=== PATIENT | male | born 1975 | race Caucasian/White ===

== ENCOUNTER 2019-08-26 17:02 | Inpatient (IN) | payer OTHER, SELFPAY ==
[2019-08-26 17:03] VITALS: BP 119/73; PULSE 102; RESP 16; TEMP 37.9; BMI 31.1
--- NOTE | 2019-08-26 17:12 | ED.DCSUM_ITS ---
History of Present Illness Chief Complaint: Wound Informant: Patient Onset: Weeks Context: Gradual Onset Timing: Continuous Current Severity: Moderate Maximum Severity: Moderate Narrative: Patient is a 44-year-old male medical history significant for type 2 diabetes who does not take any medication that presents to the emergency department with right great toe infection. The patient states that he noticed a nonhealing wound on his toe about 2 months ago. He states over the past 3 weeks, the toe itself is gotten more painful, red, and swollen. For the past week, he has begun to have chills, fever, and sweats. He denies any cough. He states by the end of the day, his pain is rather significant, but if he elevates the toe, the swelling does reduce. He went to urgent care today and was referred here. Prior similar symptoms: No Recent Illness/Hospitalization: No Past Medical History - Allergies and Home Meds Allergies/Adverse Reactions: Allergies No Known Allergies Allergy (Verified 08/26/19 17:06) Primary Care Physician: Say Prather DO [Primary Care Provider] - Prior records reviewed: Yes Past Medical History: - - Type 2 diabetes Surgical History: noncontributory - Family History Maternal Family History: Reports: No pertinent history Paternal Family History: Reports: No pertinent history Review of Systems General: Reports: Chills, Fever. Denies: Sweats Eyes: Denies: Visual changes - bilaterally, Diplopia ENT: Denies: Rhinorrhea, Sore throat Cardiovascular: Denies: Chest pain, Palpitations Respiratory: Denies: Dyspnea, Cough, Dyspnea on exertion Gastrointestinal: Denies: Abdominal pain, Nausea, Vomiting, Diarrhea, Melena, Hematochezia Genitourinary: Denies: Dysuria, Hematuria, Frequency Musculoskeletal: Denies: Back pain, Extremity Pain Skin: Denies: Rash, Wounds Neurological: Denies: Headache, Weakness, Numbness Physical Exam Vital Signs/Narrative: Vital Signs Temp Pulse Resp BP 08/26/19 17:03 100.3 F H 102 H 16 119/73 Inital Vital Signs reviewed: Yes General: Well nourished, Well developed, No Acute Distress Head: Normocephalic, Atraumatic Eyes: Perrl, EOMI ENT: Moist mucous membranes, No rhinorrhea Neck: Supple, Nontender Cardiovascular: Regular rate, Regular rhythm, No murmurs Respiratory: No distress, CTA bilaterally, Chest nontender Abdomen: Soft, Nontender, Nondistended, Normal bowel sounds Back: Nontender, Normal Inspection Extremities: Tenderness - Patient has a 1.5 cm ulceration on the plantar aspect of the foot. The right first toe is cellulitic with circumferential edema. He has normal pulses., Edema Skin: Normal color, No rash Neurological: Alert, Oriented x3, Cranial nerves II-XII grossly intact, Normal Strength, Normal Sensation Psychological: Normal affect, Normal Mood Diagnostic/Tx/Re-eval Clinical Impression(s) from Imaging Studies Foot X-Ray 08/26/19 17:20 IMPRESSION: Erosions in the distal aspect of the proximal phalanx of the first toe with overlying soft tissue swelling. Associated intra-articular fracture. In the absence of trauma, these findings are suspicious for osteomyelitis with an associated pathologic fracture. Electronically Signed: Maury Mccray, at 17:51 EDT Tel , Service support , Abnormal Lab Results 08/26/19 08/26/19 08/26/19 17:30 17:30 17:30 WBC 5.3 RBC 4.61 Hgb 12.6 L Hct 38.1 L MCV 82.6 MCH 27.3 MCHC 33.1 RDW Std Deviation 37.2 RDW Coeff of Kristal 12.4 Plt Count 245 MPV 9.4 Immature Gran % (Auto) 0.400 Neut % (Auto) 68.7 Lymph % (Auto) 18.4 L [place] % (Auto) 11.2 H Eos % (Auto) 1.1 Baso % (Auto) 0.2 Absolute Neuts (auto) 3.7 Absolute Lymphs (auto) 0.98 Nucleated RBC % 0 ESR 43 H PT 13.3 INR 1.1 APTT 28.1 Sodium 134 L Potassium 4.0 Chloride 100 Carbon Dioxide 27.0 Anion Gap 7 BUN 9 Creatinine 0.82 Estim Creat Clear Calc 138.20 Est GFR (MDRD) Af Amer 130 Est GFR (MDRD) Non-Af 107 BUN/Creatinine Ratio 11.0 Glucose 325 H Lactic Acid Calcium 8.8 Total Bilirubin 0.60 AST 16 ALT 52 Alkaline Phosphatase 67 C-React Prot Ext Range 125.00 H Total Protein 7.4 Albumin 3.2 Globulin 4.2 Albumin/Globulin Ratio 0.8 L 08/26/19 17:30 WBC RBC Hgb Hct MCV MCH MCHC RDW Std Deviation RDW Coeff of Kristal Plt Count MPV Immature Gran % (Auto) Neut % (Auto) Lymph % (Auto) [place] % (Auto) Eos % (Auto) Baso % (Auto) Absolute Neuts (auto) Absolute Lymphs (auto) Nucleated RBC % ESR PT INR APTT Sodium Potassium Chloride Carbon Dioxide Anion Gap BUN Creatinine Estim Creat Clear Calc Est GFR (MDRD) Af Amer Est GFR (MDRD) Non-Af BUN/Creatinine Ratio Glucose Lactic Acid 1.0 Calcium Total Bilirubin AST ALT Alkaline Phosphatase C-React Prot Ext Range Total Protein Albumin Globulin Albumin/Globulin Ratio - Medical Decision Making Patient presents with circumferential toe edema with a nonhealing wound. I was concerned for osteomyelitis. He did have low-grade fever here in triage. Metabolic work-up was pursued along with sepsis work-up. Screening labs are relatively unremarkable except for hyperglycemia. There is a normal anion gap. Lactic acid was negative. X-rays do confirm changes consistent with osteomyelitis of the right first toe. The patient was started on broad-spectrum antibiotics. I did discuss his case with both podiatry and the hospitalist and he will be admitted at this time. Impression 1. Osteomyelitis right first toe ED Disposition - Plan for ED Patient: Referrals: Say Prather DO [Primary Care Provider] -
--- NOTE | 2019-08-26 17:20 | RAD_ITS ---
STUDY: X-RAY - RIGHT FOOT CLINICAL: Male, 44 years old. First toe infection TECHNIQUE: 3 view(s) of the foot. COMPARISON: None. FINDINGS: There are erosions in the proximal phalanx of the left first toe with overlying soft tissue swelling. There is an associated intra-articular fracture. The remainder of the visualized osseous structures are intact. There are no radiodense foreign bodies. RAD/Foot min 3 Views IMPRESSION: Erosions in the distal aspect of the proximal phalanx of the first toe with overlying soft tissue swelling. Associated intra-articular fracture. In the absence of trauma, these findings are suspicious for osteomyelitis with an associated pathologic fracture. Electronically Signed: Maury Mccray, at 17:51 EDT Tel , Service support ,
[2019-08-26] MEDS: Acetaminophen 500 MG Tablet 1000 MG PO (17:37)
[2019-08-26] MEDS: Morphine 4 MG/ML Syringe IV (17:37)
[2019-08-26] MEDS: 0.9% Normal Saline 1,000 ML 1000 ML IV (17:39)
[2019-08-26 17:46] LABS: Absolute Lymphocyte Count 0.98 X10^3/uL (0.83-4.51); Absolute Neutrophil Count 3.7 X10^3/uL (2.0-7.7); Basophil# 0.01 X10^3/uL; Basophil% 0.2 % (0-1); Eosinophil# 0.06 X10^3/uL; Eosinophils% 1.1 % (0-5); Hematocrit 38.1 % (40-54); Hemoglobin 12.6 g/dL (13.0-16.5); Lymphocyte # 0.98 X10^3/ul (4.0); Lymphocyte % 18.4 % (19-41); Mean Corp Hgb Conc 33.1 g/dL (32-36); Mean Corpuscular Hgb 27.3 pg (27.0-32.0); Mean Corpuscular Volume 82.6 fL (80-94); Mean Platelet Vol. 9.4 fl (6.2-12.0); Monocyte% 11.2 % (0-10); NRBC Flagged by Analyzer 0 % (0-5); Neutrophil # 3.67 X10^3/uL (2.7-7.7); Neutrophil % 68.7 % (47-70); Platelet Count 245 K/mm3 (150-450); RBC Distribution Width CV 12.4 % (11.6-14.6); RBC Distribution Width SD 37.2 fl (35.1-43.9); Red Blood Count 4.61 M/mm3 (4.6-6.2); White Blood Count 5.3 K/mm3 (4.4-11.0)
[2019-08-26 17:49] LABS: International Normalized Ratio 1.1; Partial Thromboplast Time 28.1 Seconds (24.1-36.2); Prothrombin Time (Protime)PT. 13.3 SECONDS (11.7-14.9)
--- NOTE | 2019-08-26 17:57 | HP.PCM_ITS ---
History of Present Illness Date of Admission: 08/26/19 Chief Complaint: swollen, painful right big toe The patient is a 44 year old M with past medical history of type 2 diabetes mellitus, noncompliant with his medication. He was admitted through the ED on 08/26/2019 with a complaint of swollen right big toe for about 2 months now. To had gradually gotten swollen was very painful. He had noticed about 2 months ago that he had an ulcer in the base of the right big toe which he thought was due to a bone spur. He did not seek any care for this and ulcer gradually enlarged as well as the 2 enlargement. The lower portion of his left leg also became swollen. Pain became unbearable so he decided to come into the ED today. He denied any fever or chills nausea or vomiting, abdominal pain or diarrhea. Review of stems otherwise negative. He does remember the last time he took his diabetes medications and states he stopped taking it when he lost his insurance at his previous job and just never bothered to go back on it. In the ED, vitals were significant for temperature 100.3, pulse rate of 102 respiratory of 16 blood pressure of 119/73. Chemistry showed sodium of 134 and glucose was 325 with CRP of 125. CBC showed WBC of 5.3 and hemoglobin of 12.6. Platelets were 245. X-ray of the right foot showed erosions in the distal aspect of the proximal phalanx of the first toe with overlying soft tissue swelling and associated intra-articular fracture with findings suspicious for osteomyelitis with associated pathologic fracture. He has been admitted to be managed for right big toe osteomyelitis and poorly controlled diabetes mellitus. [] Past Medical History Allergies No Known Allergies Allergy (Verified 08/26/19 17:06) Home Medications: Ambulatory Orders Medication Instructions Recorded NK 08/26/19 Surgical History: noncontributory Psychiatric History: No pertinent psych hx Lives: Alone Smoking Status: Current every day smoker Tobacco Use: Chew Alcohol: None Drugs: None - *Family History Maternal History Items: No pertinent history Paternal History Items: No pertinent history Review of Systems Constitutional: Denies: Chills, Fever, Malaise, Weight Change HEENT: Denies: Head Aches, Sinus Congestion, Sinus Drainage Cardiovascular: Denies: Chest Pain, Palpitations Respiratory: Denies: Cough, Shortness of Breath, Shortness of breath at rest, Shortness of breath upon exertion, Sputum production Gastrointestinal: Denies: Abdominal Pain, Nausea, Vomiting Genitourinary: Denies: Dysuria Musculoskeletal: Reports: Joint swelling - right big toe swelling. Denies: Joint Pain, Joint Tenderness Skin: Denies: Rash, Wounds Neurological: Denies: Numbness, Tingling, Focal weakness Psychiatric: Denies: Anxiety, Depression, Homicidal Ideations, Suicidal Ideations Hematologic/ Lymphatic: Denies: Easy Bruising, Easy Bleeding VTE Information - Inpt Only VTE Present on Admission: No - Physical Exam Vitals/I&O's: Vital Signs Temp Pulse Resp BP 100.3 F H 102 H 16 119/73 08/26/19 17:03 08/26/19 17:03 08/26/19 17:03 08/26/19 17:03 Weight: 255 lb 8.252 oz Body Mass Index (BMI) 31.1 General: Alert, Oriented x3, Cooperative, No apparent distress HEENT: Atraumatic, PERRLA, EOMI, Normocephalic Oral: Moist Mucosa Neck: Supple, No JVD, Negative Carotid Bruits Lungs: Clear to auscultation, Normal air movement, No rhonchi, No wheeze, No rales Cardiovascular: Regular rate, Regular Rhythm, Normal S1, Normal S2, No murmurs Abdomen: Bowel Sounds Present, Soft, Non Tender, Non-Distended, No Hepato- splenomegaly Extremities: No clubbing, No cyanosis, Capillary Refill Less than 3 Seconds Musculoskeletal: - - right big toe very swollen, with ulceration at base of big toe, with ulcer oozing pus. Lymphatic: No Cervical, Supraclavicular, or Inguinal Adenopathy Neurological: Cranial nerves II-XII grossly intact, Neuro grossly intact, Motor Exam 5/5 strength throughout Psych/Mental Status: Normal Affect, Appropriate, Alert and oriented to time, place, person, mood and affect Laboratory Results 08/26/19 17:30: WBC 5.3, RBC 4.61, Hgb 12.6 L, Hct 38.1 L, MCV 82.6, MCH 27.3, MCHC 33.1, RDW Std Deviation 37.2, RDW Coeff of Kristal 12.4, Plt Count 245, MPV 9.4, Immature Gran % (Auto) 0.400, Neut % (Auto) 68.7, Lymph % (Auto) 18.4 L, [place] % (Auto) 11.2 H, Eos % (Auto) 1.1, Baso % (Auto) 0.2, Absolute Neuts (auto) 3.7, Absolute Lymphs (auto) 0.98, Nucleated RBC % 0, ESR Pending 08/26/19 17:30: PT 13.3, INR 1.1, APTT 28.1 08/26/19 17:30: Sodium Pending, Potassium Pending, Chloride Pending, Carbon Dioxide Pending, Anion Gap Pending, BUN Pending, Creatinine Pending, Est GFR (MDRD) Af Amer Pending, Est GFR (MDRD) Non-Af Pending, BUN/Creatinine Ratio Pending, Glucose Pending, Calcium Pending, Total Bilirubin Pending, AST Pending, ALT Pending, Alkaline Phosphatase Pending, C-React Prot Ext Range Pending, Total Protein Pending, Albumin Pending 08/26/19 17:30: Lactic Acid Pending Diagnostic Data Foot X-Ray 08/26/19 17:20 IMPRESSION: Erosions in the distal aspect of the proximal phalanx of the first toe with overlying soft tissue swelling. Associated intra-articular fracture. In the absence of trauma, these findings are suspicious for osteomyelitis with an associated pathologic fracture. Electronically Signed: Maury Shazia, at 17:51 EDT Tel , Service support , Current Medications Sodium Chloride () 1,000 mls @ 1,000 mls/hr IV .Q1H ONE Stop: 08/26/19 18:09 Last Admin: 08/26/19 17:39 Dose: 1,000 mls/hr Documented by: Assessment/Plan 44 y/o admitted with a complaint of swollen and painful right great toe 1. osteomyelitis and cellulitis of the right great toe * admit to Med surg with telemetry * X-rays of the foot showed erosion in the distal aspect of the proximal phalanx of the first toe with associated overlying soft tissue swelling and as sociated intra-articular fracture with findings suspicious for osteomyelitis with an associated pathologic fracture. * give IV vancomycin and IV zosyn * get blood cultures * consult ID nad podiatry- Dr Yeh already informed by ED * get MRI of the right foot. * 2. Type 2 diabetes mellitus complicated by neuropathy * Patient not compliant with his medication; mal jade the last time he took his diabetes meds, and cortez even know what meds he takes * check A1C * ISS, accuchecks ACHS * start on metformin 100mg bid for now, until A1C is received * DVT prophylaxis; lovenox COde status: full code * Patient counseled extensively about different types of CODE STATUS including full code, DNR CCA and DNR CCA. Patient elects to be full code. * Total zjry-ej-hnea time 16 minutes. Inpatient E&M: 30728 Init Hosp L3 Procedures: 50748 Advncd Care Plan 30 Min
--- NOTE | 2019-08-26 17:57 | NURSING ---
DR JENNIFER VILLAGOMEZ
[2019-08-26 17:58] LABS: Erythrocyte Sedimentation Rate 43 mm/hr (0-15)
[2019-08-26 18:00] LABS: ALB/GLOB Ratio 0.8 RATIO (0.9-2.4); AST(SGOT) 16 U/L (15-37); Alanine Aminotransfer ALT/SGPT 52 U/L (16-61); Albumin, Serum 3.2 g/dL (3.2-5.0); Alkaline Phosphatase 67 U/L (45-117); Anion Gap 7 (5-15); BUN 9 mg/dL (7-18); Calcium,Total 8.8 mg/dL (8.5-10.1); Chloride 100 mmol/L (98-107); Creatinine, Serum 0.82 mg/dL (0.70-1.30); EST Glomerular Filtration Rate 107 mL/min (>60); Est Glom Filt Rate - Afr Amer 130 mL/min (>60); Globulin 4.2 g/dL (2.2-4.2); Glucose 325 mg/dL (74-106); Protein, Total 7.4 g/dL (6.4-8.2); Sodium Level 134 mmol/L (136-145)
--- NOTE | 2019-08-26 18:06 | NURSING ---
MED SURG KORAM OSTEOMYELITIS OF THE RIGHT TOE
[2019-08-26 19:19] VITALS: BMI 31.3
[2019-08-26 19:20] VITALS: BP 152/76; PULSE 71; RESP 16; TEMP 36.9; O2SAT 100
[2019-08-26 19:24] VITALS: BMI 31.3
--- NOTE | 2019-08-26 20:44 | PCM.RX.CS ---
Consult Pharmacy has been consulted to manage selected antiobiotic: Vancomycin Type of Consult: New start Labs: Sodium 134 mmol/L (136-145) L 08/26/19 17:30 Potassium 4.0 mmol/L (3.5-5.1) 08/26/19 17:30 Chloride 100 mmol/L (98-107) 08/26/19 17:30 Carbon Dioxide 27.0 mmol/L (21.0-32.0) 08/26/19 17:30 Anion Gap 7 (5-15) 08/26/19 17:30 BUN 9 mg/dL (7-18) 08/26/19 17:30 Creatinine 0.82 mg/dL (0.70-1.30) 08/26/19 17:30 Est GFR (MDRD) Af Amer 130 mL/min (>60) 08/26/19 17:30 Est GFR (MDRD) Non-Af 107 mL/min (>60) 08/26/19 17:30 BUN/Creatinine Ratio 11.0 RATIO (10-20) 08/26/19 17:30 Glucose 325 mg/dL (74-106) H 08/26/19 17:30 Weight used for dosin kg Estimated Creatinine Clearance: > 100 Goal Trough: 15-20 mcg/mL Pharmacy Plan for Drug Dosing: Vancomycin 1500mg IV q8 with trough prior to 5th dose per policy. Pharmacy Service will continue to monitor and adjust dosing as required. Follow-Up Labs: Trough Vancomycin - 08/27 @ 2309
[2019-08-26 21:34] LABS: M R Staph aureus DNA By PCR Negative (Negative); Probe Check PASS; Staph aureus DNA By PCR POSITIVE (Negative)
--- NOTE | 2019-08-26 21:42 | PCM.CONS.GEN ---
Reason for Consult Date of Consultation: 08/26/19 Reason for Consultation: Right 1st toe infection History of Present Illness: The patient is a 44 year old gentleman with history of uncontrolled diabetes presented to ER today for right 1st toe infection. Patient relates he has been trying to care for wound on right 1st toe himself, relates infection started 1-2 weeks ago, he relates he delayed coming in. Toe is red and very swollen, xrays consistent with osteomyelitis. Patient relates there is some throbbing to the 1st toe. He relates he has history of bone spurs to the toes which were removed about 3 years ago. 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 Patient relates he chews tobacco. Past Medical History Allergies No Known Allergies Allergy (Verified 08/26/19 17:06) Home Medications: Ambulatory Orders Medication Instructions Recorded Loratadine/Pseudo 240/10 1 tab PO DAILY 08/26/19 [Claritin-D 24 Hr] Surgical History: noncontributory Psychiatric History: No pertinent psych hx Lives: Alone Smoking Status: Never smoker Tobacco Use: Chew Alcohol: None Drugs: None - *Family History Maternal History Items: No pertinent history Paternal History Items: No pertinent history Review of Systems Constitutional: Denies: Chills, Fever Gastrointestinal: Denies: Nausea, Vomiting - Physical Exam Vitals/I&O's: Vital Signs Temp Pulse Resp BP Pulse Ox 98.5 F 71 16 152/76 H 100 08/26/19 19:20 08/26/19 19:20 08/26/19 19:20 08/26/19 19:20 08/26/19 19:20 Oxygen Delivery Method Room Air Weight: 116.8 kg Body Mass Index (BMI) 31.3 Intake and Output for Last 24 Hours 08/24/19 08/25/19 08/26/19 23:59 23:59 23:59 Intake Total 1100 / 1100 Balance 1100 / 1100 General: Alert, Oriented x3, Cooperative, No apparent distress Extremities: Capillary Refill Less than 3 Seconds, No Calf Tenderness, Edema - significant edema to the right 1st toe, edema to the right foot/ankle and leg c/w infection, no left foot/ankle or leg edema, Peripheral Pulses Normal, - - Right 1st toe with erythema and significant edema, there is a celso sized ulceration plantar IPJ which probes to bone and joint, there is purulent drainage, there is no streaking, no significant POP or pain on ROM to the foot or ankle. No open lesions to the left foot or ankle. Sensation significantly diminished c/w peripheral neuropathy bilateral foot/ankle. Musculoskeletal: No Tenderness to Palpation of Joints or Extremities Psych/Mental Status: Normal Affect, Alert and oriented to time, place, person, mood and affect Laboratory Results 08/26/19 17:30: WBC 5.3, RBC 4.61, Hgb 12.6 L, Hct 38.1 L, MCV 82.6, MCH 27.3, MCHC 33.1, RDW Std Deviation 37.2, RDW Coeff of Kristal 12.4, Plt Count 245, MPV 9.4, Immature Gran % (Auto) 0.400, Neut % (Auto) 68.7, Lymph % (Auto) 18.4 L, [place] % (Auto) 11.2 H, Eos % (Auto) 1.1, Baso % (Auto) 0.2, Absolute Neuts (auto) 3.7, Absolute Lymphs (auto) 0.98, Nucleated RBC % 0, ESR 43 H 08/26/19 17:30: PT 13.3, INR 1.1, APTT 28.1 08/26/19 17:30: Sodium 134 L, Potassium 4.0, Chloride 100, Carbon Dioxide 27.0, Anion Gap 7, BUN 9, Creatinine 0.82, Estim Creat Clear Calc 138.20, Est GFR (MDRD) Af Amer 130, Est GFR (MDRD) Non-Af 107, BUN/Creatinine Ratio 11.0, Glucose 325 H, Calcium 8.8, Total Bilirubin 0.60, AST 16, ALT 52, Alkaline Phosphatase 67, C-React Prot Ext Range 125.00 H, Total Protein 7.4, Albumin 3.2, Globulin 4.2, Albumin/Globulin Ratio 0.8 L 08/26/19 17:30: Lactic Acid 1.0 08/26/19 19:28: COVID-19 ([facility]) Pending 08/26/19 19:45: S.aureus Protein A PCR POSITIVE H, MRSA (PCR) Negative Current Medications Acetaminophen (Tylenol) 650 mg PO Q6H PRN PRN PRN Reason: Pain Score 1-3 /Temp>100.7 Dextrose (D50w Syringe) 0 gm IV X1 PRN; Protocol PRN Reason: Hypoglycemia Enoxaparin Sodium (Lovenox) 40 mg SC DAILY ASHLEY Glucagon () 1 mg IM .X1 PRN PRN Reason: Hypoglycemia Vancomycin IV Pharmacy to Dose (1 ea/ Sodium Chloride) 500 mls @ 250 mls/hr IV X1 PRN; Protocol PRN Reason: Rx to Dose Piperacillin Sod/Tazobactam (Sod 3.375 gm/ Sodium Chloride) 50 mls @ 12.5 mls/hr IV Q8 ASHLEY Sodium Chloride () 250 mls @ 15 mls/hr IV .[id number] PRN PRN Reason: Saline Flush Sodium Chloride () 250 mls @ 15 mls/hr IV .[id number] PRN PRN Reason: Additional IVPB Infusion Vancomycin HCl 1,500 mg/ (Sodium Chloride) 530 mls @ 250 mls/hr IV Q8H ASHLEY Insulin Human Lispro (Humalog Kwikpen (Bkc)) 0 unit SC ACHS ASHLEY; Protocol Iopamidol (Contrast Allergy Check) 0 ml IV X1 ASHLEY Last Admin: 08/26/19 20:12 Dose: Not Given Documented by: Morphine Sulfate () 2 mg IV Q3H PRN PRN PRN Reason: Pain Score 6-10/10 Nutritional Formula (Lactose Free) (Glucerna Shake) 120 ml PO 4X/DAY [facility] Ondansetron HCl (Zofran) 4 mg IV Q8H PRN PRN PRN Reason: NAUSEA/VOMITING Sodium Chloride () 10 - 40 ml IV UD PRN PRN Reason: SALINE FLUSH Assessment/Plan Right 1st toe osteomyelitis Uncontrolled Diabetes w/ peripheral neuropathy Tobacco Use Reviewed diagnotic data. Reviewed findings with patient. Given the severity of the infection with xray changes we discussed debridement of all nonviable, infected and necrotic soft tissue and bone w/ amputation right 1st toe. Reviewed procedure, rationale of procedure, benefits vs risks, goals, expectations and estimated healing time. Patient agrees with proceeding with procedure. We will add this on for tomorrow. NPO after midnight. Advised patient he will need to be nonweightbearing to the right foot. Patient has been started on IV antibiotic therapy, a culture of the toe ulceration has been obtained. Noninvasive lower extremity arterial studies have been ordered due to diabetes and tobacco use w/ foot ulceration/infection. Reviewed importance of proper blood sugar control, as well as tobacco cessation to help optimize healing. Podiatry will continue to follow, thank you for consult. Procedure Criteria Risk to Patient if Procedure Delayed: Threat of permanent dysfunction of an extremity or organ if delayed
--- NOTE | 2019-08-26 21:54 | ART_ITS ---
Reason For Study: Ulcer Procedure A bilateral lower extremity continuous wave Doppler with analog waveform analysis,segmental pressures,and ankle brachial indexes without exercise. Left Segmental Pressures Left brachial= 125mmHg. Left posterior tibial artery = 178mmHg. Left dorsalis pedis artery = 178mmHg. Left digit = 120 mmHg. The left dorsalis pedis waveforms are triphasic. The left posterior tibial artery waveforms are triphasic. Right Segmental Pressures Right brachial= 134mmHg. Right posterior tibial artery = 186mmHg. Right dorsalis pedis artery = 177mmHg. The right dorsalis pedis waveforms are triphasic. The right posterior tibial artery waveforms are triphasic. Indices The right ankle brachial index by the dorsalis pedis is 1.32. The right ankle brachial index by the posterior tibial artery is 1.39. The left ankle brachial index by the dorsalis pedis is 1.33. The left ankle brachial index by the posterior tibial artery is 1.33. The left digital-brachial index is 0.90. Interpretation Summary Resting ankle-brachial indices appear bilaterally normal. Bilateral posterior tibial and dorsalis pedis Doppler waveforms normal and triphasic Right digital brachial indices not obtained secondary to wound care. Left digital brachial index normal 0.9 Ordering Physician: Lex Yeh Referring Physician: Say Prather Performed By: Ning Mccord RVT
[2019-08-26] MEDS: Insulin Lispro 100 UNIT/ML INSULN.PEN SC (21:58)
[2019-08-26 22:40] LABS: Hemoglobin A1c 11.9 % (3.8-5.6)
[2019-08-26 22:45] LABS: Bedside Glucose 250 mg/dL (70-110)
[2019-08-26] MEDS: Morphine 2 MG/ML Syringe IV (22:48)
[2019-08-26] MEDS: 0.9% Saline Lock 10 ML Syringe IV (22:48)
[2019-08-27] VITALS (13 sets, daily range): BP systolic 105–150; BP diastolic 57–82; PULSE 46–80; RESP 14–18; TEMP 36.2–37.3; O2SAT 96–99; BMI 31.3
--- NOTE | 2019-08-27 04:31 | EKG12_ITS ---
Test Reason : PRE OP Blood Pressure : / mmHG Vent. Rate : 070 BPM Atrial Rate : 070 BPM P-R Int : 158 ms QRS Dur : 096 ms QT Int : 390 ms P-R-T Axes : 054 -08 004 degrees QTc Int : 421 ms Poor data quality, interpretation may be adversely affected Normal sinus rhythm Normal ECG No previous ECGs available Confirmed by GIBSON CASTANON, SCHUYLER ([id number]), sound editor MISAEL MODI ([id number]) on 09/02/2019 11:32:05 AM Referred By: JENNIFER Confirmed By:SCHUYLER ARREAGA MD
[2019-08-27] MEDS: Morphine 2 MG/ML Syringe IV ×2 (05:13→19:26)
[2019-08-27] MEDS: 0.9% Saline Lock 10 ML Syringe IV (05:14)
[2019-08-27 05:40] LABS: Absolute Lymphocyte Count 1.52 X10^3/uL (0.83-4.51); Absolute Neutrophil Count 3.2 X10^3/uL (2.0-7.7); Basophil# 0.02 X10^3/uL; Basophil% 0.4 % (0-1); Eosinophils% 1.9 % (0-5); Hematocrit 35.4 % (40-54); Hemoglobin 11.4 g/dL (13.0-16.5); Lymphocyte # 1.52 X10^3/ul (4.0); Lymphocyte % 28.2 % (19-41); Mean Corp Hgb Conc 32.2 g/dL (32-36); Mean Corpuscular Hgb 26.8 pg (27.0-32.0); Mean Corpuscular Volume 83.1 fL (80-94); Mean Platelet Vol. 9.3 fl (6.2-12.0); Monocyte# 0.53 X10^3/uL; Monocyte% 9.8 % (0-10); NRBC Flagged by Analyzer 0 % (0-5); Neutrophil # 3.21 X10^3/uL (2.7-7.7); Neutrophil % 59.5 % (47-70); Platelet Count 232 K/mm3 (150-450); RBC Distribution Width CV 12.2 % (11.6-14.6); Red Blood Count 4.26 M/mm3 (4.6-6.2); White Blood Count 5.4 K/mm3 (4.4-11.0)
[2019-08-27 05:53] LABS: Anion Gap 6 (5-15); BUN 7 mg/dL (7-18); BUN/Creat Ratio 10.4 RATIO (10-20); Calcium,Total 8.4 mg/dL (8.5-10.1); Chloride 103 mmol/L (98-107); Creatinine, Serum 0.67 mg/dL (0.70-1.30); EST Glomerular Filtration Rate 135 mL/min (>60); Est Glom Filt Rate - Afr Amer 163 mL/min (>60); Estimated Creatinine Clearance 169.14 ml/min; Glucose 232 mg/dL (74-106); Sodium Level 137 mmol/L (136-145)
--- NOTE | 2019-08-27 05:55 | MRI_ITS ---
STUDY: MRI RIGHT MIDFOOT REASON FOR EXAM: Male, 44 years old. Osteomyelitis right great toe with plantar ulcer. TECHNIQUE: Standardized fat and water weighted pulse sequences were obtained in all 3 orthogonal planes. COMPARISON: X-ray dated August 26, 2019. FINDINGS: Acute bone destruction with abnormal T1/T2 signal and contrast enhancement at the first proximal phalanx head and first distal phalanx base. Large volume joint effusion at the first interphalangeal joint with extension to the plantar surface (sagittal image 7 series 8). Joint effusion demonstrates vigorous contrast enhancement. Mild first metatarsophalangeal joint arthrosis. Normal sesamoids. Second digit intact. Third digit intact. Fourth digit intact. Fifth digit intact. Visualized first through fifth metatarsals intact. Minimal joint space narrowing at the second through fifth digits proximal and distal interphalangeal joints. Severe muscle atrophy of the midfoot/forefoot. First through fifth flexor tendons intact with first digit flexor tenosynovitis. First through fifth extensor tendons intact. Normal Lisfranc ligament. MRI/Lower Ext No Joint W/WO Cont IMPRESSION: Acute first proximal and distal phalanx osteomyelitis with abnormal contrast enhancement Large volume first interphalangeal joint effusion with abnormal contrast enhancement (suspected septic arthritis) Diffuse enhancing soft tissue swelling/cellulitis with plantar ulceration First digit flexor tenosynovitis (potentially infectious) Severe muscle atrophy (suspected denervation) Electronically Signed: Theo Gonzalez DO at 9:47 EDT Tel , Service support ,
--- NOTE | 2019-08-27 06:00 | EKG12_ITS ---
Test Reason : PRE OP Blood Pressure : / mmHG Vent. Rate : 066 BPM Atrial Rate : 066 BPM P-R Int : 150 ms QRS Dur : 098 ms QT Int : 390 ms P-R-T Axes : 059 -08 000 degrees QTc Int : 408 ms Normal sinus rhythm Normal ECG When compared with ECG of 27-AUG-2019 04:31, MANUAL COMPARISON REQUIRED, DATA IS UNCONFIRMED Confirmed by GIBSON CASTANON, SCHUYLER ([id number]), video news editor DANG MADRIGAL ([id number]) on 09/02/2019 9:45:42 AM Referred By: JENNIFER Confirmed By:SCHUYLER ARREAGA MD
[2019-08-27] MEDS: Insulin Lispro 100 UNIT/ML INSULN.PEN SC ×4 (06:50→22:28)
[2019-08-27 06:55] LABS: Bedside Glucose 236 mg/dL (70-110)
--- NOTE | 2019-08-27 07:28 | NURSING ---
Call to MRI to let them know patient is scheduled for OR around 1230. Wanting to know if they can get his scan done prior to this. Maribell states she can scan patient around 0800. Made patient aware of same.
--- NOTE | 2019-08-27 08:15 | NURSING ---
Off unit to MRI.
--- NOTE | 2019-08-27 08:22 | PCM.PN.HOSP ---
Reason for Visit: Follow-up on osteomyelitis of the left foot Subjective: Patient was seen and examined. Denied any new complaints. Pain is fairly controlled with morphine. He will be going for surgery on the foot today. Objective: Physical exam: General: Alert, Oriented x3, Cooperative, No apparent distress HEENT: Atraumatic, PERRLA, EOMI, Normocephalic Oral: Moist Mucosa Neck: Supple, No JVD, Negative Carotid Bruits Lungs: Clear to auscultation, Normal air movement, No rhonchi, No wheeze, No rales Cardiovascular: Regular rate, Regular Rhythm, Normal S1, Normal S2, No murmurs Abdomen: Bowel Sounds Present, Soft, Non Tender, Non-Distended, No Hepato-splenomegaly Extremities: No clubbing, No cyanosis, Capillary Refill Less than 3 Seconds Musculoskeletal: - - right big toe very swollen, with ulceration at base of big toe, with ulcer oozing pus. Lymphatic: No Cervical, Supraclavicular, or Inguinal Adenopathy Neurological: Cranial nerves II-XII grossly intact, Neuro grossly intact, Motor Exam 5/5 strength throughout Psych/Mental Status: Normal Affect, Appropriate, Alert and oriented to time, place, person, mood and affect Vitals/I&O's: Vital Signs Temp Pulse Resp BP Pulse Ox 98.5 F 69 18 127/69 H 98 08/27/19 07:45 08/27/19 07:45 08/27/19 07:45 08/27/19 07:45 08/27/19 07:45 Oxygen Delivery Method Room Air Weight: 116.8 kg Body Mass Index (BMI) 31.3 Intake and Output for Last 24 Hours 08/25/19 08/26/19 08/27/19 23:59 23:59 23:59 Intake Total 1630 / 2630 2097.71 / 2097.71 Output Total 1000 / 1000 Balance 1630 / 2630 1097.71 / 1097.71 Laboratory Results 08/26/19 17:30: WBC 5.3, RBC 4.61, Hgb 12.6 L, Hct 38.1 L, MCV 82.6, MCH 27.3, MCHC 33.1, RDW Std Deviation 37.2, RDW Coeff of Kristal 12.4, Plt Count 245, MPV 9.4, Immature Gran % (Auto) 0.400, Neut % (Auto) 68.7, Lymph % (Auto) 18.4 L, Lea % (Auto) 11.2 H, Eos % (Auto) 1.1, Baso % (Auto) 0.2, Absolute Neuts (auto) 3.7, Absolute Lymphs (auto) 0.98, Nucleated RBC % 0, ESR 43 H 08/26/19 17:30: PT 13.3, INR 1.1, APTT 28.1 08/26/19 17:30: Sodium 134 L, Potassium 4.0, Chloride 100, Carbon Dioxide 27.0, Anion Gap 7, BUN 9, Creatinine 0.82, Estim Creat Clear Calc 138.20, Est GFR (MDRD) Af Amer 130, Est GFR (MDRD) Non-Af 107, BUN/Creatinine Ratio 11.0, Glucose 325 H, Calcium 8.8, Total Bilirubin 0.60, AST 16, ALT 52, Alkaline Phosphatase 67, C-React Prot Ext Range 125.00 H, Total Protein 7.4, Albumin 3.2, Globulin 4.2, Albumin/Globulin Ratio 0.8 L 08/26/19 17:30: Lactic Acid 1.0 08/26/19 17:30: Hemoglobin A1c 11.9 H 08/26/19 19:28: COVID-19 ([facility]) Not Detected 08/26/19 19:45: S.aureus Protein A PCR POSITIVE H, MRSA (PCR) Negative 08/26/19 21:58: POC Glucose 250 H 08/27/19 05:20: WBC 5.4, RBC 4.26 L, Hgb 11.4 L, Hct 35.4 L, MCV 83.1, MCH 26.8 L, MCHC 32.2, RDW Std Deviation 37.0, RDW Coeff of Kristal 12.2, Plt Count 232, MPV 9.3, Immature Gran % (Auto) 0.200, Neut % (Auto) 59.5, Lymph % (Auto) 28.2, Lea % (Auto) 9.8, Eos % (Auto) 1.9, Baso % (Auto) 0.4, Absolute Neuts (auto) 3.2, Absolute Lymphs (auto) 1.52, Nucleated RBC % 0 08/27/19 05:20: Sodium 137, Potassium 4.0, Chloride 103, Carbon Dioxide 28.0, Anion Gap 6, BUN 7, Creatinine 0.67 L, Estim Creat Clear Calc 169.14, Est GFR (MDRD) Af Amer 163, Est GFR (MDRD) Non-Af 135, BUN/Creatinine Ratio 10.4, Glucose 232 H, Calcium 8.4 L 08/27/19 06:49: POC Glucose 236 H Current Medications Acetaminophen (Tylenol) 650 mg PO Q6H PRN PRN PRN Reason: Pain Score 1-3 /Temp>100.7 Dextrose (D50w Syringe) 0 gm IV X1 PRN; Protocol PRN Reason: Hypoglycemia Enoxaparin Sodium (Lovenox) 40 mg SC DAILY [facility] Glucagon () 1 mg IM .X1 PRN PRN Reason: Hypoglycemia Vancomycin IV Pharmacy to Dose (1 ea/ Sodium Chloride) 500 mls @ 250 mls/hr IV X1 PRN; Protocol PRN Reason: Rx to Dose Piperacillin Sod/Tazobactam (Sod 3.375 gm/ Sodium Chloride) 50 mls @ 12.5 mls/hr IV Q8 [facility] Last Infusion: 08/27/19 08:12 Dose: 0 mls/hr Documented by: Sodium Chloride () 250 mls @ 15 mls/hr IV .[id number] PRN PRN Reason: Saline Flush Sodium Chloride () 250 mls @ 15 mls/hr IV .[id number] PRN PRN Reason: Additional IVPB Infusion Vancomycin HCl 1,500 mg/ (Sodium Chloride) 530 mls @ 250 mls/hr IV Q8H [facility] Last Infusion: 08/27/19 06:58 Dose: Infused Documented by: Insulin Human Lispro (Humalog Kwikpen (Bkc)) 0 unit SC ACHS [facility]; Protocol Last Admin: 08/27/19 06:50 Dose: 4 units Documented by: Iopamidol (Contrast Allergy Check) 0 ml IV X1 [facility] Last Admin: 08/26/19 20:12 Dose: Not Given Documented by: Morphine Sulfate () 2 mg IV Q3H PRN PRN PRN Reason: Pain Score 6-10 Last Admin: 08/27/19 05:13 Dose: 2 mg Documented by: Nutritional Formula (Lactose Free) (Glucerna Shake) 120 ml PO 4X/DAY [facility] Last Admin: 08/26/19 22:05 Dose: Not Given Documented by: Ondansetron HCl (Zofran) 4 mg IV Q8H PRN PRN PRN Reason: NAUSEA/VOMITING Sodium Chloride () 10 - 40 ml IV UD PRN PRN Reason: SALINE FLUSH Last Admin: 08/27/19 05:14 Dose: 10 ml Documented by: STROKE Vital Signs/Narrative: Vital Signs Temp Pulse Resp BP Pulse Ox 08/27/19 07:45 98.5 F 69 18 127/69 H 98 08/27/19 05:19 98.8 F 79 16 128/76 H 98 Medical Necessity - Tobacco Use Smoking Status: Never smoker Tobacco Use: Chew Assessment/Plan 1. Osteomyelitis/cellulitis of the right great toe, I of the foot confirms acute first proximal and distal phalanx osteomyelitis with soft tissue cellulitis with plantar ulceration Podiatry consulted, Going for surgery today Continue on IV vancomycin and Zosyn 2. Type II DM, uncontrolled, complicated with neuropathy, HgbA1c is 11.9 Started on Lantus 10 units daily, continue metformin and insulin sliding scale 3. DVT prophylaxis with Lovenox subcu Inpatient E&M: 14738 Subs Hosp L2
[2019-08-27 11:06] LABS: Bedside Glucose 192 mg/dL (70-110)
--- NOTE | 2019-08-27 11:15 | NURSING ---
1200 vanc sent down to AC on chart with patient.
--- NOTE | 2019-08-27 11:17 | NURSING ---
Off unit to OR at this time.
[2019-08-27] MEDS: Lactated Ringers 1,000 ML 100 ML IV ×2 (12:09→22:36)
--- NOTE | 2019-08-27 12:19 | CASEMGMT ---
RN CM NOTE: To room to complete RN CM initial assessment. Pt is at surgery. Unable to complete at this time. CM to attempt at a later time. Odalys BSN RN CM
--- NOTE | 2019-08-27 12:30 | AMP_PTH ---
PATIENT: LISBET GREENBERG LOC: [facility]3 U#:[id number] AGE/SX: 44/M ROOM: [facility]318 RE08/26/[address]: Dr. Naldo Soto MD : 1975 BED: 1 DIS: 09/02/2019 SPEC #: [id number] RECD: 08/27/19 13:44 STATUS: SAGE REQ #: [id number] LIUDMILA: 08/27/19 12:[address]: Lex Yeh DEPT: SURGICAL PATHOLOGY RECD BY: Rajesh Jay ENTERED: 08/28/19 08:17 SP TYPE: Amputation OTHR DR: MD Dr. Eryn Gonzalez MD Dr. Robert Leininger, MD Dr. Robert Lindsay, DO Tissues: A - Toe, NOS B - Bone of foot, NOS Procedures: Decalcification bone/plaque Surgery Specimen Level IV Comments: @ Ordering doctor for DEC edited from to @ by DAVID at 08/28/19817 @ Ordering doctor for SUIII edited from to @ by DAVID at 08/28/19817 @ Ordering doctor for SUIV edited from to @ by DAVID at 08/28/19 08 @ Submitting doctor edited from to @ by DAVID at 08/28/19817 HEADER OPERATION: Amputation toe, first PRE-OP DIAGNOSIS: Osteomyelitis and cellulitis of right great toe TISSUE SUBMITTED: A - Right first toe amputated, B - Clearance fragment first toe right MICROSCOPIC DIAGNOSIS A. Right first toe, amputation: Skin and soft tissue with ulceration and associated acute and chronic inflammation and granulation. Bone with acute osteomyelitis. B. Clearance fragment bone, first toe, biopsy: Chronic change. Focal acute osteomyelitis. AM:weston 09/03/19 COMMENT Case has been reviewed in consultation with Dr. Sow who concurs with the above diagnosis. IDC:MATEUS MICROSCOPIC DESCRIPTION Slides are reviewed. GROSS DESCRIPTION A - Received in fixative is one container labeled with the patient's name and designated right first toe amputated. The specimen consists of a portion of toe measuring 6 x 4.5 x 4 cm. A focal area of ulceration is noted close to the resection margin measuring 1.5 cm in greatest dimension. Also present in the container are detached pieces of skin with underlying tissue measuring in aggregate 6 x 7 x 2 cm. Also present in the container is a detached piece of bone measuring 2 x 2 x 1.5 cm. Plant Cytologist sections are submitted in four cassettes as follows: 1 & 2 - area of ulceration, 3 - bone from toe, 4??detached portion of toe. Cassettes 3 & 4 are submitted after decalcification. B - Received in fixative is one container labeled with the patient's name and designated clearance fragment first toe right. The specimen consists of a fragment of bone measuring 0.8 x 0.2 x 0.1 cm. The entire specimen is submitted in one cassette after decalcification. / MATEUS:weston 08/28/19 TC:5 CPT: 53125 x2, 11475
[2019-08-27] MEDS: Bupivacaine Mpf 0.5% 30 ML VIAL (12:43)
--- NOTE | 2019-08-27 13:35 | PCM.OPRPT ---
Report of Operation Date of Procedure: 08/27/19 Pre-Operative Diagnosis: Ulcer down to necrotic bone w/ osteomyelitis right 1st toe Post-Operative Diagnosis: Same Surgery/Procedure Performed:: Debridement of all nonviable, infected and necrotic soft tissue and bone w/ 1st toe amputation, right foot doll wigs hackler: None Type of Anesthesia:: Local MAC Specimen's removed: Right: 1. Debrided tissue from right 1st toe sent to pathology. 2. Bone culture from 1st toe sent to microbiology. 3. Clearance fragment from 1st toe proximal phalanx base sent to pathology and microbiology. Description of Procedure: Indications: The patient is a 44 year old gentleman who has ulceration to the plantar right 1st toe at level of the interphalangeal joint (IPJ) which probes to necrotic bone, there is osteomyelitis to the right 1st toe on xray and MRI. There is severe edema to the 1st toe with erythema and purulent drainage. Patient relates he has has a wound for quite some time, but turned infected about 1.5-2 weeks ago - he relates he was trying to care for it himself but has been worsening. Patient can to ER for further evaluation, he was admitted and started on IV antibiotics. Due to the severity of the infection he elected to proceed with surgical debridement/amputation of the toe.This was discussed in great detail. This was discussed with him in detail, reviewed the possible benefits vs risks. He were advised the risks include, but are not limited to pain, further infections, need for further surgery, nonhealing, delay healing, scarring, poor cosmetic result, numbness, weakness, loss of function, complex regional pain syndrome, blood clots, loss of limb, loss of life. Patient expressed understanding and agreement, and able to repeat back, all questions were answered. The consent form was reviewed and it was freely signed. No guaranties were given nor implied. Operative Procedure: The patient was brought into the operating room, and was place on the operating room table in the supine position. He was carefully secured to the operating room table with a safely belt around his waist. A time out was performed, the patient was properly identified and the surgical plan was confirmed. Patient was already on antibiotics. A well padded pneumatic tourniquet was placed around the right ankle. The patient received MAC anesthesia per the anesthesia team, and a total of 10mL of 0.5% Marcaine plain was given as a right foot 1stray block after the skin was cleansed with 70% isopropyl alcohol. The right foot was scrubbed, prepped and draped in the usual aseptic fashion. The right foot was exsanguinated via elevation for 3 minutes, and the right ankle pneumatic tourniquet was inflated to 250mmHg. There was noted to be a deep ulceration to the plantar 1st toe down to bone as noted above. The ulceration measured 1.3cm x 1.4cm and 1cm in depth down to necrotic bone. Using a 15 scalpel blade the ulceration was debrided in excisional fashion removing all nonviable, necrotic soft tissue and bone from the site, this involved removing the toe distal to the base of the proximal phalanx. The bone of the head of the proximal phalanx and base of the distal phalanx were noted to be nonviable, soft, yellow, fragmented, garcia and necrotic all consistent with osteomyelitis. The base of the proximal phalanx was viable appearing as it was hard, white and did not appear to be infected. A clearance fragment/bone culture was obtained from the base of the proximal phalanx and was sent to microbiology and pathology for further evaluation. The debrided distal toe was sent to pathology for further evaluation as well, along with a culture of the necrotic bone from head of the proximal phalanx being sent to microbiology for further evaluation. The site was flushed out with copious amounts of normal saline solution. All remaining tissues appeared to be healthy and viable, free of any infection. The site was again flushed out with copious amounts of normal saline solution. A flap was created with the remaining viable skin using a 15 blade, the skin edges were brought together and were reapproximated using 3-0 Prolene, leaving open medially to allow for drainage. The site was packed with 1/4in Iodoform gauze packing. The pneumatic tourniquet was deflated (total tourniquet time was 44 minutes), and there was immediate return of good vascular flow to the left foot, with normal temperature gradient and CFT < 2 seconds to the amputation site and to all remaining toes. A dressing was applied which consisted of betadine soaked adaptic, 4x4 gauze, kerlix and bee dressing. Patient tolerated the above procedure well with no complications. He was transported from the operating room to the recovery room in good condition. Post operative orders placed. Post operating instructions were reviewed with patient. Keep foot elevated, keep dressing left foot clean, dry and intact, and no weightbearing right foot. Patient will be followed as an inpatient. Post operative right foot xrays obtained in the recovery room which confirmed partial 1st toe removal, no evidence of complication or acute findings otherwise. Grafts/Implants Used: None - Complications None
--- NOTE | 2019-08-27 13:37 | RAD_ITS ---
STUDY: X-RAY - RIGHT FOOT CLINICAL: Male, 44 years old. Postoperative TECHNIQUE: 3 view(s) of the foot. COMPARISON: 08/26/2019 FINDINGS: The patient is status post amputation of the right first toe at the level of the proximal phalanx. There is no acute fracture or dislocation. There are no definite radiographic findings of osteomyelitis in the visualized osseous structures. There are no radiodense foreign bodies. RAD/Foot min 3 Views IMPRESSION: Status post amputation of the right first toe at the level of the proximal phalanx. No fracture or dislocation. Electronically Signed: Maury Mccray, at 15:13 EDT Tel , Service support ,
--- NOTE | 2019-08-27 13:46 | NURSING ---
1400 Zosyn dose sent to PACU.
--- NOTE | 2019-08-27 15:13 | NURSING ---
Gave patient's , Francesca, an update after he returned from surgery.
[2019-08-27 15:25] LABS: Bedside Glucose 165 mg/dL (70-110)
--- NOTE | 2019-08-27 15:55 | CASEMGMT ---
RN CM BARREL BRIDGE ASSEMBLER CM to room to meet with patient for initial transition planning/care coordination assessment. RN AINSLEY introduced self and role at [facility]. Pt voices understanding and consents to assessment at this time. Pt resting in bed in no distress at this time. Pt is A/O at this time and answers all questions appropriately. Care providers, pharmacy, and demographics verified/updated at this time. PCP: Dr Prather Specialists: none Preferred Pharmacy: [facility] Insurance: MMO Prescription Benefit: Yes Living Will/HPOA: Pt does not currently have LW/HCPOA and declines info at this time. Pt made aware that he can contact [facility] as an out-pt and make appt in the future if he decides he would like to do so. Given services mgr rac card LNDONTAE: , Francesca Living Arrangements: Lives with his in one-story home. 3 steps to enter w/rails. Independent. Transportation: Pt states drives self and states no transportation concerns at this time. also drives DME: Glucometer--states he has not used it in about 3 years and does not even know if it is working properly. Does not have a cane or walker. HHC/SNF: No history of either. Pt provided with information on [facility] and given Rac card w/contact information. Pt wishes to return home and states has no concerns with going home at time of discharge. CM to follow for discharge planning/needs. Pt voices no further concerns/needs at this time. Advised pt to ask for CM if any further questions/concerns/needs arise. Voices understanding. PLAN: Home. Follow for wound care, possible need of IV atb's. May need new script for Glucometer and supplies. PT/OT evals pending. Follow for any DME needs. Odalys CHANGN CHRISTOPHER CM
[2019-08-27] MEDS: Juven (unflavored) Packet 1 PACKET PO (17:52)
[2019-08-27 18:01] LABS: Bedside Glucose 242 mg/dL (70-110)
[2019-08-27 22:55] LABS: Bedside Glucose 252 mg/dL (70-110)
--- NOTE | 2019-08-28 03:24 | NURSING ---
spoke to lab they are aware pt has a vanc trough @ [id number]
[2019-08-28] MEDS: Acetaminophen 325 MG Tablet 650 MG PO (03:52)
[2019-08-28 03:55] VITALS: BP 138/70; PULSE 63; RESP 16; TEMP 36.8; O2SAT 100
[2019-08-28 04:02] LABS: Vancomycin, Trough Level 19.6 ug/mL (5.0-15.0)
--- NOTE | 2019-08-28 04:08 | PCM.RX.CS ---
Consult Pharmacy has been consulted to manage selected antiobiotic: Vancomycin Type of Consult: Follow-up Suspected Infection: Osteomyelitis Prior Doses of Antibiotics Received/Current Regimen: Medications Vancomycin HCl 1,500 mg/ (Sodium Chloride) 530 mls @ 250 mls/hr IV Q8H [facility] Last Admin: 08/28/19 03:49 Dose: 250 mls/hr Labs: Sodium 137 mmol/L (136-145) 08/27/19 05:20 Potassium 4.0 mmol/L (3.5-5.1) 08/27/19 05:20 Chloride 103 mmol/L (98-107) 08/27/19 05:20 Carbon Dioxide 28.0 mmol/L (21.0-32.0) 08/27/19 05:20 Anion Gap 6 (5-15) 08/27/19 05:20 BUN 7 mg/dL (7-18) 08/27/19 05:20 Creatinine 0.67 mg/dL (0.70-1.30) L 08/27/19 05:20 Est GFR (MDRD) Af Amer 163 mL/min (>60) 08/27/19 05:20 Est GFR (MDRD) Non-Af 135 mL/min (>60) 08/27/19 05:20 BUN/Creatinine Ratio 10.4 RATIO (10-20) 08/27/19 05:20 Glucose 232 mg/dL (74-106) H 08/27/19 05:20 Vancomycin Trough 19.6 ug/mL (5.0-15.0) H 08/28/19 03:40 Weight used for dosin kg Estimated Creatinine Clearance: >100 Goal Trough: 15-20 mcg/mL Pharmacy Plan for Drug Dosing: Trough level of 19.6 was within the target range of 15-20. Will continue same dosing and re-draw trough in 4 days. Pharmacy Service will continue to monitor and adjust dosing as required. Follow-Up Labs: Trough Vancomycin Labs to be done on [date and time ordered]: 09/01/19 @8023
[2019-08-28] MEDS: Insulin Lispro 100 UNIT/ML INSULN.PEN SC ×4 (06:26→22:05)
[2019-08-28 06:40] LABS: Bedside Glucose 240 mg/dL (70-110)
[2019-08-28 07:35] VITALS: BP 137/78; PULSE 53; RESP 14; TEMP 36.7; O2SAT 99
[2019-08-28] MEDS: Juven (unflavored) Packet 1 PACKET PO ×2 (07:49→17:13)
--- NOTE | 2019-08-28 08:24 | PCM.PROGNOTE ---
Subjective: Patient was seen this morning for follow up on debridement/amputation right 1st toe. He relates he is doing well, no complaints, no f/c/n/v. He is resting comfortably in bed. - Physical Exam Vitals/I&O's: Vital Signs Temp Pulse Resp BP Pulse Ox 98.1 F 53 L 14 137/78 H 99 08/28/19 07:35 08/28/19 07:35 08/28/19 07:35 08/28/19 07:35 08/28/19 07:35 Oxygen Delivery Method Room Air Weight: 116.8 kg Body Mass Index (BMI) 31.3 Intake and Output for Last 24 Hours 08/26/19 08/27/19 08/28/19 23:59 23:59 23:59 Intake Total 1630 / 2630 5971.66 / 5971.66 2207.00 / 2207.00 Output Total 3000 / 3000 1500 / 1500 Balance 1630 / 2630 2971.66 / 2971.66 707.00 / 707.00 General: Alert, Oriented x3, Cooperative, No apparent distress Extremities: No cyanosis, Capillary Refill Less than 3 Seconds, No Calf Tenderness, Peripheral Pulses Normal, - - s/p resectio nof 1st toe to base of the proximal phalanx, tissues viable, no necrosis, no purulence, no visible abscess, minimal to no residual cellulitis - less edema noted, no maloder, no crepitus, no fluctuance. Laboratory Results 08/27/19 10:59: POC Glucose 192 H 08/27/19 15:17: POC Glucose 165 H 08/27/19 17:50: POC Glucose 242 H 08/27/19 22:24: POC Glucose 252 H 08/28/19 03:40: Vancomycin Trough 19.6 H 08/28/19 06:25: POC Glucose 240 H Current Medications Acetaminophen (Tylenol) 650 mg PO Q6H PRN PRN PRN Reason: Pain Score 1-3 /Temp>100.7 Last Admin: 08/28/19 03:52 Dose: 650 mg Documented by: Dextrose (D50w Syringe) 0 gm IV X1 PRN; Protocol PRN Reason: Hypoglycemia Enoxaparin Sodium (Lovenox) 40 mg SC DAILY [facility] Last Admin: 08/27/19 09:54 Dose: Not Given Documented by: Glucagon () 1 mg IM .X1 PRN PRN Reason: Hypoglycemia Vancomycin IV Pharmacy to Dose (1 ea/ Sodium Chloride) 500 mls @ 250 mls/hr IV X1 PRN; Protocol PRN Reason: Rx to Dose Piperacillin Sod/Tazobactam (Sod 3.375 gm/ Sodium Chloride) 50 mls @ 12.5 mls/hr IV Q8 [facility] Last Admin: 08/28/19 06:24 Dose: 12.5 mls/hr Documented by: Sodium Chloride () 250 mls @ 15 mls/hr IV .[id number] PRN PRN Reason: Saline Flush Last Infusion: 08/28/19 06:24 Dose: 0 mls/hr Documented by: Sodium Chloride () 250 mls @ 15 mls/hr IV .[id number] PRN PRN Reason: Additional IVPB Infusion Vancomycin HCl 1,500 mg/ (Sodium Chloride) 530 mls @ 250 mls/hr IV Q8H [facility] Last Infusion: 08/28/19 05:57 Dose: Infused Documented by: Lactated Ringer's () 1,000 mls @ 100 mls/hr IV .Q10H [facility] Last Infusion: 08/27/19 22:36 Dose: 0 mls/hr Documented by: Insulin Glargine (Lantus (Bkc)) 10 units SC DAILY [facility] Last Admin: 08/27/19 09:54 Dose: Not Given Documented by: Insulin Human Lispro (Humalog Kwikpen (Bkc)) 0 unit SC ACHS [facility]; Protocol Last Admin: 08/28/19 06:26 Dose: 4 units Documented by: Morphine Sulfate () 2 mg IV Q3H PRN PRN PRN Reason: Pain Score 6-12/26 Last Admin: 08/27/19 19:26 Dose: 2 mg Documented by: Ondansetron HCl (Zofran) 4 mg IV Q8H PRN PRN PRN Reason: NAUSEA/VOMITING Sodium Chloride () 10 - 40 ml IV UD PRN PRN Reason: SALINE FLUSH Last Admin: 08/27/19 05:14 Dose: 10 ml Documented by: Medical Necessity - Tobacco Use Smoking Status: Never smoker Tobacco Use: Chew Assessment/Plan Right 1st toe osteomyelitis s/p debridement/amputation on 08/27/2019 Uncontrolled Diabetes w/ peripheral neuropathy Tobacco Use Reviewed diagnostic data. Reviewed findings with patient. Dressing changed - packing to site w/ overlying gauze, kerlix and bee. Follow cultures - patient on IV antibiotics/Dr. Brown on board. Advised patient he will need to be nonweightbearing to the right foot. Keep foot elevated. Reviewed noninvasive lower extremity arterial studies which show good arterial flow to foot. Reviewed importance of proper blood sugar control, as well as tobacco cessation to help optimize healing. Podiatry will continue to follow.
[2019-08-28 08:28] LABS: Absolute Neutrophil Count 4.2 X10^3/uL (2.0-7.7); Basophil# 0.03 X10^3/uL; Basophil% 0.5 % (0-1); Eosinophil# 0.06 X10^3/uL; Hematocrit 36.3 % (40-54); Hemoglobin 11.5 g/dL (13.0-16.5); Lymphocyte % 17.9 % (19-41); Mean Corp Hgb Conc 31.7 g/dL (32-36); Mean Corpuscular Hgb 26.6 pg (27.0-32.0); Mean Platelet Vol. 9.2 fl (6.2-12.0); Monocyte# 0.75 X10^3/uL; Monocyte% 12.2 % (0-10); NRBC Flagged by Analyzer 0 % (0-5); Neutrophil # 4.16 X10^3/uL (2.7-7.7); Neutrophil % 67.9 % (47-70); Platelet Count 232 K/mm3 (150-450); RBC Distribution Width CV 12.3 % (11.6-14.6); RBC Distribution Width SD 37.3 fl (35.1-43.9); Red Blood Count 4.32 M/mm3 (4.6-6.2); White Blood Count 6.1 K/mm3 (4.4-11.0)
--- NOTE | 2019-08-28 08:46 | NURSING ---
wound photo: right foot
[2019-08-28 09:21] LABS: ALB/GLOB Ratio 0.7 RATIO (0.9-2.4); AST(SGOT) 32 U/L (15-37); Alanine Aminotransfer ALT/SGPT 52 U/L (16-61); Albumin, Serum 2.5 g/dL (3.2-5.0); Alkaline Phosphatase 73 U/L (45-117); Anion Gap 6 (5-15); BUN 21 mg/dL (7-18); BUN/Creat Ratio 11.2 RATIO (10-20); Calcium,Total 8.9 mg/dL (8.5-10.1); Chloride 108 mmol/L (98-107); Creatinine, Serum 1.87 mg/dL (0.70-1.30); EST Glomerular Filtration Rate 41 mL/min (>60); Est Glom Filt Rate - Afr Amer 50 mL/min (>60); Globulin 3.8 g/dL (2.2-4.2); Glucose 229 mg/dL (74-106); Potassium 4.1 mmol/L (3.5-5.1); Protein, Total 6.3 g/dL (6.4-8.2); Sodium Level 141 mmol/L (136-145)
[2019-08-28] MEDS: Enoxaparin 40 MG/0.4 ML Syringe SC (09:44)
--- NOTE | 2019-08-28 09:46 | PN_ITS ---
Patient Problems: Active and Suspected Problems Osteomyelitis (Acute) Reason for Visit: Follow-up on osteomyelitis of the left foot Subjective: He was seen and examined. Denied any new complaints. No acute events overnight. Objective: Physical exam: General: Alert, Oriented x3, Cooperative, No apparent distress HEENT: Atraumatic, PERRLA, EOMI, Normocephalic Oral: Moist Mucosa Neck: Supple, No JVD, Negative Carotid Bruits Lungs: Clear to auscultation, Normal air movement, No rhonchi, No wheeze, No rales Cardiovascular: Regular rate, Regular Rhythm, Normal S1, Normal S2, No murmurs Abdomen: Bowel Sounds Present, Soft, Non Tender, Non-Distended, No Hepato- splenomegaly Extremities: No clubbing, No cyanosis, Capillary Refill Less than 3 Seconds Musculoskeletal: - - right big toe very swollen, with ulceration at base of big toe, with ulcer oozing pus. Lymphatic: No Cervical, Supraclavicular, or Inguinal Adenopathy Neurological: Cranial nerves II-XII grossly intact, Neuro grossly intact, Motor Exam 5/5 strength throughout Psych/Mental Status: Normal Affect, Appropriate, Alert and oriented to time, place, person, mood and affect Vitals/I&O's: Vital Signs Temp Pulse Resp BP Pulse Ox 98.1 F 53 L 14 137/78 H 99 08/28/19 07:35 08/28/19 07:35 08/28/19 07:35 08/28/19 07:35 08/28/19 07:35 Oxygen Delivery Method Room Air Weight: 116.8 kg Body Mass Index (BMI) 31.3 Intake and Output for Last 24 Hours 08/26/19 08/27/19 08/28/19 23:59 23:59 23:59 Intake Total 1630 / 2630 5971.66 / 5971.66 2207.00 / 2207.00 Output Total 3000 / 3000 1500 / 1500 Balance 1630 / 2630 2971.66 / 2971.66 707.00 / 707.00 Laboratory Results 08/27/19 10:59: POC Glucose 192 H 08/27/19 15:17: POC Glucose 165 H 08/27/19 17:50: POC Glucose 242 H 08/27/19 22:24: POC Glucose 252 H 08/28/19 03:40: Vancomycin Trough 19.6 H 08/28/19 06:25: POC Glucose 240 H 08/28/19 08:15: WBC 6.1, RBC 4.32 L, Hgb 11.5 L, Hct 36.3 L, MCV 84.0, MCH 26.6 L, MCHC 31.7 L, RDW Std Deviation 37.3, RDW Coeff of Kristal 12.3, Plt Count 232, MPV 9.2, Immature Gran % (Auto) 0.500, Neut % (Auto) 67.9, Lymph % (Auto) 17.9 L , [place] % (Auto) 12.2 H, Eos % (Auto) 1.0, Baso % (Auto) 0.5, Absolute Neuts (auto) 4.2, Absolute Lymphs (auto) 1.10, Nucleated RBC % 0 08/28/19 08:15: Sodium 141, Potassium 4.1, Chloride 108 H, Carbon Dioxide 27.0, Anion Gap 6, BUN 21 H, Creatinine 1.87 H, Estim Creat Clear Calc 60.60, Est GFR (MDRD) Af Amer 50 L, Est GFR (MDRD) Non-Af 41 L, BUN/Creatinine Ratio 11.2, Glucose 229 H, Calcium 8.9, Total Bilirubin 0.60, AST 32, ALT 52, Alkaline Phosphatase 73, Total Protein 6.3 L, Albumin 2.5 L, Globulin 3.8, Albumin/Globulin Ratio 0.7 L Current Medications Acetaminophen (Tylenol) 650 mg PO Q6H PRN PRN PRN Reason: Pain Score 1-3 /Temp>100.7 Last Admin: 08/28/19 03:52 Dose: 650 mg Documented by: Dextrose (D50w Syringe) 0 gm IV X1 PRN; Protocol PRN Reason: Hypoglycemia Enoxaparin Sodium (Lovenox) 40 mg SC DAILY [facility] Last Admin: 08/27/19 09:54 Dose: Not Given Documented by: Glucagon () 1 mg IM .X1 PRN PRN Reason: Hypoglycemia Vancomycin IV Pharmacy to Dose (1 ea/ Sodium Chloride) 500 mls @ 250 mls/hr IV X1 PRN; Protocol PRN Reason: Rx to Dose Piperacillin Sod/Tazobactam (Sod 3.375 gm/ Sodium Chloride) 50 mls @ 12.5 mls/hr IV Q8 [facility] Last Admin: 08/28/19 06:24 Dose: 12.5 mls/hr Documented by: Sodium Chloride () 250 mls @ 15 mls/hr IV .[id number] PRN PRN Reason: Saline Flush Last Infusion: 08/28/19 06:24 Dose: 0 mls/hr Documented by: Sodium Chloride () 250 mls @ 15 mls/hr IV .[id number] PRN PRN Reason: Additional IVPB Infusion Vancomycin HCl 1,500 mg/ (Sodium Chloride) 530 mls @ 250 mls/hr IV Q8H [facility] Last Infusion: 08/28/19 05:57 Dose: Infused Documented by: Lactated Ringer's () 1,000 mls @ 100 mls/hr IV .Q10H [facility] Last Infusion: 08/27/19 22:36 Dose: 0 mls/hr Documented by: Insulin Glargine (Lantus (Bkc)) 10 units SC DAILY [facility] Last Admin: 08/27/19 09:54 Dose: Not Given Documented by: Insulin Human Lispro (Humalog Kwikpen (Bkc)) 0 unit SC ACHS [facility]; Protocol Last Admin: 08/28/19 06:26 Dose: 4 units Documented by: Morphine Sulfate () 2 mg IV Q3H PRN PRN PRN Reason: Pain Score 6-10/10 Last Admin: 08/27/19 19:26 Dose: 2 mg Documented by: Ondansetron HCl (Zofran) 4 mg IV Q8H PRN PRN PRN Reason: NAUSEA/VOMITING Sodium Chloride () 10 - 40 ml IV UD PRN PRN Reason: SALINE FLUSH Last Admin: 08/27/19 05:14 Dose: 10 ml Documented by: STROKE Vital Signs/Narrative: Vital Signs Temp Pulse Resp BP Pulse Ox 08/28/19 07:35 98.1 F 53 L 14 137/78 H 99 Medical Necessity - Tobacco Use Smoking Status: Never smoker Tobacco Use: Chew Assessment/Plan All Active Problems Osteomyelitis (Acute) 1. POD #1, s/p debridement of all nonviable, infected and necrotic soft tissue and bone w/ 1st toe amputation, right foot for osteomyelitis/cellulitis of the right great toe. MRI of the foot confirms acute first proximal and distal phalanx osteomyelitis with soft tissue cellulitis with plantar ulceration Podiatry consulted, pain is controlled. Continue on IV vancomycin and Zosyn. Pharmacy managing vancomycin troughs - Random Vanco trough is 26.4; vancomycin held. 2. NUHA, pre-renal, Cr increased to 1.87 Will continue on IVF, repeat blood work in am Type II DM, uncontrolled, complicated with neuropathy, HgbA1c is 11.9 On Lantus 10 units daily, will continue on Lantus 14 units daily Continue metformin and insulin sliding scale 3. DVT prophylaxis with Lovenox subcu Inpatient E&M: 15831 Subs Hosp L2
[2019-08-28 09:50] LABS: Bedside Glucose 282 mg/dL (70-110)
--- NOTE | 2019-08-28 10:22 | CON.PCM_ITS ---
Problem List (1) Osteomyelitis Status: Acute Reason for Consult: osteo Consulted by: Dr. Tapia History of Present Illness: The patient is a 44 year old M with DM neuropathy, presented with 2 months of R 1st toe wound. Started as a blister, no h/o trauma. Progressive swelling and clear/pink drainage. No abx as outpt, did not see doctor, over past few days had increased throbbing pain, chills, not feeling well. Came to ED, admitted on v anc/zosyn, MRI done, seen by podiatry, taken to OR 08/26 for R 1st toe amputation. Feeling better. Full ROS Performed and neg except as noted above. - Medical History Surgical History: reviewed Allergies/Adverse Reactions: Allergies No Known Allergies Allergy (Verified 08/26/19 17:06) Home Medications: Ambulatory Orders Medication Instructions Recorded Loratadine/Pseudo 240/10 1 tab PO DAILY 08/26/19 [Claritin-D 24 Hr] - Social History Tobacco Use: non-smoker Vital Signs Temp Pulse Resp BP Pulse Ox 98.1 F 53 L 14 137/78 H 99 08/28/19 07:35 08/28/19 07:35 08/28/19 07:35 08/28/19 07:35 08/28/19 07:35 Oxygen Delivery Method Room Air Weight: 116.8 kg Body Mass Index (BMI) 31.3 Microbiology Past 72 Hours 08/27/19 Unknown Wound Culture - Preliminary Other - Other No growth-Final to follow 08/27/19 Unknown Wound Culture - Preliminary Other - Other Alpha hemolytic organism Gram positive organism Laboratory Tests Past 24 Hrs 08/28/19 08/28/19 08/28/19 03:40 08:15 08:15 WBC 6.1 RBC 4.32 L Hgb 11.5 L Hct 36.3 L MCV 84.0 MCH 26.6 L MCHC 31.7 L RDW Std Deviation 37.3 RDW Coeff of Kristal 12.3 Plt Count 232 MPV 9.2 Immature Gran % (Auto) 0.500 Neut % (Auto) 67.9 Lymph % (Auto) 17.9 L [place] % (Auto) 12.2 H Eos % (Auto) 1.0 Baso % (Auto) 0.5 Absolute Neuts (auto) 4.2 Absolute Lymphs (auto) 1.10 Nucleated RBC % 0 Sodium 141 Potassium 4.1 Chloride 108 H Carbon Dioxide 27.0 Anion Gap 6 BUN 21 H Creatinine 1.87 H Estim Creat Clear Calc 60.60 Est GFR (MDRD) Af Amer 50 L Est GFR (MDRD) Non-Af 41 L BUN/Creatinine Ratio 11.2 Glucose 229 H Calcium 8.9 Total Bilirubin 0.60 AST 32 ALT 52 Alkaline Phosphatase 73 Total Protein 6.3 L Albumin 2.5 L Globulin 3.8 Albumin/Globulin Ratio 0.7 L Vancomycin Trough 19.6 H - Other Studies Radiology: [] reviewed Other Studies: [] Route of nutrition/ use of supplements: [] Nutritional Intake: [] IV Site: [] Ling Catheter: [] - Physical Exam General: Alert, Oriented x3, Cooperative, No apparent distress HEENT: Atraumatic, PERRLA, EOMI Neck: Supple, No Nodes Lungs: Clear to auscultation, Normal air movement Cardiovascular: Regular rate, Regular Rhythm, No murmurs Abdomen: Soft, Non Tender, Non-Distended Extremities: Edema Skin: Ulcer/ Wound - reviewed photo IV Site: Peripheral, without redness Musculoskeletal: No Tenderness to Palpation of Joints or Extremities Neurological: Cranial nerves II-XII grossly intact - Assessment/Plan Antibiotics: [] Assessment/Plan: [] R 1st toe osteo with uncontrolled DM and neuropathy - A1C 12. Surg cx pending, showing GPC. Now s/p I&D and 1st toe amputation by Dr. Yeh 08/27/19. On vanc/zosyn. Some NUHA today. Making urine. Will follow, thank you.
[2019-08-28 11:51] LABS: Bedside Glucose 254 mg/dL (70-110)
[2019-08-28 12:12] LABS: Vancomycin, Random Level 26.4 ug/mL (0.0-15.0)
[2019-08-28 14:15] VITALS: BP 148/78; PULSE 63; RESP 18; TEMP 36.8; O2SAT 99
--- NOTE | 2019-08-28 14:29 | PCM.RX.CS ---
Consult Pharmacy has been consulted to manage selected antiobiotic: Vancomycin Type of Consult: Follow-up Suspected Infection: Osteomyelitis Labs: Sodium 141 mmol/L (136-145) 08/28/19 08:15 Potassium 4.1 mmol/L (3.5-5.1) 08/28/19 08:15 Chloride 108 mmol/L (98-107) H 08/28/19 08:15 Carbon Dioxide 27.0 mmol/L (21.0-32.0) 08/28/19 08:15 Anion Gap 6 (5-15) 08/28/19 08:15 BUN 21 mg/dL (7-18) H 08/28/19 08:15 Creatinine 1.87 mg/dL (0.70-1.30) H 08/28/19 08:15 Est GFR (MDRD) Af Amer 50 mL/min (>60) L 08/28/19 08:15 Est GFR (MDRD) Non-Af 41 mL/min (>60) L 08/28/19 08:15 BUN/Creatinine Ratio 11.2 RATIO (-20) 08/28/19 08:15 Glucose 229 mg/dL (74-106) H 08/28/19 08:15 Vancomycin Trough 19.6 ug/mL (5.0-15.0) H 08/28/19 03:40 Random Vancomycin 26.4 ug/mL (0.0-15.0) H 08/28/19 11:25 Microbiology: Microbiology 08/27/19 Unknown Other - Other Gram Stain - Final 08/27/19 Unknown Other - Other Wound Culture - Preliminary No growth-Final to follow 08/27/19 Unknown Other - Other Gram Stain - Final 08/27/19 Unknown Other - Other Wound Culture - Preliminary Alpha hemolytic organism Gram positive organism Goal Trough: 15-20 mcg/mL Pharmacy Plan for Drug Dosing: VANCOMYCIN LEVEL RECEIVED Current Vancomycin Dose: 1500mg q8h (currently held due to mingo) Number of Doses Received: 4 (last dose was 08/27 at 0349) Vancomycin Level: 26.4 Hours Since Last Dose: 7.5 Renal Function: 1.87 Renal Function Trend: pt in mingo (srcr jump of 1.2 in 24 hours) Lab/Micro: Vancomycin Plan/Comments: recommend holding doses until random level falls below 20, and/or srcr decreases Pending Level: 08/28 @ 1200 Pharmacy Service will continue to monitor and adjust dosing as required. Follow-Up Labs: Trough Vancomycin - 08/28 @ 1199 (random level)
[2019-08-28 17:21] LABS: Bedside Glucose 205 mg/dL (70-110)
[2019-08-28 19:45] VITALS: BP 158/81; PULSE 63; RESP 16; TEMP 36.8; O2SAT 100
[2019-08-28 22:15] LABS: Bedside Glucose 232 mg/dL (70-110)
[2019-08-29 02:22] VITALS: BP 158/64; PULSE 60; RESP 16; TEMP 36.9; O2SAT 99
[2019-08-29] MEDS: Lactated Ringers 1,000 ML 100 ML IV (05:09)
[2019-08-29 06:14] LABS: Absolute Lymphocyte Count 1.27 X10^3/uL (0.83-4.51); Absolute Neutrophil Count 5.3 X10^3/uL (2.0-7.7); Basophil# 0.04 X10^3/uL; Basophil% 0.5 % (0-1); Eosinophil# 0.09 X10^3/uL; Eosinophils% 1.2 % (0-5); Hemoglobin 11.9 g/dL (13.0-16.5); Lymphocyte # 1.27 X10^3/ul (4.0); Lymphocyte % 17.1 % (19-41); Mean Corp Hgb Conc 31.3 g/dL (32-36); Mean Corpuscular Hgb 26.7 pg (27.0-32.0); Mean Corpuscular Volume 85.2 fL (80-94); Mean Platelet Vol. 9.4 fl (6.2-12.0); Monocyte% 9.4 % (0-10); NRBC Flagged by Analyzer 0 % (0-5); Neutrophil # 5.28 X10^3/uL (2.7-7.7); Neutrophil % 71.1 % (47-70); Platelet Count 280 K/mm3 (150-450); RBC Distribution Width CV 12.1 % (11.6-14.6); RBC Distribution Width SD 36.8 fl (35.1-43.9); Red Blood Count 4.46 M/mm3 (4.6-6.2); White Blood Count 7.4 K/mm3 (4.4-11.0)
[2019-08-29 06:51] LABS: ALB/GLOB Ratio 0.6 RATIO (0.9-2.4); AST(SGOT) 21 U/L (15-37); Alanine Aminotransfer ALT/SGPT 48 U/L (16-61); Albumin, Serum 2.4 g/dL (3.2-5.0); Alkaline Phosphatase 71 U/L (45-117); Anion Gap 8 (5-15); BUN 25 mg/dL (7-18); BUN/Creat Ratio 11.5 RATIO (10-20); Calcium,Total 9.4 mg/dL (8.5-10.1); Chloride 107 mmol/L (98-107); Creatinine, Serum 2.18 mg/dL (0.70-1.30); EST Glomerular Filtration Rate 35 mL/min (>60); Est Glom Filt Rate - Afr Amer 42 mL/min (>60); Estimated Creatinine Clearance 51.98 ml/min; Globulin 3.8 g/dL (2.2-4.2); Glucose 215 mg/dL (74-106); Potassium 4.1 mmol/L (3.5-5.1); Protein, Total 6.2 g/dL (6.4-8.2); Sodium Level 139 mmol/L (136-145)
[2019-08-29] MEDS: Insulin Lispro 100 UNIT/ML INSULN.PEN SC ×4 (06:57→22:27)
[2019-08-29 07:01] LABS: Bedside Glucose 196 mg/dL (70-110)
[2019-08-29 07:34] VITALS: BP 139/69; PULSE 53; RESP 16; TEMP 36.7; O2SAT 99
[2019-08-29] MEDS: Juven (unflavored) Packet 1 PACKET PO ×2 (07:38→16:59)
--- NOTE | 2019-08-29 09:51 | PN.ID_ITS ---
Patient Problems: Active and Suspected Problems Osteomyelitis (Acute) Subjective: Feeling ok, no fever, making urine, no n/v/d. - Physical Exam Vitals/I&O's: Vital Signs Temp Pulse Resp BP Pulse Ox 98.1 F 53 L 16 139/69 H 99 08/29/19 07:34 08/29/19 07:34 08/29/19 07:34 08/29/19 07:34 08/29/19 07:34 Oxygen Delivery Method Room Air Weight: 116.8 kg Body Mass Index (BMI) 31.3 Intake and Output for Last 24 Hours 08/27/19 08/28/19 08/29/19 23:59 23:59 23:59 Intake Total 5971.66 / 5971.66 4969.17 / 4969.17 2379.75 / 2379.75 Output Total 3000 / 3000 4350 / 4350 2400 / 2400 Balance 2971.66 / 2971.66 619.17 / 619.17 -20.25 / -20.25 General: Alert, Cooperative, No apparent distress Lungs: Clear to auscultation, Normal air movement Cardiovascular: Regular rate, Regular Rhythm Abdomen: Soft, Non Tender, Non-Distended Skin: Ulcer/ Wound - reviewed photo Microbiology Past 72 Hours 08/27/19 Unknown Other - Other Gram Stain - Final 08/27/19 Unknown Other - Other Wound Culture - Preliminary No growth-Final to follow 08/27/19 Unknown Other - Other Gram Stain - Final 08/27/19 Unknown Other - Other Wound Culture - Preliminary Alpha hemolytic organism Gram positive organism 08/26/19 17:45 Blood Culture (Wb) - Right Hand Blood Culture - Preliminary No growth in 48 hours. 08/26/19 17:30 Blood Culture (Wb) - Anticubital Left Blood Culture - Preliminary No growth in 48 hours. Laboratory Results 08/28/19 09:44: POC Glucose 282 H 08/28/19 11:25: Random Vancomycin 26.4 H 08/28/19 11:31: POC Glucose 254 H 08/28/19 17:12: POC Glucose 205 H 08/28/19 22:05: POC Glucose 232 H 08/29/19 06:01: WBC 7.4, RBC 4.46 L, Hgb 11.9 L, Hct 38.0 L, MCV 85.2, MCH 26.7 L, MCHC 31.3 L, RDW Std Deviation 36.8, RDW Coeff of Kristal 12.1, Plt Count 280, MPV 9.4, Immature Gran % (Auto) 0.700, Neut % (Auto) 71.1 H, Lymph % (Auto) 17.1 L, [place] % (Auto) 9.4, Eos % (Auto) 1.2, Baso % (Auto) 0.5, Absolute Neuts (auto) 5.3, Absolute Lymphs (auto) 1.27, Nucleated RBC % 0 08/29/19 06:01: Sodium 139, Potassium 4.1, Chloride 107, Carbon Dioxide 24.0, Anion Gap 8, BUN 25 H, Creatinine 2.18 H, Estim Creat Clear Calc 51.98, Est GFR (MDRD) Af Amer 42 L, Est GFR (MDRD) Non-Af 35 L, BUN/Creatinine Ratio 11.5, Glucose 215 H, Calcium 9.4, Total Bilirubin 0.70, AST 21, ALT 48, Alkaline Phosphatase 71, Total Protein 6.2 L, Albumin 2.4 L, Globulin 3.8, Albumin/Glob ulin Ratio 0.6 L 08/29/19 06:56: POC Glucose 196 H Current Medications Acetaminophen (Tylenol) 650 mg PO Q6H PRN PRN PRN Reason: Pain Score 1-3 /Temp>100.7 Last Admin: 08/28/19 03:52 Dose: 650 mg Documented by: Dextrose (D50w Syringe) 0 gm IV X1 PRN; Protocol PRN Reason: Hypoglycemia Enoxaparin Sodium (Lovenox) 40 mg SC DAILY [facility] Last Admin: 08/28/19 09:44 Dose: 40 mg Documented by: Glucagon () 1 mg IM .X1 PRN PRN Reason: Hypoglycemia Piperacillin Sod/Tazobactam (Sod 3.375 gm/ Sodium Chloride) 50 mls @ 12.5 mls/hr IV Q8 [facility] Last Admin: 08/29/19 05:08 Dose: 12.5 mls/hr Documented by: Sodium Chloride () 250 mls @ 15 mls/hr IV .[id number] PRN PRN Reason: Saline Flush Last Infusion: 08/29/19 05:19 Dose: 0 mls/hr Documented by: Sodium Chloride () 250 mls @ 15 mls/hr IV .[id number] PRN PRN Reason: Additional IVPB Infusion Lactated Ringer's () 1,000 mls @ 100 mls/hr IV .Q10H [facility] Last Infusion: 08/29/19 05:10 Dose: 0 mls/hr Documented by: Insulin Glargine (Lantus (Bkc)) 14 units SC DAILY [facility] Insulin Human Lispro (Humalog Kwikpen (Bk)) 0 unit SC ACHS [facility]; Protocol Last Admin: 08/29/19 06:57 Dose: 2 units Documented by: Morphine Sulfate () 2 mg IV Q3H PRN PRN PRN Reason: Pain Score -12/26 Last Admin: 08/27/19 19:26 Dose: 2 mg Documented by: Ondansetron HCl (Zofran) 4 mg IV Q8H PRN PRN PRN Reason: NAUSEA/VOMITING Sodium Chloride () 10 - 40 ml IV UD PRN PRN Reason: SALINE FLUSH Last Admin: 08/27/19 05:14 Dose: 10 ml Documented by: Medical Necessity - Tobacco Use Smoking Status: Never smoker Tobacco Use: Chew Route of nutrition/ use of supplements: [] Nutritional Intake: [] IV Site: [] Ling Catheter: [] - Assessment/Plan Antibiotics: [] Assessment/Plan: [] R 1st toe osteo with uncontrolled DM and neuropathy - A1C 12. Surg cx with GPC and alpha hemolytic organism. Now s/p I&D and 1st toe amputation by Dr. Yeh 08/27/19. On vanc/zosyn. Increased NUHA today. Making urine. Will stop vanc. Will follow, d/w Dr. Tapia
[2019-08-29] MEDS: Enoxaparin 40 MG/0.4 ML Syringe SC (10:17)
[2019-08-29] MEDS: 0.9% Normal Saline 1,000 ML 100 ML IV ×2 (10:31→20:03)
--- NOTE | 2019-08-29 11:30 | CASEMGMT ---
RN CM NOTE: Per Dr Tapia, anticipate pt may be able to discharge home as early as Sunday on PO Atb's. RN CM to room to discuss discharge planning. Pt denies needs for HHC. He states his will able to do his daily dressing changes and he does not have any questions/concerns about them. Discussed DME needs with pt. He states he would like to get a shower chair and he thinks his mom may have one, but he is not sure. Pt made aware shower chairs are not covered under insurance and this could be found at a DME company or drug store. Pt also made aware, [employer] stores will often have these. Pt stated he does not think he will need a WW at this time, as he is planning on borrowing a knee walker from his neighbor. RN AINSLEY inquired if the walker would be the correct size/height for him. He states he is not positive but thinks it is adjustable. Offered to provide script for WW for pt to have in the event the knee walker does not work well for him and pt states would like to have that as a back-up. Pt provided with list of local DME companies/contact information. Pt voices appreciation. Pt states he is interested in getting another glucometer, as the one he currently has is 3 yrs old and he does not know if it works properly and he does not think he has the supplies he needs for it. Scripts for Dressing supplies, WW, and glucometer/supplies have all been signed by Dr Tapia and are on pt's chart to be given to him @ discharge. Pt made aware these would be provided for him @ d/c and voices appreciation. Pt denies having any other concerns/discharge needs at this time. Odalys CHANGN RN CM
[2019-08-29 11:45] LABS: Bedside Glucose 297 mg/dL (70-110)
[2019-08-29 12:40] LABS: Vancomycin, Random Level 13.2 ug/mL (0.0-15.0)
[2019-08-29 13:35] VITALS: BP 144/72; PULSE 58; RESP 18; TEMP 36.6; O2SAT 97
--- NOTE | 2019-08-29 13:42 | PN_ITS ---
Patient Problems: Active and Suspected Problems Osteomyelitis (Acute) Subjective: Patient was seen today for follow up on 1st toe debridement/amputation. Patient resting comfortably in bed, no complaints. No complaints of fever, chills, nausea or vomiting. Noted increased NUHA today. - Physical Exam Vitals/I&O's: Vital Signs Temp Pulse Resp BP Pulse Ox 98.1 F 53 L 16 139/69 H 99 08/29/19 07:34 08/29/19 07:34 08/29/19 07:34 08/29/19 07:34 08/29/19 07:34 Oxygen Delivery Method Room Air Weight: 116.8 kg Body Mass Index (BMI) 31.3 Intake and Output for Last 24 Hours 08/27/19 08/28/19 08/29/19 23:59 23:59 23:59 Intake Total 5971.66 / 5971.66 4969.17 / 4969.17 5429.75 / 5429.75 Output Total 3000 / 3000 4350 / 4350 2800 / 2800 Balance 2971.66 / 2971.66 619.17 / 619.17 2629.75 / 2629.75 General: Alert, Oriented x3, Cooperative, No apparent distress Extremities: Capillary Refill Less than 3 Seconds, - - s/p resection of 1st toe to base of the proximal phalanx, tissues viable, no necrosis, no purulence, no visible abscess - less edema noted, no maloder, no crepitus, no fluctuance. Psych/Mental Status: Normal Affect, Appropriate, Alert and oriented to time, place, person, mood and affect Microbiology Past 72 Hours 08/27/19 Unknown Other - Other Gram Stain - Final 08/27/19 Unknown Other - Other Wound Culture - Preliminary No growth-Final to follow 08/27/19 Unknown Other - Other Anaerobic Culture - Preliminary Checking for anaerobes, further studies to follow. 08/27/19 Unknown Other - Other Gram Stain - Final 08/27/19 Unknown Other - Other Wound Culture - Preliminary Alpha Hemolytic Streptococcus Staphylococcus species 08/27/19 Unknown Other - Other Anaerobic Culture - Preliminary Checking for anaerobes, further studies to follow. 08/26/19 17:45 Blood Culture (Wb) - Right Hand Blood Culture - Preliminary No growth in 48 hours. 08/26/19 17:30 Blood Culture (Wb) - Anticubital Left Blood Culture - Preliminary No growth in 48 hours. Laboratory Results 08/28/19 17:12: POC Glucose 205 H 08/28/19 22:05: POC Glucose 232 H 08/29/19 06:01: WBC 7.4, RBC 4.46 L, Hgb 11.9 L, Hct 38.0 L, MCV 85.2, MCH 26.7 L, MCHC 31.3 L, RDW Std Deviation 36.8, RDW Coeff of Kristal 12.1, Plt Count 280, MPV 9.4, Immature Gran % (Auto) 0.700, Neut % (Auto) 71.1 H, Lymph % (Auto) 17.1 L, [place] % (Auto) 9.4, Eos % (Auto) 1.2, Baso % (Auto) 0.5, Absolute Neuts (auto) 5.3, Absolute Lymphs (auto) 1.27, Nucleated RBC % 0 08/29/19 06:01: Sodium 139, Potassium 4.1, Chloride 107, Carbon Dioxide 24.0, Anion Gap 8, BUN 25 H, Creatinine 2.18 H, Estim Creat Clear Calc 51.98, Est GFR (MDRD) Af Amer 42 L, Est GFR (MDRD) Non-Af 35 L, BUN/Creatinine Ratio 11.5, Glucose 215 H, Calcium 9.4, Total Bilirubin 0.70, AST 21, ALT 48, Alkaline Phosphatase 71, Total Protein 6.2 L, Albumin 2.4 L, Globulin 3.8, Albumin/Globulin Ratio 0.6 L 08/29/19 06:56: POC Glucose 196 H 08/29/19 11:38: POC Glucose 297 H 08/29/19 12:00: Random Vancomycin 13.2 Current Medications Acetaminophen (Tylenol) 650 mg PO Q6H PRN PRN PRN Reason: Pain Score 1-3 /Temp>100.7 Last Admin: 08/28/19 03:52 Dose: 650 mg Documented by: Dextrose (D50w Syringe) 0 gm IV X1 PRN; Protocol PRN Reason: Hypoglycemia Enoxaparin Sodium (Lovenox) 40 mg SC DAILY [facility] Last Admin: 08/29/19 10:17 Dose: 40 mg Documented by: Glucagon () 1 mg IM .X1 PRN PRN Reason: Hypoglycemia Piperacillin Sod/Tazobactam (Sod 3.375 gm/ Sodium Chloride) 50 mls @ 12.5 mls/hr IV Q8 [facility] Last Infusion: 08/29/19 09:20 Dose: Infused Documented by: Sodium Chloride () 250 mls @ 15 mls/hr IV .[id number] PRN PRN Reason: Saline Flush Last Infusion: 08/29/19 05:19 Dose: 0 mls/hr Documented by: Sodium Chloride () 250 mls @ 15 mls/hr IV .[id number] PRN PRN Reason: Additional IVPB Infusion Sodium Chloride () 1,000 mls @ 100 mls/hr IV .Q10H [facility] Last Admin: 08/29/19 10:31 Dose: 100 mls/hr Documented by: Insulin Glargine (Lantus ([facility])) 14 units SC DAILY [facility] Last Admin: 08/29/19 10:18 Dose: 14 units Documented by: Insulin Human Lispro (Humalog Kwikpen ([facility])) 0 unit SC ACHS [facility]; Protocol Last Admin: 08/29/19 11:39 Dose: 6 units Documented by: Lactobacillus Acidophilus (Acidophilus) 2 tablet PO 4X/DAY [facility] Morphine Sulfate () 2 mg IV Q3H PRN PRN PRN Reason: Pain Score 6-10/10 Last Admin: 08/27/19 19:26 Dose: 2 mg Documented by: Ondansetron HCl (Zofran) 4 mg IV Q8H PRN PRN PRN Reason: NAUSEA/VOMITING Sodium Chloride () 10 - 40 ml IV UD PRN PRN Reason: SALINE FLUSH Last Admin: 08/27/19 05:14 Dose: 10 ml Documented by: Medical Necessity - Tobacco Use Smoking Status: Never smoker Tobacco Use: Chew Assessment/Plan All Active Problems Osteomyelitis (Acute) Right 1st toe osteomyelitis s/p debridement/amputation on 08/27/2019 Uncontrolled Diabetes w/ peripheral neuropathy Tobacco Use Reviewed diagnostic data. Reviewed findings with patient. Debridement/amputation site doing well. Dressing has been changed - packing to site w/ overlying gauze, kerlix and bee. Continue to follow cultures - patient on IV antibiotics per Dr. Brown. Nonweightbearing to the right foot. Keep foot elevated. Reviewed noninvasive lower extremity arterial studies which show good arterial flow to foot. Reviewed importance of proper blood sugar control, as well as tobacco cessation to help optimize healing. Podiatry will continue to follow.
--- NOTE | 2019-08-29 14:58 | PN_ITS ---
Patient Problems: Active and Suspected Problems Osteomyelitis (Acute) Reason for Visit: Follow-up on osteomyelitis of the left foot Subjective: Patient seen and examined. He feels well. Denies chest pain, dizziness, palpitations. Objective: Physical exam: General: Alert, Oriented x3, Cooperative, No apparent distress HEENT: Atraumatic, PERRLA, EOMI, Normocephalic Oral: Moist Mucosa Neck: Supple, No JVD, Negative Carotid Bruits Lungs: Clear to auscultation, Normal air movement, No rhonchi, No wheeze, No rales Cardiovascular: Regular rate, Regular Rhythm, Normal S1, Normal S2, No murmurs Abdomen: Bowel Sounds Present, Soft, Non Tender, Non-Distended, No Hepato- splenomegaly Extremities: No clubbing, No cyanosis, Capillary Refill Less than 3 Seconds Musculoskeletal: - - right big toe very swollen, with ulceration at base of big toe, with ulcer oozing pus. Lymphatic: No Cervical, Supraclavicular, or Inguinal Adenopathy Neurological: Cranial nerves II-XII grossly intact, Neuro grossly intact, Motor Exam 5/5 strength throughout Psych/Mental Status: Normal Affect, Appropriate, Alert and oriented to time, place, person, mood and affect Vitals/I&O's: Vital Signs Temp Pulse Resp BP Pulse Ox 97.9 F 58 L 18 144/72 H 97 08/29/19 13:35 08/29/19 13:35 08/29/19 13:35 08/29/19 13:35 08/29/19 13:35 Oxygen Delivery Method Room Air Weight: 116.8 kg Body Mass Index (BMI) 31.3 Intake and Output for Last 24 Hours 08/27/19 08/28/19 08/29/19 23:59 23:59 23:59 Intake Total 5971.66 / 5971.66 4969.17 / 4969.17 5429.75 / 5429.75 Output Total 3000 / 3000 4350 / 4350 2800 / 2800 Balance 2971.66 / 2971.66 619.17 / 619.17 2629.75 / 2629.75 Microbiology Past 72 Hours 08/27/19 Unknown Other - Other Gram Stain - Final 08/27/19 Unknown Other - Other Wound Culture - Preliminary No growth-Final to follow 08/27/19 Unknown Other - Other Anaerobic Culture - Preliminary Checking for anaerobes, further studies to follow. 08/27/19 Unknown Other - Other Gram Stain - Final 08/27/19 Unknown Other - Other Wound Culture - Preliminary Alpha Hemolytic Streptococcus Staphylococcus species 08/27/19 Unknown Other - Other Anaerobic Culture - Preliminary Checking for anaerobes, further studies to follow. 08/26/19 17:45 Blood Culture (Wb) - Right Hand Blood Culture - Preliminary No growth in 48 hours. 08/26/19 17:30 Blood Culture (Wb) - Anticubital Left Blood Culture - Preliminary No growth in 48 hours. Laboratory Results 08/28/19 17:12: POC Glucose 205 H 08/28/19 22:05: POC Glucose 232 H 08/29/19 06:01: WBC 7.4, RBC 4.46 L, Hgb 11.9 L, Hct 38.0 L, MCV 85.2, MCH 26.7 L, MCHC 31.3 L, RDW Std Deviation 36.8, RDW Coeff of Kristal 12.1, Plt Count 280, MPV 9.4, Immature Gran % (Auto) 0.700, Neut % (Auto) 71.1 H, Lymph % (Auto) 17.1 L, [place] % (Auto) 9.4, Eos % (Auto) 1.2, Baso % (Auto) 0.5, Absolute Neuts (auto) 5.3, Absolute Lymphs (auto) 1.27, Nucleated RBC % 0 08/29/19 06:01: Sodium 139, Potassium 4.1, Chloride 107, Carbon Dioxide 24.0, Anion Gap 8, BUN 25 H, Creatinine 2.18 H, Estim Creat Clear Calc 51.98, Est GFR (MDRD) Af Amer 42 L, Est GFR (MDRD) Non-Af 35 L, BUN/Creatinine Ratio 11.5, Glucose 215 H, Calcium 9.4, Total Bilirubin 0.70, AST 21, ALT 48, Alkaline Phosphatase 71, Total Protein 6.2 L, Albumin 2.4 L, Globulin 3.8, Albumin/Globulin Ratio 0.6 L 08/29/19 06:56: POC Glucose 196 H 08/29/19 11:38: POC Glucose 297 H 08/29/19 12:00: Random Vancomycin 13.2 Current Medications Acetaminophen (Tylenol) 650 mg PO Q6H PRN PRN PRN Reason: Pain Score 1-3 /Temp>100.7 Last Admin: 08/28/19 03:52 Dose: 650 mg Documented by: Dextrose (D50w Syringe) 0 gm IV X1 PRN; Protocol PRN Reason: Hypoglycemia Enoxaparin Sodium (Lovenox) 40 mg SC DAILY [facility] Last Admin: 08/29/19 10:17 Dose: 40 mg Documented by: Glucagon () 1 mg IM .X1 PRN PRN Reason: Hypoglycemia Piperacillin Sod/Tazobactam (Sod 3.375 gm/ Sodium Chloride) 50 mls @ 12.5 mls/hr IV Q8 [facility] Last Admin: 08/29/19 14:36 Dose: 12.5 mls/hr Documented by: Sodium Chloride () 250 mls @ 15 mls/hr IV .[id number] PRN PRN Reason: Saline Flush Last Infusion: 08/29/19 05:19 Dose: 0 mls/hr Documented by: Sodium Chloride () 250 mls @ 15 mls/hr IV .[id number] PRN PRN Reason: Additional IVPB Infusion Sodium Chloride () 1,000 mls @ 100 mls/hr IV .Q10H [facility] Last Admin: 08/29/19 10:31 Dose: 100 mls/hr Documented by: Insulin Glargine (Lantus (Bk)) 14 units SC DAILY [facility] Last Admin: 08/29/19 10:18 Dose: 14 units Documented by: Insulin Human Lispro (Humalog Kwikpen (Bk)) 0 unit SC ACHS [facility]; Protocol Last Admin: 08/29/19 11:39 Dose: 6 units Documented by: Lactobacillus Acidophilus (Acidophilus) 2 tablet PO 4X/DAY [facility] Last Admin: 08/29/19 14:35 Dose: 2 tablet Documented by: Morphine Sulfate () 2 mg IV Q3H PRN PRN PRN Reason: Pain Score 6-10/10 Last Admin: 08/27/19 19:26 Dose: 2 mg Documented by: Ondansetron HCl (Zofran) 4 mg IV Q8H PRN PRN PRN Reason: NAUSEA/VOMITING Sodium Chloride () 10 - 40 ml IV UD PRN PRN Reason: SALINE FLUSH Last Admin: 08/27/19 05:14 Dose: 10 ml Documented by: STROKE Vital Signs/Narrative: Vital Signs Temp Pulse Resp BP Pulse Ox 08/29/19 13:35 97.9 F 58 L 18 144/72 H 97 Medical Necessity - Tobacco Use Smoking Status: Never smoker Tobacco Use: Chew Assessment/Plan All Active Problems Osteomyelitis (Acute) 1. 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 MRI of the foot confirms acute first proximal and distal phalanx osteomyelitis with soft tissue cellulitis with plantar ulceration Podiatry consulted, pain is controlled. Continue on IV Zosyn. Off vancomycin 2. NUHA, pre-renal, Cr increased to 2.18 Urine output is good. Will continue on IVF, repeat blood work in am Type II DM, uncontrolled, complicated with neuropathy, HgbA1c is 11.9 On Lantus 14 units daily, will increase to 16 units daily Metformin on hold, continue on insulin sliding scale 3. DVT prophylaxis with Lovenox subcu Inpatient E&M: 23517 Subs Hosp L2
[2019-08-29 22:33] VITALS: BP 155/67; PULSE 60; RESP 18; TEMP 36.8; O2SAT 100
[2019-08-29 22:46] LABS: Bedside Glucose 251 mg/dL (70-110)
[2019-08-30 02:57] VITALS: BP 152/73; PULSE 59; RESP 17; TEMP 37; O2SAT 98
[2019-08-30] MEDS: 0.9% Normal Saline 1,000 ML 100 ML IV ×2 (06:05→15:21)
[2019-08-30] MEDS: Insulin Lispro 100 UNIT/ML INSULN.PEN SC ×4 (06:57→21:28)
[2019-08-30 07:11] LABS: Bedside Glucose 184 mg/dL (70-110)
[2019-08-30] MEDS: Juven (unflavored) Packet 1 PACKET PO ×2 (07:45→17:01)
[2019-08-30 07:51] LABS: Bedside Glucose 259 mg/dL (70-110)
[2019-08-30 08:52] LABS: Absolute Lymphocyte Count 1.18 X10^3/uL (0.83-4.51); Absolute Neutrophil Count 4.4 X10^3/uL (2.0-7.7); Basophil# 0.03 X10^3/uL; Basophil% 0.5 % (0-1); Eosinophil# 0.08 X10^3/uL; Eosinophils% 1.3 % (0-5); Hematocrit 35.6 % (40-54); Hemoglobin 11.3 g/dL (13.0-16.5); Lymphocyte # 1.18 X10^3/ul (4.0); Lymphocyte % 18.9 % (19-41); Mean Corp Hgb Conc 31.7 g/dL (32-36); Mean Corpuscular Hgb 26.7 pg (27.0-32.0); Mean Corpuscular Volume 84.2 fL (80-94); Mean Platelet Vol. 9.4 fl (6.2-12.0); Monocyte# 0.48 X10^3/uL; Monocyte% 7.7 % (0-10); NRBC Flagged by Analyzer 0 % (0-5); Neutrophil # 4.43 X10^3/uL (2.7-7.7); Neutrophil % 71.1 % (47-70); Platelet Count 298 K/mm3 (150-450); RBC Distribution Width CV 12.2 % (11.6-14.6); RBC Distribution Width SD 36.8 fl (35.1-43.9); Red Blood Count 4.23 M/mm3 (4.6-6.2); White Blood Count 6.2 K/mm3 (4.4-11.0)
[2019-08-30 09:00] VITALS: BP 135/72; PULSE 61; RESP 16; TEMP 37.1; O2SAT 99
[2019-08-30 09:08] LABS: ALB/GLOB Ratio 0.6 RATIO (0.9-2.4); AST(SGOT) 22 U/L (15-37); Alanine Aminotransfer ALT/SGPT 54 U/L (16-61); Albumin, Serum 2.5 g/dL (3.2-5.0); Alkaline Phosphatase 71 U/L (45-117); Anion Gap 6 (5-15); BUN 26 mg/dL (7-18); BUN/Creat Ratio 12.8 RATIO (10-20); Calcium,Total 9.6 mg/dL (8.5-10.1); Chloride 107 mmol/L (98-107); Creatinine, Serum 2.03 mg/dL (0.70-1.30); EST Glomerular Filtration Rate 38 mL/min (>60); Est Glom Filt Rate - Afr Amer 46 mL/min (>60); Estimated Creatinine Clearance 55.82 ml/min; Globulin 3.9 g/dL (2.2-4.2); Glucose 195 mg/dL (74-106); Potassium 4.4 mmol/L (3.5-5.1); Protein, Total 6.4 g/dL (6.4-8.2); Sodium Level 139 mmol/L (136-145)
[2019-08-30] MEDS: Enoxaparin 40 MG/0.4 ML Syringe SC (09:19)
--- NOTE | 2019-08-30 10:24 | PN_ITS ---
Patient Problems: Active and Suspected Problems Osteomyelitis (Acute) Subjective: Patient was seen today for follow up on right foot, he has no pain, he relates he is doing well, no f/c/n/v, no complaints. Creatinine improved today. - Physical Exam Vitals/I&O's: Vital Signs Temp Pulse Resp BP Pulse Ox 98.8 F 61 16 135/72 H 99 08/30/19 09:00 08/30/19 09:00 08/30/19 09:00 08/30/19 09:00 08/30/19 09:00 Oxygen Delivery Method Room Air Weight: 116.8 kg Body Mass Index (BMI) 31.3 Intake and Output for Last 24 Hours 08/28/19 08/29/19 08/30/19 23:59 23:59 23:59 Intake Total 4969.17 / 4969.17 8433.08 / 8433.08 2239.75 / 2239.75 Output Total 4350 / 4350 3800 / 3800 2400 / 2400 Balance 619.17 / 619.17 4633.08 / 4633.08 -160.25 / -160.25 Extremities: Capillary Refill Less than 3 Seconds, No Calf Tenderness, - - s/p resection of 1st toe to base of the proximal phalanx, tissues viable, no necrosis, no purulence, no visible abscess - minimal residual edema noted, no maloder, no crepitus, no fluctuance, no cellulitis, no pain - healing well. Musculoskeletal: No Tenderness to Palpation of Joints or Extremities Psych/Mental Status: Normal Affect, Appropriate, Alert and oriented to time, place, person, mood and affect Microbiology Past 72 Hours 08/27/19 Unknown Other - Other Gram Stain - Final 08/27/19 Unknown Other - Other Wound Culture - Final Strep anginosus Staphylococcus haemolyticus 08/27/19 Unknown Other - Other Anaerobic Culture - Preliminary Checking for anaerobes, further studies to follow. 08/27/19 Unknown Other - Other Gram Stain - Final 08/27/19 Unknown Other - Other Wound Culture - Preliminary No growth-Final to follow 08/27/19 Unknown Other - Other Anaerobic Culture - Preliminary Checking for anaerobes, further studies to follow. 08/26/19 17:45 Blood Culture (Wb) - Right Hand Blood Culture - Preliminary No growth in 48 hours. 08/26/19 17:30 Blood Culture (Wb) - Anticubital Left Blood Culture - Preliminary No growth in 48 hours. Laboratory Results 08/29/19 11:38: POC Glucose 297 H 08/29/19 12:00: Random Vancomycin 13.2 08/29/19 16:56: POC Glucose 259 H 08/29/19 22:22: POC Glucose 251 H 08/30/19 06:54: POC Glucose 184 H 08/30/19 07:35: WBC 6.2, RBC 4.23 L, Hgb 11.3 L, Hct 35.6 L, MCV 84.2, MCH 26.7 L, MCHC 31.7 L, RDW Std Deviation 36.8, RDW Coeff of Kristal 12.2, Plt Count 298, MPV 9.4, Immature Gran % (Auto) 0.500, Neut % (Auto) 71.1 H, Lymph % (Auto) 18.9 L, [place] % (Auto) 7.7, Eos % (Auto) 1.3, Baso % (Auto) 0.5, Absolute Neuts (auto) 4.4, Absolute Lymphs (auto) 1.18, Nucleated RBC % 0 08/30/19 07:35: Sodium 139, Potassium 4.4, Chloride 107, Carbon Dioxide 26.0, Anion Gap 6, BUN 26 H, Creatinine 2.03 H, Estim Creat Clear Calc 55.82, Est GFR (MDRD) Af Amer 46 L, Est GFR (MDRD) Non-Af 38 L, BUN/Creatinine Ratio 12.8, Glucose 195 H, Calcium 9.6, Total Bilirubin 0.60, AST 22, ALT 54, Alkaline Phosphatase 71, Total Protein 6.4, Albumin 2.5 L, Globulin 3.9, Albumin/Globulin Ratio 0.6 L Current Medications Acetaminophen (Tylenol) 650 mg PO Q6H PRN PRN PRN Reason: Pain Score 1-3 /Temp>100.7 Last Admin: 08/28/19 03:52 Dose: 650 mg Documented by: Dextrose (D50w Syringe) 0 gm IV X1 PRN; Protocol PRN Reason: Hypoglycemia Enoxaparin Sodium (Lovenox) 40 mg SC DAILY [facility] Last Admin: 08/30/19 09:19 Dose: 40 mg Documented by: Glucagon () 1 mg IM .X1 PRN PRN Reason: Hypoglycemia Piperacillin Sod/Tazobactam (Sod 3.375 gm/ Sodium Chloride) 50 mls @ 12.5 mls/hr IV Q8 [facility] Last Admin: 08/30/19 06:49 Dose: 12.5 mls/hr Documented by: Sodium Chloride () 250 mls @ 15 mls/hr IV .[id number] PRN PRN Reason: Saline Flush Last Infusion: 08/30/19 03:18 Dose: 0 mls/hr Documented by: Sodium Chloride () 250 mls @ 15 mls/hr IV .[id number] PRN PRN Reason: Additional IVPB Infusion Sodium Chloride () 1,000 mls @ 100 mls/hr IV .Q10H [facility] Last Admin: 08/30/19 06:05 Dose: 100 mls/hr Documented by: Insulin Glargine (Lantus ([facility])) 16 units SC DAILY [facility] Last Admin: 08/30/19 09:18 Dose: 16 u Documented by: Insulin Human Lispro (Humalog Kwikpen ([facility])) 0 unit SC ACHS [facility]; Protocol Last Admin: 08/30/19 06:57 Dose: 2 units Documented by: Lactobacillus Acidophilus (Acidophilus) 2 tablet PO 4X/DAY [facility] Last Admin: 08/30/19 09:20 Dose: 2 tablet Documented by: Morphine Sulfate () 2 mg IV Q3H PRN PRN PRN Reason: Pain Score 6-1010 Last Admin: 08/27/19 19:26 Dose: 2 mg Documented by: Ondansetron HCl (Zofran) 4 mg IV Q8H PRN PRN PRN Reason: NAUSEA/VOMITING Sodium Chloride () 10 - 40 ml IV UD PRN PRN Reason: SALINE FLUSH Last Admin: 08/27/19 05:14 Dose: 10 ml Documented by: Medical Necessity - Tobacco Use Smoking Status: Never smoker Tobacco Use: Chew Assessment/Plan All Active Problems Osteomyelitis (Acute) Right 1st toe osteomyelitis s/p debridement/amputation on 08/27/2019 Uncontrolled Diabetes w/ peripheral neuropathy Tobacco Use Reviewed diagnostic data. Reviewed findings with patient. Debridement/amputation site doing well. Dressing has been changed - painted site w/ betaind soln, applied gauze, kerlix and bee. Reviewed cultures - bone with staph haemolyticus and strep anginosus - patient on IV sukhisykena, Dr. Brown on board, clearance fragment with no growth to date. Nonweightbearing to the right foot. Keep foot elevated. Reviewed noninvasive lower extremity arterial studies which show good arterial flow to foot. Reviewed importance of proper blood sugar control, as well as tobacco cessation to help optimize healing. Podiatry will continue to follow.
--- NOTE | 2019-08-30 11:20 | PN_ITS ---
Patient Problems: Active and Suspected Problems Osteomyelitis (Acute) Reason for Visit: Follow-up on osteomyelitis of the left foot Subjective: Patient seen and examined. He feels well. Denies chest pain, dizziness, palpitations. Objective: Physical exam: General: Alert, Oriented x3, Cooperative, No apparent distress HEENT: Atraumatic, PERRLA, EOMI, Normocephalic Oral: Moist Mucosa Neck: Supple, No JVD, Negative Carotid Bruits Lungs: Clear to auscultation, Normal air movement, No rhonchi, No wheeze, No rales Cardiovascular: Regular rate, Regular Rhythm, Normal S1, Normal S2, No murmurs Abdomen: Bowel Sounds Present, Soft, Non Tender, Non-Distended, No Hepato- splenomegaly Extremities: No clubbing, No cyanosis, Capillary Refill Less than 3 Seconds Musculoskeletal: - - right big toe very swollen, with ulceration at base of big toe, with ulcer oozing pus. Lymphatic: No Cervical, Supraclavicular, or Inguinal Adenopathy Neurological: Cranial nerves II-XII grossly intact, Neuro grossly intact, Motor Exam 5/5 strength throughout Psych/Mental Status: Normal Affect, Appropriate, Alert and oriented to time, place, person, mood and affect Vitals/I&O's: Vital Signs Temp Pulse Resp BP Pulse Ox 98.8 F 61 16 135/72 H 99 08/30/19 09:00 08/30/19 09:00 08/30/19 09:00 08/30/19 09:00 08/30/19 09:00 Oxygen Delivery Method Room Air Weight: 116.8 kg Body Mass Index (BMI) 31.3 Intake and Output for Last 24 Hours 08/28/19 08/29/19 08/30/19 23:59 23:59 23:59 Intake Total 4969.17 / 4969.17 8433.08 / 8433.08 2769.75 / 2769.75 Output Total 4350 / 4350 3800 / 3800 2900 / 2900 Balance 619.17 / 619.17 4633.08 / 4633.08 -130.25 / -130.25 Microbiology Past 72 Hours 08/27/19 Unknown Other - Other Gram Stain - Final 08/27/19 Unknown Other - Other Wound Culture - Final Strep anginosus Staphylococcus haemolyticus 08/27/19 Unknown Other - Other Anaerobic Culture - Preliminary Checking for anaerobes, further studies to follow. 08/27/19 Unknown Other - Other Gram Stain - Final 08/27/19 Unknown Other - Other Wound Culture - Preliminary No growth-Final to follow 08/27/19 Unknown Other - Other Anaerobic Culture - Preliminary Checking for anaerobes, further studies to follow. 08/26/19 17:45 Blood Culture (Wb) - Right Hand Blood Culture - Preliminary No growth in 48 hours. 08/26/19 17:30 Blood Culture (Wb) - Anticubital Left Blood Culture - Preliminary No growth in 48 hours. Laboratory Results 08/29/19 11:38: POC Glucose 297 H 08/29/19 12:00: Random Vancomycin 13.2 08/29/19 16:56: POC Glucose 259 H 08/29/19 22:22: POC Glucose 251 H 08/30/19 06:54: POC Glucose 184 H 08/30/19 07:35: WBC 6.2, RBC 4.23 L, Hgb 11.3 L, Hct 35.6 L, MCV 84.2, MCH 26.7 L, MCHC 31.7 L, RDW Std Deviation 36.8, RDW Coeff of Kristal 12.2, Plt Count 298, MPV 9.4, Immature Gran % (Auto) 0.500, Neut % (Auto) 71.1 H, Lymph % (Auto) 18.9 L, Eddy % (Auto) 7.7, Eos % (Auto) 1.3, Baso % (Auto) 0.5, Absolute Neuts (auto) 4.4, Absolute Lymphs (auto) 1.18, Nucleated RBC % 0 08/30/19 07:35: Sodium 139, Potassium 4.4, Chloride 107, Carbon Dioxide 26.0, Anion Gap 6, BUN 26 H, Creatinine 2.03 H, Estim Creat Clear Calc 55.82, Est GFR (MDRD) Af Amer 46 L, Est GFR (MDRD) Non-Af 38 L, BUN/Creatinine Ratio 12.8, Glucose 195 H, Calcium 9.6, Total Bilirubin 0.60, AST 22, ALT 54, Alkaline Phosphatase 71, Total Protein 6.4, Albumin 2.5 L, Globulin 3.9, Albumin/Globulin Ratio 0.6 L Current Medications Acetaminophen (Tylenol) 650 mg PO Q6H PRN PRN PRN Reason: Pain Score 1-3 /Temp>100.7 Last Admin: 08/28/19 03:52 Dose: 650 mg Documented by: Dextrose (D50w Syringe) 0 gm IV X1 PRN; Protocol PRN Reason: Hypoglycemia Enoxaparin Sodium (Lovenox) 40 mg SC DAILY [facility] Last Admin: 08/30/19 09:19 Dose: 40 mg Documented by: Glucagon () 1 mg IM .X1 PRN PRN Reason: Hypoglycemia Piperacillin Sod/Tazobactam (Sod 3.375 gm/ Sodium Chloride) 50 mls @ 12.5 mls/hr IV Q8 ASHLEY Last Infusion: 08/30/19 10:50 Dose: Infused Documented by: Sodium Chloride () 250 mls @ 15 mls/hr IV .[id number] PRN PRN Reason: Saline Flush Last Infusion: 08/30/19 03:18 Dose: 0 mls/hr Documented by: Sodium Chloride () 250 mls @ 15 mls/hr IV .[id number] PRN PRN Reason: Additional IVPB Infusion Sodium Chloride () 1,000 mls @ 100 mls/hr IV .Q10H [facility] Last Admin: 08/30/19 06:05 Dose: 100 mls/hr Documented by: Insulin Glargine (Lantus ([facility])) 16 units SC DAILY [facility] Last Admin: 08/30/19 09:18 Dose: 16 u Documented by: Insulin Human Lispro (Humalog Kwikpen ([facility])) 0 unit SC ACHS [facility]; Protocol Last Admin: 08/30/19 06:57 Dose: 2 units Documented by: Lactobacillus Acidophilus (Acidophilus) 2 tablet PO 4X/DAY [facility] Last Admin: 08/30/19 09:20 Dose: 2 tablet Documented by: Morphine Sulfate () 2 mg IV Q3H PRN PRN PRN Reason: Pain Score 6-10/10 Last Admin: 08/27/19 19:26 Dose: 2 mg Documented by: Ondansetron HCl (Zofran) 4 mg IV Q8H PRN PRN PRN Reason: NAUSEA/VOMITING Sodium Chloride () 10 - 40 ml IV UD PRN PRN Reason: SALINE FLUSH Last Admin: 08/27/19 05:14 Dose: 10 ml Documented by: STROKE Vital Signs/Narrative: Vital Signs Temp Pulse Resp BP Pulse Ox 08/30/19 09:00 98.8 F 61 16 135/72 H 99 Medical Necessity - Tobacco Use Smoking Status: Never smoker Tobacco Use: Chew Assessment/Plan All Active Problems Osteomyelitis (Acute) 1. 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 MRI of the foot confirms acute first proximal and distal phalanx osteomyelitis with soft tissue cellulitis with plantar ulceration Podiatry consulted, pain is controlled. Blood cultures are negative. Intraoperative cultures are still pending. Continue on IV Zosyn. Off vancomycin 2. NUHA, pre-renal, Cr mildly improved to 2.03 Urine output is good. Will continue on IVF, repeat blood work in am Type II DM, uncontrolled, complicated with neuropathy, HgbA1c is 11.9 On Lantus 16 units daily Metformin on hold, continue on insulin sliding scale 3. DVT prophylaxis with Lovenox subcu Inpatient E&M: 14820 Subs Hosp L2
[2019-08-30 12:21] LABS: Bedside Glucose 282 mg/dL (70-110)
[2019-08-30 15:13] VITALS: BP 161/72; PULSE 54; RESP 18; TEMP 36.8; O2SAT 100
[2019-08-30 17:05] LABS: Bedside Glucose 240 mg/dL (70-110)
[2019-08-30 19:42] VITALS: BP 161/72; PULSE 53; RESP 16; TEMP 36.9; O2SAT 97
[2019-08-30 21:36] LABS: Bedside Glucose 281 mg/dL (70-110)
[2019-08-31] MEDS: 0.9% Normal Saline 1,000 ML 100 ML IV ×3 (01:29→21:31)
[2019-08-31 02:10] VITALS: BP 150/65; PULSE 48; RESP 16; TEMP 36.6; O2SAT 98
[2019-08-31 06:05] LABS: Absolute Lymphocyte Count 1.39 X10^3/uL (0.83-4.51); Absolute Neutrophil Count 4.2 X10^3/uL (2.0-7.7); Basophil# 0.03 X10^3/uL; Basophil% 0.5 % (0-1); Eosinophil# 0.12 X10^3/uL; Eosinophils% 1.9 % (0-5); Hematocrit 37.3 % (40-54); Hemoglobin 11.6 g/dL (13.0-16.5); Lymphocyte # 1.39 X10^3/ul (4.0); Lymphocyte % 22.1 % (19-41); Mean Corp Hgb Conc 31.1 g/dL (32-36); Mean Corpuscular Hgb 26.5 pg (27.0-32.0); Mean Corpuscular Volume 85.4 fL (80-94); Mean Platelet Vol. 9.2 fl (6.2-12.0); Monocyte# 0.52 X10^3/uL; Monocyte% 8.3 % (0-10); NRBC Flagged by Analyzer 0 % (0-5); Neutrophil # 4.19 X10^3/uL (2.7-7.7); Neutrophil % 66.4 % (47-70); Platelet Count 305 K/mm3 (150-450); RBC Distribution Width CV 12.2 % (11.6-14.6); RBC Distribution Width SD 37.8 fl (35.1-43.9); Red Blood Count 4.37 M/mm3 (4.6-6.2); White Blood Count 6.3 K/mm3 (4.4-11.0)
[2019-08-31] MEDS: Insulin Lispro 100 UNIT/ML INSULN.PEN SC ×4 (06:20→21:28)
[2019-08-31 06:33] LABS: ALB/GLOB Ratio 0.6 RATIO (0.9-2.4); AST(SGOT) 39 U/L (15-37); Alanine Aminotransfer ALT/SGPT 87 U/L (16-61); Albumin, Serum 2.4 g/dL (3.2-5.0); Alkaline Phosphatase 78 U/L (45-117); Anion Gap 7 (5-15); BUN 31 mg/dL (7-18); BUN/Creat Ratio 14.4 RATIO (10-20); Calcium,Total 9.9 mg/dL (8.5-10.1); Chloride 106 mmol/L (98-107); Creatinine, Serum 2.16 mg/dL (0.70-1.30); EST Glomerular Filtration Rate 35 mL/min (>60); Est Glom Filt Rate - Afr Amer 42 mL/min (>60); Estimated Creatinine Clearance 52.46 ml/min; Globulin 3.8 g/dL (2.2-4.2); Glucose 207 mg/dL (74-106); Potassium 4.6 mmol/L (3.5-5.1); Protein, Total 6.2 g/dL (6.4-8.2); Sodium Level 139 mmol/L (136-145)
[2019-08-31 06:41] LABS: Bedside Glucose 193 mg/dL (70-110)
[2019-08-31] MEDS: Juven (unflavored) Packet 1 PACKET PO ×2 (08:37→17:08)
--- NOTE | 2019-08-31 09:25 | PN_ITS ---
Patient Problems: Active and Suspected Problems Osteomyelitis (Acute) Subjective: Patient was seen this morning for follow up on right foot. He has no complaints. Creatinine increased today, nephrology consulted. No complaints of f/c/v/n. - Physical Exam Vitals/I&O's: Vital Signs Temp Pulse Resp BP Pulse Ox 97.8 F 48 L 16 150/65 H 98 08/31/19 02:10 08/31/19 02:10 08/31/19 02:10 08/31/19 02:10 08/31/19 02:10 Oxygen Delivery Method Room Air Weight: 116.8 kg Body Mass Index (BMI) 31.3 Intake and Output for Last 24 Hours 08/29/19 08/30/19 08/31/19 23:59 23:59 23:59 Intake Total 8433.08 / 8433.08 4286.42 / 4286.42 1050 / 1050 Output Total 3800 / 3800 4050 / 4050 2625 / 2625 Balance 4633.08 / 4633.08 236.42 / 236.42 -1575 / -1575 General: Alert, Oriented x3, Cooperative, No apparent distress Extremities: Capillary Refill Less than 3 Seconds, No Calf Tenderness, Peripheral Pulses Normal, - - s/p resection of 1st toe to base of the proximal phalanx, tissues viable, no necrosis, no purulence, no visible abscess - minimal residual edema noted, no maloder, no crepitus, no fluctuance, no cellulitis, no pain - healing well. Musculoskeletal: No Tenderness to Palpation of Joints or Extremities Psych/Mental Status: Normal Affect, Appropriate, Alert and oriented to time, place, person, mood and affect Microbiology Past 72 Hours 08/27/19 Unknown Other - Other Gram Stain - Final 08/27/19 Unknown Other - Other Wound Culture - Final No growth aerobically. 08/27/19 Unknown Other - Other Anaerobic Culture - Preliminary Checking for anaerobes, further studies to follow. 08/27/19 Unknown Other - Other Gram Stain - Final 08/27/19 Unknown Other - Other Wound Culture - Final Strep anginosus Staphylococcus haemolyticus 08/27/19 Unknown Other - Other Anaerobic Culture - Preliminary Checking for anaerobes, further studies to follow. 08/26/19 17:45 Blood Culture (Wb) - Right Hand Blood Culture - Preliminary No growth in 48 hours. 08/26/19 17:30 Blood Culture (Wb) - Anticubital Left Blood Culture - Preliminary No growth in 48 hours. Laboratory Results 08/30/19 12:09: POC Glucose 282 H 08/30/19 16:59: POC Glucose 240 H 08/30/19 21:26: POC Glucose 281 H 08/31/19 05:50: WBC 6.3, RBC 4.37 L, Hgb 11.6 L, Hct 37.3 L, MCV 85.4, MCH 26.5 L, MCHC 31.1 L, RDW Std Deviation 37.8, RDW Coeff of Kristal 12.2, Plt Count 305, MPV 9.2, Immature Gran % (Auto) 0.800, Neut % (Auto) 66.4, Lymph % (Auto) 22.1, [place] % (Auto) 8.3, Eos % (Auto) 1.9, Baso % (Auto) 0.5, Absolute Neuts (auto) 4.2, Absolute Lymphs (auto) 1.39, Nucleated RBC % 0 08/31/19 05:50: Sodium 139, Potassium 4.6, Chloride 106, Carbon Dioxide 26.0, Anion Gap 7, BUN 31 H, Creatinine 2.16 H, Estim Creat Clear Calc 52.46, Est GFR (MDRD) Af Amer 42 L, Est GFR (MDRD) Non-Af 35 L, BUN/Creatinine Ratio 14.4, Glucose 207 H, Calcium 9.9, Total Bilirubin 0.60, AST 39 H, ALT 87 H, Alkaline Phosphatase 78, Total Protein 6.2 L, Albumin 2.4 L, Globulin 3.8, Albumin/Globulin Ratio 0.6 L 08/31/19 06:18: POC Glucose 193 H Current Medications Acetaminophen (Tylenol) 650 mg PO Q6H PRN PRN PRN Reason: Pain Score 1-3 /Temp>100.7 Last Admin: 08/28/19 03:52 Dose: 650 mg Documented by: Dextrose (D50w Syringe) 0 gm IV X1 PRN; Protocol PRN Reason: Hypoglycemia Enoxaparin Sodium (Lovenox) 40 mg SC DAILY [facility] Last Admin: 08/30/19 09:19 Dose: 40 mg Documented by: Glucagon () 1 mg IM .X1 PRN PRN Reason: Hypoglycemia Piperacillin Sod/Tazobactam (Sod 3.375 gm/ Sodium Chloride) 50 mls @ 12.5 mls/hr IV Q8 [facility] Last Admin: 08/31/19 06:15 Dose: 12.5 mls/hr Documented by: Sodium Chloride () 250 mls @ 15 mls/hr IV .[id number] PRN PRN Reason: Saline Flush Last Infusion: 08/30/19 03:18 Dose: 0 mls/hr Documented by: Sodium Chloride () 250 mls @ 15 mls/hr IV .[id number] PRN PRN Reason: Additional IVPB Infusion Sodium Chloride () 1,000 mls @ 100 mls/hr IV .Q10H [facility] Last Admin: 08/31/19 01:29 Dose: 100 mls/hr Documented by: Insulin Glargine (Lantus ([facility])) 20 units SC DAILY [facility] Insulin Human Lispro (Humalog Kwikpen ([facility])) 0 unit SC ACHS COUNTS INCLUDE 234 BEDS AT THE [facility]; Protocol Last Admin: 08/31/19 06:20 Dose: 2 units Documented by: Lactobacillus Acidophilus (Acidophilus) 2 tablet PO 4X/DAY COUNTS INCLUDE 234 BEDS AT [facility] Last Admin: 08/30/19 21:21 Dose: 2 tablet Documented by: Morphine Sulfate () 2 mg IV Q3H PRN PRN PRN Reason: Pain Score 6-10 Last Admin: 08/27/19 19:26 Dose: 2 mg Documented by: Ondansetron HCl (Zofran) 4 mg IV Q8H PRN PRN PRN Reason: NAUSEA/VOMITING Sodium Chloride () 10 - 40 ml IV UD PRN PRN Reason: SALINE FLUSH Last Admin: 08/27/19 05:14 Dose: 10 ml Documented by: Medical Necessity - Tobacco Use Smoking Status: Never smoker Tobacco Use: Chew Assessment/Plan All Active Problems Osteomyelitis (Acute) Right 1st toe osteomyelitis s/p debridement/amputation on 08/27/2019 Uncontrolled Diabetes w/ peripheral neuropathy Tobacco Use Reviewed diagnostic data. Reviewed findings with patient. Debridement/amputation site continues do do well and healing. Dressing has been changed - painted site w/ betaind soln, applied gauze, kerlix and bee. Reviewed cultures - bone with staph haemolyticus and strep anginosus - patient on IV zosyn, Dr. Brown on board, clearance fragment with no growth to date. Nonweightbearing to the right foot. Keep foot elevated. Reviewed noninvasive lower extremity arterial studies which show good arterial flow to foot. Reviewed importance of proper blood sugar control, as well as tobacco cessation to help optimize healing. Podiatry will continue to follow.
[2019-08-31 10:29] VITALS: BP 154/80; PULSE 51; RESP 18; TEMP 36.7; O2SAT 100
[2019-08-31] MEDS: Enoxaparin 40 MG/0.4 ML Syringe SC (10:31)
--- NOTE | 2019-08-31 10:55 | PCM.PN.HOSP ---
Patient Problems: Active and Suspected Problems Osteomyelitis (Acute) Reason for Visit: Follow-up on osteomyelitis of the left foot Subjective: Patient was seen and examined. He feels well. No complains. No acute events. Objective: Physical exam: General: Alert, Oriented x3, Cooperative, No apparent distress HEENT: Atraumatic, PERRLA, EOMI, Normocephalic Oral: Moist Mucosa Neck: Supple, No JVD, Negative Carotid Bruits Lungs: Clear to auscultation, Normal air movement, No rhonchi, No wheeze, No rales Cardiovascular: Regular rate, Regular Rhythm, Normal S1, Normal S2, No murmurs Abdomen: Bowel Sounds Present, Soft, Non Tender, Non-Distended, No Hepato-splenomegaly Extremities: No clubbing, No cyanosis, Capillary Refill Less than 3 Seconds Musculoskeletal: - - right big toe very swollen, with ulceration at base of big toe, with ulcer oozing pus. Lymphatic: No Cervical, Supraclavicular, or Inguinal Adenopathy Neurological: Cranial nerves II-XII grossly intact, Neuro grossly intact, Motor Exam 5/5 strength throughout Psych/Mental Status: Normal Affect, Appropriate, Alert and oriented to time, place, person, mood and affect Vitals/I&O's: Vital Signs Temp Pulse Resp BP Pulse Ox 98.0 F 51 L 18 154/80 H 100 08/31/19 10:29 08/31/19 10:29 08/31/19 10:29 08/31/19 10:29 08/31/19 10:29 Oxygen Delivery Method Room Air Weight: 116.8 kg Body Mass Index (BMI) 31.3 Intake and Output for Last 24 Hours 08/29/19 08/30/19 08/31/19 23:59 23:59 23:59 Intake Total 8433.08 / 8433.08 4286.42 / 4286.42 1100 / 1100 Output Total 3800 / 3800 4050 / 4050 2625 / 2625 Balance 4633.08 / 4633.08 236.42 / 236.42 -1525 / -1525 Microbiology Past 72 Hours 08/27/19 Unknown Other - Other Gram Stain - Final 08/27/19 Unknown Other - Other Wound Culture - Final No growth aerobically. 08/27/19 Unknown Other - Other Anaerobic Culture - Preliminary Checking for anaerobes, further studies to follow. 08/27/19 Unknown Other - Other Gram Stain - Final 08/27/19 Unknown Other - Other Wound Culture - Final Strep anginosus Staphylococcus haemolyticus 08/27/19 Unknown Other - Other Anaerobic Culture - Preliminary Checking for anaerobes, further studies to follow. 08/26/19 17:45 Blood Culture (Wb) - Right Hand Blood Culture - Preliminary No growth in 48 hours. 08/26/19 17:30 Blood Culture (Wb) - Anticubital Left Blood Culture - Preliminary No growth in 48 hours. Laboratory Results 08/30/19 12:09: POC Glucose 282 H 08/30/19 16:59: POC Glucose 240 H 08/30/19 21:26: POC Glucose 281 H 08/31/19 05:50: WBC 6.3, RBC 4.37 L, Hgb 11.6 L, Hct 37.3 L, MCV 85.4, MCH 26.5 L, MCHC 31.1 L, RDW Std Deviation 37.8, RDW Coeff of Kristal 12.2, Plt Count 305, MPV 9.2, Immature Gran % (Auto) 0.800, Neut % (Auto) 66.4, Lymph % (Auto) 22.1, [place] % (Auto) 8.3, Eos % (Auto) 1.9, Baso % (Auto) 0.5, Absolute Neuts (auto) 4.2, Absolute Lymphs (auto) 1.39, Nucleated RBC % 0 08/31/19 05:50: Sodium 139, Potassium 4.6, Chloride 106, Carbon Dioxide 26.0, Anion Gap 7, BUN 31 H, Creatinine 2.16 H, Estim Creat Clear Calc 52.46, Est GFR (MDRD) Af Amer 42 L, Est GFR (MDRD) Non-Af 35 L, BUN/Creatinine Ratio 14.4, Glucose 207 H, Calcium 9.9, Total Bilirubin 0.60, AST 39 H, ALT 87 H, Alkaline Phosphatase 78, Total Protein 6.2 L, Albumin 2.4 L, Globulin 3.8, Albumin/Globulin Ratio 0.6 L 08/31/19 06:18: POC Glucose 193 H Current Medications Acetaminophen (Tylenol) 650 mg PO Q6H PRN PRN PRN Reason: Pain Score 1-3 /Temp>100.7 Last Admin: 08/28/19 03:52 Dose: 650 mg Documented by: Dextrose (D50w Syringe) 0 gm IV X1 PRN; Protocol PRN Reason: Hypoglycemia Enoxaparin Sodium (Lovenox) 40 mg SC DAILY [facility] Last Admin: 08/31/19 10:31 Dose: 40 mg Documented by: Glucagon () 1 mg IM .X1 PRN PRN Reason: Hypoglycemia Piperacillin Sod/Tazobactam (Sod 3.375 gm/ Sodium Chloride) 50 mls @ 12.5 mls/hr IV Q8 [facility] Last Infusion: 08/31/19 10:15 Dose: Infused Documented by: Sodium Chloride () 250 mls @ 15 mls/hr IV .[id number] PRN PRN Reason: Saline Flush Last Infusion: 08/30/19 03:18 Dose: 0 mls/hr Documented by: Sodium Chloride () 250 mls @ 15 mls/hr IV .[id number] PRN PRN Reason: Additional IVPB Infusion Sodium Chloride () 1,000 mls @ 100 mls/hr IV .Q10H [facility] Last Admin: 08/31/19 01:29 Dose: 100 mls/hr Documented by: Insulin Glargine (Lantus (Bkc)) 20 units SC DAILY [facility] Last Admin: 08/31/19 10:32 Dose: 20 units Documented by: Insulin Human Lispro (Humalog Kwikpen (Bkc)) 0 unit SC ACHS [facility]; Protocol Last Admin: 08/31/19 06:20 Dose: 2 units Documented by: Lactobacillus Acidophilus (Acidophilus) 2 tablet PO 4X/DAY [facility] Last Admin: 08/31/19 10:31 Dose: 2 tablet Documented by: Morphine Sulfate () 2 mg IV Q3H PRN PRN PRN Reason: Pain Score 6-10/10 Last Admin: 08/27/19 19:26 Dose: 2 mg Documented by: Ondansetron HCl (Zofran) 4 mg IV Q8H PRN PRN PRN Reason: NAUSEA/VOMITING Sodium Chloride () 10 - 40 ml IV UD PRN PRN Reason: SALINE FLUSH Last Admin: 08/27/19 05:14 Dose: 10 ml Documented by: STROKE Vital Signs/Narrative: Vital Signs Temp Pulse Resp BP Pulse Ox 08/31/19 10:29 98.0 F 51 L 18 154/80 H 100 Medical Necessity - Tobacco Use Smoking Status: Never smoker Tobacco Use: Chew Assessment/Plan All Active Problems Osteomyelitis (Acute) 1. 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 MRI of the foot confirms acute first proximal and distal phalanx osteomyelitis with soft tissue cellulitis with plantar ulceration Podiatry consulted, pain is controlled. Blood cultures are negative. Intraoperative cultures are still pending. Continue on IV Zosyn. Off vancomycin 2. NUHA, pre-renal, Cr is 2.16. Creatinine on admission is 0.67. Urine output is good. Will continue on IVF, repeat blood work in am Nephrology consulted, will get UA, get urine sodium, creatinine 3. Type II DM, uncontrolled, complicated with neuropathy, HgbA1c is 11.9 Blood sugar remains uncontrolled, on Lantus 16 units daily Will increase Lantus 20 units daily Metformin on hold, continue on insulin sliding scale 4. DVT prophylaxis with Lovenox subcu Inpatient E&M: 45817 Subs Hosp L2
[2019-08-31 11:40] LABS: Bedside Glucose 300 mg/dL (70-110)
[2019-08-31 12:45] LABS: Bacteria 0 SEEN /hpf (None Seen); Mucous, Urine 0 SEEN /hpf (<or=2+); Red Blood Cells-Urine 0 SEEN /hpf (0-5); Squamous Epithelial Cells - UA 0 SEEN /hpf (0-5); White Blood Cells 0 SEEN /hpf (0-5)
[2019-08-31 12:47] LABS: Color, Urine Straw (Yellow); Glucose, Dipstick 1000 mg/dl (Normal); Ketone-Dipstick Negative (Negative); Leukocyte Esterase-Dipstick Negative /ul (Negative); Nitrite-Dipstick Negative (Negative); Occult Blood-Urine Negative /ul (Negative); Protein-Dipstick Negative (Negative); Specific Gravity, Urine 1.005 (1.002-1.030); Urine Bilirubin Dipstick Negative (Negative); Urine Clarity Clear (Clear); Urine Urobilinogen Normal (Normal); Urine pH 6.5 (5.0 - 8.0)
[2019-08-31 12:51] LABS: Urine Sodium 70 mmol/L (Not Establ.)
[2019-08-31 14:43] VITALS: BP 158/74; PULSE 50; RESP 18; TEMP 36.6; O2SAT 99
[2019-08-31] MEDS: Acetaminophen 325 MG Tablet 650 MG PO (14:50)
--- NOTE | 2019-08-31 15:14 | CON.PCM_ITS ---
Consultation - Renal 08/31/19 PCP/ Referring MD: Requesting physician: [] Primary care physician: Dr. Say Prather DO Reason for Consultation:: nuha - History of Present Illness History of Present Illness: The patient is a 44 year old M past medical history of type 2 diabetes mellitus admitted with a chief complaint of right big toe swelling for about 2 months and pain which started with a ulcer in the base of the right big toe. He also had pain in the left lower extremity. The patient was found to have osteomyelitis and underwent surgery on August 26. Prior to surgery his creatinine has normal range 0.6 and after surgery was 1.87 and then in the low 2 range which prompted renal consult. His trough vancomycin level is in target range he had a slightly high random vancomycin level. The patient denies chest pain shortness of breath dysuria hematuria nausea vomiting. He states he had some loose stools in the last 3 days which gradually improved. He denies abdominal pain. He has no other complaints. - Allergies Allergies: Allergies No Known Allergies Allergy (Verified 08/26/19 17:06) - Current Medications Current Medications: Current Medications Acetaminophen (Tylenol) 650 mg PO Q6H PRN PRN PRN Reason: Pain Score 1-3 /Temp>100.7 Last Admin: 08/31/19 14:50 Dose: 650 mg Documented by: Dextrose (D50w Syringe) 0 gm IV X1 PRN; Protocol PRN Reason: Hypoglycemia Enoxaparin Sodium (Lovenox) 40 mg SC DAILY [facility] Last Admin: 08/31/19 10:31 Dose: 40 mg Documented by: Glucagon () 1 mg IM .X1 PRN PRN Reason: Hypoglycemia Piperacillin Sod/Tazobactam (Sod 3.375 gm/ Sodium Chloride) 50 mls @ 12.5 mls/hr IV Q8 [facility] Last Admin: 08/31/19 14:48 Dose: 12.5 mls/hr Documented by: Sodium Chloride () 250 mls @ 15 mls/hr IV .[id number] PRN PRN Reason: Saline Flush Last Infusion: 08/30/19 03:18 Dose: 0 mls/hr Documented by: Sodium Chloride () 250 mls @ 15 mls/hr IV .[id number] PRN PRN Reason: Additional IVPB Infusion Sodium Chloride () 1,000 mls @ 100 mls/hr IV .Q10H [facility] Last Admin: 08/31/19 11:38 Dose: 100 mls/hr Documented by: Insulin Glargine (Lantus (Bkc)) 20 units SC DAILY [facility] Last Admin: 08/31/19 10:32 Dose: 20 units Documented by: Insulin Human Lispro (Humalog Kwikpen (Bkc)) 0 unit SC ACHS [facility]; Protocol Last Admin: 08/31/19 11:39 Dose: 6 units Documented by: Lactobacillus Acidophilus (Acidophilus) 2 tablet PO 4X/DAY [facility] Last Admin: 08/31/19 14:48 Dose: 2 tablet Documented by: Morphine Sulfate () 2 mg IV Q3H PRN PRN PRN Reason: Pain Score 6-10/10 Last Admin: 08/27/19 19:26 Dose: 2 mg Documented by: Ondansetron HCl (Zofran) 4 mg IV Q8H PRN PRN PRN Reason: NAUSEA/VOMITING Sodium Chloride () 10 - 40 ml IV UD PRN PRN Reason: SALINE FLUSH Last Admin: 08/27/19 05:14 Dose: 10 ml Documented by: - Past Surgical History Surgical History: noncontributory - Social History Smoking Status: Never smoker Alcohol: None Drugs: None - Family History Maternal History Items: No pertinent history Paternal History Items: No pertinent history Patient Problems: Active and Suspected Problems Osteomyelitis (Acute) - Physical Exam Vitals/I&O's: Vital Signs Temp Pulse Resp BP Pulse Ox 97.9 F 50 L 18 158/74 H 99 08/31/19 14:43 08/31/19 14:43 08/31/19 14:43 08/31/19 14:43 08/31/19 14:43 Oxygen Delivery Method Room Air Weight: 116.8 kg Body Mass Index (BMI) 31.3 Intake and Output for Last 24 Hours 08/29/19 08/30/19 08/31/19 23:59 23:59 23:59 Intake Total 8433.08 / 8433.08 4286.42 / 4286.42 2850 / 2850 Output Total 3800 / 3800 4050 / 4050 3125 / 3125 Balance 4633.08 / 4633.08 236.42 / 236.42 -275 / -275 General: Alert, Oriented x3, Cooperative HEENT: Atraumatic, EOMI, Normocephalic Neck: Supple Lungs: Clear to auscultation, Normal air movement, Rales Cardiovascular: Regular rate, Regular Rhythm, Normal S1, Normal S2 Abdomen: Bowel Sounds Present, Soft, Non Tender, Non-Distended Extremities: No edema - Bandage right foot no discharge Microbiology Past 72 Hours 08/27/19 Unknown Other - Other Gram Stain - Final 08/27/19 Unknown Other - Other Wound Culture - Final No growth aerobically. 08/27/19 Unknown Other - Other Anaerobic Culture - Preliminary Checking for anaerobes, further studies to follow. 08/27/19 Unknown Other - Other Gram Stain - Final 08/27/19 Unknown Other - Other Wound Culture - Final Strep anginosus Staphylococcus haemolyticus 08/27/19 Unknown Other - Other Anaerobic Culture - Preliminary Checking for anaerobes, further studies to follow. 08/26/19 17:45 Blood Culture (Wb) - Right Hand Blood Culture - Preliminary No growth in 48 hours. 08/26/19 17:30 Blood Culture (Wb) - Anticubital Left Blood Culture - Preliminary No growth in 48 hours. Laboratory Results 08/30/19 16:59: POC Glucose 240 H 08/30/19 21:26: POC Glucose 281 H 08/31/19 05:50: WBC 6.3, RBC 4.37 L, Hgb 11.6 L, Hct 37.3 L, MCV 85.4, MCH 26.5 L, MCHC 31.1 L, RDW Std Deviation 37.8, RDW Coeff of Kristal 12.2, Plt Count 305, MPV 9.2, Immature Gran % (Auto) 0.800, Neut % (Auto) 66.4, Lymph % (Auto) 22.1, [place] % (Auto) 8.3, Eos % (Auto) 1.9, Baso % (Auto) 0.5, Absolute Neuts (auto) 4.2, Absolute Lymphs (auto) 1.39, Nucleated RBC % 0 08/31/19 05:50: Sodium 139, Potassium 4.6, Chloride 106, Carbon Dioxide 26.0, Anion Gap 7, BUN 31 H, Creatinine 2.16 H, Estim Creat Clear Calc 52.46, Est GFR (MDRD) Af Amer 42 L, Est GFR (MDRD) Non-Af 35 L, BUN/Creatinine Ratio 14.4, Glucose 207 H, Calcium 9.9, Total Bilirubin 0.60, AST 39 H, ALT 87 H, Alkaline Phosphatase 78, Total Protein 6.2 L, Albumin 2.4 L, Globulin 3.8, Albumin/Globulin Ratio 0.6 L 08/31/19 06:18: POC Glucose 193 H 08/31/19 11:36: POC Glucose 300 H 08/31/19 12:30: Urine Creatinine 23.70 08/31/19 12:30: Urine Color Straw, Urine Clarity Clear, Urine pH 6.5, Ur Specific [place] 1.005, Urine Protein Negative, Urine Glucose (UA) 1000 H, Urine Ketones Negative, Urine Occult Blood Negative, Urine Nitrite Negative, Urine Bilirubin Negative, Urine Urobilinogen Normal, Ur Leukocyte Esterase Negative, Urine RBC 0 SEEN, Urine WBC 0 SEEN, Ur Squamous Epith Cells 0 SEEN, Urine Bacteria 0 SEEN, Urine Mucus 0 SEEN 08/31/19 12:30: Ur Random Sodium 70 Current Medications Acetaminophen (Tylenol) 650 mg PO Q6H PRN PRN PRN Reason: Pain Score 1-3 /Temp>100.7 Last Admin: 08/31/19 14:50 Dose: 650 mg Documented by: Dextrose (D50w Syringe) 0 gm IV X1 PRN; Protocol PRN Reason: Hypoglycemia Enoxaparin Sodium (Lovenox) 40 mg SC DAILY [facility] Last Admin: 08/31/19 10:31 Dose: 40 mg Documented by: Glucagon () 1 mg IM .X1 PRN PRN Reason: Hypoglycemia Piperacillin Sod/Tazobactam (Sod 3.375 gm/ Sodium Chloride) 50 mls @ 12.5 mls/hr IV Q8 [facility] Last Admin: 08/31/19 14:48 Dose: 12.5 mls/hr Documented by: Sodium Chloride () 250 mls @ 15 mls/hr IV .[id number] PRN PRN Reason: Saline Flush Last Infusion: 08/30/19 03:18 Dose: 0 mls/hr Documented by: Sodium Chloride () 250 mls @ 15 mls/hr IV .[id number] PRN PRN Reason: Additional IVPB Infusion Sodium Chloride () 1,000 mls @ 100 mls/hr IV .Q10H [facility] Last Admin: 06/14/20 11:38 Dose: 100 mls/hr Documented by: Insulin Glargine (Lantus (Bk)) 20 units SC DAILY [facility] Last Admin: 08/31/19 10:32 Dose: 20 units Documented by: Insulin Human Lispro (Humalog Kwikpen (Bk)) 0 unit SC ACHS [facility]; Protocol Last Admin: 08/31/19 11:39 Dose: 6 units Documented by: Lactobacillus Acidophilus (Acidophilus) 2 tablet PO 4X/DAY [facility] Last Admin: 08/31/19 14:48 Dose: 2 tablet Documented by: Morphine Sulfate () 2 mg IV Q3H PRN PRN PRN Reason: Pain Score 6-12/26 Last Admin: 08/27/19 19:26 Dose: 2 mg Documented by: Ondansetron HCl (Zofran) 4 mg IV Q8H PRN PRN PRN Reason: NAUSEA/VOMITING Sodium Chloride () 10 - 40 ml IV UD PRN PRN Reason: SALINE FLUSH Last Admin: 08/27/19 05:14 Dose: 10 ml Documented by: Assessment/Plan All Active Problems Osteomyelitis (Acute) NUHA likely postop vs vanco nephrotoxicity Proteinuria 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 The patient is still on Zosyn. NS vanco was stopped check 24 hour collection for protein spep upep spot up/cr avoid nephrotoxins Above assessment and plan was discussed at length with the patient who voiced understanding and agrees to proceed with the plan as outlined above. He was given the opportunity to ask questions and stated that those were answered to his satisfaction. Thank you very much for allowing me to participate in the care of this patient. Please do not hesitate to call if you have any questions or concerns.
--- NOTE | 2019-08-31 15:26 | US_ITS ---
STUDY: RENAL ULTRASOUND - COMPLETE REASON FOR EXAM: Male, 44 years old. NUHA TYPE 2 DIABETES TECHNIQUE: Ultrasound evaluation of the kidneys was performed with real-time and static de la rosa-scale imaging. COMPARISON: None. FINDINGS: RIGHT KIDNEY: Normal location of the right kidney, which is normal in size. The right kidney measures 14.1 cm x 6.5 cm x 6.7 cm. There is a normal cortex of the right kidney. The renal cortex measures 2.1 cm. There is a 3.4 cm x 3.0 cm x 2.6 cm renal cyst. There are no right renal calculi. There is no right hydronephrosis. DISTAL RIGHT URETER: There is non-visualization of the distal right ureter. There is no demonstrated right ureterovesical junction calculus. There is a visualized right ureteral jet. LEFT KIDNEY: Normal location of the left kidney, which is normal in size. The left kidney measures 14.1 cm x 6.9 cm x 6.8 cm. There is a normal cortex of the left kidney. The renal cortex measures 2.4 cm. There is no left renal mass or cyst. There are no left renal calculi. There is no left hydronephrosis. DISTAL LEFT URETER: There is non-visualization of the distal left ureter. There is no demonstrated left ureterovesical junction calculus. There is a visualized left ureteral jet. BLADDER: The distended urinary bladder has a volume of 280 ml. There is a normal wall thickness of the distended urinary bladder. There is no demonstrated mass within the urinary bladder. There are no demonstrated bladder calculi. US/Kidney and Bladder IMPRESSION: 3.4 cm x 3 cm x 2.6 cm right renal cyst. Electronically Signed: Bharat Bruno, at 10:39 EDT , Service support ,
[2019-08-31 16:42] LABS: Protein, Urine (Random) < 6.0 mg/dL (<11.9)
[2019-08-31 16:45] LABS: Bedside Glucose 212 mg/dL (70-110)
[2019-08-31 19:47] VITALS: BP 160/70; PULSE 46; RESP 16; TEMP 36.8; O2SAT 100
[2019-08-31 21:36] LABS: Bedside Glucose 234 mg/dL (70-110)
[2019-09-01 02:55] VITALS: BP 157/66; PULSE 46; RESP 18; TEMP 36.7; O2SAT 99
[2019-09-01 06:14] LABS: Basophil# 0.04 X10^3/uL; Basophil% 0.7 % (0-1); Eosinophil# 0.13 X10^3/uL; Eosinophils% 2.2 % (0-5); Hemoglobin 11.5 g/dL (13.0-16.5); Lymphocyte % 20.4 % (19-41); Mean Corp Hgb Conc 31.9 g/dL (32-36); Mean Corpuscular Hgb 26.8 pg (27.0-32.0); Mean Corpuscular Volume 83.9 fL (80-94); Mean Platelet Vol. 9.2 fl (6.2-12.0); Monocyte# 0.48 X10^3/uL; Monocyte% 8.1 % (0-10); NRBC Flagged by Analyzer 0 % (0-5); Neutrophil % 67.9 % (47-70); Platelet Count 306 K/mm3 (150-450); RBC Distribution Width CV 12.1 % (11.6-14.6); RBC Distribution Width SD 36.9 fl (35.1-43.9); Red Blood Count 4.29 M/mm3 (4.6-6.2); White Blood Count 5.9 K/mm3 (4.4-11.0)
[2019-09-01] MEDS: 0.9% Normal Saline 1,000 ML 100 ML IV ×2 (06:27→17:35)
[2019-09-01] MEDS: Insulin Lispro 100 UNIT/ML INSULN.PEN SC ×4 (06:31→20:40)
[2019-09-01 06:35] LABS: ALB/GLOB Ratio 0.6 RATIO (0.9-2.4); AST(SGOT) 35 U/L (15-37); Alanine Aminotransfer ALT/SGPT 89 U/L (16-61); Albumin, Serum 2.4 g/dL (3.2-5.0); Alkaline Phosphatase 69 U/L (45-117); Anion Gap 5 (5-15); BUN 33 mg/dL (7-18); BUN/Creat Ratio 16.1 RATIO (10-20); Calcium,Total 9.5 mg/dL (8.5-10.1); Chloride 109 mmol/L (98-107); Creatinine, Serum 2.05 mg/dL (0.70-1.30); EST Glomerular Filtration Rate 37 mL/min (>60); Est Glom Filt Rate - Afr Amer 45 mL/min (>60); Estimated Creatinine Clearance 55.28 ml/min; Globulin 3.7 g/dL (2.2-4.2); Glucose 174 mg/dL (74-106); Potassium 4.3 mmol/L (3.5-5.1); Protein, Total 6.1 g/dL (6.4-8.2); Sodium Level 140 mmol/L (136-145)
[2019-09-01 06:41] LABS: Bedside Glucose 164 mg/dL (70-110)
--- NOTE | 2019-09-01 07:34 | PCM.PN.HOSP ---
Patient Problems: Active and Suspected Problems Osteomyelitis (Acute) Subjective: Patient is a 44-year-old gentleman with history of diabetes mellitus type 2 uncontrolled who presented with infected and necrotic big toe involving the right foot for which patient underwent debridement Objective: GENERAL: cooperative HEENT: Atraumatic; EYES; Anicteric, Normal Conjunctiva NECK; supple, normal thyroid, RESPIRATORY: Diminished to auscultation CARDIOVASCULAR: Regular S1 S2, GI: soft, normoactive bowel sounds, : No Renal angle tenderness; EXTREMITIES: Right foot in surgical dressing MUSCULOSKELETAL: no muscle waisting NEURO: Awake; no lateralizing signs. SKIN: No Rash PSYCH; Flat affect Vitals/I&O's: Vital Signs Temp Pulse Resp BP Pulse Ox 98.1 F 46 L 18 157/66 H 99 09/01/19 02:55 09/01/19 02:55 09/01/19 02:55 09/01/19 02:55 09/01/19 02:55 Oxygen Delivery Method Room Air Weight: 116.8 kg Body Mass Index (BMI) 31.3 Intake and Output for Last 24 Hours 08/30/19 08/31/19 09/01/19 23:59 23:59 23:59 Intake Total 4286.42 / 4286.42 5188.33 / 5188.33 943.33 / 943.33 Output Total 4050 / 4050 4850 / 7450 4100 / 4100 Balance 236.42 / 236.42 338.33 / -2261.67 -3156.67 / -3156.67 Microbiology Past 72 Hours 08/27/19 Unknown Other - Other Gram Stain - Final 08/27/19 Unknown Other - Other Wound Culture - Final No growth aerobically. 08/27/19 Unknown Other - Other Anaerobic Culture - Preliminary Checking for anaerobes, further studies to follow. 08/27/19 Unknown Other - Other Gram Stain - Final 08/27/19 Unknown Other - Other Wound Culture - Final Strep anginosus Staphylococcus haemolyticus 08/27/19 Unknown Other - Other Anaerobic Culture - Preliminary Checking for anaerobes, further studies to follow. 08/26/19 17:45 Blood Culture (Wb) - Right Hand Blood Culture - Preliminary No growth in 48 hours. 08/26/19 17:30 Blood Culture (Wb) - Anticubital Left Blood Culture - Preliminary No growth in 48 hours. Laboratory Results 08/31/19 11:36: POC Glucose 300 H 08/31/19 12:30: Urine Creatinine 23.70 08/31/19 12:30: Urine Color Straw, Urine Clarity Clear, Urine pH 6.5, Ur Specific [place] 1.005, Urine Protein Negative, Urine Glucose (UA) 1000 H, Urine Ketones Negative, Urine Occult Blood Negative, Urine Nitrite Negative, Urine Bilirubin Negative, Urine Urobilinogen Normal, Ur Leukocyte Esterase Negative, Urine RBC 0 SEEN, Urine WBC 0 SEEN, Ur Squamous Epith Cells 0 SEEN, Urine Bacteria 0 SEEN, Urine Mucus 0 SEEN 08/31/19 12:30: Ur Random Sodium 70 08/31/19 16:02: Urine Creatinine 28.00 08/31/19 16:24: Total Protein (PEP) Pending, Albumin (PEP) Pending, Globulin (PEP) Pending, Albumin/Globulin (PEP) Pending, Cfgmm-0-Qzjcepgpl Pending, Ievjv-3-Sgyqcinal Pending, Beta Globulins Pending, Gamma Globulins Pending, M-Carl Pending 08/31/19 16:24: U Random Total Protein < 6.0 08/31/19 16:29: POC Glucose 212 H 08/31/19 21:27: POC Glucose 234 H 09/01/19 05:55: WBC 5.9, RBC 4.29 L, Hgb 11.5 L, Hct 36.0 L, MCV 83.9, MCH 26.8 L, MCHC 31.9 L, RDW Std Deviation 36.9, RDW Coeff of Kristal 12.1, Plt Count 306, MPV 9.2, Immature Gran % (Auto) 0.700, Neut % (Auto) 67.9, Lymph % (Auto) 20.4, [place] % (Auto) 8.1, Eos % (Auto) 2.2, Baso % (Auto) 0.7, Absolute Neuts (auto) 4.0, Absolute Lymphs (auto) 1.20, Nucleated RBC % 0 09/01/19 05:55: Sodium 140, Potassium 4.3, Chloride 109 H, Carbon Dioxide 26.0, Anion Gap 5, BUN 33 H, Creatinine 2.05 H, Estim Creat Clear Calc 55.28, Est GFR (MDRD) Af Amer 45 L, Est GFR (MDRD) Non-Af 37 L, BUN/Creatinine Ratio 16.1, Glucose 174 H, Calcium 9.5, Total Bilirubin 0.60, AST 35, ALT 89 H, Alkaline Phosphatase 69, Total Protein 6.1 L, Albumin 2.4 L, Globulin 3.7, Albumin/Globulin Ratio 0.6 L 09/01/19 06:30: POC Glucose 164 H Current Medications Acetaminophen (Tylenol) 650 mg PO Q6H PRN PRN PRN Reason: Pain Score 1-3 /Temp>100.7 Last Admin: 08/31/19 14:50 Dose: 650 mg Documented by: Dextrose (D50w Syringe) 0 gm IV X1 PRN; Protocol PRN Reason: Hypoglycemia Enoxaparin Sodium (Lovenox) 40 mg SC DAILY [facility] Last Admin: 08/31/19 10:31 Dose: 40 mg Documented by: Glucagon () 1 mg IM .X1 PRN PRN Reason: Hypoglycemia Piperacillin Sod/Tazobactam (Sod 3.375 gm/ Sodium Chloride) 50 mls @ 12.5 mls/hr IV Q8 [facility] Last Admin: 09/01/19 06:27 Dose: 12.5 mls/hr Documented by: Sodium Chloride () 250 mls @ 15 mls/hr IV .[id number] PRN PRN Reason: Saline Flush Last Infusion: 08/30/19 03:18 Dose: 0 mls/hr Documented by: Sodium Chloride () 250 mls @ 15 mls/hr IV .[id number] PRN PRN Reason: Additional IVPB Infusion Sodium Chloride () 1,000 mls @ 100 mls/hr IV .Q10H [facility] Last Admin: 09/01/19 06:27 Dose: 100 mls/hr Documented by: Insulin Glargine (Lantus (Bk)) 20 units SC DAILY [facility] Last Admin: 08/31/19 10:32 Dose: 20 units Documented by: Insulin Human Lispro (Humalog Kwikpen (Bk)) 0 unit SC ACHS [facility]; Protocol Last Admin: 09/01/19 06:31 Dose: 2 units Documented by: Lactobacillus Acidophilus (Acidophilus) 2 tablet PO 4X/DAY [facility] Last Admin: 08/31/19 21:24 Dose: 2 tablet Documented by: Morphine Sulfate () 2 mg IV Q3H PRN PRN PRN Reason: Pain Score 6-10/10 Last Admin: 08/27/19 19:26 Dose: 2 mg Documented by: Ondansetron HCl (Zofran) 4 mg IV Q8H PRN PRN PRN Reason: NAUSEA/VOMITING Sodium Chloride () 10 - 40 ml IV UD PRN PRN Reason: SALINE FLUSH Last Admin: 08/27/19 05:14 Dose: 10 ml Documented by: Medical Necessity - Tobacco Use Smoking Status: Never smoker Tobacco Use: Chew Assessment/Plan All Active Problems Osteomyelitis (Acute) Patient is a 44-year-old gentleman with history of diabetes mellitus type 2 uncontrolled who presented with infected and necrotic big toe involving the right foot for which patient underwent debridement 1. Diabetic foot wound infection (gangrene and osteomyelitis) ?Patient presented with infected necrotic right big toe. MRI demonstrated acute first proximal and distal phalanx osteomyelitis with soft tissue cellulitis with plantar ulceration patient underwent amputation on 08/27/2019. Cultures positive for alphahemolytic strep and staph aureus. Subsequent antibiotic management deferred to infectious disease 2. Acute kidney injury -Suspected to be secondary to ATN as well as possible meds. Patient currently undergoing evaluation by nephrology. Not much improvement in kidney function since admission. 3. Diabetes mellitus type II -Uncontrolled with complications including peripheral neuropathy; patient's oral hypoglycemics held. Placed on long acting insulin, Accu-Cheks a.c. and at bedtime and covered with sliding scale insulin 4. Peripheral neuropathy Secondary to diabetic neuropathy 5. DVT prophylaxis - On enoxaparin Inpatient E&M: 35685 [facility] Hosp L2
[2019-09-01] MEDS: Juven (unflavored) Packet 1 PACKET PO ×2 (09:08→17:32)
[2019-09-01] MEDS: Enoxaparin 40 MG/0.4 ML Syringe SC (09:09)
[2019-09-01 09:15] VITALS: BP 154/65; PULSE 61; RESP 18; TEMP 36.4; O2SAT 96
[2019-09-01] MEDS: 0.9% Saline Lock 10 ML Syringe IV (11:35)
[2019-09-01 11:36] VITALS: PULSE 60
--- NOTE | 2019-09-01 11:55 | NURSING ---
wound photo: right foot
[2019-09-01 12:11] LABS: Bedside Glucose 284 mg/dL (70-110)
--- NOTE | 2019-09-01 13:16 | PN.RENAL_ITS ---
Patient Problems: Active and Suspected Problems Osteomyelitis (Acute) Subjective: NO CP/SOB NO C/O - Physical Exam Vitals/I&O's: Vital Signs Temp Pulse Resp BP Pulse Ox 97.5 F L 60 18 154/65 H 96 09/01/19 09:15 09/01/19 11:36 09/01/19 09:15 09/01/19 09:15 09/01/19 09:15 Oxygen Delivery Method Room Air Weight: 116.8 kg Body Mass Index (BMI) 31.3 Intake and Output for Last 24 Hours 08/30/19 08/31/19 09/01/19 23:59 23:59 23:59 Intake Total 4286.42 / 4286.42 5188.33 / 5188.33 993.33 / 993.33 Output Total 4050 / 4050 4850 / 7450 4100 / 4100 Balance 236.42 / 236.42 338.33 / -2261.67 -3106.67 / -3106.67 General: Alert, Cooperative HEENT: Atraumatic, Normocephalic Oral: Moist Mucosa Neck: Supple, Trachea Midline Lungs: Clear to auscultation, Normal air movement, No rhonchi Cardiovascular: Regular rate, Regular Rhythm, Normal S1, Normal S2 Abdomen: Bowel Sounds Present, Soft, Non Tender Extremities: No edema Microbiology Past 72 Hours 08/27/19 Unknown Other - Other Gram Stain - Final 08/27/19 Unknown Other - Other Wound Culture - Final No growth aerobically. 08/27/19 Unknown Other - Other Anaerobic Culture - Final No anaerobic bacteria isolated. 08/27/19 Unknown Other - Other Gram Stain - Final 08/27/19 Unknown Other - Other Wound Culture - Final Strep anginosus Staphylococcus haemolyticus 08/27/19 Unknown Other - Other Anaerobic Culture - Final No anaerobic bacteria isolated. 08/26/19 17:45 Blood Culture (Wb) - Right Hand Blood Culture - Final No growth in 5 days. 08/26/19 17:30 Blood Culture (Wb) - Anticubital Left Blood Culture - Final No growth in 5 days. Laboratory Results 08/31/19 16:02: Urine Creatinine 28.00 08/31/19 16:24: Total Protein (PEP) Pending, Albumin (PEP) Pending, Globulin (PEP) Pending, Albumin/Globulin (PEP) Pending, Ydfcr-4-Wplftpxld Pending, Snxnb-4-Lrnbjtpet Pending, Beta Globulins Pending, Gamma Globulins Pending, M- Carl Pending 08/31/19 16:24: U Random Total Protein < 6.0 08/31/19 16:29: POC Glucose 212 H 08/31/19 21:27: POC Glucose 234 H 09/01/19 05:55: WBC 5.9, RBC 4.29 L, Hgb 11.5 L, Hct 36.0 L, MCV 83.9, MCH 26.8 L, MCHC 31.9 L, RDW Std Deviation 36.9, RDW Coeff of Kristal 12.1, Plt Count 306, MPV 9.2, Immature Gran % (Auto) 0.700, Neut % (Auto) 67.9, Lymph % (Auto) 20.4, [place] % (Auto) 8.1, Eos % (Auto) 2.2, Baso % (Auto) 0.7, Absolute Neuts (auto) 4.0, Absolute Lymphs (auto) 1.20, Nucleated RBC % 0 09/01/19 05:55: Sodium 140, Potassium 4.3, Chloride 109 H, Carbon Dioxide 26.0, Anion Gap 5, BUN 33 H, Creatinine 2.05 H, Estim Creat Clear Calc 55.28, Est GFR (MDRD) Af Amer 45 L, Est GFR (MDRD) Non-Af 37 L, BUN/Creatinine Ratio 16.1, Glucose 174 H, Calcium 9.5, Total Bilirubin 0.60, AST 35, ALT 89 H, Alkaline Phosphatase 69, Total Protein 6.1 L, Albumin 2.4 L, Globulin 3.7, Albumin/Globulin Ratio 0.6 L 09/01/19 06:30: POC Glucose 164 H 09/01/19 11:31: POC Glucose 284 H Current Medications Acetaminophen (Tylenol) 650 mg PO Q6H PRN PRN PRN Reason: Pain Score 1-3 /Temp>100.7 Last Admin: 08/31/19 14:50 Dose: 650 mg Documented by: Dextrose (D50w Syringe) 0 gm IV X1 PRN; Protocol PRN Reason: Hypoglycemia Enoxaparin Sodium (Lovenox) 30 mg SC DAILY@0600 [facility] Glucagon () 1 mg IM .X1 PRN PRN Reason: Hypoglycemia Sodium Chloride () 250 mls @ 15 mls/hr IV .[id number] PRN PRN Reason: Saline Flush Last Infusion: 08/30/19 03:18 Dose: 0 mls/hr Documented by: Sodium Chloride () 250 mls @ 15 mls/hr IV .[id number] PRN PRN Reason: Additional IVPB Infusion Sodium Chloride () 1,000 mls @ 100 mls/hr IV .Q10H [facility] Last Admin: 09/01/19 06:27 Dose: 100 mls/hr Documented by: Ceftriaxone Sodium 2 gm/ (Sodium Chloride) 50 mls @ 100 mls/hr IV Q24 [facility] Insulin Glargine (Lantus (Bkc)) 20 units SC DAILY [facility] Last Admin: 09/01/19 09:11 Dose: 20 units Documented by: Insulin Human Lispro (Humalog Kwikpen (Bk)) 0 unit SC ACHS [facility]; Protocol Last Admin: 09/01/19 11:32 Dose: 6 units Documented by: Lactobacillus Acidophilus (Acidophilus) 2 tablet PO 4X/DAY [facility] Last Admin: 09/01/19 09:09 Dose: 2 tablet Documented by: Morphine Sulfate () 2 mg IV Q3H PRN PRN PRN Reason: Pain Score 6-10/10 Last Admin: 08/27/19 19:26 Dose: 2 mg Documented by: Ondansetron HCl (Zofran) 4 mg IV Q8H PRN PRN PRN Reason: NAUSEA/VOMITING Sodium Chloride () 10 - 40 ml IV UD PRN PRN Reason: SALINE FLUSH Last Admin: 09/01/19 11:35 Dose: 20 ml Documented by: Medical Necessity - Tobacco Use Smoking Status: Never smoker Tobacco Use: Chew Assessment/Plan All Active Problems Osteomyelitis (Acute) NUHA likely postop vs vanco nephrotoxicity Proteinuria likely DKD Renal cyst monitor periodically Right 1st toe osteomyelitis s/p debridement/amputation on 08/27/2019 DM Scr 2.0 42 ml PVR protein undetectable on spot UA except proteinuria bland NOT suggestive of acute interstitial nephritis. continue NS vanco was stopped f/u 24 hour collection for protein spep upep spot up/cr avoid nephrotoxins
--- NOTE | 2019-09-01 13:20 | PN.ID_ITS ---
Patient Problems: Active and Suspected Problems Osteomyelitis (Acute) Subjective: Feeling better, no fever, no n/v. - Physical Exam Vitals/I&O's: Vital Signs Temp Pulse Resp BP Pulse Ox 97.5 F L 60 18 154/65 H 96 09/01/19 09:15 09/01/19 11:36 09/01/19 09:15 09/01/19 09:15 09/01/19 09:15 Oxygen Delivery Method Room Air Weight: 116.8 kg Body Mass Index (BMI) 31.3 Intake and Output for Last 24 Hours 08/30/19 08/31/19 09/01/19 23:59 23:59 23:59 Intake Total 4286.42 / 4286.42 5188.33 / 5188.33 993.33 / 993.33 Output Total 4050 / 4050 4850 / 7450 4100 / 4100 Balance 236.42 / 236.42 338.33 / -2261.67 -3106.67 / -3106.67 General: Alert, Cooperative, No apparent distress Lungs: Clear to auscultation, Normal air movement Cardiovascular: Regular rate, Regular Rhythm Abdomen: Soft, Non Tender, Non-Distended Skin: No rashes Microbiology Past 72 Hours 08/27/19 Unknown Other - Other Gram Stain - Final 08/27/19 Unknown Other - Other Wound Culture - Final No growth aerobically. 08/27/19 Unknown Other - Other Anaerobic Culture - Final No anaerobic bacteria isolated. 08/27/19 Unknown Other - Other Gram Stain - Final 08/27/19 Unknown Other - Other Wound Culture - Final Strep anginosus Staphylococcus haemolyticus 08/27/19 Unknown Other - Other Anaerobic Culture - Final No anaerobic bacteria isolated. 08/26/19 17:45 Blood Culture (Wb) - Right Hand Blood Culture - Final No growth in 5 days. 08/26/19 17:30 Blood Culture (Wb) - Anticubital Left Blood Culture - Final No growth in 5 days. Laboratory Results 08/31/19 16:02: Urine Creatinine 28.00 08/31/19 16:24: Total Protein (PEP) Pending, Albumin (PEP) Pending, Globulin (PEP) Pending, Albumin/Globulin (PEP) Pending, Mdeyf-2-Viifxacqf Pending, Xifug-4-Gorcjrjut Pending, Beta Globulins Pending, Gamma Globulins Pending, M- Carl Pending 08/31/19 16:24: U Random Total Protein < 6.0 08/31/19 16:29: POC Glucose 212 H 08/31/19 21:27: POC Glucose 234 H 09/01/19 05:55: WBC 5.9, RBC 4.29 L, Hgb 11.5 L, Hct 36.0 L, MCV 83.9, MCH 26.8 L, MCHC 31.9 L, RDW Std Deviation 36.9, RDW Coeff of Kristal 12.1, Plt Count 306, MPV 9.2, Immature Gran % (Auto) 0.700, Neut % (Auto) 67.9, Lymph % (Auto) 20.4, [place] % (Auto) 8.1, Eos % (Auto) 2.2, Baso % (Auto) 0.7, Absolute Neuts (auto) 4.0, Absolute Lymphs (auto) 1.20, Nucleated RBC % 0 09/01/19 05:55: Sodium 140, Potassium 4.3, Chloride 109 H, Carbon Dioxide 26.0, Anion Gap 5, BUN 33 H, Creatinine 2.05 H, Estim Creat Clear Calc 55.28, Est GFR (MDRD) Af Amer 45 L, Est GFR (MDRD) Non-Af 37 L, BUN/Creatinine Ratio 16.1, Glucose 174 H, Calcium 9.5, Total Bilirubin 0.60, AST 35, ALT 89 H, Alkaline Phosphatase 69, Total Protein 6.1 L, Albumin 2.4 L, Globulin 3.7, Albumin/Globulin Ratio 0.6 L 09/01/19 06:30: POC Glucose 164 H 09/01/19 11:31: POC Glucose 284 H Current Medications Acetaminophen (Tylenol) 650 mg PO Q6H PRN PRN PRN Reason: Pain Score 1-3 /Temp>100.7 Last Admin: 08/31/19 14:50 Dose: 650 mg Documented by: Dextrose (D50w Syringe) 0 gm IV X1 PRN; Protocol PRN Reason: Hypoglycemia Enoxaparin Sodium (Lovenox) 30 mg SC DAILY@0600 [facility] Glucagon () 1 mg IM .X1 PRN PRN Reason: Hypoglycemia Sodium Chloride () 250 mls @ 15 mls/hr IV .[id number] PRN PRN Reason: Saline Flush Last Infusion: 08/30/19 03:18 Dose: 0 mls/hr Documented by: Sodium Chloride () 250 mls @ 15 mls/hr IV .[id number] PRN PRN Reason: Additional IVPB Infusion Sodium Chloride () 1,000 mls @ 100 mls/hr IV .Q10H [facility] Last Admin: 09/01/19 06:27 Dose: 100 mls/hr Documented by: Ceftriaxone Sodium 2 gm/ (Sodium Chloride) 50 mls @ 100 mls/hr IV Q24 [facility] Insulin Glargine (Lantus (Bkc)) 20 units SC DAILY [facility] Last Admin: 09/01/19 09:11 Dose: 20 units Documented by: Insulin Human Lispro (Humalog Kwikpen ([facility])) 0 unit SC ACHS [facility]; Protocol Last Admin: 09/01/19 11:32 Dose: 6 units Documented by: Lactobacillus Acidophilus (Acidophilus) 2 tablet PO 4X/DAY [facility] Last Admin: 09/01/19 09:09 Dose: 2 tablet Documented by: Morphine Sulfate () 2 mg IV Q3H PRN PRN PRN Reason: Pain Score 6-10/10 Last Admin: 08/27/19 19:26 Dose: 2 mg Documented by: Ondansetron HCl (Zofran) 4 mg IV Q8H PRN PRN PRN Reason: NAUSEA/VOMITING Sodium Chloride () 10 - 40 ml IV UD PRN PRN Reason: SALINE FLUSH Last Admin: 09/01/19 11:35 Dose: 20 ml Documented by: Medical Necessity - Tobacco Use Smoking Status: Never smoker Tobacco Use: Chew Route of nutrition/ use of supplements: [] Nutritional Intake: [] IV Site: [] Ling Catheter: [] - Assessment/Plan Antibiotics: [] Assessment/Plan: [] R 1st toe osteo with uncontrolled DM and neuropathy - A1C 12. Surg cx with MS- CONS and alpha hemolytic organism. PCR showed mssa. Now s/p I&D and 1st toe amputation by Dr. Yeh 08/27/19. On zosyn. Stable GFR today. Making urine. Change zosyn to ceftriaxone. Clearance cx neg so far. Plan for discharge will be po abx with duricef 500mg bid for one more week. Will follow, d/w high risk case manager
[2019-09-01 13:32] VITALS: BP 148/73; PULSE 53; RESP 16; TEMP 36.5; O2SAT 100
--- NOTE | 2019-09-01 13:56 | PCM.PROGNOTE ---
Patient Problems: Active and Suspected Problems Osteomyelitis (Acute) Subjective: Patient was seen this afternoon for follow up on right foot s/p debridement/amputation 1st toe. Creatinine still up. Otherwise foot is doing well, no complaints, no f/c/n/v. - Physical Exam Vitals/I&O's: Vital Signs Temp Pulse Resp BP Pulse Ox 97.7 F L 53 L 16 148/73 H 100 09/01/19 13:32 09/01/19 13:32 09/01/19 13:32 09/01/19 13:32 09/01/19 13:32 Oxygen Delivery Method Room Air Weight: 116.8 kg Body Mass Index (BMI) 31.3 Intake and Output for Last 24 Hours 08/30/19 08/31/19 09/01/19 23:59 23:59 23:59 Intake Total 4286.42 / 4286.42 5188.33 / 5188.33 993.33 / 993.33 Output Total 4050 / 4050 4850 / 7450 4100 / 4100 Balance 236.42 / 236.42 338.33 / -2261.67 -3106.67 / -3106.67 General: Alert, Oriented x3, Cooperative, No apparent distress Extremities: - - s/p resection of 1st toe to base of the proximal phalanx, tissues viable, no necrosis, no purulence, no visible abscess, no cellulitis, no pain - healing well. Microbiology Past 72 Hours 08/27/19 Unknown Other - Other Gram Stain - Final 08/27/19 Unknown Other - Other Wound Culture - Final No growth aerobically. 08/27/19 Unknown Other - Other Anaerobic Culture - Final No anaerobic bacteria isolated. 08/27/19 Unknown Other - Other Gram Stain - Final 08/27/19 Unknown Other - Other Wound Culture - Final Strep anginosus Staphylococcus haemolyticus 08/27/19 Unknown Other - Other Anaerobic Culture - Final No anaerobic bacteria isolated. 08/26/19 17:45 Blood Culture (Wb) - Right Hand Blood Culture - Final No growth in 5 days. 08/26/19 17:30 Blood Culture (Wb) - Anticubital Left Blood Culture - Final No growth in 5 days. Laboratory Results 08/31/19 16:02: Urine Creatinine 28.00 08/31/19 16:24: Total Protein (PEP) Pending, Albumin (PEP) Pending, Globulin (PEP) Pending, Albumin/Globulin (PEP) Pending, Ppctb-8-Ujjhtiugb Pending, Hkltb-1-Bnwgnllmu Pending, Beta Globulins Pending, Gamma Globulins Pending, M-Carl Pending 08/31/19 16:24: U Random Total Protein < 6.0 08/31/19 16:29: POC Glucose 212 H 08/31/19 21:27: POC Glucose 234 H 09/01/19 05:55: WBC 5.9, RBC 4.29 L, Hgb 11.5 L, Hct 36.0 L, MCV 83.9, MCH 26.8 L, MCHC 31.9 L, RDW Std Deviation 36.9, RDW Coeff of Kristal 12.1, Plt Count 306, MPV 9.2, Immature Gran % (Auto) 0.700, Neut % (Auto) 67.9, Lymph % (Auto) 20.4, [place] % (Auto) 8.1, Eos % (Auto) 2.2, Baso % (Auto) 0.7, Absolute Neuts (auto) 4.0, Absolute Lymphs (auto) 1.20, Nucleated RBC % 0 09/01/19 05:55: Sodium 140, Potassium 4.3, Chloride 109 H, Carbon Dioxide 26.0, Anion Gap 5, BUN 33 H, Creatinine 2.05 H, Estim Creat Clear Calc 55.28, Est GFR (MDRD) Af Amer 45 L, Est GFR (MDRD) Non-Af 37 L, BUN/Creatinine Ratio 16.1, Glucose 174 H, Calcium 9.5, Total Bilirubin 0.60, AST 35, ALT 89 H, Alkaline Phosphatase 69, Total Protein 6.1 L, Albumin 2.4 L, Globulin 3.7, Albumin/Globulin Ratio 0.6 L 09/01/19 06:30: POC Glucose 164 H 09/01/19 11:31: POC Glucose 284 H Current Medications Acetaminophen (Tylenol) 650 mg PO Q6H PRN PRN PRN Reason: Pain Score 1-3 /Temp>100.7 Last Admin: 08/31/19 14:50 Dose: 650 mg Documented by: Dextrose (D50w Syringe) 0 gm IV X1 PRN; Protocol PRN Reason: Hypoglycemia Enoxaparin Sodium (Lovenox) 30 mg SC DAILY@0600 [facility] Glucagon () 1 mg IM .X1 PRN PRN Reason: Hypoglycemia Sodium Chloride () 250 mls @ 15 mls/hr IV .[id number] PRN PRN Reason: Saline Flush Last Infusion: 08/30/19 03:18 Dose: 0 mls/hr Documented by: Sodium Chloride () 250 mls @ 15 mls/hr IV .[id number] PRN PRN Reason: Additional IVPB Infusion Sodium Chloride () 1,000 mls @ 100 mls/hr IV .Q10H [facility] Last Admin: 09/01/19 06:27 Dose: 100 mls/hr Documented by: Ceftriaxone Sodium 2 gm/ (Sodium Chloride) 50 mls @ 100 mls/hr IV Q24 [facility] Last Admin: 09/01/19 13:28 Dose: 100 mls/hr Documented by: Insulin Glargine (Lantus (Bkc)) 20 units SC DAILY [facility] Last Admin: 09/01/19 09:11 Dose: 20 units Documented by: Insulin Human Lispro (Humalog Kwikpen (Bk)) 0 unit SC ACHS [facility]; Protocol Last Admin: 09/01/19 11:32 Dose: 6 units Documented by: Lactobacillus Acidophilus (Acidophilus) 2 tablet PO 4X/DAY [facility] Last Admin: 09/01/19 13:27 Dose: 2 tablet Documented by: Morphine Sulfate () 2 mg IV Q3H PRN PRN PRN Reason: Pain Score 6-10/10 Last Admin: 08/27/19 19:26 Dose: 2 mg Documented by: Ondansetron HCl (Zofran) 4 mg IV Q8H PRN PRN PRN Reason: NAUSEA/VOMITING Sodium Chloride () 10 - 40 ml IV UD PRN PRN Reason: SALINE FLUSH Last Admin: 09/01/19 11:35 Dose: 20 ml Documented by: Medical Necessity - Tobacco Use Smoking Status: Never smoker Tobacco Use: Chew Assessment/Plan All Active Problems Osteomyelitis (Acute) Right 1st toe osteomyelitis s/p debridement/amputation on 08/27/2019 Uncontrolled Diabetes w/ peripheral neuropathy Tobacco Use Reviewed diagnostic data. Reviewed findings with patient. Debridement/amputation site continues do do well and healing. Continue w/ dressing changes Betadine soln, gauze, kerlix and bee. Reviewed cultures - bone with staph haemolyticus and strep anginosus - patient on IV zosyn, Dr. Brown on board, clearance fragment with no growth to date. Nonweightbearing to the right foot. Keep foot elevated. Reviewed noninvasive lower extremity arterial studies which show good arterial flow to foot. Reviewed importance of proper blood sugar control, as well as tobacco cessation to help optimize healing. Podiatry will continue to follow.
[2019-09-01] MEDS: Acetaminophen 325 MG Tablet 650 MG PO (16:02)
[2019-09-01 16:16] LABS: Bedside Glucose 189 mg/dL (70-110)
[2019-09-01 20:28] VITALS: BP 163/67; PULSE 54; RESP 16; TEMP 36.6; O2SAT 98
[2019-09-01 20:51] LABS: Bedside Glucose 270 mg/dL (70-110)
[2019-09-01 21:02] LABS: 24HR. UA Prot. Total Volume 7925 mL
[2019-09-01 21:03] LABS: Urine Protein (24 Hour) < 6.0 mg/dL (<11.9)
[2019-09-02] MEDS: 0.9% Normal Saline 1,000 ML 100 ML IV (02:23)
[2019-09-02] MEDS: Acetaminophen 325 MG Tablet 650 MG PO (02:23)
[2019-09-02 02:29] VITALS: BP 152/66; PULSE 55; RESP 16; TEMP 36.7; O2SAT 96
[2019-09-02 05:51] LABS: Hematocrit 35.6 % (40-54); Hemoglobin 11.4 g/dL (13.0-16.5); Mean Corpuscular Hgb 27.1 pg (27.0-32.0); Mean Corpuscular Volume 84.8 fL (80-94); Mean Platelet Vol. 9.2 fl (6.2-12.0); Platelet Count 293 K/mm3 (150-450); RBC Distribution Width CV 12.2 % (11.6-14.6); RBC Distribution Width SD 36.9 fl (35.1-43.9); White Blood Count 6.4 K/mm3 (4.4-11.0)
[2019-09-02 06:12] LABS: Anion Gap 5 (5-15); BUN 31 mg/dL (7-18); BUN/Creat Ratio 16.6 RATIO (10-20); Calcium,Total 9.2 mg/dL (8.5-10.1); Chloride 108 mmol/L (98-107); Creatinine, Serum 1.87 mg/dL (0.70-1.30); EST Glomerular Filtration Rate 41 mL/min (>60); Est Glom Filt Rate - Afr Amer 50 mL/min (>60); Glucose 149 mg/dL (74-106); Magnesium 1.9 mg/dL (1.6-2.6); Sodium Level 140 mmol/L (136-145)
--- NOTE | 2019-09-02 06:33 | PCM.PROGNOTE ---
Patient Problems: Active and Suspected Problems Osteomyelitis (Acute) Subjective: This 44-year-old male was seen bedside status post right hallux amputation. He denies fever, chill, nausea, vomiting. He denies foot pain. He is eager to return home. - Physical Exam Vitals/I&O's: Vital Signs Temp Pulse Resp BP Pulse Ox 98.1 F 55 L 16 152/66 H 96 09/02/19 02:29 09/02/19 02:29 09/02/19 02:29 09/02/19 02:29 09/02/19 02:29 Oxygen Delivery Method Room Air Weight: 116.8 kg Body Mass Index (BMI) 31.3 Intake and Output for Last 24 Hours 08/31/19 09/01/19 09/02/19 23:59 23:59 23:59 Intake Total 5188.33 / 5188.33 2043.33 / 2643.33 1480 / 1480 Output Total 4850 / 7450 4100 / 5300 1200 / 1200 Balance 338.33 / -2261.67 -2056.67 / -2656.67 280 / 280 General: Alert, Oriented x3, Cooperative HEENT: Atraumatic Extremities: No cyanosis, Capillary Refill Less than 3 Seconds - brisk to amputation stump site right foot, No Calf Tenderness - negative shine and kaba signs, Diminished Peripheral Pulses, Edema - mild Skin: Incision - Well aligned and coapted with sutures intact. No gapping, necrosis, infection. No erythema, streaking, purulence, bogginess or fluctuance or odor Musculoskeletal: No Tenderness to Palpation of Joints or Extremities, - - Hallux amputation. Dorsal contracture lesser adjacent toes Neurological: - - Lack of normal epicritic sensation Psych/Mental Status: Normal Affect, Appropriate Microbiology Past 72 Hours 08/27/19 Unknown Other - Other Gram Stain - Final 08/27/19 Unknown Other - Other Wound Culture - Final No growth aerobically. 08/27/19 Unknown Other - Other Anaerobic Culture - Final No anaerobic bacteria isolated. 08/27/19 Unknown Other - Other Gram Stain - Final 08/27/19 Unknown Other - Other Wound Culture - Final Strep anginosus Staphylococcus haemolyticus 08/27/19 Unknown Other - Other Anaerobic Culture - Final No anaerobic bacteria isolated. 08/26/19 17:45 Blood Culture (Wb) - Right Hand Blood Culture - Final No growth in 5 days. 08/26/19 17:30 Blood Culture (Wb) - Anticubital Left Blood Culture - Final No growth in 5 days. Laboratory Results 09/01/19 05:55: Sodium 140, Potassium 4.3, Chloride 109 H, Carbon Dioxide 26.0, Anion Gap 5, BUN 33 H, Creatinine 2.05 H, Estim Creat Clear Calc 55.28, Est GFR (MDRD) Af Amer 45 L, Est GFR (MDRD) Non-Af 37 L, BUN/Creatinine Ratio 16.1, Glucose 174 H, Calcium 9.5, Total Bilirubin 0.60, AST 35, ALT 89 H, Alkaline Phosphatase 69, Total Protein 6.1 L, Albumin 2.4 L, Globulin 3.7, Albumin/Globulin Ratio 0.6 L 09/01/19 06:30: POC Glucose 164 H 09/01/19 11:31: POC Glucose 284 H 09/01/19 16:01: POC Glucose 189 H 09/01/19 17:30: Ur Total Protein 24 Hr Pending, Urine Total Protein Pending, Urine Albumin Pending, U Pjsor-6-Cufaopep Pending, U Ipwbg-5-Ahpmlirw Pending, U Beta Globulin Pending, U Gamma Globulin Pending 09/01/19 17:30: Ur Total Protein 24 Hr Pending, Urine Total Protein Pending, Urine Albumin Pending, U Lvcvb-0-Zngflbyn Pending, U Ihrdc-9-Mfysdpks Pending, U Beta Globulin Pending, U Gamma Globulin Pending 09/01/19 17:30: Ur Collection Duration 24.0, Urine Total Volume 7925.00, Urine Creatinine 21.70, Ur Creatinine 24 Hour 1719.72 H 09/01/19 17:30: Urine Collection Time 24.0, Timed Urine Volume 7925, Ur Total Protein 24 Hr TNP, Urine Total Protein < 6.0 09/01/19 20:39: POC Glucose 270 H 09/02/19 05:30: WBC 6.4, RBC 4.20 L, Hgb 11.4 L, Hct 35.6 L, MCV 84.8, MCH 27.1, MCHC 32.0, RDW Std Deviation 36.9, RDW Coeff of Kristal 12.2, Plt Count 293, MPV 9.2 09/02/19 05:30: Sodium 140, Potassium 4.0, Chloride 108 H, Carbon Dioxide 27.0, Anion Gap 5, BUN 31 H, Creatinine 1.87 H, Estim Creat Clear Calc 60.60, Est GFR (MDRD) Af Amer 50 L, Est GFR (MDRD) Non-Af 41 L, BUN/Creatinine Ratio 16.6, Glucose 149 H, Calcium 9.2, Magnesium 1.9 Current Medications Acetaminophen (Tylenol) 650 mg PO Q6H PRN PRN PRN Reason: Pain Score 1-3 /Temp>100.7 Last Admin: 09/02/19 02:23 Dose: 650 mg Documented by: Dextrose (D50w Syringe) 0 gm IV X1 PRN; Protocol PRN Reason: Hypoglycemia Enoxaparin Sodium (Lovenox) 30 mg SC DAILY@0600 [facility] Glucagon () 1 mg IM .X1 PRN PRN Reason: Hypoglycemia Sodium Chloride () 250 mls @ 15 mls/hr IV .[id number] PRN PRN Reason: Saline Flush Last Infusion: 08/30/19 03:18 Dose: 0 mls/hr Documented by: Sodium Chloride () 250 mls @ 15 mls/hr IV .[id number] PRN PRN Reason: Additional IVPB Infusion Sodium Chloride () 1,000 mls @ 100 mls/hr IV .Q10H [facility] Last Admin: 09/02/19 02:23 Dose: 100 mls/hr Documented by: Ceftriaxone Sodium 2 gm/ (Sodium Chloride) 50 mls @ 100 mls/hr IV Q24 [facility] Last Infusion: 09/01/19 14:00 Dose: Infused Documented by: Insulin Glargine (Lantus (Bk)) 20 units SC DAILY [facility] Last Admin: 09/01/19 09:11 Dose: 20 units Documented by: Insulin Human Lispro (Humalog Kwikpen (Bk)) 0 unit SC ACHS [facility]; Protocol Last Admin: 09/01/19 20:40 Dose: 6 units Documented by: Lactobacillus Acidophilus (Acidophilus) 2 tablet PO 4X/DAY [facility] Last Admin: 09/01/19 20:41 Dose: 2 tablet Documented by: Morphine Sulfate () 2 mg IV Q3H PRN PRN PRN Reason: Pain Score 6-10/10 Last Admin: 08/27/19 19:26 Dose: 2 mg Documented by: Ondansetron HCl (Zofran) 4 mg IV Q8H PRN PRN PRN Reason: NAUSEA/VOMITING Sodium Chloride () 10 - 40 ml IV UD PRN PRN Reason: SALINE FLUSH Last Admin: 09/01/19 11:35 Dose: 20 ml Documented by: Medical Necessity - Tobacco Use Smoking Status: Never smoker Tobacco Use: Chew Assessment/Plan All Active Problems Osteomyelitis (Acute) Right 1st toe osteomyelitis s/p debridement/amputation on 08/27/2019 Uncontrolled Diabetes w/ peripheral neuropathy Tobacco Use Reviewed diagnostic data. He is afebrile. He does not have leukocytosis. His kidney function also appears to be trending in an improved fashion. He was advised to continue w/ dressing changes Betadine soln, gauze, kerlix and bee. This was reapplied this morning. Reviewed cultures - bone with staph haemolyticus and strep anginosus. The clearance fragment microbiology specimen has not demonstrated any bacterial growth. He is currently on IV antibiotics under the management of infectious disease and will be transferred to oral antibiotics at discharge. Nonweightbearing to the right foot. Keep foot elevated. Okay to heel touch for transfers. To wear protective surgical shoe. Reviewed noninvasive lower extremity arterial studies which show good arterial flow to foot. Reviewed importance of proper blood sugar control, as well as tobacco cessation to help optimize healing. It is okay to discharge from a podiatry standpoint. To follow-up with Dr. Yeh in 3-5 days. Hospitalist management is noted and appreciated. I answered all the patient's questions. Teresa Bloom DPM, [facility] [phone]
[2019-09-02] MEDS: Enoxaparin 30 MG/0.3 ML Syringe SC (06:36)
[2019-09-02 06:46] LABS: Bedside Glucose 138 mg/dL (70-110)
--- NOTE | 2019-09-02 07:16 | NURSING ---
Dr Bloom had been in to see patient this am. dressing was changed by Dr Bloom this am so will leave the dressing in place. Possible discharge home later today.
[2019-09-02 08:30] VITALS: BP 150/61; PULSE 51; RESP 16; TEMP 36.8; O2SAT 98
--- NOTE | 2019-09-02 08:55 | DCINST_ITS ---
- Discharge Diagnoses Current Active Problems: Current Active and Chronic Problems Osteomyelitis (Acute) You will use the following diet at home:: Calorie/Carbohydrate Controlled (specify 1200, 1400, etc) - 1800 Discharge Activity: Return to Normal Activity Allergies/Adverse Reactions: Allergies No Known Allergies Allergy (Verified 08/26/19 17:06) Medications to take at Discharge Loratadine/Pseudo 240/10 [Claritin-D 24 Hr] 1 tab PO DAILY 08/26/19 Cefadroxil [Duricef] 500 mg PO BID #14 cap 09/02/19 Insulin Glargine [Lantus SoloStar Pen] 20 units SUBCUT DAILY #10 pen 09/02/19 The following prescriptions were given: Cefadroxil [Duricef] 500 mg PO BID #14 cap Transmission Status: Pending to [facility]/pharmacy #[id number] Insulin Glargine [Lantus SoloStar Pen] 20 units SUBCUT DAILY #10 pen Transmission Status: Pending to [facility]/pharmacy #[id number] Primary Care Physician: Say Prather DO [Primary Care Provider] - Please follow up with your Primary Care Physician in: in 5-7 days Test Results: Test results from this visit will be discussed in further detail at your follow- up appointment, if applicable. Please Follow Up With: Sonido Cochran MD When: in 1-2 weeks Please Follow Up With: Lex Yeh DPM When: as scheduled Proposed Discharge Date: 09/02/19
--- NOTE | 2019-09-02 08:57 | PCM.DC.SUM ---
Discharge Date and Diagnosis - Problem List Patient Problems: Active and Suspected Problems Osteomyelitis (Acute) Date of Admission: 08/26/19 Date of Discharge: 09/02/19 - Primary Discharge Diagnosis Acute Problems: Active Problems Osteomyelitis (Acute) Hospital Course and Treatment Imaging Results: Clinical Impression(s) from Imaging Studies Foot X-Ray 08/26/19 17:20 IMPRESSION: Erosions in the distal aspect of the proximal phalanx of the first toe with overlying soft tissue swelling. Associated intra-articular fracture. In the absence of trauma, these findings are suspicious for osteomyelitis with an associated pathologic fracture. Electronically Signed: Maury Mccray, at 17:51 EDT Tel , Service support , Lower Extremity MRI 08/27/19 05:55 IMPRESSION: Acute first proximal and distal phalanx osteomyelitis with abnormal contrast enhancement Large volume first interphalangeal joint effusion with abnormal contrast enhancement (suspected septic arthritis) Diffuse enhancing soft tissue swelling/cellulitis with plantar ulceration First digit flexor tenosynovitis (potentially infectious) Severe muscle atrophy (suspected denervation) Electronically Signed: Theo Gonzalez DO at 9:47 EDT Tel , Service support , Foot X-Ray 08/27/19 13:37 IMPRESSION: Status post amputation of the right first toe at the level of the proximal phalanx. No fracture or dislocation. Electronically Signed: Maury Mccray, at 15:13 EDT Tel , Service support , Renal Ultrasound 08/31/19 15:26 IMPRESSION: 3.4 cm x 3 cm x 2.6 cm right renal cyst. Electronically Signed: Bharat Bruno, at 10:39 EDT , Service support , Microbiology 08/27/19 Unknown Other - Other Gram Stain - Final 08/27/19 Unknown Other - Other Wound Culture - Final No growth aerobically. 08/27/19 Unknown Other - Other Anaerobic Culture - Final No anaerobic bacteria isolated. 08/27/19 Unknown Other - Other Gram Stain - Final 08/27/19 Unknown Other - Other Wound Culture - Final Strep anginosus Staphylococcus haemolyticus 08/27/19 Unknown Other - Other Anaerobic Culture - Final No anaerobic bacteria isolated. 08/26/19 17:45 Blood Culture (Wb) - Right Hand Blood Culture - Final No growth in 5 days. 08/26/19 17:30 Blood Culture (Wb) - Anticubital Left Blood Culture - Final No growth in 5 days. Consultations 08/28/19 08:22 Consult: Onc/Wound/trials manager Routine Comment: Summary of Care Provided: Patient is a 44-year-old gentleman with history of diabetes mellitus type 2 uncontrolled who presented with infected and necrotic big toe involving the right foot for which patient underwent debridement 1. Diabetic foot wound infection (gangrene and osteomyelitis) ?Patient presented with infected necrotic right big toe. MRI demonstrated acute first proximal and distal phalanx osteomyelitis with soft tissue cellulitis with plantar ulceration patient underwent amputation on 08/27/2019. Cultures positive for alphahemolytic strep and staph aureus. Subsequent antibiotic management deferred to infectious disease -Patient antibiotics was changed to Duricef discharged home on 500 mg p.o. twice daily for 1 week per recommendations from ID 2. Acute kidney injury -Suspected to be secondary to ATN as well as possible meds. Patient currently undergoing evaluation by nephrology. Not much improvement in kidney function since admission. -Kidney function was improving at the time of discharge patient to follow-up with nephrology as outpatient 3. Diabetes mellitus type II -Uncontrolled with complications including peripheral neuropathy; patient's oral hypoglycemics held. Placed on long acting insulin, Accu-Cheks a.c. and at bedtime and covered with sliding scale insulin -Patient written for Lantus on discharge 4. Peripheral neuropathy Secondary to diabetic neuropathy 5. DVT prophylaxis - On enoxaparin Patient Problems: Active and Suspected Problems Osteomyelitis (Acute) Objective: GENERAL: cooperative HEENT: Atraumatic; EYES; Anicteric, Normal Conjunctiva NECK; supple, normal thyroid, RESPIRATORY: Diminished to auscultation CARDIOVASCULAR: Regular S1 S2, GI: soft, normoactive bowel sounds, : No Renal angle tenderness; EXTREMITIES: Right foot in surgical dressing MUSCULOSKELETAL: no muscle waisting NEURO: Awake; no lateralizing signs. SKIN: No Rash PSYCH; Flat affect - Physical Exam Vitals/I&O's: Vital Signs Temp Pulse Resp BP Pulse Ox 98.1 F 55 L 16 152/66 H 96 09/02/19 02:29 09/02/19 02:29 09/02/19 02:29 09/02/19 02:29 09/02/19 02:29 Oxygen Delivery Method Room Air Weight: 116.8 kg Body Mass Index (BMI) 31.3 Intake and Output for Last 24 Hours 08/31/19 09/01/19 09/02/19 23:59 23:59 23:59 Intake Total 5188.33 / 5188.33 2043.33 / 2643.33 2130 / 2130 Output Total 4850 / 7450 4100 / 5300 2300 / 2300 Balance 338.33 / -2261.67 -2056.67 / -2656.67 -170 / -170 Microbiology Past 72 Hours 08/27/19 Unknown Other - Other Gram Stain - Final 08/27/19 Unknown Other - Other Wound Culture - Final No growth aerobically. 08/27/19 Unknown Other - Other Anaerobic Culture - Final No anaerobic bacteria isolated. 08/27/19 Unknown Other - Other Gram Stain - Final 08/27/19 Unknown Other - Other Wound Culture - Final Strep anginosus Staphylococcus haemolyticus 08/27/19 Unknown Other - Other Anaerobic Culture - Final No anaerobic bacteria isolated. 08/26/19 17:45 Blood Culture (Wb) - Right Hand Blood Culture - Final No growth in 5 days. 08/26/19 17:30 Blood Culture (Wb) - Anticubital Left Blood Culture - Final No growth in 5 days. Laboratory Results 09/01/19 11:31: POC Glucose 284 H 09/01/19 16:01: POC Glucose 189 H 09/01/19 17:30: Ur Total Protein 24 Hr Pending, Urine Total Protein Pending, Urine Albumin Pending, U Lttru-3-Lpqovzgh Pending, U Impmx-4-Kxtqeqfm Pending, U Beta Globulin Pending, U Gamma Globulin Pending 09/01/19 17:30: Ur Total Protein 24 Hr Pending, Urine Total Protein Pending, Urine Albumin Pending, U Qnsbn-0-Jckxgtqk Pending, U Hjzks-6-Lshtmtsx Pending, U Beta Globulin Pending, U Gamma Globulin Pending 09/01/19 17:30: Ur Collection Duration 24.0, Urine Total Volume 7925.00, Urine Creatinine 21.70, Ur Creatinine 24 Hour 1719.72 H 09/01/19 17:30: Urine Collection Time 24.0, Timed Urine Volume 7925, Ur Total Protein 24 Hr TNP, Urine Total Protein < 6.0 09/01/19 20:39: POC Glucose 270 H 09/02/19 05:30: WBC 6.4, RBC 4.20 L, Hgb 11.4 L, Hct 35.6 L, MCV 84.8, MCH 27.1, MCHC 32.0, RDW Std Deviation 36.9, RDW Coeff of Kristal 12.2, Plt Count 293, MPV 9.2 09/02/19 05:30: Sodium 140, Potassium 4.0, Chloride 108 H, Carbon Dioxide 27.0, Anion Gap 5, BUN 31 H, Creatinine 1.87 H, Estim Creat Clear Calc 60.60, Est GFR (MDRD) Af Amer 50 L, Est GFR (MDRD) Non-Af 41 L, BUN/Creatinine Ratio 16.6, Glucose 149 H, Calcium 9.2, Magnesium 1.9 09/02/19 06:33: POC Glucose 138 H Current Medications Acetaminophen (Tylenol) 650 mg PO Q6H PRN PRN PRN Reason: Pain Score 1-3 /Temp>100.7 Last Admin: 09/02/19 02:23 Dose: 650 mg Documented by: Dextrose (D50w Syringe) 0 gm IV X1 PRN; Protocol PRN Reason: Hypoglycemia Enoxaparin Sodium (Lovenox) 30 mg SC DAILY@0600 ASHLEY Last Admin: 09/02/19 06:36 Dose: 30 mg Documented by: Glucagon () 1 mg IM .X1 PRN PRN Reason: Hypoglycemia Sodium Chloride () 250 mls @ 15 mls/hr IV .[id number] PRN PRN Reason: Saline Flush Last Infusion: 08/30/19 03:18 Dose: 0 mls/hr Documented by: Sodium Chloride () 250 mls @ 15 mls/hr IV .[id number] PRN PRN Reason: Additional IVPB Infusion Sodium Chloride () 1,000 mls @ 100 mls/hr IV .Q10H ASHLEY Last Admin: 09/02/19 02:23 Dose: 100 mls/hr Documented by: Ceftriaxone Sodium 2 gm/ (Sodium Chloride) 50 mls @ 100 mls/hr IV Q24 [facility] Last Infusion: 09/01/19 14:00 Dose: Infused Documented by: Insulin Glargine (Lantus (Bkc)) 20 units SC DAILY ASHLEY Last Admin: 09/01/19 09:11 Dose: 20 units Documented by: Insulin Human Lispro (Humalog Kwikpen (Bkc)) 0 unit SC ACHS ASHLEY; Protocol Last Admin: 09/02/19 06:37 Dose: Not Given Documented by: Lactobacillus Acidophilus (Acidophilus) 2 tablet PO 4X/DAY [facility] Last Admin: 09/01/19 20:41 Dose: 2 tablet Documented by: Morphine Sulfate () 2 mg IV Q3H PRN PRN PRN Reason: Pain Score 6-10/10 Last Admin: 08/27/19 19:26 Dose: 2 mg Documented by: Ondansetron HCl (Zofran) 4 mg IV Q8H PRN PRN PRN Reason: NAUSEA/VOMITING Sodium Chloride () 10 - 40 ml IV UD PRN PRN Reason: SALINE FLUSH Last Admin: 09/01/19 11:35 Dose: 20 ml Documented by: Discharge Diet: 1800 Calorie Control Diet Discharge Activity: Return to Normal Activity Home Medications: Medications to take at Discharge Loratadine/Pseudo 240/10 [Claritin-D 24 Hr] 1 tab PO DAILY 08/26/19 Cefadroxil [Duricef] 500 mg PO BID #14 cap 09/02/19 Insulin Glargine [Lantus SoloStar Pen] 20 units SUBCUT DAILY #10 pen 09/02/19 Following Prescrptions Were Given to Patient: Cefadroxil [Duricef] 500 mg PO BID #14 cap Transmission Status: [facility]ending to [id number] Insulin Glargine [Lantus SoloStar Pen] 20 units SUBCUT DAILY #10 pen Transmission Status: Pending to [id number] Primary Care Physician: Say Prather DO [Primary Care Provider] - Please follow up with your Primary Care Physician in: in 5-7 days Please Follow Up With: Sonido Cochran MD When: in 1-2 weeks Please Follow Up With: Lex Yeh DPM When: as scheduled Disposition: Home Minutes spent on discharge:: 36 Patient Condition:: Stable Medical Necessity - Tobacco Use Smoking Status: Never smoker Tobacco Use: Chew Meaningful Use Info Meaningful Use Diagnoses (Choose all that apply): None applicable Inpatient E&M: 64194 Disch Hosp
--- NOTE | 2019-09-02 09:59 | PCM.PN.ID ---
Patient Problems: Active and Suspected Problems Osteomyelitis (Acute) Subjective: Feeling well, d/c home today, no fever, no n/v/d. - Physical Exam Vitals/I&O's: Vital Signs Temp Pulse Resp BP Pulse Ox 98.1 F 55 L 16 152/66 H 96 09/02/19 02:29 09/02/19 02:29 09/02/19 02:29 09/02/19 02:29 09/02/19 02:29 Oxygen Delivery Method Room Air Weight: 116.8 kg Body Mass Index (BMI) 31.3 Intake and Output for Last 24 Hours 08/31/19 09/01/19 09/02/19 23:59 23:59 23:59 Intake Total 5188.33 / 5188.33 2043.33 / 2643.33 2130 / 2130 Output Total 4850 / 7450 4100 / 5300 2300 / 2300 Balance 338.33 / -2261.67 -2056.67 / -2656.67 -170 / -170 General: Alert, Cooperative, No apparent distress Lungs: Clear to auscultation, Normal air movement Cardiovascular: Regular rate, Regular Rhythm Abdomen: Soft, Non Tender, Non-Distended Skin: Ulcer/ Wound Microbiology Past 72 Hours 08/27/19 Unknown Other - Other Gram Stain - Final 08/27/19 Unknown Other - Other Wound Culture - Final No growth aerobically. 08/27/19 Unknown Other - Other Anaerobic Culture - Final No anaerobic bacteria isolated. 08/27/19 Unknown Other - Other Gram Stain - Final 08/27/19 Unknown Other - Other Wound Culture - Final Strep anginosus Staphylococcus haemolyticus 08/27/19 Unknown Other - Other Anaerobic Culture - Final No anaerobic bacteria isolated. 08/26/19 17:45 Blood Culture (Wb) - Right Hand Blood Culture - Final No growth in 5 days. 08/26/19 17:30 Blood Culture (Wb) - Anticubital Left Blood Culture - Final No growth in 5 days. Laboratory Results 09/01/19 11:31: POC Glucose 284 H 09/01/19 16:01: POC Glucose 189 H 09/01/19 17:30: Ur Total Protein 24 Hr Pending, Urine Total Protein Pending, Urine Albumin Pending, U Dkxli-2-Uimdkfix Pending, U Ocvws-7-Fzburnsr Pending, U Beta Globulin Pending, U Gamma Globulin Pending 09/01/19 17:30: Ur Total Protein 24 Hr Pending, Urine Total Protein Pending, Urine Albumin Pending, U Kweia-7-Kihgplrh Pending, U Jpcyf-3-Solfebcz Pending, U Beta Globulin Pending, U Gamma Globulin Pending 09/01/19 17:30: Ur Collection Duration 24.0, Urine Total Volume 7925.00, Urine Creatinine 21.70, Ur Creatinine 24 Hour 1719.72 H 09/01/19 17:30: Urine Collection Time 24.0, Timed Urine Volume 7925, Ur Total Protein 24 Hr TNP, Urine Total Protein < 6.0 09/01/19 20:39: POC Glucose 270 H 09/02/19 05:30: WBC 6.4, RBC 4.20 L, Hgb 11.4 L, Hct 35.6 L, MCV 84.8, MCH 27.1, MCHC 32.0, RDW Std Deviation 36.9, RDW Coeff of Kristal 12.2, Plt Count 293, MPV 9.2 09/02/19 05:30: Sodium 140, Potassium 4.0, Chloride 108 H, Carbon Dioxide 27.0, Anion Gap 5, BUN 31 H, Creatinine 1.87 H, Estim Creat Clear Calc 60.60, Est GFR (MDRD) Af Amer 50 L, Est GFR (MDRD) Non-Af 41 L, BUN/Creatinine Ratio 16.6, Glucose 149 H, Calcium 9.2, Magnesium 1.9 09/02/19 06:33: POC Glucose 138 H Current Medications Acetaminophen (Tylenol) 650 mg PO Q6H PRN PRN PRN Reason: Pain Score 1-3 /Temp>100.7 Last Admin: 09/02/19 02:23 Dose: 650 mg Documented by: Dextrose (D50w Syringe) 0 gm IV X1 PRN; Protocol PRN Reason: Hypoglycemia Enoxaparin Sodium (Lovenox) 30 mg SC DAILY@0600 ASHLEY Last Admin: 09/02/19 06:36 Dose: 30 mg Documented by: Glucagon () 1 mg IM .X1 PRN PRN Reason: Hypoglycemia Sodium Chloride () 250 mls @ 15 mls/hr IV .[id number] PRN PRN Reason: Saline Flush Last Infusion: 08/30/19 03:18 Dose: 0 mls/hr Documented by: Sodium Chloride () 250 mls @ 15 mls/hr IV .[id number] PRN PRN Reason: Additional IVPB Infusion Sodium Chloride () 1,000 mls @ 100 mls/hr IV .Q10H [facility] Last Admin: 09/02/19 02:23 Dose: 100 mls/hr Documented by: Ceftriaxone Sodium 2 gm/ (Sodium Chloride) 50 mls @ 100 mls/hr IV Q24 [facility] Last Infusion: 09/01/19 14:00 Dose: Infused Documented by: Insulin Glargine (Lantus ([facility])) 20 units SC DAILY [facility] Last Admin: 09/01/19 09:11 Dose: 20 units Documented by: Insulin Human Lispro (Humalog Kwikpen ([facility])) 0 unit SC ACHS [facility]; Protocol Last Admin: 09/02/19 06:37 Dose: Not Given Documented by: Lactobacillus Acidophilus (Acidophilus) 2 tablet PO 4X/DAY [facility] Last Admin: 09/01/19 20:41 Dose: 2 tablet Documented by: Morphine Sulfate () 2 mg IV Q3H PRN PRN PRN Reason: Pain Score 6-10/10 Last Admin: 08/27/19 19:26 Dose: 2 mg Documented by: Ondansetron HCl (Zofran) 4 mg IV Q8H PRN PRN PRN Reason: NAUSEA/VOMITING Sodium Chloride () 10 - 40 ml IV UD PRN PRN Reason: SALINE FLUSH Last Admin: 09/01/19 11:35 Dose: 20 ml Documented by: Medical Necessity - Tobacco Use Smoking Status: Never smoker Tobacco Use: Chew Route of nutrition/ use of supplements: [] Nutritional Intake: [] IV Site: [] Ling Catheter: [] - Assessment/Plan Antibiotics: [] Assessment/Plan: [] R 1st toe osteo with uncontrolled DM and neuropathy - A1C 12. Surg cx with MS-CONS and alpha hemolytic organism. PCR showed mssa. Now s/p I&D and 1st toe amputation by Dr. Yeh 08/27/19. Cr improving slowly. On ceftriaxone. Clearance cx neg so far. Plan for discharge will be po abx with duricef 500mg bid for one more week. Will follow as needed
--- NOTE | 2019-09-02 10:00 | DCINST_ITS ---
Discharge Diet: 1800 Calorie Control Diet Discharge Activity: Return to Normal Activity Weight Bearing Status: No weight bearing - wear surgical shoe. ok to heel touch for transfers only Keep extremity elevated above heart level: Right Leg Call your doctor if your incision/area has: Continuous Slow Oozing, Sudden Increased Bleeding, Increased Pain/ Swelling, Increased Redness, Foul Smelling Discharge, Swelling at the incision site Call your doctor if you observe: Fever of 101 or Higher, Calf discomfort, Uncontrolled pain Cleanse incision/area with: Keep Dressing Clean & Dry Allergies/Adverse Reactions: Allergies No Known Allergies Allergy (Verified 08/26/19 17:06) Medications to take at Discharge Loratadine/Pseudo 240/10 [Claritin-D 24 Hr] 1 tab PO DAILY 08/26/19 Cefadroxil [Duricef] 500 mg PO BID #14 cap 09/02/19 Insulin Glargine [Lantus SoloStar Pen] 20 units SUBCUT DAILY #10 pen 09/02/19 The following prescriptions were given: Cefadroxil [Duricef] 500 mg PO BID #14 cap Transmission Status: [id number] Insulin Glargine [Lantus SoloStar Pen] 20 units SUBCUT DAILY #10 pen Transmission Status: Re[facility] by [id number] Primary Care Physician: Say Prather DO [Primary Care Provider] - Please follow up with your Primary Care Physician in: in 5-7 days Test Results: Test results from this visit will be discussed in further detail at your follow- up appointment, if applicable. Please Follow Up With: Sonido Cochran MD When: in 3-5 days Please Follow Up With: Lex Yeh DPM When: [facility] to schedule at [phone] Proposed Discharge Date: 09/02/19
[2019-09-02] MEDS: Juven (unflavored) Packet 1 PACKET PO (10:11)
[2019-09-02] MEDS: 0.9% Saline Lock 10 ML Syringe IV (10:12)
[2019-09-02] MEDS: Insulin Lispro 100 UNIT/ML INSULN.PEN SC (10:22)
[2019-09-02 10:26] LABS: Bedside Glucose 295 mg/dL (70-110)
--- NOTE | 2019-09-02 12:19 | NURSING ---
Family member Madonna Lomeli called in and notified this RN that patient was d/c'ed today with prescription for Lantus. States that his insurance can only be covered at [facility] and that his insurance is not covering lantus. Madonna states that it will cover Levemir but that order needs to be changed for pharmacy to fill. This RN notified Dr. Soto and was given order to change Lantus to Levemir with same instructions that were previously given. This RN then called pharmacist at [facility] and notified her of situation and of new order to change Lantus to Levemir and to keep same instructions as per previous order. Understanding verbalized and notified that same would be completed. This RN then called Madonna back and notified her that prescription was changed at this time and should be available later today. Denies further questions.
[2019-09-02 20:07] LABS: PROEL- A/G Ratio 0.9 (0.7-1.7); PROEL- Albumin 2.6 g/dL (2.9-4.4); PROEL- Alpha-1 Globulin 0.2 g/dL (0.0-0.4); PROEL- Alpha-2 Globulin 1.1 g/dL (0.4-1.0); PROEL- Beta Globulin 0.8 g/dL (0.7-1.3); PROEL- Gamma Globulin 0.8 g/dL (0.4-1.8); PROEL- Globulin, Total 2.9 g/dL (2.2-3.9); PROEL- TOTAL PROTEIN 5.5 g/dL (6.0-8.5)
[2019-09-04 12:07] LABS: Protein, 24Ur < 317 mg/24 hr (30-150)
[2019-09-05 13:31] LABS: Total Protein, Ur < 4.0 mg/dL (Not Estab.)
== END 2019-09-02 11:04 | disposition home or self-care (01) | DRG 503 ==
LOC: ED 17:23 → MS3 18:19
PROVIDERS: Anesthesiology; Internal Medicine; Podiatrist; Admitting Provider Student in an Organized Health Care Education/Training Program; Emergency Provider Emergency Medicine; PCP Preventive Medicine Occupational Medicine; Visit Provider Internal Medicine
PROC: 0Y6P0Z1 Detachment at Right 1st Toe, High, Open Approach (ICD-10-PCS; principal; 2019-08-27 12:15)
DX: M86.171 Other acute osteomyelitis, right ankle and foot (principal); N17.0 Acute kidney failure with tubular necrosis; M87.9 Osteonecrosis, unspecified; E11.52 Type 2 diabetes mellitus with diabetic peripheral angiopathy with gangrene; B95.4 Other streptococcus as the cause of diseases classified elsewhere; L03.031 Cellulitis of right toe; Z91.14 Patient's other noncompliance with medication regimen; E11.65 Type 2 diabetes mellitus with hyperglycemia; Z66 Do not resuscitate; N28.1 Cyst of kidney, acquired; E11.42 Type 2 diabetes mellitus with diabetic polyneuropathy; E11.621 Type 2 diabetes mellitus with foot ulcer; L97.509 Non-pressure chronic ulcer of other part of unspecified foot with unspecified severity; E11.69 Type 2 diabetes mellitus with other specified complication; Z79.4 Long term (current) use of insulin; F17.220 Nicotine dependence, chewing tobacco, uncomplicated
CPT/HCPCS: 36415; 73630; 73720; 76770; 80048; 80053; 80202; 81001; 82570; 82962; 83036; 83605; 83735; 84156; 84165; 84166; 84300; 85025; 85027; 85610; 85652; 85730; 86140; 86335; 87015; 87040; 87070; 87075; 87077; 87102; 87116; 87176; 87186; 87205; 87206; 87635; 87640; 88304; 88305; 88311; 93005; 93923; 97110; 97116; 97162; 97166; 97802; 99283; A9575; G2023; J7030; J7040; J7050; J7120; A4216; J0696; J2405; U0003

== ENCOUNTER → 2019-09-08 10:49 | Outpatient (CLI) | payer OTHER, SELFPAY ==
[2019-08-27 10:29] VITALS: BMI 31.3
[2019-09-08 13:53] LABS: Anion Gap 8 (5-15); BUN 34 mg/dL (7-18); BUN/Creat Ratio 20.1 RATIO (10-20); Calcium,Total 9.3 mg/dL (8.5-10.1); Chloride 107 mmol/L (98-107); Creatinine, Serum 1.69 mg/dL (0.70-1.30); EST Glomerular Filtration Rate 47 mL/min (>60); Est Glom Filt Rate - Afr Amer 56 mL/min (>60); Glucose 272 mg/dL (74-106); Potassium 3.9 mmol/L (3.5-5.1); Sodium Level 139 mmol/L (136-145)
== END ==
PROVIDERS: PCP Preventive Medicine Occupational Medicine; Referring Provider Internal Medicine; Visit Provider Internal Medicine
DX: N17.9 Acute kidney failure, unspecified (principal)
CPT/HCPCS: 36415; 80048

== ENCOUNTER → 2019-09-23 10:02 | Outpatient (CLI) | payer OTHER, SELFPAY ==
[2019-08-27 10:29] VITALS: BMI 31.3
[2019-09-23 10:49] LABS: Absolute Lymphocyte Count 1.54 X10^3/uL (0.83-4.51); Absolute Neutrophil Count 4.1 X10^3/uL (2.0-7.7); Basophil# 0.03 X10^3/uL; Basophil% 0.5 % (0-1); Eosinophil# 0.15 X10^3/uL; Eosinophils% 2.4 % (0-5); Hematocrit 39.6 % (40-54); Hemoglobin 12.7 g/dL (13.0-16.5); Lymphocyte # 1.54 X10^3/ul (4.0); Lymphocyte % 24.3 % (19-41); Mean Corp Hgb Conc 32.1 g/dL (32-36); Mean Corpuscular Hgb 26.6 pg (27.0-32.0); Mean Corpuscular Volume 82.8 fL (80-94); Mean Platelet Vol. 10.1 fl (6.2-12.0); Monocyte# 0.53 X10^3/uL; Monocyte% 8.4 % (0-10); NRBC Flagged by Analyzer 0 % (0-5); Neutrophil # 4.06 X10^3/uL (2.7-7.7); Neutrophil % 64.1 % (47-70); Platelet Count 220 K/mm3 (150-450); RBC Distribution Width CV 12.9 % (11.6-14.6); RBC Distribution Width SD 38.5 fl (35.1-43.9); Red Blood Count 4.78 M/mm3 (4.6-6.2); White Blood Count 6.3 K/mm3 (4.4-11.0)
[2019-09-23 11:17] LABS: ALB/GLOB Ratio 0.9 RATIO (0.9-2.4); AST(SGOT) 13 U/L (15-37); Alanine Aminotransfer ALT/SGPT 38 U/L (16-61); Albumin, Serum 3.4 g/dL (3.2-5.0); Alkaline Phosphatase 45 U/L (45-117); Anion Gap 6 (5-15); BUN 27 mg/dL (7-18); BUN/Creat Ratio 19.1 RATIO (10-20); Calcium,Total 9.2 mg/dL (8.5-10.1); Chloride 107 mmol/L (98-107); Creatinine, Serum 1.41 mg/dL (0.70-1.30); EST Glomerular Filtration Rate 57 mL/min (>60); Est Glom Filt Rate - Afr Amer 69 mL/min (>60); Globulin 3.7 g/dL (2.2-4.2); Glucose 282 mg/dL (74-106); Potassium 4.3 mmol/L (3.5-5.1); Protein, Total 7.1 g/dL (6.4-8.2); Sodium Level 137 mmol/L (136-145)
== END ==
PROVIDERS: PCP Preventive Medicine Occupational Medicine; Referring Provider Podiatrist; Visit Provider Podiatrist
DX: M86.8X7 Other osteomyelitis, ankle and foot (principal)
CPT/HCPCS: 36415; 80053; 85025

== ENCOUNTER → 2019-10-21 12:39 | Outpatient (CLI) | payer OTHER, SELFPAY ==
[2019-08-27 10:29] VITALS: BMI 31.3
[2019-10-21 13:22] LABS: Color, Urine Straw (Yellow); Glucose, Dipstick 250 mg/dl (Normal); Ketone-Dipstick Negative (Negative); Leukocyte Esterase-Dipstick Negative /ul (Negative); Nitrite-Dipstick Negative (Negative); Occult Blood-Urine Negative /ul (Negative); Protein-Dipstick 15 mg/dl (Negative); Urine Bilirubin Dipstick Negative (Negative); Urine Clarity Clear (Clear); Urine Urobilinogen Normal (Normal)
[2019-10-21 13:34] LABS: Protein, Urine (Random) 25.5 mg/dL (<11.9); Protein:Creat Ratio 139 mg/g CRE (0-200)
[2019-10-21 14:03] LABS: Anion Gap 5 (5-15); BUN 20 mg/dL (7-18); BUN/Creat Ratio 17.9 RATIO (10-20); Calcium,Total 8.7 mg/dL (8.5-10.1); Chloride 105 mmol/L (98-107); Creatinine, Serum 1.12 mg/dL (0.70-1.30); EST Glomerular Filtration Rate 75 mL/min (>60); Est Glom Filt Rate - Afr Amer 91 mL/min (>60); Glucose 279 mg/dL (74-106); PTHIN 25.5 pg/mL (18.4-80.1); Phosphorus 2.9 mg/dL (2.5-4.9); Potassium 4.3 mmol/L (3.5-5.1); Sodium Level 136 mmol/L (136-145)
[2019-10-21 14:08] LABS: Vitamin D,25 Hydroxy 50.5 ng/mL
== END ==
PROVIDERS: PCP Preventive Medicine Occupational Medicine; Referring Provider Internal Medicine; Visit Provider Internal Medicine
DX: N17.9 Acute kidney failure, unspecified (principal)
CPT/HCPCS: 36415; 80048; 81002; 82306; 82570; 83970; 84100; 84156

== ENCOUNTER 2020-06-24 17:05 | Inpatient (IN) | payer OTHER, SELFPAY ==
[2019-08-27 10:29] VITALS: BMI 31.3
[2020-06-24 15:52] VITALS: BMI 38.9
[2020-06-24 16:15] VITALS: BP 131/65; PULSE 71; RESP 16; TEMP 36.7; O2SAT 100
--- NOTE | 2020-06-24 17:07 | MRI_ITS ---
STUDY: MRI RIGHT FOREFOOT WITHOUT CONTRAST REASON FOR EXAM: Wound of the second toe for approximately one week, evaluate for osteomyelitis. TECHNIQUE: Standardized fat and water weighted pulse sequences were obtained in all 3 orthogonal planes. COMPARISON: Radiographs 06/24/2020 and MRI report 08/27/2019. FINDINGS: Normal metatarsophalangeal joint of the hallux. There is slight bone edema in the fibular sesamoid (inversion recovery sagittal series 7 image 10). Normal tibial sesamoid. There is amputation of the great toe at the level of the proximal phalanx with mild bone edema at the amputation (inversion recovery sagittal series 7 images 5-8). There is tendinosis with thickening of the flexor hallucis longus tendon (inversion recovery sagittal series 7 images 9, 10). Normal second through fifth metatarsophalangeal (MTP) joints. Normal interphalangeal joints of the second through fifth toes. There is bone edema of the head and diaphysis of the second metatarsal and base of the second proximal phalanx (inversion recovery sagittal series 7 images 14-16) with mild decreased T1 bone marrow signal in the second metatarsal head (T1 sagittal image 15). There is also mild bone edema in the distal aspect of the second proximal phalanx and base of the second middle phalanx (inversion recovery sagittal series 7 images 17, 18). Normal proximal, middle and distal phalanges of the third through fifth toes. There is very mild intermetatarsal bursitis of the first, second and third web spaces (T2 series 4 images 16, 17). Normal flexor and extensor tendons of the second through fifth toes. There is fat replacement of the intrinsic muscles of the forefoot suggestive of peripheral neuropathy. There is edema in the subcutis adipose space without focal fluid collection to indicate soft tissue abscess. MRI/Lower Ext/No Jt/w/o IMPRESSION: Bone edema in the second metatarsal with decreased T1 bone marrow signal in the second metatarsal head suggestive of osteomyelitis. Mild bone edema of the proximal and middle phalanges of the second digit, either reactive bone edema or early osteomyelitis. Amputation of the proximal phalanx of the first digit with mild bone edema at amputation site. Slight bone edema of the fibular sesamoid. Tendinosis of the flexor hallucis longus tendon. Fat replacement in the intrinsic muscles of the forefoot suggestive of peripheral neuropathy. Electronically Signed: Philip Ramirez MD at 7:18 EDT Tel , Service support ,
--- NOTE | 2020-06-24 17:45 | PN_ITS ---
Subjective: Patient seen and examined. Reports he was referred by podiatry for admission to obtain MRI for suspected right second toe osteomyelitis. Patient denies fever, chills. He reports his last hemoglobin A1c by his primary care provider was around 8%. States his glucose at home has been fairly controlled. Denies other symptoms or complaints. - Physical Exam Vitals/I&O's: Vital Signs Temp Pulse Resp BP Pulse Ox 98.0 F 71 16 131/65 H 100 06/24/20 16:15 06/24/20 16:15 06/24/20 16:15 06/24/20 16:15 06/24/20 16:15 Oxygen Delivery Method Room Air Weight: 319 lb 7.197 oz Body Mass Index (BMI) 38.9 General: Alert, Oriented x3, Cooperative HEENT: Atraumatic, PERRLA, EOMI, Normocephalic Neck: Supple, No JVD, Negative Carotid Bruits Lungs: Clear to auscultation, Normal air movement Cardiovascular: Regular rate, No murmurs Abdomen: Bowel Sounds Present, Soft, Non Tender, Non-Distended, Obese Extremities: No clubbing, No cyanosis, No edema, Capillary Refill Less than 3 Seconds Skin: No rashes, No breakdown, - - Right foot dressing intact Musculoskeletal: No Tenderness to Palpation of Joints or Extremities Neurological: Cranial nerves II-XII grossly intact, Neuro grossly intact Psych/Mental Status: Normal Affect, Appropriate Current Medications Acetaminophen (Acetaminophen 325 Mg Tablet) 650 mg PO Q6H PRN PRN PRN Reason: Pain Score 1-3 /Temp>100.7 Al Hydroxide/Mg Hydroxide (Mag Hydrox/Al Hydrox/Simeth 30 Ml Udc) 30 ml PO Q6H PRN PRN PRN Reason: Gastric Burning Albuterol Sulfate (Albuterol 2.5 Mg/3 Ml Vial.Neb.) 2.5 mg INHALATION Q2H PRN PRN PRN Reason: Dyspnea, wheezing Atorvastatin Calcium (Atorvastatin Calcium 10 Mg Tablet) 10 mg PO QHS ASHLEY Bisacodyl (Bisacodyl 5 Mg Tablet) 10 mg PO DAILY PRN PRN PRN Reason: Constipation Dextrose (Dextrose 50%-Water 25 Gm/50 Ml Disp.Syrin) 0 gm IV X1 PRN; Protocol PRN Reason: Hypoglycemia Docusate Sodium (Docusate Sodium 100 Mg Capsule) 200 mg PO BID PRN PRN PRN Reason: Constipation Glucagon (Glucagon 1 Mg/Ml Syringe) 1 mg IM .X1 PRN PRN Reason: Hypoglycemia Hydralazine HCl (Hydralazine 20 Mg/Ml Vial) 10 mg IV Q4H PRN PRN PRN Reason: SBP > 160 Piperacillin Sod/Tazobactam (Sod 3.375 gm/ Sodium Chloride) 50 mls @ 12.5 mls/hr IV Q8 ASHLEY Sodium Chloride () 1,000 mls @ 100 mls/hr IV .Q10H ASHLEY Piperacillin Sod/Tazobactam (Sod 3.375 gm/ Sodium Chloride) 50 mls @ 100 mls/hr IV X1 ONE Stop: 06/24/20 18:29 Insulin Glargine (Insulin Glargine 100 Units/Ml Pen) 50 units SC DAILY ASHLEY Insulin Human Lispro (Insulin Lispro 100 Unit/Ml Insuln.Pen) 0 unit SC ACHS ASHLEY; Protocol Losartan Potassium (Losartan Potassium 50 Mg Tablet) 50 mg PO DAILY A[facility] Morphine Sulfate (Morphine 2 Mg/Ml Syringe) 2 - 4 mg IV Q3H PRN PRN PRN Reason: Pain Score 6-10 Morphine Sulfate (Morphine 4 Mg/Ml Syringe) 2 - 4 mg IV Q3H PRN PRN PRN Reason: Pain Score 6-10 Oxycodone HCl (Oxycodone 5 Mg Tablet) 5 mg PO Q4H PRN PRN PRN Reason: Pain Score 4-5 Polyethylene Glycol (Polyethylene Glycol 3350 17 Gm Packet) 17 gm PO DAILY ASHLEY Prochlorperazine Edisylate (Prochlorperazine 10 Mg/2 Ml Vial) 10 mg IV Q6H PRN PRN PRN Reason: Nausea/Vomiting Sodium Chloride (0.9% Saline Lock 10 Ml Syringe) 10 - 40 ml IV UD PRN PRN Reason: SALINE FLUSH Medical Necessity - Tobacco Use Smoking Status: Former smoker Tobacco Use: Chew Assessment/Plan All Active Problems Osteomyelitis (Acute) 1. Right second toe diabetic ulceration with suspected osteomyelitis-podiatry primary. IV Zosyn. Wound cultures pending. MRI ordered for further evaluation . Of note, patient has a history of acute kidney injury which was suspected secondary to vanc nephrotoxicity. 2. Type 2 diabetes mellitus-repeat hemoglobin A1c pending. Accu-Cheks with sliding scale insulin. Continue home Levemir. 3. Hypertension-on losartan, stable. 4. Hyperlipidemia-continue statin. DVT prophylaxis- SCDs This patient was seen by KAVIN Reaves under the supervision of Dr. Shoemaker.
--- NOTE | 2020-06-24 18:15 | VDLE_ITS ---
Reason For Study: Swelling RIGHT LEFT GSV is normal. GSV is normal. CFV is compressible, spontaneous, phasic, CFV is compressible, spontaneous, phasic, competent and demonstrates normal competent, and demonstrates normal augmentation. augmentation. FV is compressible, spontaneous, phasic, FV is compressible, spontaneous, phasic, competent and demonstrates normal competent and demonstrates normal augmentation. augmentation. POP V is compressible, spontaneous, phasic, POP V is compressible, spontaneous, phasic, competent and demonstrates normal competent and demonstrates normal augmentation. augmentation. T/P Trunk is compressible. T/P Trunk is compressible. PTV is compressible. PTV is compressible. RT PerV is compressible. LT PerV is compressible. Procedure This is a venous duplex using B-mode, color flow and spectral Doppler. Exam performed portable in patient room. A preliminary report was called and/or faxed to [facility]. VL/Venous Duplex US - Abimael Extrem Interpretation Summary Deep veins of the lower extremities are bilaterally patent and compressible seg mentally. There is no evidence of deep vein thrombosis on either side. Valvular competence appears in tact within the proximal deep venous systems bilaterally. The great saphenous veins appear bila terally patent and compressible segmentally. Ordering Physician: Lex Yeh Referring Physician: Say Prather Performed By: Ning Mccord RVT
--- NOTE | 2020-06-24 18:15 | PCM.HP.STD ---
History of Present Illness Date of Admission: 06/24/20 Chief Complaint: Right 2nd toe infection The patient is a 45 year old gentleman with hx of diabetes and other medical problems presented to our podiatry office for right 2nd toe ulceration with swelling and redness. He relates swelling started end of May but no ulcers. He has been working on feet, and noticed a wound on the top of his right 2nd toe, it is now red, he relates to some slight drainage. He has hx of right 1st toe amputation due to osteomyelitis last summer. He was admitted for further workup and management. He is afebrile, labs and further workup is pending. Past Medical History Allergies No Known Allergies Allergy (Verified 08/26/19 17:06) Home Medications: Ambulatory Orders Medication Instructions Recorded Atorvastatin Calcium [Lipitor] 10 mg PO DAILY 06/24/20 Insulin Detemir [Levemir Flextouch] 50 unit SQ DAILY 06/24/20 Losartan Potassium [Cozaar] 50 mg PO DAILY 06/24/20 Pioglitazone [Actos] 30 mg PO DAILY 06/24/20 Surgical History: noncontributory Psychiatric History: No pertinent psych hx Smoking Status: Former smoker Tobacco Use: Chew - *Family History Maternal History Items: No pertinent history Paternal History Items: No pertinent history Review of Systems Constitutional: Denies: Chills, Fever Gastrointestinal: Denies: Nausea, Vomiting Skin: Reports: Wounds VTE Information - Inpt Only VTE Present on Admission: No VTE Mechan Device Prophylaxis: SCD's - Physical Exam Vitals/I&O's: Vital Signs Temp Pulse Resp BP Pulse Ox 98.0 F 71 16 131/65 H 100 06/24/20 16:15 06/24/20 16:15 06/24/20 16:15 06/24/20 16:15 06/24/20 16:15 Oxygen Delivery Method Room Air Weight: 144.9 kg Body Mass Index (BMI) 38.9 General: Alert, Oriented x3, Cooperative, No apparent distress Extremities: Capillary Refill Less than 3 Seconds, No Calf Tenderness, Peripheral Pulses Normal, - - Right 2nd toe with dorsal PIPJ ulceration, base dry but down to subcutaneous tissue layer, 2nd toe is very swollen with significant cellulitis, no drainage noted at this time. The right foot and ankle with edema going to leg. No other open lesions noted bilateral foot or ankle. Skin: - - No visible abscess, no crepitus, no fluctuance, no maloder to the foot or ankle bilateral. Musculoskeletal: - - s/p right 1st toe amp well healed. No POP or pain on rOM to the foot or ankle bilateral. Contacture of lesser toes bilateral. Neurological: - - Decreased sensation to the foot and ankle bilateral c/w peripheral neuropathy. Psych/Mental Status: Normal Affect, Appropriate, Alert and oriented to time, place, person, mood and affect Current Medications Acetaminophen (Acetaminophen 325 Mg Tablet) 650 mg PO Q6H PRN PRN PRN Reason: Pain Score 1-3 /Temp>100.7 Al Hydroxide/Mg Hydroxide (Mag Hydrox/Al Hydrox/Simeth 30 Ml Udc) 30 ml PO Q6H PRN PRN PRN Reason: Gastric Burning Albuterol Sulfate (Albuterol 2.5 Mg/3 Ml Vial.Neb.) 2.5 mg INHALATION Q2H PRN PRN PRN Reason: Dyspnea, wheezing Atorvastatin Calcium (Atorvastatin Calcium 10 Mg Tablet) 10 mg PO QHS ASHLEY Bisacodyl (Bisacodyl 5 Mg Tablet) 10 mg PO DAILY PRN PRN PRN Reason: Constipation Dextrose (Dextrose 50%-Water 25 Gm/50 Ml Disp.Syrin) 0 gm IV X1 PRN; Protocol PRN Reason: Hypoglycemia Docusate Sodium (Docusate Sodium 100 Mg Capsule) 200 mg PO BID PRN PRN PRN Reason: Constipation Glucagon (Glucagon 1 Mg/Ml Syringe) 1 mg IM .X1 PRN PRN Reason: Hypoglycemia Hydralazine HCl (Hydralazine 20 Mg/Ml Vial) 10 mg IV Q4H PRN PRN PRN Reason: SBP > 160 Piperacillin Sod/Tazobactam (Sod 3.375 gm/ Sodium Chloride) 50 mls @ 12.5 mls/hr IV Q8 ASHLEY Sodium Chloride () 1,000 mls @ 100 mls/hr IV .Q10H ASHLEY Piperacillin Sod/Tazobactam (Sod 3.375 gm/ Sodium Chloride) 50 mls @ 100 mls/hr IV X1 ONE Stop: 06/24/20 18:29 Last Admin: 06/24/20 18:06 Dose: 100 mls/hr Documented by: Insulin Glargine (Insulin Glargine 100 Units/Ml Pen) 50 units SC DAILY ASHLEY Insulin Human Lispro (Insulin Lispro 100 Unit/Ml Insuln.Pen) 0 unit SC ACHS ASHLEY; Protocol Losartan Potassium (Losartan Potassium 50 Mg Tablet) 50 mg PO DAILY ASHLEY Morphine Sulfate (Morphine 2 Mg/Ml Syringe) 2 - 4 mg IV Q3H PRN PRN PRN Reason: Pain Score 6-10 Morphine Sulfate (Morphine 4 Mg/Ml Syringe) 2 - 4 mg IV Q3H PRN PRN PRN Reason: Pain Score 6-10 Oxycodone HCl (Oxycodone 5 Mg Tablet) 5 mg PO Q4H PRN PRN PRN Reason: Pain Score 4-5 Polyethylene Glycol (Polyethylene Glycol 3350 17 Gm Packet) 17 gm PO DAILY ASHLEY Prochlorperazine Edisylate (Prochlorperazine 10 Mg/2 Ml Vial) 10 mg IV Q6H PRN PRN PRN Reason: Nausea/Vomiting Sodium Chloride (0.9% Saline Lock 10 Ml Syringe) 10 - 40 ml IV UD PRN PRN Reason: SALINE FLUSH Assessment/Plan All Active Problems Osteomyelitis (Acute) Right 2nd toe ulceration down to subcutaneous tissue w/ cellulitis and concern for osteomyelitis Diabetes with peripheral neuropathy Hx of osteomyelitis right 1st toe s/p amputation August 2019 Patient was admitted due to signs/symptoms of infection to the right 2nd toe with significant cellulitis present, there is high concern for osteomyelitis. Labs have been ordered and pending. A culture has been obtained from the ulceration right 2nd toe and sent to microbiology for further evaluation. MRSA PCR DNA was ordered on the wound culture as well. Patient has been started on IV Zosyn, he had NUHA last summer from possible vancomycin. We will plan to consult Infectious Disease as well. Further imaging has been ordered on the right foot - right foot xrays as well as MRI for further evaluation. Possible surgical intervention on toe tomorrow. The wound has been dressed with betadine soln and gauze dressing. Keep clean, dry and intact. Edema most likely due to the infection, but venous Doppler ordered for further evaluation to r/o DVT. Hospitalist service has been consulted, discussed with Dr. Shoemaker today. DVT Prophylaxis: SCDs
[2020-06-24] MEDS: Insulin Lispro 100 UNIT/ML INSULN.PEN SC ×2 (18:18→21:29)
[2020-06-24 18:21] LABS: Bedside Glucose 265 mg/dL (70-110)
[2020-06-24 18:33] LABS: Absolute Lymphocyte Count 1.65 X10^3/uL (0.83-4.51); Absolute Neutrophil Count 4.4 X10^3/uL (2.0-7.7); Basophil# 0.03 X10^3/uL; Basophil% 0.4 % (0-1); Eosinophils% 1.5 % (0-5); Hematocrit 37.4 % (40-54); Hemoglobin 12.5 g/dL (13.0-16.5); Lymphocyte # 1.65 X10^3/ul (4.0); Lymphocyte % 24.5 % (19-41); Mean Corp Hgb Conc 33.4 g/dL (32-36); Mean Corpuscular Hgb 28.3 pg (27.0-32.0); Mean Corpuscular Volume 84.8 fL (80-94); Mean Platelet Vol. 10.5 fl (6.2-12.0); Monocyte# 0.56 X10^3/uL; Monocyte% 8.3 % (0-10); NRBC Flagged by Analyzer 0 % (0-5); Neutrophil # 4.37 X10^3/uL (2.7-7.7); Platelet Count 229 K/mm3 (150-450); RBC Distribution Width CV 12.6 % (11.6-14.6); RBC Distribution Width SD 38.5 fl (35.1-43.9); Red Blood Count 4.41 M/mm3 (4.6-6.2); White Blood Count 6.7 K/mm3 (4.4-11.0)
[2020-06-24 18:38] LABS: Erythrocyte Sedimentation Rate 13 mm/hr (0-20)
[2020-06-24 18:41] LABS: AST(SGOT) 18 U/L (15-37); Alanine Aminotransfer ALT/SGPT 52 U/L (16-61); Albumin, Serum 3.3 g/dL (3.2-5.0); Alkaline Phosphatase 46 U/L (45-117); Anion Gap 5 (5-15); BUN 19 mg/dL (7-18); BUN/Creat Ratio 16.2 RATIO (10-20); Calcium,Total 8.9 mg/dL (8.5-10.1); Chloride 103 mmol/L (98-107); Creatinine, Serum 1.17 mg/dL (0.70-1.30); EST Glomerular Filtration Rate 71 mL/min (>60); Est Glom Filt Rate - Afr Amer 86 mL/min (>60); Estimated Creatinine Clearance 95.83 ml/min; Globulin 3.4 g/dL (2.2-4.2); Glucose 299 mg/dL (74-106); Magnesium 1.8 mg/dL (1.6-2.6); Protein, Total 6.7 g/dL (6.4-8.2); Sodium Level 135 mmol/L (136-145)
--- NOTE | 2020-06-24 18:45 | RAD_ITS ---
STUDY: X-RAY - RIGHT FOOT CLINICAL: Male, 45 years old. infection 2nd toe TECHNIQUE: 3 view(s) of the foot. COMPARISON: Prior right radiograph of 08/27/2019 FINDINGS: Normal talus, calcaneus, and tarsal bones. Minimal plantar spur. Normal visualized subtalar, talonavicular, calcaneocuboid, tarsal and tarsometatarsal articulations. Normal metatarsi. Normal metatarsophalangeal joint of the great toe. Normal tibial and fibular sesamoid bones. Amputation of the distal phalanx and all but the base of the proximal phalanx. Healed osteotomy. Normal second through fifth metatarsophalangeal joints. Normal interphalangeal joints and phalanges of the lesser toes. Soft tissue swelling of the second toe without foreign body or emphysematous changes. RAD/Foot min 3 Views IMPRESSION: Soft tissue swelling of the second toe without foreign body or emphysematous changes. No underlying acute bone or joint findings. Status post amputation of the great toe except the base of the proximal phalanx with a healed osteotomy. Minimal plantar spur of the calcaneus. Electronically Signed: Ingris Peter MD at 23:53 EDT , Service support ,
[2020-06-24 18:56] LABS: Hemoglobin A1c 8.7 % (3.8-5.6)
[2020-06-24 21:07] VITALS: BP 136/84; PULSE 61; RESP 18; TEMP 36.7; O2SAT 100
[2020-06-24 22:15] LABS: Bedside Glucose 233 mg/dL (70-110)
[2020-06-25] VITALS (12 sets, daily range): BP systolic 115–132; BP diastolic 71–88; PULSE 53–86; RESP 16–18; TEMP 35.8–36.7; O2SAT 96–100; BMI 38.9
--- NOTE | 2020-06-25 | BON_PTH ---
PATIENT: LISBET GREENBERG LOC: MS3 U#:[id number] AGE/SX: 45/M ROOM: NC319 RE06/24/[address]: Dr. Cristy Barbosa MD : 1975 BED: 1 DIS: 06/28/2020 SPEC #: [id number] RECD: 06/28/20 07:51 STATUS: SAGE REMaryam #: [id number] LIUDMILA: 06/25/20 00:[address]: Lex Yeh DEPT: SURGICAL PATHOLOGY RECD BY: Lul Stevens ENTERED: 06/28/20 07:51 SP TYPE: Bone OTHR DR: MD Dr. Say Whitaker MD Dr. Robert Lindsay, DO Tissues: A - Bone of foot, NOS B - Bone of foot, NOS C - Bone of foot, NOS Procedures: Decalcification bone/plaque Surgery Specimen Level III HEADER OPERATION: Second toe debridement of ulcer including bone PRE-OP DIAGNOSIS: Osteomyelitis of right toes TISSUE SUBMITTED: A - Bone of second metatarsal, B - Second toe, C - Clearance fragment of second toe MICROSCOPIC DIAGNOSIS A. Bone second metatarsal: A piece of bone with reactive changes, negative for acute osteomyelitis. B. Second toe bone: Pieces of bone with reactive changes, negative for acute osteomyelitis. C. Clearance fragment of second toe bone: Pieces of bone with reactive changes, negative for acute osteomyelitis. MATEUS:weston 06/30/2020 MICROSCOPIC DESCRIPTION Slides are reviewed. GROSS DESCRIPTION A - Received in fixative is one container labeled with the patient's name and designated bone of second metatarsal. The specimen consists of a piece of bone measuring 0.2 x 0.2 x 0.1 cm. The entire specimen is submitted in one cassette after decalcification. B - Received in fixative is one container labeled with the patient's name and designated second toe. The specimen consists of two pieces of bone measuring in aggregate 1 x 1.2 x 0.3 cm. The entire specimen is submitted in one cassette after decalcification. C - Received in fixative is one container labeled with the patient's name and designated clearance fragment of second toe. The specimen consists of two pieces of bone measuring in aggregate 0.8 x 0.3 x 0.1 cm. The entire specimen is submitted in one cassette after decalcification. / MATEUS:weston 06/28/20 TC:5 [facility]: [id number] x3, [id number] x3
[2020-06-25] MEDS: 0.9% Normal Saline 1,000 ML 100 ML IV ×3 (00:02→17:38)
--- NOTE | 2020-06-25 06:00 | EKG12_ITS ---
Test Reason : AM EKG Blood Pressure : / mmHG Vent. Rate : 065 BPM Atrial Rate : 065 BPM P-R Int : 164 ms QRS Dur : 096 ms QT Int : 428 ms P-R-T Axes : 057 -13 033 degrees QTc Int : 445 ms Normal sinus rhythm Normal ECG Confirmed by KEV CASTANON, CHRISTINE ([id number]), assistant film editor DANG MADRIGAL ([id number]) on 07/01/2020 11:29:57 AM Referred By: Lex Yeh Confirmed By:CHRISTINE ANGULO MD
--- NOTE | 2020-06-25 06:00 | PCM.PROGNOTE ---
Subjective: 45-year-old diabetic male was seen bedside this morning for right second toe ulcer with exposed bone and cellulitis. The onset was 1 week ago after he had increased swelling and he was very active at work. He relates his redness is significantly improved since he has been on antibiotics in the hospital. He denies pain because he has neuropathy. He denies fever, chill, nausea, vomiting. - Physical Exam Vitals/I&O's: Vital Signs Temp Pulse Resp BP Pulse Ox 97.9 F 59 L 18 130/78 H 100 06/25/20 03:15 06/25/20 03:15 06/25/20 03:15 06/25/20 03:15 06/25/20 03:15 Oxygen Delivery Method Room Air Weight: 144.9 kg Body Mass Index (BMI) 38.9 Intake and Output for Last 24 Hours 06/23/20 06/24/20 06/25/20 23:59 23:59 23:59 Intake Total 50 / 650 650 / 650 Balance 50 / 650 650 / 650 General: Alert, Oriented x3, Cooperative HEENT: Atraumatic Extremities: No cyanosis, Capillary Refill Less than 3 Seconds, No Calf Tenderness, Peripheral Pulses Normal - Palpable DP pulse Skin: Ulcer/ Wound - Approximately 5 x 5 x 1 mm skin discontinuity to the dorsal right second toe with exposed proximal phalanx head with garcia discoloration and dryness. Erythema has reduced intensity and location compared to yesterday at time of admission. No purulence odor or additional streaking or maceration, - - His foot skin is atrophic Musculoskeletal: Muscle Wasting, - - Dorsal contraction of the lesser toes including the second toe in a semirigid manner. Prior hallux amputation of right foot is noted. Compartments remain soft to palpate. No pain with ulcer manipulation. Neurological: - - Lack of normal epicritic sensation light touch is consistent with neuropathic status. Psych/Mental Status: Normal Affect, Appropriate Laboratory Results 06/24/20 16:37: WBC 6.7, RBC 4.41 L, Hgb 12.5 L, Hct 37.4 L, MCV 84.8, MCH 28.3, MCHC 33.4, RDW Std Deviation 38.5, RDW Coeff of Kristal 12.6, Plt Count 229, MPV 10.5, Immature Gran % (Auto) 0.300, Neut % (Auto) 65.0, Lymph % (Auto) 24.5, [place] % (Auto) 8.3, Eos % (Auto) 1.5, Baso % (Auto) 0.4, Absolute Neuts (auto) 4.4, Absolute Lymphs (auto) 1.65, Nucleated RBC % 0, ESR 13 06/24/20 16:37: Sodium 135 L, Potassium 4.0, Chloride 103, Carbon Dioxide 27.0, Anion Gap 5, BUN 19 H, Creatinine 1.17, Estim Creat Clear Calc 95.83, Est GFR (MDRD) Af Amer 86, Est GFR (MDRD) Non-Af 71, BUN/Creatinine Ratio 16.2, Glucose 299 H, Calcium 8.9, Magnesium 1.8, Total Bilirubin 0.30, AST 18, ALT 52, Alkaline Phosphatase 46, C-React Prot Ext Range 14.60 H, Total Protein 6.7, Albumin 3.3, Globulin 3.4, Albumin/Globulin Ratio 1.0 06/24/20 16:37: Hemoglobin A1c 8.7 H 06/24/20 18:14: POC Glucose 265 H 06/24/20 21:28: POC Glucose 233 H Current Medications Acetaminophen (Acetaminophen 325 Mg Tablet) 650 mg PO Q6H PRN PRN PRN Reason: Pain Score 1-3 /Temp>100.7 Al Hydroxide/Mg Hydroxide (Mag Hydrox/Al Hydrox/Simeth 30 Ml Udc) 30 ml PO Q6H PRN PRN PRN Reason: Gastric Burning Albuterol Sulfate (Albuterol 2.5 Mg/3 Ml Vial.Neb.) 2.5 mg INHALATION Q2H PRN PRN PRN Reason: Dyspnea, wheezing Atorvastatin Calcium (Atorvastatin Calcium 10 Mg Tablet) 10 mg PO QHS ASHLEY Last Admin: 06/24/20 21:30 Dose: Not Given Documented by: Bisacodyl (Bisacodyl 5 Mg Tablet) 10 mg PO DAILY PRN PRN PRN Reason: Constipation Dextrose (Dextrose 50%-Water 25 Gm/50 Ml Disp.Syrin) 0 gm IV X1 PRN; Protocol PRN Reason: Hypoglycemia Docusate Sodium (Docusate Sodium 100 Mg Capsule) 200 mg PO BID PRN PRN PRN Reason: Constipation Glucagon (Glucagon 1 Mg/Ml Syringe) 1 mg IM .X1 PRN PRN Reason: Hypoglycemia Hydralazine HCl (Hydralazine 20 Mg/Ml Vial) 10 mg IV Q4H PRN PRN PRN Reason: SBP > 160 Piperacillin Sod/Tazobactam (Sod 3.375 gm/ Sodium Chloride) 50 mls @ 12.5 mls/hr IV Q8 [facility] Last Infusion: 06/25/20 01:30 Dose: Infused Documented by: Sodium Chloride () 1,000 mls @ 100 mls/hr IV .Q10H [facility] Last Admin: 06/25/20 00:02 Dose: 100 mls/hr Documented by: Insulin Glargine (Insulin Glargine 100 Units/Ml Pen) 50 units SC DAILY [facility] Insulin Human Lispro (Insulin Lispro 100 Unit/Ml Insuln.Pen) 0 unit SC ACHS [facility]; Protocol Last Admin: 06/24/20 21:29 Dose: 3 u Documented by: Losartan Potassium (Losartan Potassium 50 Mg Tablet) 50 mg PO DAILY [facility] Morphine Sulfate (Morphine 2 Mg/Ml Syringe) 2 - 4 mg IV Q3H PRN PRN PRN Reason: Pain Score 6-10 Morphine Sulfate (Morphine 4 Mg/Ml Syringe) 2 - 4 mg IV Q3H PRN PRN PRN Reason: Pain Score 6-10 Oxycodone HCl (Oxycodone 5 Mg Tablet) 5 mg PO Q4H PRN PRN PRN Reason: Pain Score 4-5 Polyethylene Glycol (Polyethylene Glycol 3350 17 Gm Packet) 17 gm PO DAILY [facility] Prochlorperazine Edisylate (Prochlorperazine 10 Mg/2 Ml Vial) 10 mg IV Q6H PRN PRN PRN Reason: Nausea/Vomiting Sodium Chloride (0.9% Saline Lock 10 Ml Syringe) 10 - 40 ml IV UD PRN PRN Reason: SALINE FLUSH Medical Necessity - Tobacco Use Smoking Status: Former smoker Tobacco Use: Chew Assessment/Plan All Active Problems Osteomyelitis (Acute) Right 2nd toe ulceration with exposed proximal phalanx head bone w/ cellulitis and concern for osteomyelitis Diabetes with peripheral neuropathy Hx of osteomyelitis right 1st toe s/p amputation August 2019 I reviewed this patient's case including his diagnostic data. He is afebrile and his vital signs remained stable. He does not demonstrate leukocytosis. ESR is 13. X-rays from [facility] did not demonstrate soft tissue emphysema, fracture, dislocation, or foreign body. MRI of the right foot was obtained demonstrating increased intensity on STIR images at the proximal phalanx head and partially to the middle phalanx base. There is questionable intensity changes on the T2 images and the final MRI report is pending. Regardless, there is exposed bone and it is drying discolored and there is concern for osteomyelitis and also for timely wound healing due to his toe deformity. We discussed treatment options including antibiotics and localized wound care versus antibiotics and arthroplasty resection of the exposed bone. This is more definitive and curative which will address infection and the deformity. He elects to proceed with surgical intervention at this time. The preoperative indications, planned procedure, possible benefits, risk, complications, and anticipated healing time and management were discussed in detail with the patient this morning with nursing staff bedside. He understands elects proceed at this time. He understands risk and complications include but not limited to following: Pain, swelling, scarring, blood clot, allergic reaction, need for revisional surgery, transfer lesions including new ulcers, continued infection, continued delayed or nonhealing, loss of limb, function, life, chronic pain. No guarantees were made. The surgical plan includes ulcer debridement including excision of bone and arthroplasty of the right second proximal interphalangeal joint without hardware placement. Surgical consents will need to be signed. The surgical limb was signed. I answered all of his questions. He is n.p.o. at this time and surgery will likely be late this morning or early this afternoon pending operating room availability. The anticipated anesthesia is for MAC and local. I answered all his questions. A culture has been obtained from the ulceration right 2nd toe and sent to microbiology for further evaluation. MRSA PCR DNA was ordered on the wound culture as well. Additional intraoperative cultures and pathology specimens will be sent. Patient has been started on IV Zosyn, he had NUHA last summer from possible vancomycin. ID consult will be considered. His dressing was reapplied. He advised keep clean and dry. To offload with surgical shoe heel weight-bear. Edema most likely due to the infection, but venous Doppler ordered for further evaluation to r/o DVT. Hospitalist service has been consulted and is appreciated for medical management and DVT prophylaxis. This case was briefly reviewed with Evelina España, nurse practitioner including the plan for surgery today. DVT Prophylaxis: SCDs until after surgery Please not hesitate to call if you have any questions. Teresa Fascione, DPM, FACFAS [facility] [phone]
[2020-06-25 06:16] LABS: Bedside Glucose 157 mg/dL (70-110)
[2020-06-25 06:46] LABS: Absolute Lymphocyte Count 1.94 X10^3/uL (0.83-4.51); Absolute Neutrophil Count 3.8 X10^3/uL (2.0-7.7); Basophil# 0.05 X10^3/uL; Basophil% 0.8 % (0-1); Eosinophil# 0.09 X10^3/uL; Eosinophils% 1.4 % (0-5); Hematocrit 40.4 % (40-54); Hemoglobin 13.1 g/dL (13.0-16.5); Lymphocyte # 1.94 X10^3/ul (4.0); Lymphocyte % 30.9 % (19-41); Mean Corp Hgb Conc 32.4 g/dL (32-36); Mean Corpuscular Hgb 27.8 pg (27.0-32.0); Mean Corpuscular Volume 85.8 fL (80-94); Monocyte# 0.41 X10^3/uL; Monocyte% 6.5 % (0-10); NRBC Flagged by Analyzer 0 % (0-5); Neutrophil # 3.76 X10^3/uL (2.7-7.7); Neutrophil % 60.1 % (47-70); Platelet Count 246 K/mm3 (150-450); RBC Distribution Width CV 12.6 % (11.6-14.6); RBC Distribution Width SD 39.3 fl (35.1-43.9); Red Blood Count 4.71 M/mm3 (4.6-6.2); White Blood Count 6.3 K/mm3 (4.4-11.0)
[2020-06-25 07:19] LABS: ALB/GLOB Ratio 0.9 RATIO (0.9-2.4); AST(SGOT) 17 U/L (15-37); Alanine Aminotransfer ALT/SGPT 51 U/L (16-61); Albumin, Serum 3.3 g/dL (3.2-5.0); Alkaline Phosphatase 43 U/L (45-117); Anion Gap 4 (5-15); BUN 19 mg/dL (7-18); BUN/Creat Ratio 19.1 RATIO (10-20); Calcium,Total 8.7 mg/dL (8.5-10.1); Chloride 106 mmol/L (98-107); EST Glomerular Filtration Rate 85 mL/min (>60); Est Glom Filt Rate - Afr Amer 103 mL/min (>60); Estimated Creatinine Clearance 112.12 ml/min; Globulin 3.5 g/dL (2.2-4.2); Glucose 159 mg/dL (74-106); Potassium 4.2 mmol/L (3.5-5.1); Protein, Total 6.8 g/dL (6.4-8.2); Sodium Level 136 mmol/L (136-145)
--- NOTE | 2020-06-25 07:30 | NURSING ---
wound photo: right 2nd toe
[2020-06-25 08:39] LABS: Hemoglobin A1c 8.8 % (3.8-5.6)
--- NOTE | 2020-06-25 09:08 | NURSING ---
Covid test sent down to lab.
[2020-06-25 09:21] LABS: Bedside Glucose 185 mg/dL (70-110)
--- NOTE | 2020-06-25 11:20 | CASEMGMT ---
CHRISTOPHER SCHMITZ Face to Face with patient for initial transition planning/care coordination assessment. RN CM introduced self and role at [facility]. Patient lying in bed, alert and oriented. Patient willing to participate in assessment and is able to answer all questions appropriately. Care providers, pharmacy, and demographics verified. Patient wishes to discharge home, denies need for home health at this time, will monitor need for HHC pending wound care and ATB needs. Patient states he has no further needs or concerns at this time. CM to follow for discharge planning needs that may arise. PCP: Yamilka Specialists: Ruba pct Preferred [facility]acy: [facility] Insurance: MMO Prescription Benefit: yes Living Will/HPOA: none LNOK: Living Arrangements: Patient lives with in a single story home with 3 steps and railing to enter the home. Transportation: self/ DME/HHC: Patient denies DME or previous HHC. Discussed possible need for walker, HHC for possible wound care or IV ATBs. Will monitor for HHC pending course of treatment Disposition Plan: Patient to discharge home with family support and follow-up plans in place. Monitor for HHC needs. Ning OLSEN, RN, CM
[2020-06-25 12:41] LABS: Bedside Glucose 135 mg/dL (70-110)
--- NOTE | 2020-06-25 13:31 | CON.PCM_ITS ---
Reason for Consult: Right second toe osteomyelitis diabetic Consulted by: Dr. Mooney History of Present Illness: The patient is a 45 year old M [] 45-year-old gentleman with a longstanding history of diabetes mellitus complicated by peripheral neuropathy who presents with right second toe ulcer th at is developed over the past 1 to 2 weeks after localized trauma with his shoes. Patient does have a history of osteomyelitis of right great toe that required surgical resection in August 2019. He denies any fevers or chills denies any constitutional symptoms. Imaging studies were done of the right foot including plain film of the right foot as well as an MRI of the right foot. MRI of the right foot shows abnormalities in the right second toe suspicious for osteomyelitis. Patient is currently on Zosyn. Patient works full-time and mainly on his feet. - Medical History Allergies/Adverse Reactions: Allergies No Known Allergies Allergy (Verified 08/26/19 17:06) Home Medications: Ambulatory Orders Medication Instructions Recorded Atorvastatin Calcium [Lipitor] 10 mg PO DAILY 06/24/20 Insulin Detemir [Levemir Flextouch] 50 unit SQ DAILY 06/24/20 Losartan Potassium [Cozaar] 50 mg PO DAILY 06/24/20 Pioglitazone [Actos] 30 mg PO DAILY 06/24/20 Vital Signs Temp Pulse Resp BP Pulse Ox 98.1 F 86 18 125/76 H 96 06/25/20 12:24 06/25/20 12:24 06/25/20 12:24 06/25/20 12:24 06/25/20 12:24 Oxygen Delivery Method Room Air Weight: 144.9 kg Body Mass Index (BMI) 38.9 Microbiology Past 72 Hours 06/25/20 09:00 SARS-CoV-2 Antigen (Rapid) - Final Mucosa - Nose Laboratory Tests Past 24 Hrs 06/24/20 06/24/20 06/24/20 16:37 16:37 16:37 WBC 6.7 RBC 4.41 L Hgb 12.5 L Hct 37.4 L MCV 84.8 MCH 28.3 MCHC 33.4 RDW Std Deviation 38.5 RDW Coeff of Kristal 12.6 Plt Count 229 MPV 10.5 Immature Gran % (Auto) 0.300 Neut % (Auto) 65.0 Lymph % (Auto) 24.5 [place] % (Auto) 8.3 Eos % (Auto) 1.5 Baso % (Auto) 0.4 Absolute Neuts (auto) 4.4 Absolute Lymphs (auto) 1.65 Nucleated RBC % 0 ESR 13 Sodium 135 L Potassium 4.0 Chloride 103 Carbon Dioxide 27.0 Anion Gap 5 BUN 19 H Creatinine 1.17 Estim Creat Clear Calc 95.83 Est GFR (MDRD) Af Amer 86 Est GFR (MDRD) Non-Af 71 BUN/Creatinine Ratio 16.2 Glucose 299 H Hemoglobin A1c 8.7 H Calcium 8.9 Magnesium 1.8 Total Bilirubin 0.30 AST 18 ALT 52 Alkaline Phosphatase 46 C-React Prot Ext Range 14.60 H Total Protein 6.7 Albumin 3.3 Globulin 3.4 Albumin/Globulin Ratio 1.0 06/25/20 06/25/20 06/25/20 06:12 06:12 06:12 WBC 6.3 RBC 4.71 Hgb 13.1 Hct 40.4 MCV 85.8 MCH 27.8 MCHC 32.4 RDW Std Deviation 39.3 RDW Coeff of Kristal 12.6 Plt Count 246 MPV 10.0 Immature Gran % (Auto) 0.300 Neut % (Auto) 60.1 Lymph % (Auto) 30.9 [place] % (Auto) 6.5 Eos % (Auto) 1.4 Baso % (Auto) 0.8 Absolute Neuts (auto) 3.8 Absolute Lymphs (auto) 1.94 Nucleated RBC % 0 ESR Sodium 136 Potassium 4.2 Chloride 106 Carbon Dioxide 26.0 Anion Gap 4 L BUN 19 H Creatinine 1.00 Estim Creat Clear Calc 112.12 Est GFR (MDRD) Af Amer 103 Est GFR (MDRD) Non-Af 85 BUN/Creatinine Ratio 19.1 Glucose 159 H Hemoglobin A1c 8.8 H Calcium 8.7 Magnesium Total Bilirubin 0.60 AST 17 ALT 51 Alkaline Phosphatase 43 L C-React Prot Ext Range Total Protein 6.8 Albumin 3.3 Globulin 3.5 Albumin/Globulin Ratio 0.9 - Other Studies Radiology: [] Other Studies: [] Route of nutrition/ use of supplements: [] Nutritional Intake: [] IV Site: [] Ling Catheter: [] Alert and oriented does not appear toxic lungs are clear heart exam S1-S2 abdomen soft nontender. Right second toe with ulcer - Assessment/Plan Antibiotics: [] Assessment/Plan: [] Diabetic pedal osteomyelitis of the right second toe plan for IV antibiotics in the form Unasyn 3 g IV every 6 hours. Wound culture done yesterday on the right second toe growing Staph aureus with sensitivities pending. Plan for surgery later this afternoon by podiatry.
--- NOTE | 2020-06-25 14:24 | PN_ITS ---
<Evelina España COUNTRY SALES MANAGER - Last Filed: 06/25/20 14:29> Subjective: Patient seen and examined. Plan for OR this afternoon for right second toe debridement of ulcer including bone and arthroplasty of the proximal interphalangeal joint. Blood glucose well controlled currently. Patient denies symptoms or complaints. - Physical Exam Vitals/I&O's: Vital Signs Temp Pulse Resp BP Pulse Ox 98.1 F 86 18 125/76 H 96 06/25/20 12:24 06/25/20 12:24 06/25/20 12:24 06/25/20 12:24 06/25/20 12:24 Oxygen Delivery Method Room Air Weight: 319 lb 7.197 oz Body Mass Index (BMI) 38.9 Intake and Output for Last 24 Hours 06/23/20 06/24/20 06/25/20 23:59 23:59 23:59 Intake Total 50 / 650 1700 / 1700 Balance 50 / 650 1700 / 1700 General: Alert, Oriented x3, Cooperative HEENT: Atraumatic, PERRLA, EOMI, Normocephalic Neck: Supple, No JVD, Negative Carotid Bruits Lungs: Clear to auscultation, Normal air movement Cardiovascular: Regular rate, No murmurs Abdomen: Bowel Sounds Present, Soft, Non Tender Extremities: No clubbing, No cyanosis, No edema, Capillary Refill Less than 3 Seconds Skin: No rashes, No breakdown, - - Right second toe ulceration with surrounding redness, dressing intact Musculoskeletal: No Tenderness to Palpation of Joints or Extremities Neurological: Cranial nerves II-XII grossly intact, Neuro grossly intact Psych/Mental Status: Normal Affect, Appropriate Microbiology Past 72 Hours 06/25/20 09:00 Mucosa - Nose SARS-CoV-2 Antigen (Rapid) - Final Laboratory Results 06/24/20 16:37: WBC 6.7, RBC 4.41 L, Hgb 12.5 L, Hct 37.4 L, MCV 84.8, MCH 28.3, MCHC 33.4, RDW Std Deviation 38.5, RDW Coeff of Kristal 12.6, Plt Count 229, MPV 10.5, Immature Gran % (Auto) 0.300, Neut % (Auto) 65.0, Lymph % (Auto) 24.5, [place] % (Auto) 8.3, Eos % (Auto) 1.5, Baso % (Auto) 0.4, Absolute Neuts (auto) 4.4, Absolute Lymphs (auto) 1.65, Nucleated RBC % 0, ESR 13 06/24/20 16:37: Sodium 135 L, Potassium 4.0, Chloride 103, Carbon Dioxide 27.0, Anion Gap 5, BUN 19 H, Creatinine 1.17, Estim Creat Clear Calc 95.83, Est GFR (MDRD) Af Amer 86, Est GFR (MDRD) Non-Af 71, BUN/Creatinine Ratio 16.2, Glucose 299 H, Calcium 8.9, Magnesium 1.8, Total Bilirubin 0.30, AST 18, ALT 52, Alkaline Phosphatase 46, C-React Prot Ext Range 14.60 H, Total Protein 6.7, Albumin 3.3, Globulin 3.4, Albumin/Globulin Ratio 1.0 06/24/20 16:37: Hemoglobin A1c 8.7 H 06/24/20 18:14: POC Glucose 265 H 06/24/20 21:28: POC Glucose 233 H 06/25/20 06:07: POC Glucose 157 H 06/25/20 06:12: WBC 6.3, RBC 4.71, Hgb 13.1, Hct 40.4, MCV 85.8, MCH 27.8, MCHC 32.4, RDW Std Deviation 39.3, RDW Coeff of Kristal 12.6, Plt Count 246, MPV 10.0, Immature Gran % (Auto) 0.300, Neut % (Auto) 60.1, Lymph % (Auto) 30.9, [place] % (Auto) 6.5, Eos % (Auto) 1.4, Baso % (Auto) 0.8, Absolute Neuts (auto) 3.8, Absolute Lymphs (auto) 1.94, Nucleated RBC % 0 06/25/20 06:12: Sodium 136, Potassium 4.2, Chloride 106, Carbon Dioxide 26.0, Anion Gap 4 L, BUN 19 H, Creatinine 1.00, Estim Creat Clear Calc 112.12, Est GFR (MDRD) Af Amer 103, Est GFR (MDRD) Non-Af 85, BUN/Creatinine Ratio 19.1, Glucose 159 H, Calcium 8.7, Total Bilirubin 0.60, AST 17, ALT 51, Alkaline Phosphatase 43 L, Total Protein 6.8, Albumin 3.3, Globulin 3.5, Albumin/Globulin Ratio 0.9 06/25/20 06:12: Hemoglobin A1c 8.8 H 06/25/20 09:02: POC Glucose 185 H 06/25/20 12:23: POC Glucose 135 H Current Medications Acetaminophen (Acetaminophen 325 Mg Tablet) 650 mg PO Q6H PRN PRN PRN Reason: Pain Score 1-3 /Temp>100.7 Al Hydroxide/Mg Hydroxide (Mag Hydrox/Al Hydrox/Simeth 30 Ml Udc) 30 ml PO Q6H PRN PRN PRN Reason: Gastric Burning Albuterol Sulfate (Albuterol 2.5 Mg/3 Ml Vial.Neb.) 2.5 mg INHALATION Q2H PRN PRN PRN Reason: Dyspnea, wheezing Atorvastatin Calcium (Atorvastatin Calcium 10 Mg Tablet) 10 mg PO QHS [facility] Last Admin: 06/24/20 21:30 Dose: Not Given Documented by: Bisacodyl (Bisacodyl 5 Mg Tablet) 10 mg PO DAILY PRN PRN PRN Reason: Constipation Dextrose (Dextrose 50%-Water 25 Gm/50 Ml Disp.Syrin) 0 gm IV X1 PRN; Protocol PRN Reason: Hypoglycemia Docusate Sodium (Docusate Sodium 100 Mg Capsule) 200 mg PO BID PRN PRN PRN Reason: Constipation Glucagon (Glucagon 1 Mg/Ml Syringe) 1 mg IM .X1 PRN PRN Reason: Hypoglycemia Hydralazine HCl (Hydralazine 20 Mg/Ml Vial) 10 mg IV Q4H PRN PRN PRN Reason: SBP > 160 Sodium Chloride () 1,000 mls @ 100 mls/hr IV .Q10H [facility] Last Admin: 06/25/20 10:46 Dose: 100 mls/hr Documented by: Ampicillin Sodium/Sulbactam (Sodium 3 gm/ Sodium Chloride) 112 mls @ 150 mls/hr IV Q6 [facility] Insulin Glargine (Insulin Glargine 100 Units/Ml Pen) 50 units SC DAILY [facility] Last Admin: 06/25/20 09:04 Dose: 50 units Documented by: Insulin Human Lispro (Insulin Lispro 100 Unit/Ml Insuln.Pen) 0 unit SC ACHS [facility]; Protocol Last Admin: 06/25/20 12:31 Dose: Not Given Documented by: Losartan Potassium (Losartan Potassium 50 Mg Tablet) 50 mg PO DAILY [facility] Morphine Sulfate (Morphine 2 Mg/Ml Syringe) 2 - 4 mg IV Q3H PRN PRN PRN Reason: Pain Score 6-10 Morphine Sulfate (Morphine 4 Mg/Ml Syringe) 2 - 4 mg IV Q3H PRN PRN PRN Reason: Pain Score 6-10 Oxycodone HCl (Oxycodone 5 Mg Tablet) 5 mg PO Q4H PRN PRN PRN Reason: Pain Score 4-5 Polyethylene Glycol (Polyethylene Glycol 3350 17 Gm Packet) 17 gm PO DAILY [facility] Last Admin: 06/25/20 08:58 Dose: Not Given Documented by: Prochlorperazine Edisylate (Prochlorperazine 10 Mg/2 Ml Vial) 10 mg IV Q6H PRN PRN PRN Reason: Nausea/Vomiting Sodium Chloride (0.9% Saline Lock 10 Ml Syringe) 10 - 40 ml IV UD PRN PRN Reason: SALINE FLUSH Medical Necessity - Tobacco Use Smoking Status: Former smoker Tobacco Use: Chew Assessment/Plan All Active Problems Osteomyelitis (Acute) 1. Right second toe diabetic ulceration with osteomyelitis-podiatry primary. IV Unasyn. Wound cultures pending. MRI shows second metatarsal osteomyelitis. Of note, patient has a history of acute kidney injury which was suspected secondary to vanc nephrotoxicity. ID consulted. Plan for OR this afternoon for right second toe debridement of ulcer including bone and arthroplasty of the proximal interphalangeal joint with Dr. Bloom 2. Type 2 diabetes mellitus-repeat hemoglobin A1c 8.8%. Accu-Cheks with sliding scale insulin. Continue home Levemir. 3. Hypertension-on losartan, stable. 4. Hyperlipidemia-continue statin. DVT prophylaxis- SCDs This patient was seen by KAVIN Reaves under the supervision of Dr. Gresham. <Jaron Gresham - Last Filed: 06/25/20 15:53> Objective: Seen and examined Patient has a right second toe ulcer on the plantar side with hammertoe. No systemic symptoms of nausea vomiting, fever or shivering. Physical exam General: Alert, Oriented x3, Cooperative HEENT: Atraumatic, PERRLA, EOMI, Normocephalic Oral: No Gingival or Mucosal Lesions/ Ulcerations Neck: Supple, No JVD, Negative Carotid Bruits Lungs: Air entry equal in bilateral lung bases. No crepitation/rhonchi Cardiovascular: Regular rate, Regular Rhythm, Normal S1, Normal S2, No murmurs Abdomen: Bowel Sounds Present, Soft, Non Tender, Non-Distended : No renal angle tenderness. No suprapubic tenderness. Extremities: No edema, Capillary Refill Less than 3 Seconds Skin: Ulcer on the right second toe, flexion contracture at proximal IP joint. Dressing is dry. Musculoskeletal: No Tenderness to Palpation of Joints or Extremities Neurological: Cranial nerves II-XII grossly intact, Deep Tendon Reflexes 2+/4 and Symmetrical, Neuro grossly intact Psych/Mental Status: Normal Affect, Appropriate. - Physical Exam Vitals/I&O's: Vital Signs Temp Pulse Resp BP Pulse Ox 98.1 F 86 18 125/76 H 96 06/25/20 12:24 06/25/20 12:24 06/25/20 12:24 06/25/20 12:24 06/25/20 12:24 Oxygen Delivery Method Room Air Weight: 319 lb 7.197 oz Body Mass Index (BMI) 38.9 Intake and Output for Last 24 Hours 06/23/20 06/24/20 06/25/20 23:59 23:59 23:59 Intake Total 50 / 650 2081.67 / 2081.67 Balance 50 / 650 2081.67 / 2081.67 Microbiology Past 72 Hours 06/25/20 09:00 Mucosa - Nose SARS-CoV-2 Antigen (Rapid) - Final Laboratory Results 06/24/20 16:37: WBC 6.7, RBC 4.41 L, Hgb 12.5 L, Hct 37.4 L, MCV 84.8, MCH 28.3, MCHC 33.4, RDW Std Deviation 38.5, RDW Coeff of Kristal 12.6, Plt Count 229, MPV 10.5, Immature Gran % (Auto) 0.300, Neut % (Auto) 65.0, Lymph % (Auto) 24.5, [place] % (Auto) 8.3, Eos % (Auto) 1.5, Baso % (Auto) 0.4, Absolute Neuts (auto) 4.4, Absolute Lymphs (auto) 1.65, Nucleated RBC % 0, ESR 13 06/24/20 16:37: Sodium 135 L, Potassium 4.0, Chloride 103, Carbon Dioxide 27.0, Anion Gap 5, BUN 19 H, Creatinine 1.17, Estim Creat Clear Calc 95.83, Est GFR (MDRD) Af Amer 86, Est GFR (MDRD) Non-Af 71, BUN/Creatinine Ratio 16.2, Glucose 299 H, Calcium 8.9, Magnesium 1.8, Total Bilirubin 0.30, AST 18, ALT 52, Alkaline Phosphatase 46, C-React Prot Ext Range 14.60 H, Total Protein 6.7, Albumin 3.3, Globulin 3.4, Albumin/Globulin Ratio 1.0 06/24/20 16:37: Hemoglobin A1c 8.7 H 06/24/20 18:14: POC Glucose 265 H 06/24/20 21:28: POC Glucose 233 H 06/25/20 06:07: POC Glucose 157 H 06/25/20 06:12: WBC 6.3, RBC 4.71, Hgb 13.1, Hct 40.4, MCV 85.8, MCH 27.8, MCHC 32.4, RDW Std Deviation 39.3, RDW Coeff of Kristal 12.6, Plt Count 246, MPV 10.0, Immature Gran % (Auto) 0.300, Neut % (Auto) 60.1, Lymph % (Auto) 30.9, [place] % (Auto) 6.5, Eos % (Auto) 1.4, Baso % (Auto) 0.8, Absolute Neuts (auto) 3.8, Absolute Lymphs (auto) 1.94, Nucleated RBC % 0 06/25/20 06:12: Sodium 136, Potassium 4.2, Chloride 106, Carbon Dioxide 26.0, Anion Gap 4 L, BUN 19 H, Creatinine 1.00, Estim Creat Clear Calc 112.12, Est GFR (MDRD) Af Amer 103, Est GFR (MDRD) Non-Af 85, BUN/Creatinine Ratio 19.1, Glucose 159 H, Calcium 8.7, Total Bilirubin 0.60, AST 17, ALT 51, Alkaline Phosphatase 43 L, Total Protein 6.8, Albumin 3.3, Globulin 3.5, Albumin/Globulin Ratio 0.9 06/25/20 06:12: Hemoglobin A1c 8.8 H 06/25/20 09:02: POC Glucose 185 H 06/25/20 12:23: POC Glucose 135 H 06/25/20 15:35: POC Glucose 100 Current Medications Acetaminophen (Acetaminophen 325 Mg Tablet) 650 mg PO Q6H PRN PRN PRN Reason: Pain Score 1-3 /Temp>100.7 Al Hydroxide/Mg Hydroxide (Mag Hydrox/Al Hydrox/Simeth 30 Ml Udc) 30 ml PO Q6H PRN PRN PRN Reason: Gastric Burning Albuterol Sulfate (Albuterol 2.5 Mg/3 Ml Vial.Neb.) 2.5 mg INHALATION Q2H PRN PRN PRN Reason: Dyspnea, wheezing Atorvastatin Calcium (Atorvastatin Calcium 10 Mg Tablet) 10 mg PO QHS [facility] Last Admin: 06/24/20 21:30 Dose: Not Given Documented by: Bisacodyl (Bisacodyl 5 Mg Tablet) 10 mg PO DAILY PRN PRN PRN Reason: Constipation Dextrose (Dextrose 50%-Water 25 Gm/50 Ml Disp.Syrin) 0 gm IV X1 PRN; Protocol PRN Reason: Hypoglycemia Docusate Sodium (Docusate Sodium 100 Mg Capsule) 200 mg PO BID PRN PRN PRN Reason: Constipation Glucagon (Glucagon 1 Mg/Ml Syringe) 1 mg IM .X1 PRN PRN Reason: Hypoglycemia Hydralazine HCl (Hydralazine 20 Mg/Ml Vial) 10 mg IV Q4H PRN PRN PRN Reason: SBP > 160 Sodium Chloride () 1,000 mls @ 100 mls/hr IV .Q10H [facility] Last Infusion: 06/25/20 14:35 Dose: 0 mls/hr Documented by: Ampicillin Sodium/Sulbactam (Sodium 3 gm/ Sodium Chloride) 112 mls @ 150 mls/hr IV Q6 [facility] Last Admin: 06/25/20 14:33 Dose: 150 mls/hr Documented by: Insulin Glargine (Insulin Glargine 100 Units/Ml Pen) 50 units SC DAILY [facility] Last Admin: 06/25/20 09:04 Dose: 50 units Documented by: Insulin Human Lispro (Insulin Lispro 100 Unit/Ml Insuln.Pen) 0 unit SC ACHS [facility]; Protocol Last Admin: 06/25/20 12:31 Dose: Not Given Documented by: Losartan Potassium (Losartan Potassium 50 Mg Tablet) 50 mg PO DAILY [facility] Morphine Sulfate (Morphine 2 Mg/Ml Syringe) 2 - 4 mg IV Q3H PRN PRN PRN Reason: Pain Score 6-10 Morphine Sulfate (Morphine 4 Mg/Ml Syringe) 2 - 4 mg IV Q3H PRN PRN PRN Reason: Pain Score 6-10 Nutritional Formula (Lactose Free) (Glucerna Shake 120 Ml Liquid) 120 ml PO 4X/DAY [facility] Oxycodone HCl (Oxycodone 5 Mg Tablet) 5 mg PO Q4H PRN PRN PRN Reason: Pain Score 4-5 Polyethylene Glycol (Polyethylene Glycol 3350 17 Gm Packet) 17 gm PO DAILY [facility] Last Admin: 06/25/20 08:58 Dose: Not Given Documented by: Prochlorperazine Edisylate (Prochlorperazine 10 Mg/2 Ml Vial) 10 mg IV Q6H PRN PRN PRN Reason: Nausea/Vomiting Sodium Chloride (0.9% Saline Lock 10 Ml Syringe) 10 - 40 ml IV UD PRN PRN Reason: SALINE FLUSH Assessment/Plan This patient was seen in conjunction with COUNTRY SALES MANAGEREvelina. I have independently interviewed and examined the patient and reviewed pertinent history, examination findings, laboratory and plan of management. I have reviewed the note and agree with the documented findings with the few additional points. In brief, patient is admitted for right second toe diabetic ulcer with osteomyelitis. Patient had x-ray and then MRI. MRI shows second metatarsal head osteomyelitis mild bone edema of proximal middle phalanges of second digit. On IV Unasyn. Patient seen by ID. Plan for right second toe ulcer debridement including bone and arthroplasty of right second PIP joint. Diabetes mellitus type 2: A1c 8.7. Glucose high, average 250 suggestive of uncontrolled diabetes. Insulin dose adjusted. I have discussed my assessment with COUNTRY SALES MANAGEREvelina and orders have been reviewed. Microbiology Past 72 Hours 06/25/20 09:00 Mucosa - Nose SARS-CoV-2 Antigen (Rapid) - Final 06/24/20 16:37: Hemoglobin A1c 8.7 H 06/24/20 18:14: POC Glucose 265 H 06/24/20 21:28: POC Glucose 233 H 06/25/20 06:07: POC Glucose 157 H 06/25/20 06:12: WBC 6.3, RBC 4.71, Hgb 13.1, Hct 40.4, MCV 85.8, MCH 27.8, MCHC 32.4, RDW Std Deviation 39.3, RDW Coeff of Kristal 12.6, Plt Count 246, MPV 10.0, Immature Gran % (Auto) 0.300, Neut % (Auto) 60.1, Lymph % (Auto) 30.9, [place] % (Auto) 6.5, Eos % (Auto) 1.4, Baso % (Auto) 0.8, Absolute Neuts (auto) 3.8, Absolute Lymphs (auto) 1.94, Nucleated RBC % 0 06/25/20 06:12: Sodium 136, Potassium 4.2, Chloride 106, Carbon Dioxide 26.0, Anion Gap 4 L, BUN 19 H, Creatinine 1.00, Estim Creat Clear Calc 112.12, Est GFR (MDRD) Af Amer 103, Est GFR (MDRD) Non-Af 85, BUN/Creatinine Ratio 19.1, Glucose 159 H, Calcium 8.7, Total Bilirubin 0.60, AST 17, ALT 51, Alkaline Phosphatase 43 L, Total Protein 6.8, Albumin 3.3, Globulin 3.5, Albumin/Globulin Ratio 0.9 06/25/20 06:12: Hemoglobin A1c 8.8 H 06/25/20 09:02: POC Glucose 185 H 06/25/20 12:23: POC Glucose 135 H 06/25/20 15:35: POC Glucose 100 Clinical Impression(s) from Imaging Studies Lower Extremity MRI 06/24/20 17:07 IMPRESSION: Bone edema in the second metatarsal with decreased T1 bone marrow signal in the second metatarsal head suggestive of osteomyelitis. Mild bone edema of the proximal and middle phalanges of the second digit, either reactive bone edema or early osteomyelitis. Amputation of the proximal phalanx of the first digit with mild bone edema at amputation site. Slight bone edema of the fibular sesamoid. Tendinosis of the flexor hallucis longus tendon. Fat replacement in the intrinsic muscles of the forefoot suggestive of peripheral neuropathy. Foot X-Ray 06/24/20 18:45 IMPRESSION: Soft tissue swelling of the second toe without foreign body or emphysematous changes. No underlying acute bone or joint findings. Status post amputation of the great toe except the base of the proximal phalanx with a healed osteotomy. Minimal plantar spur of the calcaneus. Electronically Signed: Ingris Peter MD at 23:53 EDT , Service support , Inpatient E&M: [id number] Subs Hosp L2
--- NOTE | 2020-06-25 15:25 | NURSING ---
Down to surgery at this time via bed.
[2020-06-25 15:41] LABS: Bedside Glucose 100 mg/dL (70-110)
--- NOTE | 2020-06-25 16:05 | RAD_ITS ---
STUDY: Fluoroscopic guidance for operative procedure of arthroplasty and bone biopsy. CLINICAL: Male, 45 years old. INTRAOP TECHNIQUE: Fluoroscopic guidance was provided for operative procedure of bone biopsy of the right second metatarsal and arthroplasty of the right second toe with ulcer debridement. The radiologist was not present in the room. 5. Images were obtained during the exam. The reported fluoroscopy time is 0 minutes and 12 seconds. COMPARISON: None. FINDINGS: Images reveal status post partial amputation of the first toe from the level of the proximal phalanx. Remainder of the visualized phalanges maintain normal alignment. Findings suggestive of osteotomy at the level of the proximal interphalangeal joint of the second toe. RAD/Foot min 3 Views IMPRESSION: Fluoroscopic guidance provided for operative procedure as described above. For details please see operative report. Electronically Signed: Nyasia Velazco MD at 23:17 EDT , Service support ,
[2020-06-25] MEDS: Lidocaine 1% (30 ml sdv) 30 ML Vial (16:25)
[2020-06-25] MEDS: Bupivacaine Mpf 0.5% 30 ML VIAL (16:25)
--- NOTE | 2020-06-25 17:13 | PCM.OPRPT ---
Problem List (1) Hammer toe of right foot Status: Chronic (2) Ulcer of right foot with necrosis of bone Status: Acute (3) Osteomyelitis Status: Suspected Report of Operation Date of Procedure: 06/25/20 Pre-Operative Diagnosis: ulcer right second toe with exposed bone. osteomyelitis suspected second right metatarsal. hammer toe right second toe Post-Operative Diagnosis: ulcer right second toe with exposed bone. osteomyelitis suspected second right metatarsal. hammer toe right second toe Surgery/Procedure Performed:: bone biopsy right second metatarsal. arthroplasty right second toe with ulcer debridement including bone Description of Surgical Findings:: Hemostasis: Well-padded pneumatic right ankle tourniquet, 250 mmHg, 22 minutes Materials: 3-0 Vicryl and 4-0 nylon Specimen sent Complications: None The patient tolerated the procedure and anesthesia well. The patient was transported to the PACU with vital signs stable and vascular status intact to the surgical limb. To ice and elevate for pain and inflammation management. Postoperative x-rays were reviewed prior to leaving the operating room. Postoperative orders were entered electronically. drainage design coordinator: yes - surgeon: Teresa Bloom DPM. Supervisor Burling And Joining: Karolina Type of Anesthesia:: Local - Preoperative one-to-one mixture of 1% lidocaine plain and 0.5% Marcaine plain administered in typical right second ray block fashion, 10 cc, MAC Specimen's removed: 1. Bone biopsy second metatarsal sent to microbiology for aerobic, anaerobic, acid-fast, fungal. 2. Bone biopsy second metatarsal sent to pathology. 3. Second toe bone sent to microbiology for aerobic, anaerobic, acid-fast, fungal. 4. Second toe bone sent to pathology. 5. Clearance fragment of second toe sent to microbiology for aerobic, anaerobic, acid-fast, fungal. 6. Clearance fragment of second toe sent to pathology Estimated Blood Loss (mL): <50 mL Description of Procedure: Indications: 45-year-old male with diabetic neuropathy who presented with an ulcer with cellulitis of the right toe extending onto the forefoot. The onset was about one week ago following an additional week of edema. He denies pain however is neuropathic. He did not have signs of systemic illness. He does have a prior history of a hallux amputation. He has palpable pulses and hair to the leg and foot. His erythema is very intense at the time of admission and has decreased while on IV Zosyn which was changed to Unasyn today. So far the culture is demonstrating staph growth and he was seen by infectious disease. He did not have leukocytosis at the time of admission. He does have exposed bone and has ulcer on his second toe. Preoperative radiographs did not demonstrate any osseous destruction, soft tissue emphysema or foreign body. He does have a prior hallux amputation and dorsal contracture of the second toe with the apex of the deformity at the proximal interphalangeal joint. MRI demonstrated increased bone marrow edema in the second metatarsal head and diaphysis and also to the proximal phalangeal joint with corresponding evidence of increased intensity on T2 with corresponding decrease intensity on T1 which is also concerning for osteomyelitis. Preoperative H&P were reviewed including his diagnostic data. There are no gross abnormalities noted with labs or preoperative EKG. Preoperative indications, planned procedure, benefits, risk, anticipated healing time and management were reviewed. The patient understands and elects proceed with surgery at this time. No guarantees were made. The patient understands risk and complications include but are not limited to following: pain, swelling, scarring, need for further surgery, tendon contracture, transfer lesion, hardware failure, arthritis, need for further surgery, delayed or nonhealing, infection, blood clot, allergic reaction, loss of limb, function, or life. The informed surgical limb and consent were signed. I answered all the patient's questions. The patient also understands there is an inherent risk with being in the hospital and undergoing a procedure during the time of COVID-19 pandemic. The patient understands precautions are being taken to prevent transmission. This patient understands the benefits and risks of having a procedure at this time versus waiting in which the benefits are reasonable at this time. Procedure in detail: The patient was transported to the operating room via cart and placed on the operating room table in the supine position. Final verification patient, surgery, limb designation was performed via the timeout procedure. He is already receiving IV antibiotics on the medical surgical floor. MAC anesthesia was initiated by the anesthesia team. I administered the local anesthetic. The right lower extremity was prepped and draped in the usual aseptic manner. Attention was first directed to the dorsal forefoot in which 1/2 cm linear incision was made through the skin. Blunt dissection was performed down to the second metatarsal surgical neck in which a Jamshidi needle was next entered into the second metatarsal to obtain a bone biopsy. Care was taken to identify, protect, and retract all neurovascular structures at this point and throughout the remainder of surgery. This was was confirmed with intraoperative fluoroscopy and was successfully obtained. This was sent to both microbiology and pathology. The bone was firm. Next, the Esmarch bandage was used to exsanguinate the limb and the tourniquet was inflated at this time. Attention was next directed to the ulcer to the dorsal second toe which measures 5 x 5 x 1 mm with fibrous base and positive probe to bone. This was excised with a 15 blade in a semielliptical manner and the tendon and collateral ligaments were reflected off of the proximal phalanx head and also the middle phalanx base to obtain good exposure. The adjacent tendon was fibrous and devitalized. The underlying bone was not discolored in appearance however this is the point of the deformity pressure forming apex contributing to the hammer digit syndrome. Sagittal saw was next used to resect the head of the proximal phalanx and also part at the base of the middle phalanx. This was sent to both microbiology and pathology. Next, copious saline irrigation was performed and clean gloves, instruments, and adjacent drapes were applied. Next a clean rongeur was used to obtain clearance pieces from both the proximal phalanx and also the middle phalanx to also sent to microbiology and pathology. Saline irrigation was performed again. The capsule of the proximal interphalangeal joint was reapproximated with minimal 3-0 Vicryl use. The tourniquet was deflated at this time and brisk capillary refill time was noted to all digits of the right foot and no pulsatile bleeding was noted. Pressure was applied to maintain hemostasis. After minimal layer deep closure was performed, the skin was reapproximated utilizing 4-0 nylon with simple and horizontal mattress techniques. It was noted that there was no purulence, necrosis, odor or osseous destruction visualized during the surgical procedure. The sutures were left with additional spacing between to allow continued drainage if needed. Intraoperative fluoroscopy was also used to confirm adequate resection was performed at this joint level. Internal fixation was not placed due to concern of infection and current infection work-up. A postoperative dressing consisting of Betadine soaked Adaptic, gauze, Kerlix, and an Gordon wrap was applied. After procedure: The patient tolerated the procedure and anesthesia well. The patient was transported to the PACU with vital signs stable and vascular status intact to the surgical limb. To ice and elevate for pain and inflammation management. Postoperative x-rays were reviewed prior to leaving the operating room as noted. To maintain a heel weightbearing status in the surgical shoe to the right lower extremity. To use assistive device if needed. Postoperative pain medications will be ordered if needed. His specimen results are pending. Infectious disease on consultation and appreciated. Medical hospitalist service is also on consultation for medical management and postoperative DVT prophylaxis which is also appreciated. Postoperative orders were entered electronically. I will continue to monitor him while in house for resolution of infection and continued stability prior to discharge home. Teresa Bloom DPM, [facility] Grafts/Implants Used: none - Complications none - Admit VTE Documentation VTE Present on Admission: No VTE Mechan Device Prophylaxis: SCD's VTE Pharm Prophylaxis ordered?: Yes
[2020-06-25] MEDS: Losartan Potassium 50 MG Tablet PO (18:31)
[2020-06-25 18:35] LABS: Bedside Glucose 95 mg/dL (70-110)
[2020-06-25] MEDS: Insulin Lispro 100 UNIT/ML INSULN.PEN SC (22:01)
[2020-06-25] MEDS: Glucerna Shake 120 ML LIQUID PO (22:01)
[2020-06-25] MEDS: Atorvastatin Calcium 10 MG Tablet PO (22:01)
[2020-06-25 22:05] LABS: Bedside Glucose 259 mg/dL (70-110)
[2020-06-26 03:27] VITALS: BP 129/60; PULSE 63; RESP 16; TEMP 36.8; O2SAT 99
[2020-06-26] MEDS: 0.9% Normal Saline 1,000 ML 100 ML IV ×2 (04:49→14:58)
[2020-06-26 06:21] LABS: Bedside Glucose 136 mg/dL (70-110)
[2020-06-26 07:12] LABS: Hematocrit 41.4 % (40-54); Hemoglobin 13.1 g/dL (13.0-16.5); Mean Corp Hgb Conc 31.6 g/dL (32-36); Mean Corpuscular Hgb 27.5 pg (27.0-32.0); Mean Corpuscular Volume 86.8 fL (80-94); Mean Platelet Vol. 9.7 fl (6.2-12.0); Platelet Count 226 K/mm3 (150-450); RBC Distribution Width CV 12.6 % (11.6-14.6); RBC Distribution Width SD 40.1 fl (35.1-43.9); Red Blood Count 4.77 M/mm3 (4.6-6.2)
[2020-06-26 07:30] LABS: Anion Gap 4 (5-15); BUN 13 mg/dL (7-18); BUN/Creat Ratio 15.5 RATIO (10-20); Calcium,Total 8.6 mg/dL (8.5-10.1); Chloride 107 mmol/L (98-107); Creatinine, Serum 0.84 mg/dL (0.70-1.30); EST Glomerular Filtration Rate 104 mL/min (>60); Est Glom Filt Rate - Afr Amer 126 mL/min (>60); Estimated Creatinine Clearance 133.47 ml/min; Glucose 140 mg/dL (74-106); Potassium 4.2 mmol/L (3.5-5.1); Sodium Level 139 mmol/L (136-145)
[2020-06-26 07:45] VITALS: O2SAT 94
[2020-06-26 08:46] VITALS: BP 125/80; PULSE 64; RESP 20; TEMP 36.3; O2SAT 98
[2020-06-26] MEDS: Glucerna Shake 120 ML LIQUID PO ×4 (08:54→21:45)
[2020-06-26] MEDS: Losartan Potassium 50 MG Tablet PO (08:54)
--- NOTE | 2020-06-26 10:30 | PCM.PROGNOTE ---
Patient Problems: Active and Suspected Problems Ulcer of right foot with necrosis of bone (Acute) Osteomyelitis (Suspected) Subjective: This 45-year-old male was seen bedside postoperative day #1 right foot second toe arthroplasty and additional second metatarsal bone biopsy. He denies pain, fever, swelling, chills, nausea, vomiting, chest pain, shortness of breath or calf pain. He reports he is about to go for a walk in the [place]. - Physical Exam Vitals/I&O's: Vital Signs Temp Pulse Resp BP Pulse Ox 97.4 F L 64 20 H 125/80 H 98 06/26/20 08:46 06/26/20 08:46 06/26/20 08:46 06/26/20 08:46 06/26/20 08:46 Oxygen Delivery Method Room Air Weight: 144.9 kg Body Mass Index (BMI) 38.9 Intake and Output for Last 24 Hours 06/24/20 06/25/20 06/26/20 23:59 23:59 23:59 Intake Total 50 / 650 3847.33 / 3847.33 1272.33 / 1272.33 Output Total 700 / 700 1600 / 1600 Balance 50 / 650 3147.33 / 3147.33 -327.67 / -327.67 General: Alert, Oriented x3, Cooperative HEENT: Atraumatic Extremities: No cyanosis, Capillary Refill Less than 3 Seconds, No Calf Tenderness, Diminished Peripheral Pulses, Edema - Localized to second toe and reduced to foot Skin: Ulcer/ Wound, Incision - Well aligned and coapted with dorsal second toe retention sutures. Decreased erythema but still present to the toe only and no longer to the foot. No necrosis or gapping or purulence Musculoskeletal: Muscle Wasting, - - Hallux amputation. Rectus second toe position right foot status post arthroplasty Neurological: - - Lack of epicritic sensation to light touch is consistent with neuropathic status Psych/Mental Status: Normal Affect, Appropriate Microbiology Past 72 Hours 06/25/20 16:42 Bone - 2nd Metatarsal Bone Gram Stain - Final 06/25/20 16:54 Bone - 2nd Toe Gram Stain - Final 06/25/20 16:56 Bone - 2nd Toe Gram Stain - Final 06/25/20 09:00 Mucosa - Nose SARS-CoV-2 Antigen (Rapid) - Final Laboratory Results 06/25/20 12:23: POC Glucose 135 H 06/25/20 15:35: POC Glucose 100 06/25/20 18:29: POC Glucose 95 06/25/20 21:56: POC Glucose 259 H 06/26/20 06:14: POC Glucose 136 H 06/26/20 06:57: WBC 7.0, RBC 4.77, Hgb 13.1, Hct 41.4, MCV 86.8, MCH 27.5, MCHC 31.6 L, RDW Std Deviation 40.1, RDW Coeff of Kristal 12.6, Plt Count 226, MPV 9.7 06/26/20 06:57: Sodium 139, Potassium 4.2, Chloride 107, Carbon Dioxide 28.0, Anion Gap 4 L, BUN 13, Creatinine 0.84, Estim Creat Clear Calc 133.47, Est GFR (MDRD) Af Amer 126, Est GFR (MDRD) Non-Af 104, BUN/Creatinine Ratio 15.5, Glucose 140 H, Calcium 8.6 Current Medications Acetaminophen (Acetaminophen 325 Mg Tablet) 650 mg PO Q6H PRN PRN PRN Reason: Pain Score 1-3 /Temp>100.7 Al Hydroxide/Mg Hydroxide (Mag Hydrox/Al Hydrox/Simeth 30 Ml Udc) 30 ml PO Q6H PRN PRN PRN Reason: Gastric Burning Albuterol Sulfate (Albuterol 2.5 Mg/3 Ml Vial.Neb.) 2.5 mg INHALATION Q2H PRN PRN PRN Reason: Dyspnea, wheezing Atorvastatin Calcium (Atorvastatin Calcium 10 Mg Tablet) 10 mg PO QHS [facility] Last Admin: 06/25/20 22:01 Dose: 10 mg Documented by: Bisacodyl (Bisacodyl 5 Mg Tablet) 10 mg PO DAILY PRN PRN PRN Reason: Constipation Dextrose (Dextrose 50%-Water 25 Gm/50 Ml Disp.Syrin) 0 gm IV X1 PRN; Protocol PRN Reason: Hypoglycemia Docusate Sodium (Docusate Sodium 100 Mg Capsule) 200 mg PO BID PRN PRN PRN Reason: Constipation Glucagon (Glucagon 1 Mg/Ml Syringe) 1 mg IM .X1 PRN PRN Reason: Hypoglycemia Hydralazine HCl (Hydralazine 20 Mg/Ml Vial) 10 mg IV Q4H PRN PRN PRN Reason: SBP > 160 Sodium Chloride () 1,000 mls @ 100 mls/hr IV .Q10H [facility] Last Infusion: 06/26/20 05:34 Dose: 100 mls/hr Documented by: Ampicillin Sodium/Sulbactam (Sodium 3 gm/ Sodium Chloride) 112 mls @ 150 mls/hr IV Q6 [facility] Last Infusion: 06/26/20 05:34 Dose: Infused Documented by: Insulin Glargine (Insulin Glargine 100 Units/Ml Pen) 50 units SC DAILY [facility] Last Admin: 06/26/20 08:55 Dose: 50 units Documented by: Insulin Human Lispro (Insulin Lispro 100 Unit/Ml Insuln.Pen) 0 unit SC ACHS [facility]; Protocol Last Admin: 06/26/20 06:16 Dose: Not Given Documented by: Losartan Potassium (Losartan Potassium 50 Mg Tablet) 50 mg PO DAILY [facility] Last Admin: 06/26/20 08:54 Dose: 50 mg Documented by: Morphine Sulfate (Morphine 2 Mg/Ml Syringe) 2 - 4 mg IV Q3H PRN PRN PRN Reason: Pain Score 6-10 Morphine Sulfate (Morphine 4 Mg/Ml Syringe) 2 - 4 mg IV Q3H PRN PRN PRN Reason: Pain Score 6-10 Nutritional Formula (Nutritional Supplement (John) Packet) 1 packet PO BIDCM [facility] Nutritional Formula (Lactose Free) (Glucerna Shake 120 Ml Liquid) 120 ml PO 4X/DAY [facility] Last Admin: 06/26/20 08:54 Dose: 120 ml Documented by: Oxycodone HCl (Oxycodone 5 Mg Tablet) 5 mg PO Q4H PRN PRN PRN Reason: Pain Score 4-5 Polyethylene Glycol (Polyethylene Glycol 3350 17 Gm Packet) 17 gm PO DAILY [facility] Last Admin: 06/26/20 08:55 Dose: Not Given Documented by: Prochlorperazine Edisylate (Prochlorperazine 10 Mg/2 Ml Vial) 10 mg IV Q6H PRN PRN PRN Reason: Nausea/Vomiting Sodium Chloride (0.9% Saline Lock 10 Ml Syringe) 10 - 40 ml IV UD PRN PRN Reason: SALINE FLUSH Medical Necessity - Tobacco Use Smoking Status: Former smoker Tobacco Use: Chew Assessment/Plan All Active Problems Osteomyelitis (Acute) Ulcer of right foot with necrosis of bone (Acute) Postoperative day #1 arthroplasty of right second toe and additional bone biopsy of second metatarsal secondary to osteomyelitis suspected, hammertoe, ulcer with cellulitis of toe Diabetes with peripheral neuropathy Hx of osteomyelitis right 1st toe s/p amputation August 2019 I reviewed this patient's case including his diagnostic data. He is afebrile and his vital signs remained stable. He does not demonstrate leukocytosis. Postoperative x-rays demonstrate excision of middle phalanx base and proximal phalanx head of the right second toe with adequate resection. Rectus second toe position improved and there are no acute injuries or retained foreign bodies. Intraoperative cultures of both the toe location including clearance fragments and also from a Jamshidi needle derived bone biopsy of the second metatarsal were sent to both microbiology and pathology. These results are pending. Preoperative wound cultures demonstrate MSSA. He is on IV Unasyn under the management of infectious disease which is greatly appreciated. His dressing was reapplied today with Betadine gauze Leo and Gordon wrap. To offload with surgical shoe heel weight-bear for limited activities and transfers. I do not recommend walking the halls at this time. To elevate to reduce edema and allow tissue recovery. Prior venous Doppler was obtained to rule out DVT which was negative. Hospitalist service has been consulted and is appreciated for medical management and DVT prophylaxis. DVT Prophylaxis: SCDs and pharmacological post operative Please not hesitate to call if you have any questions. Case reviewed with nurse practitioner, Evelina España. Teresa Bloom DPM, [facility] [phone]
--- NOTE | 2020-06-26 10:35 | PCM.PROGNOTE ---
<TacoEvelina CORN SHELLER OPERATOR - Last Filed: 06/26/20 10:39> Patient Problems: Active and Suspected Problems Ulcer of right foot with necrosis of bone (Acute) Osteomyelitis (Suspected) Subjective: Patient seen and examined. Denies significant pain. Denies fever, chills. Right foot dressing intact. - Physical Exam Vitals/I&O's: Vital Signs Temp Pulse Resp BP Pulse Ox 97.4 F L 64 20 H 125/80 H 98 06/26/20 08:46 06/26/20 08:46 06/26/20 08:46 06/26/20 08:46 06/26/20 08:46 Oxygen Delivery Method Room Air Weight: 319 lb 7.197 oz Body Mass Index (BMI) 38.9 Intake and Output for Last 24 Hours 06/24/20 06/25/20 06/26/20 23:59 23:59 23:59 Intake Total 50 / 650 3847.33 / 3847.33 1272.33 / 1272.33 Output Total 700 / 700 1600 / 1600 Balance 50 / 650 3147.33 / 3147.33 -327.67 / -327.67 General: Alert, Oriented x3, Cooperative HEENT: Atraumatic, PERRLA, EOMI, Normocephalic Neck: Supple, No JVD, Negative Carotid Bruits Lungs: Clear to auscultation, Normal air movement Cardiovascular: Regular rate, No murmurs Abdomen: Bowel Sounds Present, Soft, Non Tender, Non-Distended Extremities: No clubbing, No cyanosis, No edema, Capillary Refill Less than 3 Seconds Skin: No rashes, No breakdown, - - Right foot dressing intact. Musculoskeletal: No Tenderness to Palpation of Joints or Extremities Neurological: Cranial nerves II-XII grossly intact, Neuro grossly intact Psych/Mental Status: Normal Affect, Appropriate Microbiology Past 72 Hours 06/25/20 16:42 Bone - 2nd Metatarsal Bone Gram Stain - Final 06/25/20 16:54 Bone - 2nd Toe Gram Stain - Final 06/25/20 16:56 Bone - 2nd Toe Gram Stain - Final 06/25/20 09:00 Mucosa - Nose SARS-CoV-2 Antigen (Rapid) - Final Laboratory Results 06/25/20 12:23: POC Glucose 135 H 06/25/20 15:35: POC Glucose 100 06/25/20 18:29: POC Glucose 95 06/25/20 21:56: POC Glucose 259 H 06/26/20 06:14: POC Glucose 136 H 06/26/20 06:57: WBC 7.0, RBC 4.77, Hgb 13.1, Hct 41.4, MCV 86.8, MCH 27.5, MCHC 31.6 L, RDW Std Deviation 40.1, RDW Coeff of Kristal 12.6, Plt Count 226, MPV 9.7 06/26/20 06:57: Sodium 139, Potassium 4.2, Chloride 107, Carbon Dioxide 28.0, Anion Gap 4 L, BUN 13, Creatinine 0.84, Estim Creat Clear Calc 133.47, Est GFR (MDRD) Af Amer 126, Est GFR (MDRD) Non-Af 104, BUN/Creatinine Ratio 15.5, Glucose 140 H, Calcium 8.6 Current Medications Acetaminophen (Acetaminophen 325 Mg Tablet) 650 mg PO Q6H PRN PRN PRN Reason: Pain Score 1-3 /Temp>100.7 Al Hydroxide/Mg Hydroxide (Mag Hydrox/Al Hydrox/Simeth 30 Ml Udc) 30 ml PO Q6H PRN PRN PRN Reason: Gastric Burning Albuterol Sulfate (Albuterol 2.5 Mg/3 Ml Vial.Neb.) 2.5 mg INHALATION Q2H PRN PRN PRN Reason: Dyspnea, wheezing Atorvastatin Calcium (Atorvastatin Calcium 10 Mg Tablet) 10 mg PO QHS [facility] Last Admin: 06/25/20 22:01 Dose: 10 mg Documented by: Bisacodyl (Bisacodyl 5 Mg Tablet) 10 mg PO DAILY PRN PRN PRN Reason: Constipation Dextrose (Dextrose 50%-Water 25 Gm/50 Ml Disp.Syrin) 0 gm IV X1 PRN; Protocol PRN Reason: Hypoglycemia Docusate Sodium (Docusate Sodium 100 Mg Capsule) 200 mg PO BID PRN PRN PRN Reason: Constipation Glucagon (Glucagon 1 Mg/Ml Syringe) 1 mg IM .X1 PRN PRN Reason: Hypoglycemia Hydralazine HCl (Hydralazine 20 Mg/Ml Vial) 10 mg IV Q4H PRN PRN PRN Reason: SBP > 160 Sodium Chloride () 1,000 mls @ 100 mls/hr IV .Q10H [facility] Last Infusion: 06/26/20 05:34 Dose: 100 mls/hr Documented by: Ampicillin Sodium/Sulbactam (Sodium 3 gm/ Sodium Chloride) 112 mls @ 150 mls/hr IV Q6 [facility] Last Infusion: 06/26/20 05:34 Dose: Infused Documented by: Insulin Glargine (Insulin Glargine 100 Units/Ml Pen) 50 units SC DAILY [facility] Last Admin: 06/26/20 08:55 Dose: 50 units Documented by: Insulin Human Lispro (Insulin Lispro 100 Unit/Ml Insuln.Pen) 0 unit SC ACHS [facility]; Protocol Last Admin: 06/26/20 06:16 Dose: Not Given Documented by: Losartan Potassium (Losartan Potassium 50 Mg Tablet) 50 mg PO DAILY [facility] Last Admin: 06/26/20 08:54 Dose: 50 mg Documented by: Morphine Sulfate (Morphine 2 Mg/Ml Syringe) 2 - 4 mg IV Q3H PRN PRN PRN Reason: Pain Score 6-10 Morphine Sulfate (Morphine 4 Mg/Ml Syringe) 2 - 4 mg IV Q3H PRN PRN PRN Reason: Pain Score 6-10 Nutritional Formula (Nutritional Supplement (John) Packet) 1 packet PO BIDCM [facility] Nutritional Formula (Lactose Free) (Glucerna Shake 120 Ml Liquid) 120 ml PO 4X/DAY [facility] Last Admin: 06/26/20 08:54 Dose: 120 ml Documented by: Oxycodone HCl (Oxycodone 5 Mg Tablet) 5 mg PO Q4H PRN PRN PRN Reason: Pain Score 4-5 Polyethylene Glycol (Polyethylene Glycol 3350 17 Gm Packet) 17 gm PO DAILY [facility] Last Admin: 06/26/20 08:55 Dose: Not Given Documented by: Prochlorperazine Edisylate (Prochlorperazine 10 Mg/2 Ml Vial) 10 mg IV Q6H PRN PRN PRN Reason: Nausea/Vomiting Sodium Chloride (0.9% Saline Lock 10 Ml Syringe) 10 - 40 ml IV UD PRN PRN Reason: SALINE FLUSH Medical Necessity - Tobacco Use Smoking Status: Former smoker Tobacco Use: Chew Assessment/Plan All Active Problems Osteomyelitis (Acute) Ulcer of right foot with necrosis of bone (Acute) 1. Right second toe diabetic ulceration with osteomyelitis-podiatry primary. IV Unasyn. Wound cultures and bone biopsy pending. MRI shows second metatarsal osteomyelitis. Of note, patient has a history of acute kidney injury which was suspected secondary to vanc nephrotoxicity. ID consulted. Patient underwent right second metatarsal bone biopsy with arthroplasty right second toe with ulcer debridement including bone by Dr. Bloom 06/25/20. Management per podiatry. 2. Type 2 diabetes mellitus-repeat hemoglobin A1c 8.8%. Accu-Cheks with sliding scale insulin. Continue home Levemir. 3. Hypertension-on losartan, stable. 4. Hyperlipidemia-continue statin. DVT prophylaxis- SCDs This patient was seen by KAVIN Reaves under the supervision of Dr. Gresham. <Jaron Gresham - Last Filed: 06/26/20 15:52> Objective: Patient heart rate and blood pressure in normal range. General: Alert, Oriented x3, Cooperative HEENT: Atraumatic, PERRLA, EOMI, Normocephalic Oral: No Gingival or Mucosal Lesions/ Ulcerations Neck: Supple, No JVD, Negative Carotid Bruits Lungs: Air entry diminished in bilateral lung bases. No crepitation/rhonchi Cardiovascular: Regular rate, Regular Rhythm, Normal S1, Normal S2, No murmurs Abdomen: Bowel Sounds Present, Soft, Non Tender, Non-Distended : No renal angle tenderness. No suprapubic tenderness. Extremities: No edema, Capillary Refill Less than 3 Seconds Skin: Small ulcer at the right second digit. Second PIP joint hammertoe Musculoskeletal: No Tenderness to Palpation of Joints or Extremities Neurological: Cranial nerves II-XII grossly intact, Deep Tendon Reflexes 2+/4 and Symmetrical, Neuro grossly intact Psych/Mental Status: Normal Affect, Appropriate. - Physical Exam Vitals/I&O's: Vital Signs Temp Pulse Resp BP Pulse Ox 98.2 F 63 18 124/79 H 100 06/26/20 15:04 06/26/20 15:04 06/26/20 15:04 06/26/20 15:04 06/26/20 15:04 Oxygen Delivery Method Room Air Weight: 319 lb 7.197 oz Body Mass Index (BMI) 38.9 Intake and Output for Last 24 Hours 06/24/20 06/25/20 06/26/20 23:59 23:59 23:59 Intake Total 50 / 650 3847.33 / 3847.33 2239.33 / 2239.33 Output Total 700 / 700 1600 / 1600 Balance 50 / 650 3147.33 / 3147.33 639.33 / 639.33 Skin: - Microbiology Past 72 Hours 06/25/20 16:56 Bone - 2nd Toe Gram Stain - Final 06/25/20 16:56 Bone - 2nd Toe Wound Culture - Preliminary No growth-Final to follow 06/25/20 16:54 Bone - 2nd Toe Gram Stain - Final 06/25/20 16:54 Bone - 2nd Toe Wound Culture - Preliminary Gram positive organism 06/25/20 16:42 Bone - 2nd Metatarsal Bone Gram Stain - Final 06/25/20 16:42 Bone - 2nd Metatarsal Bone Wound Culture - Preliminary No growth-Final to follow 06/25/20 09:00 Mucosa - Nose SARS-CoV-2 Antigen (Rapid) - Final Laboratory Results 06/25/20 18:29: POC Glucose 95 06/25/20 21:56: POC Glucose 259 H 06/26/20 06:14: POC Glucose 136 H 06/26/20 06:57: WBC 7.0, RBC 4.77, Hgb 13.1, Hct 41.4, MCV 86.8, MCH 27.5, MCHC 31.6 L, RDW Std Deviation 40.1, RDW Coeff of Kristal 12.6, Plt Count 226, MPV 9.7 06/26/20 06:57: Sodium 139, Potassium 4.2, Chloride 107, Carbon Dioxide 28.0, Anion Gap 4 L, BUN 13, Creatinine 0.84, Estim Creat Clear Calc 133.47, Est GFR (MDRD) Af Amer 126, Est GFR (MDRD) Non-Af 104, BUN/Creatinine Ratio 15.5, Glucose 140 H, Calcium 8.6 06/26/20 12:12: POC Glucose 226 H Current Medications Acetaminophen (Acetaminophen 325 Mg Tablet) 650 mg PO Q6H PRN PRN PRN Reason: Pain Score 1-3 /Temp>100.7 Al Hydroxide/Mg Hydroxide (Mag Hydrox/Al Hydrox/Simeth 30 Ml Udc) 30 ml PO Q6H PRN PRN PRN Reason: Gastric Burning Albuterol Sulfate (Albuterol 2.5 Mg/3 Ml Vial.Neb.) 2.5 mg INHALATION Q2H PRN PRN PRN Reason: Dyspnea, wheezing Atorvastatin Calcium (Atorvastatin Calcium 10 Mg Tablet) 10 mg PO QHS [facility] Last Admin: 06/25/20 22:01 Dose: 10 mg Documented by: Bisacodyl (Bisacodyl 5 Mg Tablet) 10 mg PO DAILY PRN PRN PRN Reason: Constipation Dextrose (Dextrose 50%-Water 25 Gm/50 Ml Disp.Syrin) 0 gm IV X1 PRN; Protocol PRN Reason: Hypoglycemia Docusate Sodium (Docusate Sodium 100 Mg Capsule) 200 mg PO BID PRN PRN PRN Reason: Constipation Enoxaparin Sodium (Enoxaparin 40 Mg/0.4 Ml Syringe) 40 mg SC DAILY@0600 [facility] Glucagon (Glucagon 1 Mg/Ml Syringe) 1 mg IM .X1 PRN PRN Reason: Hypoglycemia Hydralazine HCl (Hydralazine 20 Mg/Ml Vial) 10 mg IV Q4H PRN PRN PRN Reason: SBP > 160 Sodium Chloride () 1,000 mls @ 100 mls/hr IV .Q10H [facility] Last Admin: 06/26/20 14:58 Dose: 100 mls/hr Documented by: Ampicillin Sodium/Sulbactam (Sodium 3 gm/ Sodium Chloride) 112 mls @ 150 mls/hr IV Q6 [facility] Last Infusion: 06/26/20 13:00 Dose: Infused Documented by: Insulin Glargine (Insulin Glargine 100 Units/Ml Pen) 50 units SC DAILY [facility] Last Admin: 06/26/20 08:55 Dose: 50 units Documented by: Insulin Human Lispro (Insulin Lispro 100 Unit/Ml Insuln.Pen) 0 unit SC ACHS [facility]; Protocol Last Admin: 06/26/20 12:12 Dose: 2 u Documented by: Losartan Potassium (Losartan Potassium 50 Mg Tablet) 50 mg PO DAILY [facility] Last Admin: 06/26/20 08:54 Dose: 50 mg Documented by: Morphine Sulfate (Morphine 2 Mg/Ml Syringe) 2 - 4 mg IV Q3H PRN PRN PRN Reason: Pain Score 6-10 Morphine Sulfate (Morphine 4 Mg/Ml Syringe) 2 - 4 mg IV Q3H PRN PRN PRN Reason: Pain Score 6-10 Nutritional Formula (Nutritional Supplement (John) Packet) 1 packet PO BIDCM [facility] Last Admin: 06/26/20 12:09 Dose: Not Given Documented by: Nutritional Formula (Lactose Free) (Glucerna Shake 120 Ml Liquid) 120 ml PO 4X/DAY [facility] Last Admin: 06/26/20 14:54 Dose: 120 ml Documented by: Oxycodone HCl (Oxycodone 5 Mg Tablet) 5 mg PO Q4H PRN PRN PRN Reason: Pain Score 4-5 Polyethylene Glycol (Polyethylene Glycol 3350 17 Gm Packet) 17 gm PO DAILY [facility] Last Admin: 06/26/20 08:55 Dose: Not Given Documented by: Prochlorperazine Edisylate (Prochlorperazine 10 Mg/2 Ml Vial) 10 mg IV Q6H PRN PRN PRN Reason: Nausea/Vomiting Sodium Chloride (0.9% Saline Lock 10 Ml Syringe) 10 - 40 ml IV UD PRN PRN Reason: SALINE FLUSH Assessment/Plan This patient was seen in conjunction with Evelina ABERNATHY. I have independently interviewed and examined the patient and reviewed pertinent history, examination findings, laboratory and plan of management. I have reviewed the note and agree with the documented findings with the few additional points. In brief, patient is admitted for right second toe diabetic ulcer with osteomyelitis. Patient had x-ray and then MRI. MRI shows second metatarsal head osteomyelitis mild bone edema of proximal middle phalanges of second digit. On IV Unasyn. Patient seen by ID. Plan for right second toe ulcer debridement including bone and arthroplasty of right second PIP joint. Diabetes mellitus type 2: A1c 8.7. Glucose high, average 250 suggestive of uncontrolled diabetes. Accu-Chek shows a still high therefore scheduled insulin, glargine and Humalog insulin increased. Bone tissue cultures are pending. I have discussed my assessment with Evelina ABERNATHY and orders have been reviewed. Inpatient E&M: 32005 Subs Hosp L2
[2020-06-26] MEDS: Insulin Lispro 100 UNIT/ML INSULN.PEN SC ×3 (12:12→21:48)
[2020-06-26 12:20] LABS: Bedside Glucose 226 mg/dL (70-110)
[2020-06-26 15:04] VITALS: BP 124/79; PULSE 63; RESP 18; TEMP 36.8; O2SAT 100
[2020-06-26 16:26] LABS: Bedside Glucose 230 mg/dL (70-110)
[2020-06-26] MEDS: Insulin Lispro 100 UNIT/ML INSULN.PEN 8 UNIT SC (17:10)
[2020-06-26 21:00] VITALS: BP 139/66; PULSE 67; RESP 16; TEMP 36.7; O2SAT 100
[2020-06-26] MEDS: Atorvastatin Calcium 10 MG Tablet PO (21:45)
[2020-06-26 21:55] LABS: Bedside Glucose 150 mg/dL (70-110)
[2020-06-27 03:00] VITALS: BP 120/85; PULSE 66; RESP 16; TEMP 36.6; O2SAT 100
[2020-06-27] MEDS: Enoxaparin 40 MG/0.4 ML Syringe SC (05:16)
[2020-06-27 06:50] LABS: Bedside Glucose 146 mg/dL (70-110)
[2020-06-27 08:04] VITALS: BP 119/61; PULSE 71; RESP 20; TEMP 36.6; O2SAT 97
[2020-06-27] MEDS: Insulin Lispro 100 UNIT/ML INSULN.PEN 8 UNIT SC ×3 (08:12→17:18)
--- NOTE | 2020-06-27 09:08 | PN_ITS ---
Patient Problems: Active and Suspected Problems Ulcer of right foot with necrosis of bone (Acute) Osteomyelitis (Suspected) Subjective: This 45-year-old male was seen bedside postoperative day #2 right foot second toe arthroplasty and additional second metatarsal bone biopsy. He denies pain, fever, swelling, chills, nausea, vomiting, chest pain, shortness of breath or calf pain. - Physical Exam Vitals/I&O's: Vital Signs Temp Pulse Resp BP Pulse Ox 97.8 F 71 20 H 119/61 97 06/27/20 08:04 06/27/20 08:04 06/27/20 08:04 06/27/20 08:04 06/27/20 08:04 Oxygen Delivery Method Room Air Weight: 144.9 kg Body Mass Index (BMI) 38.9 Intake and Output for Last 24 Hours 06/25/20 06/26/20 06/27/20 23:59 23:59 23:59 Intake Total 3847.33 / 3847.33 3651.33 / 4451.33 2624 / 2624 Output Total 700 / 700 2250 / 2950 700 / 700 Balance 3147.33 / 3147.33 1401.33 / 1501.33 1924 / 1924 General: Alert, Oriented x3, Cooperative, - - Resting comfortable in chair with multiple Mountain Dew pop bottles Extremities: No cyanosis, Capillary Refill Less than 3 Seconds - All digits right, No Calf Tenderness - Negative Bhargavi and Mccracken sign bilateral, Diminished Peripheral Pulses, Edema - Decreased foot and toe with increased skin wrinkles visible Skin: Incision - Well aligned and coapted to dorsal second toe and dorsal forefoot with no gapping, necrosis, purulence on expression, calor, or odor. No maceration Musculoskeletal: Muscle Wasting, - - Hallux amputation. Rectus right second toe. Compartments of right lower extremity remain soft Neurological: - - Lack of epicritic sensation is consistent with neuropathic status Psych/Mental Status: Normal Affect, Appropriate Microbiology Past 72 Hours 06/25/20 16:56 Bone - 2nd Toe Gram Stain - Final 06/25/20 16:56 Bone - 2nd Toe Wound Culture - Preliminary No growth-Final to follow 06/25/20 16:54 Bone - 2nd Toe Gram Stain - Final 06/25/20 16:54 Bone - 2nd Toe Wound Culture - Preliminary Gram positive organism 06/25/20 16:42 Bone - 2nd Metatarsal Bone Gram Stain - Final 06/25/20 16:42 Bone - 2nd Metatarsal Bone Wound Culture - Preliminary No growth-Final to follow 06/25/20 09:00 Mucosa - Nose SARS-CoV-2 Antigen (Rapid) - Final Laboratory Results 06/26/20 12:12: POC Glucose 226 H 06/26/20 16:21: POC Glucose 230 H 06/26/20 21:47: POC Glucose 150 H 06/27/20 06:43: POC Glucose 146 H Current Medications Acetaminophen (Acetaminophen 325 Mg Tablet) 650 mg PO Q6H PRN PRN PRN Reason: Pain Score 1-3 /Temp>100.7 Al Hydroxide/Mg Hydroxide (Mag Hydrox/Al Hydrox/Simeth 30 Ml Udc) 30 ml PO Q6H PRN PRN PRN Reason: Gastric Burning Albuterol Sulfate (Albuterol 2.5 Mg/3 Ml Vial.Neb.) 2.5 mg INHALATION Q2H PRN PRN PRN Reason: Dyspnea, wheezing Atorvastatin Calcium (Atorvastatin Calcium 10 Mg Tablet) 10 mg PO QHS [facility] Last Admin: 06/26/20 21:45 Dose: 10 mg Documented by: Bisacodyl (Bisacodyl 5 Mg Tablet) 10 mg PO DAILY PRN PRN PRN Reason: Constipation Dextrose (Dextrose 50%-Water 25 Gm/50 Ml Disp.Syrin) 0 gm IV X1 PRN; Protocol PRN Reason: Hypoglycemia Docusate Sodium (Docusate Sodium 100 Mg Capsule) 200 mg PO BID PRN PRN PRN Reason: Constipation Enoxaparin Sodium (Enoxaparin 40 Mg/0.4 Ml Syringe) 40 mg SC DAILY@0600 [facility] Last Admin: 06/27/20 05:16 Dose: 40 mg Documented by: Glucagon (Glucagon 1 Mg/Ml Syringe) 1 mg IM .X1 PRN PRN Reason: Hypoglycemia Hydralazine HCl (Hydralazine 20 Mg/Ml Vial) 10 mg IV Q4H PRN PRN PRN Reason: SBP > 160 Ampicillin Sodium/Sulbactam (Sodium 3 gm/ Sodium Chloride) 112 mls @ 150 mls/hr IV Q6 [facility] Last Infusion: 06/27/20 06:08 Dose: Infused Documented by: Insulin Glargine (Insulin Glargine 100 Units/Ml Pen) 60 units SC DAILY [facility] Insulin Human Lispro (Insulin Lispro 100 Unit/Ml Insuln.Pen) 0 unit SC ACHS [facility]; Protocol Last Admin: 06/27/20 06:45 Dose: Not Given Documented by: Insulin Human Lispro (Insulin Lispro 100 Unit/Ml Insuln.Pen) 8 unit SC TIDAC [facility] Last Admin: 06/27/20 08:12 Dose: 8 units Documented by: Losartan Potassium (Losartan Potassium 50 Mg Tablet) 50 mg PO DAILY [facility] Last Admin: 06/26/20 08:54 Dose: 50 mg Documented by: Morphine Sulfate (Morphine 2 Mg/Ml Syringe) 2 - 4 mg IV Q3H PRN PRN PRN Reason: Pain Score 6-10 Morphine Sulfate (Morphine 4 Mg/Ml Syringe) 2 - 4 mg IV Q3H PRN PRN PRN Reason: Pain Score 6-10 Nutritional Formula (Nutritional Supplement (John) Packet) 1 packet PO BIDCM [facility] Last Admin: 06/27/20 08:14 Dose: Not Given Documented by: Nutritional Formula (Lactose Free) (Glucerna Shake 120 Ml Liquid) 120 ml PO 4X/DAY [facility] Last Admin: 06/26/20 21:45 Dose: 120 ml Documented by: Oxycodone HCl (Oxycodone 5 Mg Tablet) 5 mg PO Q4H PRN PRN PRN Reason: Pain Score 4-5 Polyethylene Glycol (Polyethylene Glycol 3350 17 Gm Packet) 17 gm PO DAILY [facility] Last Admin: 06/26/20 08:55 Dose: Not Given Documented by: Prochlorperazine Edisylate (Prochlorperazine 10 Mg/2 Ml Vial) 10 mg IV Q6H PRN PRN PRN Reason: Nausea/Vomiting Sodium Chloride (0.9% Saline Lock 10 Ml Syringe) 10 - 40 ml IV UD PRN PRN Reason: SALINE FLUSH Medical Necessity - Tobacco Use Smoking Status: Former smoker Tobacco Use: Chew Assessment/Plan All Active Problems Osteomyelitis (Acute) Ulcer of right foot with necrosis of bone (Acute) Postoperative day #2 arthroplasty of right second toe and additional bone biopsy of second metatarsal secondary to osteomyelitis suspected, hammertoe, ulcer with cellulitis of toe Diabetes with peripheral neuropathy Hx of osteomyelitis right 1st toe s/p amputation August 2019 I reviewed this patient's case including his diagnostic data. He is afebrile and his vital signs remained stable. Intraoperative cultures of both the toe location including clearance fragments and also from a Jamshidi needle derived bone biopsy of the second metatarsal were sent to both microbiology and pathology. These results are pending. Preoperative wound cultures demonstrate MSSA. He is on IV Unasyn under the management of infectious disease which is greatly appreciated. His dressing was reapplied today with Betadine gauze Leo and Gordon wrap. To offload with surgical shoe heel weight-bear for limited activities and transfers. I do not recommend walking the halls at this time. To elevate to reduce edema and allow tissue recovery. Hospitalist service has been consulted and is appreciated for medical management and DVT prophylaxis. rn radiation oncology improved glucose management is necessary to prevent future ulcers, infections, and amputations. This was discussed today and will require diet, activity, and medication adjustments. He is amenable to go for nutrition referral setting. Please not hesitate to call if you have any questions. To follow-up with the [facility] next week with potential discharge home tomorrow. He already has an appointment scheduled. Teresa Bloom DPM, FACF[facility] [phone]
--- NOTE | 2020-06-27 09:13 | PCM.PROGNOTE ---
<Evelina España RESEARCH LIBRARIAN - Last Filed: 06/27/20 09:22> Patient Problems: Active and Suspected Problems Ulcer of right foot with necrosis of bone (Acute) Osteomyelitis (Suspected) Subjective: Patient seen and examined. Denies symptoms or complaints. Denies fever, chills. Denies pain. - Physical Exam Vitals/I&O's: Vital Signs Temp Pulse Resp BP Pulse Ox 97.8 F 71 20 H 119/61 97 06/27/20 08:04 06/27/20 08:04 06/27/20 08:04 06/27/20 08:04 06/27/20 08:04 Oxygen Delivery Method Room Air Weight: 319 lb 7.197 oz Body Mass Index (BMI) 38.9 Intake and Output for Last 24 Hours 06/25/20 06/26/20 06/27/20 23:59 23:59 23:59 Intake Total 3847.33 / 3847.33 3651.33 / 4451.33 2624 / 2624 Output Total 700 / 700 2250 / 2950 700 / 700 Balance 3147.33 / 3147.33 1401.33 / 1501.33 1924 / 1924 General: Alert, Oriented x3, Cooperative HEENT: Atraumatic, PERRLA, EOMI, Normocephalic Neck: Supple, No JVD, Negative Carotid Bruits Lungs: Clear to auscultation, Normal air movement Cardiovascular: Regular rate, No murmurs Abdomen: Bowel Sounds Present, Soft, Non Tender, Non-Distended Extremities: No clubbing, No cyanosis, No edema, Capillary Refill Less than 3 Seconds Skin: No rashes, No breakdown, - - Right foot dressing intact. Musculoskeletal: No Tenderness to Palpation of Joints or Extremities Neurological: Cranial nerves II-XII grossly intact, Neuro grossly intact Psych/Mental Status: Normal Affect, Appropriate Microbiology Past 72 Hours 06/25/20 16:56 Bone - 2nd Toe Gram Stain - Final 06/25/20 16:56 Bone - 2nd Toe Wound Culture - Preliminary No growth-Final to follow 06/25/20 16:54 Bone - 2nd Toe Gram Stain - Final 06/25/20 16:54 Bone - 2nd Toe Wound Culture - Preliminary Gram positive organism 06/25/20 16:42 Bone - 2nd Metatarsal Bone Gram Stain - Final 06/25/20 16:42 Bone - 2nd Metatarsal Bone Wound Culture - Preliminary No growth-Final to follow 06/25/20 09:00 Mucosa - Nose SARS-CoV-2 Antigen (Rapid) - Final Laboratory Results 06/26/20 12:12: POC Glucose 226 H 06/26/20 16:21: POC Glucose 230 H 06/26/20 21:47: POC Glucose 150 H 06/27/20 06:43: POC Glucose 146 H Current Medications Acetaminophen (Acetaminophen 325 Mg Tablet) 650 mg PO Q6H PRN PRN PRN Reason: Pain Score 1-3 /Temp>100.7 Al Hydroxide/Mg Hydroxide (Mag Hydrox/Al Hydrox/Simeth 30 Ml Udc) 30 ml PO Q6H PRN PRN PRN Reason: Gastric Burning Albuterol Sulfate (Albuterol 2.5 Mg/3 Ml Vial.Neb.) 2.5 mg INHALATION Q2H PRN PRN PRN Reason: Dyspnea, wheezing Atorvastatin Calcium (Atorvastatin Calcium 10 Mg Tablet) 10 mg PO QHS [facility] Last Admin: 06/26/20 21:45 Dose: 10 mg Documented by: Bisacodyl (Bisacodyl 5 Mg Tablet) 10 mg PO DAILY PRN PRN PRN Reason: Constipation Dextrose (Dextrose 50%-Water 25 Gm/50 Ml Disp.Syrin) 0 gm IV X1 PRN; Protocol PRN Reason: Hypoglycemia Docusate Sodium (Docusate Sodium 100 Mg Capsule) 200 mg PO BID PRN PRN PRN Reason: Constipation Enoxaparin Sodium (Enoxaparin 40 Mg/0.4 Ml Syringe) 40 mg SC DAILY@0600 [facility] Last Admin: 06/27/20 05:16 Dose: 40 mg Documented by: Glucagon (Glucagon 1 Mg/Ml Syringe) 1 mg IM .X1 PRN PRN Reason: Hypoglycemia Hydralazine HCl (Hydralazine 20 Mg/Ml Vial) 10 mg IV Q4H PRN PRN PRN Reason: SBP > 160 Ampicillin Sodium/Sulbactam (Sodium 3 gm/ Sodium Chloride) 112 mls @ 150 mls/hr IV Q6 [facility] Last Infusion: 06/27/20 06:08 Dose: Infused Documented by: Insulin Glargine (Insulin Glargine 100 Units/Ml Pen) 60 units SC DAILY [facility] Insulin Human Lispro (Insulin Lispro 100 Unit/Ml Insuln.Pen) 0 unit SC ACHS [facility]; Protocol Last Admin: 06/27/20 06:45 Dose: Not Given Documented by: Insulin Human Lispro (Insulin Lispro 100 Unit/Ml Insuln.Pen) 8 unit SC TIDAC [facility] Last Admin: 06/27/20 08:12 Dose: 8 units Documented by: Losartan Potassium (Losartan Potassium 50 Mg Tablet) 50 mg PO DAILY [facility] Last Admin: 06/26/20 08:54 Dose: 50 mg Documented by: Morphine Sulfate (Morphine 2 Mg/Ml Syringe) 2 - 4 mg IV Q3H PRN PRN PRN Reason: Pain Score 6-10 Morphine Sulfate (Morphine 4 Mg/Ml Syringe) 2 - 4 mg IV Q3H PRN PRN PRN Reason: Pain Score 6-10 Nutritional Formula (Nutritional Supplement (John) Packet) 1 packet PO BIDCM [facility] Last Admin: 06/27/20 08:14 Dose: Not Given Documented by: Nutritional Formula (Lactose Free) (Glucerna Shake 120 Ml Liquid) 120 ml PO 4X/DAY [facility] Last Admin: 06/26/20 21:45 Dose: 120 ml Documented by: Oxycodone HCl (Oxycodone 5 Mg Tablet) 5 mg PO Q4H PRN PRN PRN Reason: Pain Score 4-5 Polyethylene Glycol (Polyethylene Glycol 3350 17 Gm Packet) 17 gm PO DAILY [facility] Last Admin: 06/26/20 08:55 Dose: Not Given Documented by: Prochlorperazine Edisylate (Prochlorperazine 10 Mg/2 Ml Vial) 10 mg IV Q6H PRN PRN PRN Reason: Nausea/Vomiting Sodium Chloride (0.9% Saline Lock 10 Ml Syringe) 10 - 40 ml IV UD PRN PRN Reason: SALINE FLUSH Medical Necessity - Tobacco Use Smoking Status: Former smoker Tobacco Use: Chew Assessment/Plan All Active Problems Osteomyelitis (Acute) Ulcer of right foot with necrosis of bone (Acute) 1. Right second toe diabetic ulceration with osteomyelitis-podiatry primary. IV Unasyn. Wound cultures and bone biopsy pending. Admission wound culture growing staph aureus. MRI shows second metatarsal osteomyelitis. Of note, patient has a history of acute kidney injury which was suspected secondary to vanc nephrotoxicity. ID consulted. Patient underwent right second metatarsal bone biopsy with arthroplasty right second toe with ulcer debridement including bone by Dr. Bloom 06/25/20. Management per podiatry. 2. Type 2 diabetes mellitus-repeat hemoglobin A1c 8.8%. Accu-Cheks with sliding scale insulin. Continue home Levemir. 3. Hypertension-on losartan, stable. 4. Hyperlipidemia-continue statin. DVT prophylaxis- SCDs Discharge planning: Await final postoperative cultures, further ID input on Sunday. This patient was seen by KAVIN Reaves under the supervision of Dr. Gresham. <Jaron Gresham - Last Filed: 06/27/20 13:47> Objective: Seen and examined. Blood pressure and heart rate controlled. Glucose in in good control. Physical exam General: Alert, Oriented x3, Cooperative HEENT: Atraumatic, PERRLA, EOMI, Normocephalic Oral: No Gingival or Mucosal Lesions/ Ulcerations Neck: Supple, No JVD, Negative Carotid Bruits Lungs: Air entry diminished in bilateral lung bases. No crepitation/rhonchi Cardiovascular: Regular rate, Regular Rhythm, Normal S1, Normal S2, No murmurs Abdomen: Bowel Sounds Present, Soft, Non Tender, Non-Distended : No renal angle tenderness. No suprapubic tenderness. Extremities: No edema, Capillary Refill Less than 3 Seconds Skin: Ulcer over plantar aspect of right second toe status post debridement. Dressing is dry Musculoskeletal: No Tenderness to Palpation of Joints or Extremities Neurological: Cranial nerves II-XII grossly intact, Deep Tendon Reflexes 2+/4 and Symmetrical, Neuro grossly intact Psych/Mental Status: Normal Affect, Appropriate. - Physical Exam Vitals/I&O's: Vital Signs Temp Pulse Resp BP Pulse Ox 97.8 F 71 20 H 119/61 97 06/27/20 08:04 06/27/20 12:00 06/27/20 12:00 06/27/20 08:04 06/27/20 08:04 Oxygen Delivery Method Room Air Weight: 319 lb 7.197 oz Body Mass Index (BMI) 38.9 Intake and Output for Last 24 Hours 06/25/20 06/26/20 06/27/20 23:59 23:59 23:59 Intake Total 3847.33 / 3847.33 3651.33 / 4451.33 3424 / 3424 Output Total 700 / 700 2250 / 2950 700 / 700 Balance 3147.33 / 3147.33 1401.33 / 1501.33 2724 / 2724 Microbiology Past 72 Hours 06/25/20 16:54 Bone - 2nd Toe Gram Stain - Final 06/25/20 16:54 Bone - 2nd Toe Wound Culture - Preliminary Staphylococcus aureus 06/25/20 16:56 Bone - 2nd Toe Gram Stain - Final 06/25/20 16:56 Bone - 2nd Toe Wound Culture - Preliminary No growth-Final to follow 06/25/20 16:42 Bone - 2nd Metatarsal Bone Gram Stain - Final 06/25/20 16:42 Bone - 2nd Metatarsal Bone Wound Culture - Preliminary No growth-Final to follow 06/25/20 09:00 Mucosa - Nose SARS-CoV-2 Antigen (Rapid) - Final Laboratory Results 06/26/20 16:21: POC Glucose 230 H 06/26/20 21:47: POC Glucose 150 H 06/27/20 06:43: POC Glucose 146 H 06/27/20 12:39: POC Glucose 206 H Current Medications Acetaminophen (Acetaminophen 325 Mg Tablet) 650 mg PO Q6H PRN PRN PRN Reason: Pain Score 1-3 /Temp>100.7 Al Hydroxide/Mg Hydroxide (Mag Hydrox/Al Hydrox/Simeth 30 Ml Udc) 30 ml PO Q6H PRN PRN PRN Reason: Gastric Burning Albuterol Sulfate (Albuterol 2.5 Mg/3 Ml Vial.Neb.) 2.5 mg INHALATION Q2H PRN PRN PRN Reason: Dyspnea, wheezing Atorvastatin Calcium (Atorvastatin Calcium 10 Mg Tablet) 10 mg PO QHS [facility] Last Admin: 06/26/20 21:45 Dose: 10 mg Documented by: Bisacodyl (Bisacodyl 5 Mg Tablet) 10 mg PO DAILY PRN PRN PRN Reason: Constipation Dextrose (Dextrose 50%-Water 25 Gm/50 Ml Disp.Syrin) 0 gm IV X1 PRN; Protocol PRN Reason: Hypoglycemia Docusate Sodium (Docusate Sodium 100 Mg Capsule) 200 mg PO BID PRN PRN PRN Reason: Constipation Enoxaparin Sodium (Enoxaparin 40 Mg/0.4 Ml Syringe) 40 mg SC DAILY@0600 [facility] Last Admin: 06/27/20 05:16 Dose: 40 mg Documented by: Glucagon (Glucagon 1 Mg/Ml Syringe) 1 mg IM .X1 PRN PRN Reason: Hypoglycemia Hydralazine HCl (Hydralazine 20 Mg/Ml Vial) 10 mg IV Q4H PRN PRN PRN Reason: SBP > 160 Ampicillin Sodium/Sulbactam (Sodium 3 gm/ Sodium Chloride) 112 mls @ 150 mls/hr IV Q6 [facility] Last Admin: 06/27/20 12:14 Dose: 150 mls/hr Documented by: Insulin Glargine (Insulin Glargine 100 Units/Ml Pen) 60 units SC DAILY [facility] Last Admin: 06/27/20 11:06 Dose: 60 u Documented by: Insulin Human Lispro (Insulin Lispro 100 Unit/Ml Insuln.Pen) 0 unit SC ACHS [facility]; Protocol Last Admin: 06/27/20 12:42 Dose: 2 u Documented by: Insulin Human Lispro (Insulin Lispro 100 Unit/Ml Insuln.Pen) 8 unit SC TIDAC [facility] Last Admin: 06/27/20 12:41 Dose: 8 units Documented by: Losartan Potassium (Losartan Potassium 50 Mg Tablet) 50 mg PO DAILY [facility] Last Admin: 06/27/20 10:50 Dose: 50 mg Documented by: Morphine Sulfate (Morphine 2 Mg/Ml Syringe) 2 - 4 mg IV Q3H PRN PRN PRN Reason: Pain Score 6-10 Morphine Sulfate (Morphine 4 Mg/Ml Syringe) 2 - 4 mg IV Q3H PRN PRN PRN Reason: Pain Score 6-10 Nutritional Formula (Nutritional Supplement (John) Packet) 1 packet PO BIDCM [facility] Last Admin: 06/27/20 08:14 Dose: Not Given Documented by: Nutritional Formula (Lactose Free) (Glucerna Shake 120 Ml Liquid) 120 ml PO 4X/DAY [facility] Last Admin: 06/27/20 10:50 Dose: 120 ml Documented by: Oxycodone HCl (Oxycodone 5 Mg Tablet) 5 mg PO Q4H PRN PRN PRN Reason: Pain Score 4-5 Polyethylene Glycol (Polyethylene Glycol 3350 17 Gm Packet) 17 gm PO DAILY [facility] Last Admin: 06/27/20 10:49 Dose: Not Given Documented by: Prochlorperazine Edisylate (Prochlorperazine 10 Mg/2 Ml Vial) 10 mg IV Q6H PRN PRN PRN Reason: Nausea/Vomiting Sodium Chloride (0.9% Saline Lock 10 Ml Syringe) 10 - 40 ml IV UD PRN PRN Reason: SALINE FLUSH Assessment/Plan This patient was seen in conjunction with Evelina ABERNATHY. I have independently interviewed and examined the patient and reviewed pertinent history, examination findings, laboratory and plan of management. I have reviewed the note and agree with the documented findings with the few additional points. In brief, patient is admitted for right second toe diabetic ulcer with osteomyelitis. Patient had x-ray and then MRI. MRI shows second metatarsal head osteomyelitis mild bone edema of proximal middle phalanges of second digit. On IV Unasyn. Patient seen by ID. Patient had right second metatarsal bone biopsy, arthroplasty right second toe with ulcer debridement including bone. Preliminary wound culture shows rare staph aureus. Culture pending. Diabetes mellitus type 2: A1c 8.7. Glucose high, average 250 suggestive of uncontrolled diabetes. Accu-Chek shows a still high therefore scheduled insulin, glargine and Humalog insulin increased. Following glucose is under good control between 140 to 200 mg/dL Bone tissue cultures are pending. I have discussed my assessment with Evelina ABERNATHY and orders have been reviewed. Inpatient E&M: 67125 Subs Hosp L2
[2020-06-27] MEDS: Glucerna Shake 120 ML LIQUID PO ×4 (10:50→20:34)
[2020-06-27] MEDS: Losartan Potassium 50 MG Tablet PO (10:50)
[2020-06-27 12:00] VITALS: PULSE 71; RESP 20
[2020-06-27] MEDS: Insulin Lispro 100 UNIT/ML INSULN.PEN SC ×3 (12:42→20:35)
[2020-06-27 12:50] LABS: Bedside Glucose 206 mg/dL (70-110)
[2020-06-27 14:00] VITALS: BP 112/54; PULSE 74; RESP 20; TEMP 36.6; O2SAT 99
[2020-06-27 17:30] LABS: Bedside Glucose 181 mg/dL (70-110)
[2020-06-27 20:00] VITALS: BP 133/84; PULSE 58; RESP 16; TEMP 36.9; O2SAT 100
[2020-06-27] MEDS: Atorvastatin Calcium 10 MG Tablet PO (20:36)
[2020-06-27 20:46] LABS: Bedside Glucose 184 mg/dL (70-110)
[2020-06-28 02:00] VITALS: BP 122/80; PULSE 65; RESP 16; TEMP 36.7; O2SAT 99
[2020-06-28 06:14] LABS: Hematocrit 44.5 % (40-54); Hemoglobin 14.2 g/dL (13.0-16.5); Mean Corp Hgb Conc 31.9 g/dL (32-36); Mean Corpuscular Hgb 27.5 pg (27.0-32.0); Mean Corpuscular Volume 86.2 fL (80-94); Mean Platelet Vol. 9.4 fl (6.2-12.0); Platelet Count 238 K/mm3 (150-450); RBC Distribution Width CV 12.5 % (11.6-14.6); RBC Distribution Width SD 39.6 fl (35.1-43.9); Red Blood Count 5.16 M/mm3 (4.6-6.2); White Blood Count 6.8 K/mm3 (4.4-11.0)
[2020-06-28 06:38] LABS: Anion Gap 6 (5-15); BUN 21 mg/dL (7-18); BUN/Creat Ratio 23.3 RATIO (10-20); Calcium,Total 9.2 mg/dL (8.5-10.1); Chloride 105 mmol/L (98-107); EST Glomerular Filtration Rate 96 mL/min (>60); Est Glom Filt Rate - Afr Amer 116 mL/min (>60); Estimated Creatinine Clearance 124.57 ml/min; Glucose 147 mg/dL (74-106); Potassium 3.9 mmol/L (3.5-5.1); Sodium Level 136 mmol/L (136-145)
[2020-06-28 06:40] LABS: Bedside Glucose 165 mg/dL (70-110)
[2020-06-28] MEDS: Insulin Lispro 100 UNIT/ML INSULN.PEN SC ×2 (07:38→11:59)
[2020-06-28] MEDS: Enoxaparin 40 MG/0.4 ML Syringe SC (07:38)
[2020-06-28] MEDS: Insulin Lispro 100 UNIT/ML INSULN.PEN 8 UNIT SC ×2 (07:39→11:59)
[2020-06-28 07:52] VITALS: BP 123/70; PULSE 70; RESP 18; TEMP 36.5; O2SAT 98
--- NOTE | 2020-06-28 08:46 | NURSING ---
wound photo: right 2nd toe
[2020-06-28] MEDS: Glucerna Shake 120 ML LIQUID PO (09:44)
--- NOTE | 2020-06-28 09:56 | PCM.PROGNOTE ---
<TacoEvelina FORGEMAN HELPER - Last Filed: 06/28/20 10:09> Patient Problems: Active and Suspected Problems Ulcer of right foot with necrosis of bone (Acute) Osteomyelitis (Suspected) Subjective: Patient seen and examined. Denies complaints. Denies pain, fever, chills. Okay for discharge from a medical standpoint following ID recommendations regarding antibiotics. - Physical Exam Vitals/I&O's: Vital Signs Temp Pulse Resp BP Pulse Ox 97.7 F L 70 18 123/70 H 98 06/28/20 07:52 06/28/20 07:52 06/28/20 07:52 06/28/20 07:52 06/28/20 07:52 Oxygen Delivery Method Room Air Weight: 319 lb 7.197 oz Body Mass Index (BMI) 38.9 Intake and Output for Last 24 Hours 06/26/20 06/27/20 06/28/20 23:59 23:59 23:59 Intake Total 3651.33 / 4451.33 4728 / 4728 812 / 812 Output Total 2250 / 2950 700 / 700 Balance 1401.33 / 1501.33 4028 / 4028 812 / 812 General: Alert, Oriented x3, Cooperative HEENT: Atraumatic, PERRLA, EOMI, Normocephalic Neck: Supple, No JVD, Negative Carotid Bruits Lungs: Clear to auscultation, Normal air movement Cardiovascular: Regular rate, No murmurs Abdomen: Bowel Sounds Present, Soft, Non Tender, Non-Distended Extremities: No clubbing, No cyanosis, No edema, Capillary Refill Less than 3 Seconds Skin: No rashes, No breakdown, - - Right foot dressing intact. Musculoskeletal: No Tenderness to Palpation of Joints or Extremities Neurological: Cranial nerves II-XII grossly intact, Neuro grossly intact Psych/Mental Status: Normal Affect, Appropriate Microbiology Past 72 Hours 06/25/20 16:54 Bone - 2nd Toe Gram Stain - Final 06/25/20 16:54 Bone - 2nd Toe Wound Culture - Final Staphylococcus aureus 06/25/20 16:54 Bone - 2nd Toe Anaerobic Culture - Preliminary No growth in 48 hours. 06/25/20 16:42 Bone - 2nd Metatarsal Bone Gram Stain - Final 06/25/20 16:42 Bone - 2nd Metatarsal Bone Wound Culture - Final No growth aerobically. 06/25/20 16:42 Bone - 2nd Metatarsal Bone Anaerobic Culture - Preliminary No growth in 48 hours. 06/25/20 16:56 Bone - 2nd Toe Gram Stain - Final 06/25/20 16:56 Bone - 2nd Toe Wound Culture - Preliminary No growth-Final to follow 06/25/20 16:56 Bone - 2nd Toe Anaerobic Culture - Preliminary No growth in 48 hours. 06/25/20 09:00 Mucosa - Nose SARS-CoV-2 Antigen (Rapid) - Final Laboratory Results 06/27/20 12:39: POC Glucose 206 H 06/27/20 17:15: POC Glucose 181 H 06/27/20 20:32: POC Glucose 184 H 06/28/20 05:58: WBC 6.8, RBC 5.16, Hgb 14.2, Hct 44.5, MCV 86.2, MCH 27.5, MCHC 31.9 L, RDW Std Deviation 39.6, RDW Coeff of Kristal 12.5, Plt Count 238, MPV 9.4 06/28/20 05:58: Sodium 136, Potassium 3.9, Chloride 105, Carbon Dioxide 25.0, Anion Gap 6, BUN 21 H, Creatinine 0.90, Estim Creat Clear Calc 124.57, Est GFR (MDRD) Af Amer 116, Est GFR (MDRD) Non-Af 96, BUN/Creatinine Ratio 23.3 H, Glucose 147 H, Calcium 9.2 06/28/20 06:24: POC Glucose 165 H Current Medications Acetaminophen (Acetaminophen 325 Mg Tablet) 650 mg PO Q6H PRN PRN PRN Reason: Pain Score 1-3 /Temp>100.7 Al Hydroxide/Mg Hydroxide (Mag Hydrox/Al Hydrox/Simeth 30 Ml Udc) 30 ml PO Q6H PRN PRN PRN Reason: Gastric Burning Albuterol Sulfate (Albuterol 2.5 Mg/3 Ml Vial.Neb.) 2.5 mg INHALATION Q2H PRN PRN PRN Reason: Dyspnea, wheezing Atorvastatin Calcium (Atorvastatin Calcium 10 Mg Tablet) 10 mg PO QHS [facility] Last Admin: 06/27/20 20:36 Dose: 10 mg Documented by: Bisacodyl (Bisacodyl 5 Mg Tablet) 10 mg PO DAILY PRN PRN PRN Reason: Constipation Dextrose (Dextrose 50%-Water 25 Gm/50 Ml Disp.Syrin) 0 gm IV X1 PRN; Protocol PRN Reason: Hypoglycemia Docusate Sodium (Docusate Sodium 100 Mg Capsule) 200 mg PO BID PRN PRN PRN Reason: Constipation Enoxaparin Sodium (Enoxaparin 40 Mg/0.4 Ml Syringe) 40 mg SC DAILY@0600 [facility] Last Admin: 06/28/20 07:38 Dose: 40 mg Documented by: Glucagon (Glucagon 1 Mg/Ml Syringe) 1 mg IM .X1 PRN PRN Reason: Hypoglycemia Hydralazine HCl (Hydralazine 20 Mg/Ml Vial) 10 mg IV Q4H PRN PRN PRN Reason: SBP > 160 Ampicillin Sodium/Sulbactam (Sodium 3 gm/ Sodium Chloride) 112 mls @ 150 mls/hr IV Q6 [facility] Last Admin: 06/28/20 06:30 Dose: 150 mls/hr Documented by: Insulin Glargine (Insulin Glargine 100 Units/Ml Pen) 60 units SC DAILY [facility] Last Admin: 06/28/20 09:50 Dose: 60 u Documented by: Insulin Human Lispro (Insulin Lispro 100 Unit/Ml Insuln.Pen) 0 unit SC ACHS [facility]; Protocol Last Admin: 06/28/20 07:38 Dose: 1 u Documented by: Insulin Human Lispro (Insulin Lispro 100 Unit/Ml Insuln.Pen) 8 unit SC TIDAC [facility] Last Admin: 06/28/20 07:39 Dose: 8 units Documented by: Losartan Potassium (Losartan Potassium 50 Mg Tablet) 50 mg PO DAILY [facility] Last Admin: 06/27/20 10:50 Dose: 50 mg Documented by: Morphine Sulfate (Morphine 2 Mg/Ml Syringe) 2 - 4 mg IV Q3H PRN PRN PRN Reason: Pain Score 6-10 Morphine Sulfate (Morphine 4 Mg/Ml Syringe) 2 - 4 mg IV Q3H PRN PRN PRN Reason: Pain Score 6-10 Nutritional Formula (Nutritional Supplement (John) Packet) 1 packet PO BIDCM [facility] Last Admin: 06/28/20 07:45 Dose: Not Given Documented by: Nutritional Formula (Lactose Free) (Glucerna Shake 120 Ml Liquid) 120 ml PO 4X/DAY [facility] Last Admin: 06/28/20 09:44 Dose: 120 ml Documented by: Oxycodone HCl (Oxycodone 5 Mg Tablet) 5 mg PO Q4H PRN PRN PRN Reason: Pain Score 4-5 Polyethylene Glycol (Polyethylene Glycol 3350 17 Gm Packet) 17 gm PO DAILY [facility] Last Admin: 06/28/20 09:52 Dose: Not Given Documented by: Prochlorperazine Edisylate (Prochlorperazine 10 Mg/2 Ml Vial) 10 mg IV Q6H PRN PRN PRN Reason: Nausea/Vomiting Sodium Chloride (0.9% Saline Lock 10 Ml Syringe) 10 - 40 ml IV UD PRN PRN Reason: SALINE FLUSH Medical Necessity - Tobacco Use Smoking Status: Former smoker Tobacco Use: Chew Assessment/Plan All Active Problems Osteomyelitis (Acute) Ulcer of right foot with necrosis of bone (Acute) 1. Right second toe diabetic ulceration with osteomyelitis-podiatry primary. IV Unasyn. Postop wound/bone cultures growing staph aureus. Admission wound culture growing staph aureus as well. MRI shows second metatarsal osteomyelitis. ID consulted. Patient underwent right second metatarsal bone biopsy with arthroplasty right second toe with ulcer debridement including bone by Dr. Bloom 06/25/20. Management per podiatry. 2. Type 2 diabetes mellitus-repeat hemoglobin A1c 8.8%. Recommend continuing increased dose of Levemir 60 units daily at discharge as well as Humalog 8 units 3 times daily AC. 3. Hypertension-on losartan, stable. 4. Hyperlipidemia-continue statin. DVT prophylaxis- SCDs Discharge planning: Stable for discharge from medical standpoint with insulin adjustments as noted above, ID consult for antibiotic recommendations pending. This patient was seen by KAVIN Reaves under the supervision of Dr. Barbosa. <Cristy Barbosa - Last Filed: 06/29/20 07:50> - Physical Exam Vitals/I&O's: Vital Signs Temp Pulse Resp BP Pulse Ox 98.5 F 60 16 125/80 H 98 06/28/20 14:46 06/28/20 14:46 06/28/20 14:46 06/28/20 14:46 06/28/20 14:46 Oxygen Delivery Method Room Air Weight: 144.9 kg Body Mass Index (BMI) 38.9 Intake and Output for Last 24 Hours 06/27/20 06/28/20 06/29/20 23:59 23:59 23:59 Intake Total 4728 / 4728 1324 / 1324 Output Total 700 / 700 Balance 4028 / 4028 1324 / 1324 Microbiology Past 72 Hours 06/25/20 16:56 Bone - 2nd Toe Gram Stain - Final 06/25/20 16:56 Bone - 2nd Toe Wound Culture - Final No growth aerobically. 06/25/20 16:56 Bone - 2nd Toe Anaerobic Culture - Preliminary No growth in 48 hours. 06/25/20 16:54 Bone - 2nd Toe Gram Stain - Final 06/25/20 16:54 Bone - 2nd Toe Wound Culture - Final Staphylococcus aureus 06/25/20 16:54 Bone - 2nd Toe Anaerobic Culture - Preliminary No growth in 48 hours. 06/25/20 16:42 Bone - 2nd Metatarsal Bone Gram Stain - Final 06/25/20 16:42 Bone - 2nd Metatarsal Bone Wound Culture - Final No growth aerobically. 06/25/20 16:42 Bone - 2nd Metatarsal Bone Anaerobic Culture - Preliminary No growth in 48 hours. Laboratory Results 06/28/20 11:58: POC Glucose 174 H Assessment/Plan This patient was seen in conjunction with Evelina España NP. I have independently interviewed and examined the patient and reviewed pertinent historical, laboratory, and other data. Please refer to her note for patient's presentation, findings, and recommendations. Patient was seen and examined. No acute events overnight. Denies fever or chills Vitals were reviewed -stable Physical Exam: Gen: Morbidly obese, not pale, not jaundiced, alert oriented x3 CVS:HS I +II, regular RESP: CTA GI: BS present and normal, nontender, no palpable organs EXT: Right foot wrapped up in dressing and EUNICE-wraps Labs reviewed: ASSESSMENT: 1. Right 2nd toe osteomyelitis/diabetic ulcer 2. Type 2 DM 3. Hypertension 4. Hyperlipidemia Meds reviewed Plan: Continue on current insulin Await ID recommendation for discharge Inpatient E&M: 86557 Subs Hosp L2
[2020-06-28] MEDS: Losartan Potassium 50 MG Tablet PO (10:03)
[2020-06-28 12:06] LABS: Bedside Glucose 174 mg/dL (70-110)
--- NOTE | 2020-06-28 13:03 | PCM.PN.ID ---
Patient Problems: Active and Suspected Problems Ulcer of right foot with necrosis of bone (Acute) Osteomyelitis (Suspected) Subjective: Feeling fine, no fever, no n/v/d - Physical Exam Vitals/I&O's: Vital Signs Temp Pulse Resp BP Pulse Ox 97.7 F L 70 18 123/70 H 98 06/28/20 07:52 06/28/20 07:52 06/28/20 07:52 06/28/20 07:52 06/28/20 07:52 Oxygen Delivery Method Room Air Weight: 144.9 kg Body Mass Index (BMI) 38.9 Intake and Output for Last 24 Hours 06/26/20 06/27/20 06/28/20 23:59 23:59 23:59 Intake Total 3651.33 / 4451.33 4728 / 4728 924 / 924 Output Total 2250 / 2950 700 / 700 Balance 1401.33 / 1501.33 4028 / 4028 924 / 924 General: Alert, Cooperative, No apparent distress Lungs: Clear to auscultation, Normal air movement Cardiovascular: Regular rate, Regular Rhythm Abdomen: Soft, Non Tender, Non-Distended Skin: Ulcer/ Wound - reviewed photo Microbiology Past 72 Hours 06/25/20 16:56 Bone - 2nd Toe Gram Stain - Final 06/25/20 16:56 Bone - 2nd Toe Wound Culture - Final No growth aerobically. 06/25/20 16:56 Bone - 2nd Toe Anaerobic Culture - Preliminary No growth in 48 hours. 06/25/20 16:54 Bone - 2nd Toe Gram Stain - Final 06/25/20 16:54 Bone - 2nd Toe Wound Culture - Final Staphylococcus aureus 06/25/20 16:54 Bone - 2nd Toe Anaerobic Culture - Preliminary No growth in 48 hours. 06/25/20 16:42 Bone - 2nd Metatarsal Bone Gram Stain - Final 06/25/20 16:42 Bone - 2nd Metatarsal Bone Wound Culture - Final No growth aerobically. 06/25/20 16:42 Bone - 2nd Metatarsal Bone Anaerobic Culture - Preliminary No growth in 48 hours. 06/25/20 09:00 Mucosa - Nose SARS-CoV-2 Antigen (Rapid) - Final Laboratory Results 06/27/20 17:15: POC Glucose 181 H 06/27/20 20:32: POC Glucose 184 H 06/28/20 05:58: WBC 6.8, RBC 5.16, Hgb 14.2, Hct 44.5, MCV 86.2, MCH 27.5, MCHC 31.9 L, RDW Std Deviation 39.6, RDW Coeff of Kristal 12.5, Plt Count 238, MPV 9.4 06/28/20 05:58: Sodium 136, Potassium 3.9, Chloride 105, Carbon Dioxide 25.0, Anion Gap 6, BUN 21 H, Creatinine 0.90, Estim Creat Clear Calc 124.57, Est GFR (MDRD) Af Amer 116, Est GFR (MDRD) Non-Af 96, BUN/Creatinine Ratio 23.3 H, Glucose 147 H, Calcium 9.2 06/28/20 06:24: POC Glucose 165 H 06/28/20 11:58: POC Glucose 174 H Current Medications Acetaminophen (Acetaminophen 325 Mg Tablet) 650 mg PO Q6H PRN PRN PRN Reason: Pain Score 1-3 /Temp>100.7 Al Hydroxide/Mg Hydroxide (Mag Hydrox/Al Hydrox/Simeth 30 Ml Udc) 30 ml PO Q6H PRN PRN PRN Reason: Gastric Burning Albuterol Sulfate (Albuterol 2.5 Mg/3 Ml Vial.Neb.) 2.5 mg INHALATION Q2H PRN PRN PRN Reason: Dyspnea, wheezing Atorvastatin Calcium (Atorvastatin Calcium 10 Mg Tablet) 10 mg PO QHS [facility] Last Admin: 06/27/20 20:36 Dose: 10 mg Documented by: Bisacodyl (Bisacodyl 5 Mg Tablet) 10 mg PO DAILY PRN PRN PRN Reason: Constipation Dextrose (Dextrose 50%-Water 25 Gm/50 Ml Disp.Syrin) 0 gm IV X1 PRN; Protocol PRN Reason: Hypoglycemia Docusate Sodium (Docusate Sodium 100 Mg Capsule) 200 mg PO BID PRN PRN PRN Reason: Constipation Enoxaparin Sodium (Enoxaparin 40 Mg/0.4 Ml Syringe) 40 mg SC DAILY@0600 [facility] Last Admin: 06/28/20 07:38 Dose: 40 mg Documented by: Glucagon (Glucagon 1 Mg/Ml Syringe) 1 mg IM .X1 PRN PRN Reason: Hypoglycemia Hydralazine HCl (Hydralazine 20 Mg/Ml Vial) 10 mg IV Q4H PRN PRN PRN Reason: SBP > 160 Ampicillin Sodium/Sulbactam (Sodium 3 gm/ Sodium Chloride) 112 mls @ 150 mls/hr IV Q6 [facility] Last Admin: 06/28/20 11:54 Dose: 150 mls/hr Documented by: Insulin Glargine (Insulin Glargine 100 Units/Ml Pen) 60 units SC DAILY [facility] Last Admin: 06/28/20 09:50 Dose: 60 u Documented by: Insulin Human Lispro (Insulin Lispro 100 Unit/Ml Insuln.Pen) 0 unit SC ACHS [facility]; Protocol Last Admin: 06/28/20 11:59 Dose: 1 u Documented by: Insulin Human Lispro (Insulin Lispro 100 Unit/Ml Insuln.Pen) 8 unit SC TIDAC [facility] Last Admin: 06/28/20 11:59 Dose: 8 units Documented by: Losartan Potassium (Losartan Potassium 50 Mg Tablet) 50 mg PO DAILY [facility] Last Admin: 06/28/20 10:03 Dose: 50 mg Documented by: Morphine Sulfate (Morphine 2 Mg/Ml Syringe) 2 - 4 mg IV Q3H PRN PRN PRN Reason: Pain Score 6-10 Morphine Sulfate (Morphine 4 Mg/Ml Syringe) 2 - 4 mg IV Q3H PRN PRN PRN Reason: Pain Score 6-10 Nutritional Formula (Nutritional Supplement (John) Packet) 1 packet PO BIDCM [facility] Last Admin: 06/28/20 07:45 Dose: Not Given Documented by: Nutritional Formula (Lactose Free) (Glucerna Shake 120 Ml Liquid) 120 ml PO 4X/DAY [facility] Last Admin: 06/28/20 09:44 Dose: 120 ml Documented by: Oxycodone HCl (Oxycodone 5 Mg Tablet) 5 mg PO Q4H PRN PRN PRN Reason: Pain Score 4-5 Polyethylene Glycol (Polyethylene Glycol 3350 17 Gm Packet) 17 gm PO DAILY [facility] Last Admin: 06/28/20 09:52 Dose: Not Given Documented by: Prochlorperazine Edisylate (Prochlorperazine 10 Mg/2 Ml Vial) 10 mg IV Q6H PRN PRN PRN Reason: Nausea/Vomiting Sodium Chloride (0.9% Saline Lock 10 Ml Syringe) 10 - 40 ml IV UD PRN PRN Reason: SALINE FLUSH Medical Necessity - Tobacco Use Smoking Status: Former smoker Tobacco Use: Chew Route of nutrition/ use of supplements: [] Nutritional Intake: [] IV Site: [] Ling Catheter: [] - Assessment/Plan Antibiotics: [] Assessment/Plan: [] Active and Suspected Problems Ulcer of right foot with necrosis of bone (Acute) Osteomyelitis (Suspected) R 2nd toe MSSA osteo - now s/p debridement and bone bx by Dr. Bloom on 06/25/20. On zosyn. Discussed with him risks/benefits of iv vs po abx. Will do 6 weeks total of po doxy, monitor for fever, redness, drainage, worsening. ID followup as needed, d/w caseworker, wrote rx
--- NOTE | 2020-06-28 13:12 | DS.PCM_ITS ---
Discharge Date and Diagnosis - Problem List Patient Problems: Active and Suspected Problems Ulcer of right foot with necrosis of bone (Acute) Osteomyelitis (Suspected) Date of Admission: 06/24/20 Date of Discharge: 06/28/20 - Primary Discharge Diagnosis Acute Problems: Active Problems Ulcer of right foot with necrosis of bone (Acute) Suspected Problems: Suspected Problems Osteomyelitis (Suspected) - Secondary Discharge Diagnosis Chronic Problems: Chronic Problems Hammer toe of right foot (Chronic) Hospital Course and Treatment Imaging Results: MRI RIGHT FOOT IMPRESSION: Bone edema in the second metatarsal with decreased T1 bone marrow signal in the second metatarsal head suggestive of osteomyelitis. Mild bone edema of the proximal and middle phalanges of the second digit, either reactive bone edema or early osteomyelitis. Amputation of the proximal phalanx of the first digit with mild bone edema at amputation site. Slight bone edema of the fibular sesamoid. Tendinosis of the flexor hallucis longus tendon. Fat replacement in the intrinsic muscles of the forefoot suggestive of peripheral neuropathy. Consultations 06/24/20 18:29 Consult: Onc/Wound/inspector cold working Routine Comment: ulcer right 2nd toe Reason for Consult:: ulcer right 2nd toe Consult: Infectious Disease for osteomyelitis Consult: Hospitalist: for medical management Operations: - - 06/25/20 Dr Bloom: bone biopsy right second metatarsal. arthroplasty right second toe with ulcer debridement including bone Summary of Care Provided: The patient is a 45 year old M who presented to the hospital with worsening infection to his second digit right foot. Patient was admitted for further work-up. Patient had cultures obtained. Patient was started on IV antibiotics. Infectious disease and hospitalist were consulted. Podiatry continued to follow. Patient had labs and MRI and x-ray imaging obtained which confirmed infection. Venous Doppler was also obtained which did not demonstrate DVT. Patient had osteomyelitis noted to the right second digit. Various treatment options were discussed with the patient including antibiotics and surgery options. Patient elected to proceed with surgical treatment plan. Patient underwent surgery by Dr. Bloom for bone biopsy and arthroplasty of the second digit on June 25, 2020. This removed with the following positive force as well as get rid of the nidus of bone infection. After surgery patient was readmitted to the floor for further care and resolution of cultures. Afterwards patient was noted to have significant improvement and erythema and edema to the area. Patient continued to improve. Patient was discharged on oral antibiotics as recommended by infectious disease. Patient is to follow-up with PCP, infectious disease, podiatry for continued care. Patient had all questions answered. Patient was discharged with some alterations of his insulin regimen as well as doxycycline per infectious disease. [] Patient Problems: Active and Suspected Problems Ulcer of right foot with necrosis of bone (Acute) Osteomyelitis (Suspected) Subjective: Patient seen and examined resting comfortably. Patient denies any new pedal complaints. Patient denies any nausea, fever, chills, chest pain, shortness of breath, cough, streaking, purulence, vomiting. - Physical Exam Vitals/I&O's: Vital Signs Temp Pulse Resp BP Pulse Ox 97.7 F L 70 18 123/70 H 98 06/28/20 07:52 06/28/20 07:52 06/28/20 07:52 06/28/20 07:52 06/28/20 07:52 Oxygen Delivery Method Room Air Weight: 144.9 kg Body Mass Index (BMI) 38.9 Intake and Output for Last 24 Hours 06/26/20 06/27/20 06/28/20 23:59 23:59 23:59 Intake Total 3651.33 / 4451.33 4728 / 4728 924 / 924 Output Total 2250 / 2950 700 / 700 Balance 1401.33 / 1501.33 4028 / 4028 924 / 924 General: Alert, Oriented x3 HEENT: Atraumatic Extremities: No clubbing, No cyanosis, Capillary Refill Less than 3 Seconds, No Calf Tenderness, Diminished Peripheral Pulses, Edema Skin: Incision - 2nd toe right foot. Some erythema/edema, improved. No purulence. Sutures intact, skin well coapted. No maceration. Musculoskeletal: No Tenderness to Palpation of Joints or Extremities Neurological: - - decreased epicritic sensation from patient's neuropathy Microbiology Past 72 Hours 06/25/20 16:56 Bone - 2nd Toe Gram Stain - Final 06/25/20 16:56 Bone - 2nd Toe Wound Culture - Final No growth aerobically. 06/25/20 16:56 Bone - 2nd Toe Anaerobic Culture - Preliminary No growth in 48 hours. 06/25/20 16:54 Bone - 2nd Toe Gram Stain - Final 06/25/20 16:54 Bone - 2nd Toe Wound Culture - Final Staphylococcus aureus 06/25/20 16:54 Bone - 2nd Toe Anaerobic Culture - Preliminary No growth in 48 hours. 06/25/20 16:42 Bone - 2nd Metatarsal Bone Gram Stain - Final 06/25/20 16:42 Bone - 2nd Metatarsal Bone Wound Culture - Final No growth aerobically. 06/25/20 16:42 Bone - 2nd Metatarsal Bone Anaerobic Culture - Preliminary No growth in 48 hours. 06/25/20 09:00 Mucosa - Nose SARS-CoV-2 Antigen (Rapid) - Final Laboratory Results 06/27/20 17:15: POC Glucose 181 H 06/27/20 20:32: POC Glucose 184 H 06/28/20 05:58: WBC 6.8, RBC 5.16, Hgb 14.2, Hct 44.5, MCV 86.2, MCH 27.5, MCHC 31.9 L, RDW Std Deviation 39.6, RDW Coeff of Kristal 12.5, Plt Count 238, MPV 9.4 06/28/20 05:58: Sodium 136, Potassium 3.9, Chloride 105, Carbon Dioxide 25.0, Anion Gap 6, BUN 21 H, Creatinine 0.90, Estim Creat Clear Calc 124.57, Est GFR (MDRD) Af Amer 116, Est GFR (MDRD) Non-Af 96, BUN/Creatinine Ratio 23.3 H, Glucose 147 H, Calcium 9.2 06/28/20 06:24: POC Glucose 165 H 06/28/20 11:58: POC Glucose 174 H Current Medications Acetaminophen (Acetaminophen 325 Mg Tablet) 650 mg PO Q6H PRN PRN PRN Reason: Pain Score 1-3 /Temp>100.7 Al Hydroxide/Mg Hydroxide (Mag Hydrox/Al Hydrox/Simeth 30 Ml Udc) 30 ml PO Q6H PRN PRN PRN Reason: Gastric Burning Albuterol Sulfate (Albuterol 2.5 Mg/3 Ml Vial.Neb.) 2.5 mg INHALATION Q2H PRN PRN PRN Reason: Dyspnea, wheezing Atorvastatin Calcium (Atorvastatin Calcium 10 Mg Tablet) 10 mg PO QHS [facility] Last Admin: 06/27/20 20:36 Dose: 10 mg Documented by: Bisacodyl (Bisacodyl 5 Mg Tablet) 10 mg PO DAILY PRN PRN PRN Reason: Constipation Dextrose (Dextrose 50%-Water 25 Gm/50 Ml Disp.Syrin) 0 gm IV X1 PRN; Protocol PRN Reason: Hypoglycemia Docusate Sodium (Docusate Sodium 100 Mg Capsule) 200 mg PO BID PRN PRN PRN Reason: Constipation Enoxaparin Sodium (Enoxaparin 40 Mg/0.4 Ml Syringe) 40 mg SC DAILY@0600 [facility] Last Admin: 06/28/20 07:38 Dose: 40 mg Documented by: Glucagon (Glucagon 1 Mg/Ml Syringe) 1 mg IM .X1 PRN PRN Reason: Hypoglycemia Hydralazine HCl (Hydralazine 20 Mg/Ml Vial) 10 mg IV Q4H PRN PRN PRN Reason: SBP > 160 Ampicillin Sodium/Sulbactam (Sodium 3 gm/ Sodium Chloride) 112 mls @ 150 mls/hr IV Q6 [facility] Last Admin: 06/28/20 11:54 Dose: 150 mls/hr Documented by: Insulin Glargine (Insulin Glargine 100 Units/Ml Pen) 60 units SC DAILY [facility] Last Admin: 06/28/20 09:50 Dose: 60 u Documented by: Insulin Human Lispro (Insulin Lispro 100 Unit/Ml Insuln.Pen) 0 unit SC ACHS [facility]; Protocol Last Admin: 06/28/20 11:59 Dose: 1 u Documented by: Insulin Human Lispro (Insulin Lispro 100 Unit/Ml Insuln.Pen) 8 unit SC TIDAC [facility] Last Admin: 06/28/20 11:59 Dose: 8 units Documented by: Losartan Potassium (Losartan Potassium 50 Mg Tablet) 50 mg PO DAILY [facility] Last Admin: 06/28/20 10:03 Dose: 50 mg Documented by: Morphine Sulfate (Morphine 2 Mg/Ml Syringe) 2 - 4 mg IV Q3H PRN PRN PRN Reason: Pain Score 6-10 Morphine Sulfate (Morphine 4 Mg/Ml Syringe) 2 - 4 mg IV Q3H PRN PRN PRN Reason: Pain Score 6-10 Nutritional Formula (Nutritional Supplement (John) Packet) 1 packet PO BIDCM [facility] Last Admin: 06/28/20 07:45 Dose: Not Given Documented by: Nutritional Formula (Lactose Free) (Glucerna Shake 120 Ml Liquid) 120 ml PO 4X/DAY [facility] Last Admin: 06/28/20 09:44 Dose: 120 ml Documented by: Oxycodone HCl (Oxycodone 5 Mg Tablet) 5 mg PO Q4H PRN PRN PRN Reason: Pain Score 4-5 Polyethylene Glycol (Polyethylene Glycol 3350 17 Gm Packet) 17 gm PO DAILY [facility] Last Admin: 06/28/20 09:52 Dose: Not Given Documented by: Prochlorperazine Edisylate (Prochlorperazine 10 Mg/2 Ml Vial) 10 mg IV Q6H PRN PRN PRN Reason: Nausea/Vomiting Sodium Chloride (0.9% Saline Lock 10 Ml Syringe) 10 - 40 ml IV UD PRN PRN Reason: SALINE FLUSH Discharge Diet: Carb Control Diet Weight Bearing Status: Partial weight bearing - in surgical shoe right Call your doctor if your incision/area has: Sudden Increased Bleeding, Increased Pain/ Swelling, Increased Redness, Foul Smelling Discharge, Swelling at the incision site Call your doctor if you observe: Fever of 101 or Higher, Coldness, Increased Pain, Shortness of breath, Dizziness, Fainting spells, Chest pain, Calf discomfort, Uncontrolled pain Cleanse incision/area with: Keep Dressing Clean & Dry Home Medications: Medications to take at Discharge Atorvastatin Calcium [Lipitor] 10 mg PO DAILY 06/24/20 Losartan Potassium [Cozaar] 50 mg PO DAILY 06/24/20 Pioglitazone [Actos] 30 mg PO DAILY 06/24/20 Doxycycline Monohydrate 100 mg PO BID #80 tablet 06/28/20 Insulin Detemir [Levemir Flextouch] 60 unit SQ DAILY #0 06/28/20 Insulin Lispro [Humalog KwikPen] 8 unit SC TIDAC #1 insuln.pen 06/28/20 Following Prescriptions Were Given to Patient: Doxycycline Monohydrate 100 mg PO BID #80 tablet Transmission Status: Received by [id number] Insulin Lispro [Humalog KwikPen] 8 unit SC TIDAC #1 insuln.pen Transmission Status: Received by [id number] Primary Care Physician: Say Prather DO [Primary Care Provider] - Please follow up with your Primary Care Physician in: 1 week Please Follow Up With: Lex Yeh DPM - has appointment June 30, at 4pm Please Follow Up With: Yuko Uriostegui - for better nutrition Disposition: Home Minutes spent on discharge:: 40 Patient Condition:: Stable Medical Necessity - Tobacco Use Smoking Status: Former smoker Tobacco Use: Chew Meaningful Use Info Meaningful Use Diagnoses (Choose all that apply): None applicable
--- NOTE | 2020-06-28 13:13 | CASEMGMT ---
Per , pt to go home on PO antibiotics. RN CM in to pt room. He is aware of PO antibiotics and dressing to be left on until Sunday on wound until appt in doctor office. Pt do dc home with no needs.
--- NOTE | 2020-06-28 13:18 | DCINST_ITS ---
Discharge Diet: Carb Control Diet Discharge Activity: - - heel weight bearing in surgical shoe right foot Weight Bearing Status: Partial weight bearing Call your doctor if your incision/area has: Sudden Increased Bleeding, Increased Redness, Foul Smelling Discharge, Swelling at the incision site Call your doctor if you observe: Fever of 101 or Higher, Shortness of breath, Dizziness, Fainting spells, Chest pain, Calf discomfort, Uncontrolled pain Cleanse incision/area with: Keep Dressing Clean & Dry Allergies/Adverse Reactions: Allergies No Known Allergies Allergy (Verified 08/26/19 17:06) Medications to take at Discharge Atorvastatin Calcium [Lipitor] 10 mg PO DAILY 06/24/20 Losartan Potassium [Cozaar] 50 mg PO DAILY 06/24/20 Pioglitazone [Actos] 30 mg PO DAILY 06/24/20 Doxycycline Monohydrate 100 mg PO BID #80 tablet 06/28/20 Insulin Detemir [Levemir Flextouch] 60 unit SQ DAILY #0 06/28/20 Insulin Lispro [Humalog KwikPen] 8 unit SC TIDAC #1 insuln.pen 06/28/20 The following prescriptions were given: Doxycycline Monohydrate 100 mg PO BID #80 tablet Transmission Status: Received by [id number] Insulin Lispro [Humalog KwikPen] 8 unit SC TIDAC #1 insuln.pen Transmission Status: Pending to [facility] #[id number] Primary Care Physician: Say Prather DO [Primary Care Provider] - Please follow up with your Primary Care Physician in: 1 week Test Results: Test results from this visit will be discussed in further detail at your follow- up appointment, if applicable. Please Follow Up With: Lex Yeh DPM - has appointment June 30, 4pm Proposed Discharge Date: 06/28/20
[2020-06-28 14:46] VITALS: BP 125/80; PULSE 60; RESP 16; TEMP 36.9; O2SAT 98
--- NOTE | 2020-06-29 14:24 | CASEMGMT ---
CHRISTOPHER CM Discharge Follow Up Phone Call: EYADE: Lana Strata: 2 Call Date: 06/29/20 Discharge Date: 06/28/20 Time of Call: 1422 Duration: <1 min Admitting Dx: R second toe osteomyelitis CHRISTOPHER SCHMITZ attempted to complete follow up phone call after recent hospitalization. Left message on identified vm for pt with call back number.
== END 2020-06-28 14:47 | disposition home or self-care (01) | DRG 629 ==
PROVIDERS: Family Medicine; Nurse Practitioner Family; Podiatrist; Admitting Provider Podiatrist; PCP Preventive Medicine Occupational Medicine; Referring Provider Podiatrist; Visit Provider Internal Medicine
PROC: 0QBQ0ZZ Excision of Right Toe Phalanx, Open Approach (ICD-10-PCS; principal; 2020-06-25 14:15)
DX: E11.621 Type 2 diabetes mellitus with foot ulcer (principal); M86.9 Osteomyelitis, unspecified; L97.514 Non-pressure chronic ulcer of other part of right foot with necrosis of bone; A49.01 Methicillin susceptible Staphylococcus aureus infection, unspecified site; M20.41 Other hammer toe(s) (acquired), right foot; E66.01 Morbid (severe) obesity due to excess calories; E11.42 Type 2 diabetes mellitus with diabetic polyneuropathy; E11.69 Type 2 diabetes mellitus with other specified complication; E78.5 Hyperlipidemia, unspecified; I10 Essential (primary) hypertension; Z79.4 Long term (current) use of insulin; Z68.38 Body mass index [BMI] 38.0-38.9, adult; Z87.891 Personal history of nicotine dependence
CPT/HCPCS: 36415; 73630; 73718; 76000; 80048; 80053; 82962; 83036; 83735; 85025; 85027; 85652; 86140; 87015; 87070; 87075; 87077; 87102; 87116; 87186; 87205; 87206; 87426; 88304; 88311; 93005; 93970; 97802; J7030; J0295

== ENCOUNTER → 2020-06-24 18:22 | Outpatient (CLI) | payer OTHER, SELFPAY ==
[2020-06-24 15:52] VITALS: BMI 38.9
[2020-06-24 20:55] LABS: M R Staph aureus DNA By PCR Negative (Negative); Probe Check PASS; Staph aureus DNA By PCR POSITIVE (Negative)
== END ==
PROVIDERS: PCP Preventive Medicine Occupational Medicine; Referring Provider Podiatrist; Visit Provider Podiatrist
DX: L03.039 Cellulitis of unspecified toe (principal)
CPT/HCPCS: 87070; 87075; 87077; 87186; 87205; 87640

== ENCOUNTER → 2020-07-14 10:44 | Outpatient (CLI) | payer OTHER, SELFPAY ==
[2020-06-25 12:24] VITALS: BMI 38.9
[2020-07-14 11:57] LABS: Absolute Lymphocyte Count 1.45 X10^3/uL (0.83-4.51); Absolute Neutrophil Count 3.6 X10^3/uL (2.0-7.7); Basophil# 0.04 X10^3/uL; Basophil% 0.7 % (0-1); Eosinophils% 1.8 % (0-5); Hematocrit 41.7 % (40-54); Lymphocyte # 1.45 X10^3/ul (0.83-4.51); Lymphocyte % 25.6 % (19-41); Mean Corp Hgb Conc 31.2 g/dL (32-36); Mean Corpuscular Hgb 27.1 pg (27.0-32.0); Mean Corpuscular Volume 87.1 fL (80-94); Mean Platelet Vol. 10.1 fl (6.2-12.0); Monocyte# 0.45 X10^3/uL; NRBC Flagged by Analyzer 0 % (0-5); Neutrophil % 63.5 % (47-70); Platelet Count 257 K/mm3 (150-450); RBC Distribution Width CV 12.9 % (11.6-14.6); RBC Distribution Width SD 41.2 fl (35.1-43.9); Red Blood Count 4.79 M/mm3 (4.6-6.2); White Blood Count 5.7 K/mm3 (4.4-11.0)
[2020-07-14 11:58] LABS: Erythrocyte Sedimentation Rate 11 mm/hr (0-20)
[2020-07-14 12:11] LABS: AST(SGOT) 24 U/L (15-37); Alanine Aminotransfer ALT/SGPT 56 U/L (16-61); Albumin, Serum 3.5 g/dL (3.2-5.0); Alkaline Phosphatase 46 U/L (45-117); Anion Gap 4 (5-15); BUN 18 mg/dL (7-18); BUN/Creat Ratio 17.3 RATIO (10-20); Calcium,Total 8.9 mg/dL (8.5-10.1); Chloride 111 mmol/L (98-107); Creatinine, Serum 1.04 mg/dL (0.70-1.30); EST Glomerular Filtration Rate 81 mL/min (>60); Est Glom Filt Rate - Afr Amer 98 mL/min (>60); Globulin 3.4 g/dL (2.2-4.2); Glucose 136 mg/dL (74-106); Potassium 4.3 mmol/L (3.5-5.1); Protein, Total 6.9 g/dL (6.4-8.2); Sodium Level 140 mmol/L (136-145)
== END ==
PROVIDERS: PCP Preventive Medicine Occupational Medicine; Referring Provider Podiatrist; Visit Provider Podiatrist
DX: M86.9 Osteomyelitis, unspecified (principal)
CPT/HCPCS: 36415; 80053; 85025; 85652; 86140

== ENCOUNTER → 2020-07-19 08:01 | Outpatient (CLI) | payer OTHER, SELFPAY ==
[2020-06-25 12:24] VITALS: BMI 38.9
[2020-07-19 09:01] LABS: Cholesterol 96 mg/dL (200); High Density Lipoprotein 44 mg/dL; Triglycerides 57 mg/dL; Very Low Density Lipoprotein 11 mg/dL (5-40)
== END ==
PROVIDERS: PCP Preventive Medicine Occupational Medicine; Referring Provider Preventive Medicine Occupational Medicine; Visit Provider Preventive Medicine Occupational Medicine
DX: E11.9 Type 2 diabetes mellitus without complications (principal)
CPT/HCPCS: 36415; 80061

== ENCOUNTER 2020-09-09 14:55 | Emergency (ER) | payer OTHER, SELFPAY ==
[2020-06-25 12:24] VITALS: BMI 38.9
[2020-09-09 14:56] VITALS: BP 163/80; PULSE 85; RESP 16; TEMP 36.4; O2SAT 99; BMI 38.9
--- NOTE | 2020-09-09 15:55 | VDLE_ITS ---
Reason For Study: Swelling Procedure LEFT This is a venous duplex using B-mode, color GSV is normal. flow and spectral Doppler. CFV is compressible, spontaneous, phasic, Exam performed portable in ED. competent, and demonstrates normal A preliminary report was called and/or faxed augmentation. to [facility]. FV is compressible, spontaneous, phasic, competent and demonstrates normal augmentation. POP V is compressible, spontaneous, phasic, competent and demonstrates normal augmentation. T/P Trunk is compressible. PTV is compressible. LT PerV is compressible. VL/Venous Duplex US, Unilateral Interpretation Summary There is no evidence of left lower extremity deep vein thrombosis. Left great s aphenous vein appears patent and compressible segmentally. Ordering Physician: Theo Knott Referring Physician: Say Prather Performed By: Ning Mccord RVT and Student
--- NOTE | 2020-09-09 15:56 | EDS_ITS ---
HPI History of Present Illness HPI Narrative: Patient presents with swelling to his left lower leg that has been constant for the past 1-1/2 weeks. Patient states he had a laceration to his left lower leg 1-1/2 weeks ago. Patient states the swelling has been getting worse. Patient states it is worse whenever he stands for prolonged amount of time. Patient states the pain is better with elevation. Patient states he talked to his inclusion special education teacher yesterday who told him to come to the emergency department for blood work and ultrasound. Patient waited till today to come in. Patient denies any fevers or chills. Patient denies any paresthesias or weakness. Chief Complaint: Lower Extremity Injury Informant: patient Occured/Mechanism Comment: Swelling Onset/Context/Timing Onset: Weeks (1.5) Context: Gradual Onset Timing: Continuous Location: Left leg Worsened by: Standing Relieved by: Elevation and rest Associated Symptoms Associated Symptoms: Negative for Parasthesia, Weakness and Loss of Funtion PFSH PFS Medical History Diabetes Hypertension Toe amputee Home Medications atorvastatin 10 mg PO DAILY 06/24/20 [History Last Taken 06/24/20] losartan 50 mg PO DAILY 06/24/20 [History Last Taken 06/24/20] insulin detemir U-100 60 unit SQ DAILY #0 06/28/20 [Rx Last Taken 06/24/20 11:45] insulin lispro 8 unit SC TIDAC #1 insuln.pen 06/28/20 [Rx Last Taken Unknown] dulaglutide [Trulicity] 0.75 mg SUBCUT QWEEK 09/09/20 [History Last Taken Unknown] lisinopril 10 mg PO DAILY 09/09/20 [History Last Taken Unknown] Allergy/AdvReac Type Severity Reaction Status Date / Time No Known Allergies Allergy Verified 08/26/19 17:06 Social History Smoking Status: Former smoker ROS ROS ED Constitutional Constitutional ED: Denies chills or fever(s) Eyes Eyes: Denies blurry vision or change in vision ENT ENT ED: Denies rhinorrhea or sore throat Cardiovascular Cardiovascular: Denies chest pain or palpitations Respiratory/Chest Respiratory/Chest: Denies cough or dyspnea Gastrointestinal Gastrointestinal: Denies nausea or vomiting Genitourinary Genitourinary ED: Denies dysuria or hematuria Musculoskeletal Musculoskeletal: Denies back pain or neck pain Integumentary Denies abscess or rash Neurologic Neurologic: Denies headache(s) or weakness Allergic/Immunologic Allergic/Immunologic ED: Denies mouth swelling or urticaria EXAM Physical Exam Const Vital Signs: 09/09/20 14:56 Temperature 97.6 F L Temperature Source Temporal Pulse Rate 85 Respiratory Rate 16 Blood Pressure 163/80 H Blood Pressure Mean 107 Pulse Ox 99 Oxygen Delivery Method Room Air Positive well nourished, well developed and obese General Appearance ED: well developed Nutritional Appearance: obese HEENT Reports moist mucous membranes Neck full ROM Resp normal respiratory effort and clear to auscultation bilaterally Cardio regular rate and regular rhythm GI non-tender and non-distended Auscultation: normoactive bowel sounds Palpation: soft Extremity Extremity Narrative: There is tenderness and edema to his left lower leg. There is a healing abrasion over the anteromedial aspect of the proximal lower leg. There is no surrounding erythema. There is no discharge or drainage. There are some mild calf tenderness. There is good pedal pulses bilaterally. Sensation was intact to light touch in all digits. Capillary refill was less than 2 sec onds in all digits. There is mild pain with dorsiflexion of the left ankle. Neuro oriented x3, CN's II-XII intact bilaterally, moves all extremities and no sensor y deficits noted Sensorium / Orientation: alert Motor Exam: strength 5/5 throughout Psych mental status grossly normal MDM MDM MDM Narrative Medical decision making narrative: CBC and comprehensive metabolic profile were obtained and were within normal limits. Venous duplex of the left lower extremity was obtained. There is no evidence of DVT. Patient was advised of his findings. Patient was instructed to continue to elevate his left lower extremity. Patient was instructed to follow-up with his primary care physician in 5 to 7 days. Patient understood and was agreeable with the plan. All questions were answered. Lab Data Attestation: I reviewed the patient's lab results. Labs: Laboratory Results - last 24 hr 09/09/20 09/09/20 16:17 16:17 WBC 7.6 RBC 4.70 Hgb 12.8 L Hct 40.3 MCV 85.7 MCH 27.2 MCHC 31.8 L RDW Std Deviation 39.8 RDW Coeff of Kristal 12.7 Plt Count 293 MPV 9.2 Immature Gran % (Auto) 0.500 Neut % (Auto) 66.1 Lymph % (Auto) 24.3 Casey % (Auto) 6.5 Eos % (Auto) 2.1 Baso % (Auto) 0.5 Absolute Neuts (auto) 5.0 Absolute Lymphs (auto) 1.86 Nucleated RBC % 0 Sodium 139 Potassium 4.0 Chloride 104 Carbon Dioxide 31.0 Anion Gap 4 L BUN 18 Creatinine 1.05 Estim Creat Clear Calc 106.78 Est GFR (MDRD) Af Amer 97 Est GFR (MDRD) Non-Af 80 BUN/Creatinine Ratio 17.1 Glucose 102 Calcium 9.3 Total Bilirubin 0.40 AST 27 ALT 80 H Alkaline Phosphatase 60 Total Protein 7.3 Albumin 3.7 Globulin 3.6 Albumin/Globulin Ratio 1.0 Discharge Plan Triage Chief Complaint: Lower Extremity Injury ED Provider: Theo Knott Dx/Rx/DC Orders Clinical Impression: Peripheral edema Instructions: ED Contusion, Lower Extremity, ED Lymphedema Prescriptions: No Action losartan 50 MG tablet 50 mg PO DAILY RF: 0 atorvastatin 10 MG tablet 10 mg PO DAILY RF: 0 insulin lispro 100 UNIT/ML insulin pen 8 unit SC TIDAC Qty: 1 RF: 0 insulin detemir U-100 100 UNIT/ML insulin pen 60 unit SQ DAILY Qty: 0 RF: 0 Trulicity 0.75 mg/0.5 mL pen injector 0.75 mg SUBCUT QWEEK RF: 0 lisinopril 10 mg tablet 10 mg PO DAILY RF: 0 Primary Care Provider: Say Prather Referrals: Say Prather DO [Primary Care Provider] - 5-7 Days Disposition Disposition: Home, Self Care
[2020-09-09 16:33] LABS: Absolute Lymphocyte Count 1.86 X10^3/uL (0.83-4.51); Basophil# 0.04 X10^3/uL; Basophil% 0.5 % (0-1); Eosinophil# 0.16 X10^3/uL; Eosinophils% 2.1 % (0-5); Hematocrit 40.3 % (40-54); Hemoglobin 12.8 g/dL (13.0-16.5); Lymphocyte # 1.86 X10^3/ul (0.83-4.51); Lymphocyte % 24.3 % (19-41); Mean Corp Hgb Conc 31.8 g/dL (32-36); Mean Corpuscular Hgb 27.2 pg (27.0-32.0); Mean Corpuscular Volume 85.7 fL (80-94); Mean Platelet Vol. 9.2 fl (6.2-12.0); Monocyte% 6.5 % (0-10); NRBC Flagged by Analyzer 0 % (0-5); Neutrophil # 5.04 X10^3/uL (2.7-7.7); Neutrophil % 66.1 % (47-70); Platelet Count 293 K/mm3 (150-450); RBC Distribution Width CV 12.7 % (11.6-14.6); RBC Distribution Width SD 39.8 fl (35.1-43.9); White Blood Count 7.6 K/mm3 (4.4-11.0)
[2020-09-09 16:48] LABS: AST(SGOT) 27 U/L (15-37); Alanine Aminotransfer ALT/SGPT 80 U/L (16-61); Albumin, Serum 3.7 g/dL (3.2-5.0); Alkaline Phosphatase 60 U/L (45-117); Anion Gap 4 (5-15); BUN 18 mg/dL (7-18); BUN/Creat Ratio 17.1 RATIO (10-20); Calcium,Total 9.3 mg/dL (8.5-10.1); Chloride 104 mmol/L (98-107); Creatinine, Serum 1.05 mg/dL (0.70-1.30); EST Glomerular Filtration Rate 80 mL/min (>60); Est Glom Filt Rate - Afr Amer 97 mL/min (>60); Estimated Creatinine Clearance 106.78 ml/min; Globulin 3.6 g/dL (2.2-4.2); Glucose 102 mg/dL (74-106); Protein, Total 7.3 g/dL (6.4-8.2); Sodium Level 139 mmol/L (136-145)
[2020-09-09 17:36] VITALS: RESP 16
--- NOTE | 2020-09-09 17:36 | ED.RN ---
REVIEWED D/C INSTRUCTIONS, FOLLOW UP CARE, AND S/S THAT WOULD WARRANT A RETURN TO THE ED WITH PT. PT VERBALIZED AN UNDERSTANDING AND DENIES FURTHER QUESTIONS FOR THIS RN. PT SKIN P/W/D, RESP EVEN AND UNLABORED, PT A&O X 3, NO DISTRESS NOTED. PT AMBULATED OUT OF ED, GAIT STEADY.
== END 2020-09-09 17:37 | disposition home or self-care (01) ==
PROVIDERS: Emergency Provider Emergency Medicine; PCP Preventive Medicine Occupational Medicine
DX: R60.0 Localized edema (principal); E66.9 Obesity, unspecified; Z87.891 Personal history of nicotine dependence; E11.9 Type 2 diabetes mellitus without complications; I10 Essential (primary) hypertension; Z79.899 Other long term (current) drug therapy
CPT/HCPCS: 80053; 85025; 93971; 99282; A4216

== ENCOUNTER → 2020-10-19 08:50 | Outpatient (CLI) | payer OTHER, SELFPAY ==
[2019-08-27 10:29] VITALS: BMI 31.3
--- NOTE | 2020-10-19 08:52 | US_ITS ---
CLINICAL HISTORY: 45 years Male, [place] COMPARISON: Bilateral renal ultrasound obtained on 09/01/2019 TECHNIQUE: Serial longitudinal and transverse scans of the kidneys were obtained utilizing a real-time sector scanner. FINDINGS: The right and left kidneys were examined and have the following measurements: Right Kidney: 13.4, cm. x 6.5 cm. x 4.8 cm. in size with a cortex measuring 1.6 cm in thickness. Left Kidney: 13.5 cm. x 6.4 cm. x 5.5 cm. in size with a cortex measuring 1.2 cm in thickness. No fluid is noted in Morison''s pouch. The right renal parenchyma has a normal echogenic relationship to the liver. The right renal contour is smooth and no evidence hydronephrosis is identified. There is a cystic structure containing echogenic calculi seen off the superior pole of the right kidney which was previously identified and is unchanged and most likely represents a BOSNIAK type II simple cyst. There is normal Doppler flow to the right kidney. Left renal contour is smooth and no evidence of hydronephrosis is identified. There is normal Doppler flow to the left kidney. Urinary bladder is mildly distended measuring 245 cc of urine and no residual urine is noted within the bladder on the postvoid study. No masses or lesions are seen within the urinary bladder. US/Kidney and Bladder IMPRESSION: A stable, BOSNIAK type II cyst, is seen in the superior pole of the right kidney which is unchanged in this otherwise normal bilateral renal ultrasound. Electronically Signed: Frankie Barnett DO at 12:57 EDT Tel , Service support ,
== END ==
PROVIDERS: PCP Preventive Medicine Occupational Medicine; Referring Provider Internal Medicine; Visit Provider Internal Medicine
DX: N17.9 Acute kidney failure, unspecified (principal)
CPT/HCPCS: 76770

== ENCOUNTER 2020-10-29 19:45 | Emergency (ER) | payer OTHER, SELFPAY ==
[2020-10-29 19:46] VITALS: BP 147/85; PULSE 85; RESP 16; TEMP 36.1; O2SAT 100; BMI 38.9
--- NOTE | 2020-10-29 21:38 | EDS_ITS ---
HPI History of Present Illness Chief Complaint: Wound Check Informant: patient Narrative Narrative: Patient presents out of concern for infection of the right foot. Patient's had prior right great toe amputation by Dr. Yeh. He is a diabetic. Last week he went to [place] and did a lot of walking and developed a blister over the previous amputation site. It is since ruptured. Yesterday he trimmed the skin away. Today he was concerned for infection as it was it was weeping some serosanguineous fluid and looked slightly red. No fevers. Has appointment next week in the office. [facility] Medical History Diabetes Hypertension Toe amputee Home Medications atorvastatin 10 mg PO DAILY 06/24/20 [History Last Taken 06/24/20] losartan 50 mg PO DAILY 06/24/20 [History Last Taken 06/24/20] insulin detemir U-100 60 unit SQ DAILY #0 06/28/20 [Rx Last Taken 06/24/20 11:45 ] insulin lispro 8 unit SC TIDAC #1 insuln.pen 06/28/20 [Rx Last Taken Unknown] dulaglutide [Trulicity] 0.75 mg SUBCUT QWEEK 09/09/20 [History Last Taken Unknown] lisinopril 10 mg PO DAILY 09/09/20 [History Last Taken Unknown] amoxicillin-pot clavulanate 1 tab PO Q12H #19 tablet 10/29/20 [Rx Last Taken Unknown] Allergy/AdvReac Type Severity Reaction Status Date / Time No Known Allergies Allergy Verified 10/29/20 19:48 Social History (Updated 10/29/20 @ 21:[address] Diego Zamora DO) Smoking Status: Current every day smoker tobacco type: smokeless tobacco substance use type: does not use ROS ROS ED Constitutional Constitutional ED: Denies chills or weight loss Eyes Eyes: Denies change in vision or diplopia ENT ENT ED: Denies ear pain, rhinorrhea or sore throat Cardiovascular Cardiovascular: Denies chest pain, orthopnea, palpitations or racing heartbeat Respiratory/Chest Respiratory/Chest: Denies cough, dyspnea or orthopnea Gastrointestinal Gastrointestinal: Denies abdominal pain, diarrhea, nausea or vomiting Genitourinary Genitourinary ED: Denies dysuria, hematuria or urinary frequency Musculoskeletal Musculoskeletal: Denies arthralgias or myalgias Integumentary Reports other Details: See HPI ; Denies abscess or rash Neurologic Neurologic: Denies headache(s) or weakness Psychiatric Psychiatric: Denies anxiety, depression, suicidal ideation or suicidal thoughts Endocrine Endocrinology: Denies polydipsia, polyphagia or polyuria Allergic/Immunologic Allergic/Immunologic ED: Denies mouth swelling, tongue swelling or urticaria EXAM Physical Exam Const Vital Signs: 10/29/20 19:46 Temperature 96.9 F L Temperature Source Temporal Pulse Rate 85 Respiratory Rate 16 Blood Pressure 147/85 H Blood Pressure Mean 105 Pulse Ox 100 Oxygen Delivery Method Room Air Positive well nourished and well developed General Appearance ED: well developed HEENT Reports normocephalic, head/scalp atraumatic and moist mucous membranes Eyes PERRL and EOMs intact bilaterally Neck no lymphadenopathy, supple and no JVD Resp normal respiratory effort and clear to auscultation bilaterally Cardio regular rate, regular rhythm and no murmurs GI normal to inspection, nondistended, normoactive bowel sounds and non-tender Palpation: soft Back/Spine no CVA tenderness and normal ROM Extremity normal to inspection General Extremety ED: Negative for edema General Extremity: Negative for edema Neuro oriented x3 and CN's II-XII intact bilaterally Sensorium / Orientation: alert Motor Exam: strength 5/5 throughout Psych mental status grossly normal Mood & Affect: Negative for depressed or tearful Skin no rashes or lesions noted Skin Narrative: There is about a quarter sized area of skin that appears to be part of a previous blister. There is some mild surrounding erythema but no significant increased warmth. No lymphangitic streaking. There is some serosanguineous drainage. MDM MDM MDM Narrative Medical decision making narrative: Prior wound cultures have shown pansensitive Staph aureus. Wound culture will be obtained from this. Wound will be cleansed and dressed. He will be using a postop shoe is much as possible. Case was discussed with Dr. Mooney we will start him on antibiotics Augmentin. Discharge Plan Triage Chief Complaint: Wound Check ED Provider: Diego Zamora Dx/Rx/DC Orders Clinical Impression: Cellulitis of foot, right, Open wound of right foot Instructions: ED Cellulitis Prescriptions: New amoxicillin-pot clavulanate [amoxicillin-pot clavulanate] 875 MG tablet 1 tab PO Q12H Qty: 19 RF: 0 No Action losartan 50 MG tablet 50 mg PO DAILY RF: 0 atorvastatin 10 MG tablet 10 mg PO DAILY RF: 0 insulin lispro 100 UNIT/ML insulin pen 8 unit SC TIDAC Qty: 1 RF: 0 insulin detemir U-100 100 UNIT/ML insulin pen 60 unit SQ DAILY Qty: 0 RF: 0 Trulicity 0.75 mg/0.5 mL pen injector 0.75 mg SUBCUT QWEEK RF: 0 lisinopril 10 mg tablet 10 mg PO DAILY RF: 0 Primary Care Provider: Say Prather Referrals: Lex Yeh DPM [STAFF PHYSICIAN] - As soon as possible Say Prather DO [Primary Care Provider] - Disposition Disposition: Home, Self Care
[2020-10-29] MEDS: Amox/Clavulanate 875 MG Tablet PO (22:04)
== END 2020-10-29 22:11 | disposition home or self-care (01) ==
PROVIDERS: Emergency Provider Emergency Medicine; PCP Preventive Medicine Occupational Medicine
DX: L03.115 Cellulitis of right lower limb (principal); S91.301A Unspecified open wound, right foot, initial encounter; E11.9 Type 2 diabetes mellitus without complications; I10 Essential (primary) hypertension; F17.200 Nicotine dependence, unspecified, uncomplicated; Z79.4 Long term (current) use of insulin; Z89.411 Acquired absence of right great toe; X58.XXXA Exposure to other specified factors, initial encounter; Y93.01 Activity, walking, marching and hiking; Y92.89 Other specified places as the place of occurrence of the external cause; Y99.8 Other external cause status
CPT/HCPCS: 99283

== ENCOUNTER 2020-12-15 10:45 | Outpatient (RCR) | payer OTHER, SELFPAY ==
[2020-12-08 10:11] VITALS: BP 150/79; PULSE 74; RESP 18; TEMP 36.1; BMI 38.9
--- NOTE | 2020-12-08 12:56 | PCM.WC.HP ---
History of Present Illness Date of Service: 12/08/20 Chief Complaint: Chronic right foot ulcer History of Wound: He had a prior amputation performed 08-27-2019 including a partial right hallux amputation for treatment of ulcers. He has significant previous history of recurrent ulcers and infections. This ulcer has been present since August 2019 and has ongoing delays in healing. He is changing the dressing at home with Betadine. He recently started offloading with a cam walker boot with offloading liners fabricated at [facility]. He had blood flow studies completed already. He denies redness, odor, streaking, fever, chill, nausea, vomiting. He denies pain. Progress of Wound: Stable [facility] Medical History Diabetes Hypertension Toe amputee Home Medications atorvastatin 10 mg PO DAILY 06/24/20 [History Last Taken 06/24/20] losartan 50 mg PO DAILY 06/24/20 [History Last Taken 06/24/20] insulin detemir U-100 60 unit SQ DAILY #0 06/28/20 [Rx Last Taken 06/24/20 11:45] insulin lispro 8 unit SC TIDAC #1 insuln.pen 06/28/20 [Rx Last Taken Unknown] dulaglutide [Trulicity] 0.75 mg SUBCUT QWEEK 09/09/20 [History Last Taken Unknown] lisinopril 10 mg PO DAILY 09/09/20 [History Last Taken Unknown] amoxicillin-pot clavulanate 1 tab PO Q12H #19 tablet 10/29/20 [Rx Last Taken Unknown] Allergy/AdvReac Type Severity Reaction Status Date / Time No Known Allergies Allergy Verified 10/29/20 19:48 Social History (Updated 10/29/20 @ 21:[address] Diego Zamora DO) Smoking Status: Current every day smoker tobacco type: smokeless tobacco substance use type: does not use Vital Signs Vital Signs Vital Signs: 12/08/20 10:11 Temperature 97 F L Temperature Source Temporal Pulse Rate 74 Respiratory Rate 18 Blood Pressure 150/79 H Blood Pressure Mean 102 Blood Pressure Source Monitor Blood Pressure Position Sitting Blood Pressure Location Left Arm Oxygen Delivery Method Room Air Weight Weight: 145.15 kg Body Mass Index (BMI) 38.9 Physical Exam Const alert and oriented x3 General Appearance: cooperative HEENT normocephalic Extremity Extremity Narrative: No calf tenderness Diminished pulses Muscle wasting noted Partial right hallux amputation noted with reduced loaded and unloaded range of motion at the first metatarsophalangeal joint General Extremity: edema and no tenderness to palpation of joints or extremities; Negative for cyanosis Skin Skin Narrative: no purulence, no streaking, no odor, no infection. 100% granular base ulcer with peripheral callus noted. No deep tissue exposure, necrosis. Adjacent skin is atrophic. No interdigital maceration or eschar General Skin Exam: Negative for erythema Neuro Neuro Narrative: lack of normal epicritic sensation via light touch is consistent with neuropathy status Psych cooperative and affect normal Debridement Note Debridement Note Wound debrided: Plantar right foot Wound Grade/Stage: 1 Type of Debridement: Excisional debridement Anesthesia Used: 4% Lidocaine Solution Depth: in the subcutaneous layer Percentage of wound debrided: 100 Instrument Used: #15 blade Tissue Removed: fibrous, devitalized subcutaneous, biofilm, slough Severity: Fat Layer Exposed Amount of bleeding with debridement: Mild Bleeding Controlled with: Pressure Patient tolerated procedure: Patient tolerated procedure well Post-Debridement Measurements and Additional Note: Post-Debridement Measurements/Treatment WC - Nurse 1 - General Ulcer Assessment Start: 12/08/20 10:11 Freq: Status: Active Protocol: [email or web address] Activity Type Activity Date Activity User E-Sign Co-Sign Detail Recorded Client Recorded Date Recorded By Document 12/08/20 10:11 GA Desktop 12/08/20 10:29 GA 12/08/20 10:11 - Today's Visit Information Type of service Initial Visit Arrival Mode Ambulatory Transfer Assist (Other) self Patient Identification Verified (Name & Yes ) Finger Stick Blood Sugar(mg/dl) (if 173 indicated): Blood Sugar Stated by Patient Height and Weight Height 6 ft 4 in Weight 145.15 kg Weight in Pounds 320.0 lbs Body Mass Index (BMI) 38.9 BMI Classification Obese BSA - Catherine 2.71 Vital Signs Temperature (97.8 F-99.1 F) 97 F L Temperature Source Temporal Pulse Rate (60-100) 74 Pulse Location Monitor Respiratory Rate (12-18) 18 Respiratory rate source Observation Oxygen Delivery Method Room Air Blood Pressure (90/60-120/80) 150/79 H Blood Pressure Mean 102 Source Monitor Position Sitting Blood Pressure Location Left Arm - Nurse 1 - General Ulcer Measurement Start: 12/08/20 10:11 Freq: Status: Active Protocol: Activity Type Activity Date Activity User E-Sign Co-Sign Detail Recorded Client Recorded Date Recorded By Document 12/08/20 10:11 GA Desktop 12/08/20 10:29 GA 12/08/20 10:11 Wound Center Nurse 1 #1 Right Great Toe Stub Plantar -Current Size (cm) - Length 1.4 -Current Size (cm) - Width 1.4 -Current Size (cm) - Depth 0.3 -Total Square Cm 1.96 -Date of Last Picture (Recall this 12/08/20 field) -Photo Taken Yes -Undermining/Tunneling Yes -Undermining/Tunneling Starts (O'clock 12 ) -Undermining/Tunneling Ends (O'clock) 12 -Maximum Distance (cm) 0.2 -Circular Undermining Yes -Wound Margin Thickened & Rolled Under -Granulation Amt Large (67-100%) -Granulation Quality Pale,Dubois,Red -Slough/Fibrin No -Texture (Us-wound Skin Appearance) Assessed,Callus -Moisture (Su-wound Skin Appearance) Assessed -Color (Su-wound Skin Appearance) Assessed -Temperature (Su-wound Skin No Abnormality Appearance) (Pt Warm) -Tenderness on Palpation (Su-wound No Skin Appearance) -Ulcer Cleansing Rinsed/ Irrigated with Saline -Foul Odor after Cleansing No -Anesthetic Used 4% Lidocaine Solution Lower Limb Edema Present NA WC - Nurse 2 - General Ulcer CM Notes Start: 12/08/20 10:11 Freq: Status: Active Protocol: Activity Type Activity Date Activity User E-Sign Co-Sign Detail Recorded Client Recorded Date Recorded By Document 12/08/20 10:38 KYLE [id number] 12/08/20 10:41 12/08/20 10:38 Wound Center Nurse 2 #1 Right Great Toe Stub Plantar -Time 10:39 -Correct Patient Yes -Correct Side, Site, Position Yes -Correct Procedure Yes -Procedure Performed Yes -Type of Procedure Debridement -Clinical Debridement Subcutaneous -Tissue Removed Subcutaneous -Post Debridement (cm) - Length 1.3 -Post Debridement (cm) - Width 1.2 -Post Debridement (cm) - Depth 0.1 -Total Square (Post) (cm) 1.56 -Area of Debridement (cm) - Length 1.3 -Area of Debridement (cm) - Width 1.2 -Total Square (Area) (cm) 1.56 -Tunneling No -Undermining/Tunneling No -Circular Undermining No -Wound/Ulcer Outcome Not Healed -Ulcer Cleansing Rinsed/ Irrigated with Saline -Foul Odor after Cleansing No -Bioengineered Tissue No -Bleeding Controlled with Pressure -Offloading Yes -Type of Offloading Camwalker -Treatment Response Procedure Tolerated Well -Debridement - Subq, 1st 20sq cm Yes Pain Scale: 0-10 Numeric Is Patient Pain Free? Yes - Nurse 3 - General Ulcer D/C NN Start: 12/08/20 10:11 Freq: Status: Active Protocol: Activity Type Activity Date Activity User E-Sign Co-Sign Detail Recorded Client Recorded Date Recorded By Document 12/08/20 11:02 Desktop 12/08/20 11:04 12/08/20 11:02 Wound Care Nurse 3 #1 Right Great Toe Stub Plantar -Ulcer Cleansing Rinsed/ Irrigated with Saline -Primary Dressing Applied Aquacel AG 4x4 -Primary Dressing Covered/Secured with Dry Gauze, Secured with Tape -Aquacel AG 4x4 1 Treatment Response Procedure Tolerated Well Pain Scale: 0-10 Numeric Is Patient Pain Free? Yes WC - Visit Discharge Discharge Condition Stable Ambulatory Status Ambulatory Transportation Private Auto Medication Reconcilliation completed & No provided to patient/care provider Clinical Summary of Care Provided Yes Assessment/Plan Assessment/Plan (1) Chronic ulcer of great toe of right foot with fat layer exposed: CODE(S): L97.512 - Non-pressure chronic ulcer of other part of right foot with fat layer exposed (2) Hallux limitus of right foot: CODE(S): M20.5X1 - Other deformities of toe(s) (acquired), right foot (3) Type 2 diabetes mellitus with diabetic polyneuropathy: CODE(S): E11.42 - Type 2 diabetes mellitus with diabetic polyneuropathy (4) Delayed wound healing: CODE(S): T14.8XXD - Other injury of unspecified body region, subsequent encounter PLAN: I reviewed and discussed his case today. Debridement was performed today as noted in the clinical panel to all of the ulcer sites. The following work up and care recommendations were made: Dressing: To change dressing daily with Aquacel Ag. Wash: To wash with soap and water. Tissue growth optimization: This has demonstrated delayed healing and he has had a chronic ulcer for over 1 year. I recommend application of advanced wound healing product to stimulate the healing potential. I recommend epi fix advanced wound healing product which is placental derived. Prior authorization will be obtained. This is medically necessary for limb salvage. Is noted he already has amputations. Offload: To limit heel weightbearing activity with a cam walker boot with Plastizote offloading liner pockets. To use assistive device. I ultimately recommended the gold standard offloading which is a total contact cast and he defers at this time because he needs to be able to drive. Vascular: Noninvasive vascular studies were reviewed from with bilateral triphasic waveforms at the ankle level and normal left and right ABIs. Edema: To periodically elevate throughout the day. Is okay to use Tubigrip. Infection: There are no local or systemic signs of infection today and do not recommend a culture or antibiotics. Pain: This is controlled secondary to neuropathy Host factors: He is uncontrolled diabetes and he was advised on proper nutrition to optimize healing. His last A1c level was 8.8% in 06-25-20. Labs: He did not have leukocytosis or other gross abnormalities on 09-09-20. Imaging: His foot x-rays were reviewed from with partial right hallux amputation noted and no other osseous destruction, soft tissue emphysema or foreign body. I will see if he has updated x-rays more recent from the [facility] Center. If not updated x-rays will be ordered at follow-up visit. I answered all the patient's questions. To return to the wound healing center in 1 week or call sooner if the patient has any questions or concerns. Note: [employer] speech recognition refrigerating engineer head software was used to create portions of this document. Sound-alike and misspelled words, as well as other refrigerating engineer head errors may be contained in the documentation. 21 minutes was spent on this encounter. This included face to face and non face to face care including preparing for the visit, reviewing the history, performing the exam, counseling and providing education to the patient, family, or caregiver, ordering medications/test/ procedures if indicated as documented, communicating with other healthcare providers, documenting information in the medical record, interpreting / sharing this information when indicated as documented, and care coordination.
[2020-12-15 11:15] VITALS: BP 153/77; PULSE 68; RESP 16; TEMP 36.4; BMI 38.9
--- NOTE | 2020-12-15 12:56 | PCM.WC.PN ---
History of Present Illness Date of Service: 12/15/20 Chief Complaint: Chronic right foot ulcer History of Wound: He had a prior amputation performed 08-27-2019 including a partial right hallux amputation for treatment of ulcers. He has significant previous history of recurrent ulcers and infections. This ulcer has been present since August 2019 and has ongoing delays in healing. He recently started offloading with a cam walker boot with offloading liners [facility]. He denies redness, odor, streaking, fever, chill, nausea, vomiting. He denies pain. Progress of Wound: Stable Objective Data Objective Data Vital Signs: Vital Signs Temp Pulse Resp BP 97.6 F L 68 16 153/77 H 12/15/20 11:15 12/15/20 11:15 12/15/20 11:15 12/15/20 11:15 Oxygen Delivery Method Room Air Weight: 145.15 kg Body Mass Index (BMI) 38.9 Physical Exam Const alert and oriented x3 General Appearance: cooperative HEENT normocephalic Extremity Extremity Narrative: No calf tenderness Diminished pulses Muscle wasting noted Partial right hallux amputation noted with reduced loaded and unloaded range of motion at the first metatarsophalangeal joint General Extremity: edema and no tenderness to palpation of joints or extremities; Negative for cyanosis Skin Skin Narrative: no purulence, no streaking, no odor, no infection. 100% granular base ulcer with peripheral callus noted. No deep tissue exposure, necrosis. Adjacent skin is atrophic. No interdigital maceration or eschar General Skin Exam: Negative for erythema Neuro Neuro Narrative: lack of normal epicritic sensation via light touch is consistent with neuropathy status Psych cooperative and affect normal Debridement Note Debridement Note Wound debrided: Plantar right hallux Wound Grade/Stage: 1 Type of Debridement: Excisional debridement Anesthesia Used: 4% Lidocaine Solution Depth: in the subcutaneous layer Percentage of wound debrided: 100 Instrument Used: #15 blade Tissue Removed: fibrous, devitalized subcutaneous, biofilm, slough Severity: Fat Layer Exposed Amount of bleeding with debridement: Mild Bleeding Controlled with: Pressure Patient tolerated procedure: Patient tolerated procedure well Post-Debridement Measurements and Additional Note: Post-Debridement Measurements/Treatment MIRIAM - Nurse 1 - General Ulcer Assessment Start: 12/08/20 10:11 Freq: Status: Active Protocol: RIZWAN Activity Type Activity Date Activity User E-Sign Co-Sign Detail Recorded Client Recorded Date Recorded By Document 12/08/20 10:11 SD [employer] 12/08/20 10:29 SD Document 12/15/20 11:15 [facility] [id number] 12/15/20 11:20 [facility] 12/08/20 12/15/20 10:11 11:15 - Today's Visit Information Type of service Initial Visit Follow-up Visit (Physician/COMMUNITY RESOURCE OFFICER ) Arrival Mode Ambulatory Ambulatory Transfer Assistance None Transfer Assist (Other) self Patient Identification Verified (Name & Yes Yes ) Patient Requires Transmission-Based No Precautions Finger Stick Blood Sugar(mg/dl) (if 173 183 indicated): Blood Sugar Stated by Stated by Patient Patient Height and Weight Height 6 ft 4 in Weight 145.15 kg Weight in Pounds 320.0 lbs Body Mass Index (BMI) 38.9 38.9 BMI Classification Obese Obese BSA - Catherine 2.71 Vital Signs Temperature (97.8 F-99.1 F) 97 F L 97.6 F L Temperature Source Temporal Temporal Pulse Rate (60-100) 74 68 Pulse Location Monitor Monitor Respiratory Rate (12-18) 18 16 Respiratory rate source Observation Observation Oxygen Delivery Method Room Air Room Air Blood Pressure (90/60-120/80) 150/79 H 153/77 H Blood Pressure Mean (mm Hg) 102 102 Source Monitor Monitor Position Sitting Sitting Blood Pressure Location Left Arm Right Arm History Since Last Visit- (Skip if this is Patient's initial visit) Have you changed medications since your No last visit? Any new allergies or adverse reactions No Had a fall/change in ADL's that may No increase risk of falls Signs or symptoms of abuse and/or No neglect since last visit Have you been in the hospital since your No last visit? Has dressing in place as prescribed Yes Has compression in place as prescribed N/A Has offloadiing in place as prescribed Yes Experienced any changes in pain level or No management Left Footwear Regular Shoe Right Footwear Removable Cast Walker/Walking Boot Pain Scale: 0-10 Numeric Is Patient Pain Free? Yes - Nurse 1 - General Ulcer Measurement Start: 12/08/20 10:11 Freq: Status: Active Protocol: Activity Type Activity Date Activity User E-Sign Co-Sign Detail Recorded Client Recorded Date Recorded By Document 12/08/20 10:11 SD [employer] 12/08/20 10:29 SD Document 12/15/20 11:15 [facility] [id number] 12/15/20 11:20 [facility] 12/08/20 12/15/20 10:11 11:15 Wound Center Nurse 1 #1 Right Great Toe Stub Plantar -Combined with other wound No -Current Size (cm) - Length 1.4 1 -Current Size (cm) - Width 1.4 1.5 -Current Size (cm) - Depth 0.3 0.3 -Total Square Cm 1.96 1.5 -Date of Last Picture (Recall this 12/08/20 field) -Photo Taken Yes No -Epithelialization None Present -Tunneling No -Undermining/Tunneling Yes No -Undermining/Tunneling Starts (O'clock 12 ) -Undermining/Tunneling Ends (O'clock) 12 -Maximum Distance (cm) 0.2 -Circular Undermining Yes No -Exudate Amt Medium -Exudate Type Serosanguineous -Wound Margin Thickened & Distinct, Rolled Under Outline Attached -Granulation Amt Large (67-100%) Large (67-100%) -Granulation Quality Pale,[place],Red [place] -Slough/Fibrin No Yes -Necrosis Amt Small (1-33%) -Necrotic Tissue Type Adherent Slough -Texture (Su-wound Skin Appearance) Assessed,Callus Assessed,Callus ,Scarring -Moisture (Su-wound Skin Appearance) Assessed Assessed -Color (Su-wound Skin Appearance) Assessed Assessed -Temperature (Su-wound Skin No Abnormality No Abnormality Appearance) (Pt Warm) (Pt Warm) -Tenderness on Palpation (Su-wound No No Skin Appearance) -Ulcer Cleansing Rinsed/ Rinsed/ Irrigated with Irrigated with Saline Saline -Foul Odor after Cleansing No No -Anesthetic Used 4% Lidocaine 4% Lidocaine Solution Solution Lower Limb Edema Present NA WC - Nurse 2 - General Ulcer CM Notes Start: 12/08/20 10:11 Freq: Status: Active Protocol: Activity Type Activity Date Activity User E-Sign Co-Sign Detail Recorded Client Recorded Date Recorded By Document 12/08/20 10:38 [id number] 12/08/20 10:41 Document 12/15/20 11:28 [id number] 12/15/20 11:32 12/08/20 12/15/20 10:38 11:28 Wound Center Nurse 2 #1 Right Great Toe Stub Plantar -Time 10:39 11:29 -Correct Patient Yes Yes -Correct Side, Site, Position Yes Yes -Correct Procedure Yes Yes -Procedure Performed Yes Yes -Type of Procedure Debridement Debridement -Clinical Debridement Subcutaneous Subcutaneous -Tissue Removed Subcutaneous Subcutaneous -Post Debridement (cm) - Length 1.3 1.3 -Post Debridement (cm) - Width 1.2 1.3 -Post Debridement (cm) - Depth 0.1 0.1 -Total Square (Post) (cm) 1.56 1.69 -Area of Debridement (cm) - Length 1.3 1.3 -Area of Debridement (cm) - Width 1.2 1.3 -Total Square (Area) (cm) 1.56 1.69 -Tunneling No No -Undermining/Tunneling No No -Circular Undermining No No -Wound/Ulcer Outcome Not Healed Not Healed -Ulcer Cleansing Rinsed/ Rinsed/ Irrigated with Irrigated with Saline Saline -Foul Odor after Cleansing No No -Bioengineered Tissue No Yes -Type of Bioengineered Tissue Epifix 18mm Disc -Expiration Date 08/17/25 -Product Lot Number [id number] -Percent Used 100 -Lot number of Saline Used [id number] -Bleeding Controlled with Pressure Pressure -Offloading Yes Yes -Type of Offloading Camwalker Camwalker -Treatment Response Procedure Procedure Tolerated Well Tolerated Well -Debridement - Subq, 1st 20sq cm Yes No -Apply Skin Sub - 1st 25 sq cm - Feet 1 -Epifix 18mm Disc 3 Pain Scale: 0-10 Numeric Is Patient Pain Free? Yes Yes WC - Nurse 3 - General Ulcer D/C NN Start: 12/08/20 10:11 Freq: Status: Active Protocol: Activity Type Activity Date Activity User E-Sign Co-Sign Detail Recorded Client Recorded Date Recorded By Document 12/08/20 11:02 RB Desktop 12/08/20 11:04 RB Document 12/15/20 11:40 DL [id number] 12/15/20 11:41 DL 12/08/20 12/15/20 11:02 11:40 Wound Care Nurse 3 #1 Right Great Toe Stub Plantar -Ulcer Cleansing Rinsed/ Irrigated with Saline -Foul Odor after Cleansing No -Primary Dressing Applied Aquacel AG 4x4 -Primary Dressing Covered/Secured with Dry Gauze, Dry Gauze, Secured with Secured with Tape Tape -[email or web address] AG 4x4 1 Treatment Response Procedure Procedure Tolerated Well Tolerated Well Pain Scale: 0-10 Numeric Is Patient Pain Free? Yes Yes WC - Visit Discharge Discharge Condition Stable Stable Ambulatory Status Ambulatory Ambulatory Transportation Private Auto Private Auto Medication Reconcilliation completed & No provided to patient/care provider Clinical Summary of Care Provided Yes Assessment/Plan Assessment/Plan (1) Chronic ulcer of great toe of right foot with fat layer exposed: CODE(S): L97.512 - Non-pressure chronic ulcer of other part of right foot with fat layer exposed (2) Hallux limitus of right foot: CODE(S): M20.5X1 - Other deformities of toe(s) (acquired), right foot (3) Type 2 diabetes mellitus with diabetic polyneuropathy: CODE(S): E11.42 - Type 2 diabetes mellitus with diabetic polyneuropathy (4) Delayed wound healing: CODE(S): T14.8XXD - Other injury of unspecified body region, subsequent encounter PLAN: I reviewed and discussed his case today. Debridement was performed today as noted in the clinical panel to all of the ulcer sites. The following work up and care recommendations were made: To keep secondary dressing clean, dry, and intact until follow-up next week. Tissue growth optimization: This has demonstrated delayed healing and he has had a chronic ulcer for over 1 year. I recommend application of advanced wound healing product to stimulate the healing potential. I recommend epi fix advanced wound healing product which is placental derived. Prior authorization was obtained. This is medically necessary for limb salvage. Is noted he already has amputations. Verbal consent was obtained and epi fix was applied according to standard protocol. This was secured in place with a wound veil and Steri-Strips. He tolerated this well. 100% of the product was utilized. Offload: To limit heel weightbearing activity with a cam walker boot with Plastizote offloading liner pockets. To use assistive device. I ultimately recommended the gold standard offloading which is a total contact cast and he defers at this time because he needs to be able to drive. Vascular: Noninvasive vascular studies were reviewed from with bilateral triphasic waveforms at the ankle level and normal left and right ABIs. Edema: To periodically elevate throughout the day. Is okay to use Tubigrip. Infection: There are no local or systemic signs of infection today and do not recommend a culture or antibiotics. Pain: This is controlled secondary to neuropathy Host factors: He is uncontrolled diabetes and he was advised on proper nutrition to optimize healing. His last A1c level was 8.8% in 06-25-20. Labs: He did not have leukocytosis or other gross abnormalities on 09-09-20. Imaging: His foot x-rays were reviewed from with partial right hallux amputation noted and no other osseous destruction, soft tissue emphysema or foreign body. I will see if he has updated x-rays more recent from the [facility]. If not updated x-rays will be ordered at follow-up visit. I answered all the patient's questions. To return to the wound healing center in 1 week or call sooner if the patient has any questions or concerns. Note: [employer] speech recognition motion pictures cartoonist software was used to create portions of this document. Sound-alike and misspelled words, as well as other motion pictures cartoonist errors may be contained in the documentation.
== END 2020-12-16 23:59 ==
LOC: WC 10:45
PROVIDERS: PCP Preventive Medicine Occupational Medicine; Visit Provider Podiatrist
DX: E11.621 Type 2 diabetes mellitus with foot ulcer (principal); L97.512 Non-pressure chronic ulcer of other part of right foot with fat layer exposed; M20.5X1 Other deformities of toe(s) (acquired), right foot; T14.8XXD Other injury of unspecified body region, subsequent encounter; E11.65 Type 2 diabetes mellitus with hyperglycemia; E11.42 Type 2 diabetes mellitus with diabetic polyneuropathy; I10 Essential (primary) hypertension; F17.200 Nicotine dependence, unspecified, uncomplicated; Z79.4 Long term (current) use of insulin
CPT/HCPCS: 11042; 15275; 99213; Q4186; G0463

== ENCOUNTER 2021-01-12 10:45 | Outpatient (RCR) | payer OTHER, SELFPAY ==
[2020-12-17 00:39] VITALS: BP 153/77; PULSE 68; RESP 16; TEMP 36.4; BMI 38.9
[2020-12-22 10:32] VITALS: BP 144/86; PULSE 76; RESP 18; TEMP 36.2; BMI 38.9
--- NOTE | 2020-12-22 11:21 | PCM.WC.PN ---
History of Present Illness Date of Service: 12/22/20 Chief Complaint: Chronic right foot ulcer History of Wound: He had a prior amputation performed 08-27-2019 including a partial right hallux amputation for treatment of ulcers. He has significant previous history of recurrent ulcers and infections. This ulcer has been present since August 2019 and has ongoing delays in healing. He recently started offloading with a cam walker boot with offloading liners fabricated at the [facility]. He denies redness, odor, streaking, fever, chill, nausea, vomiting. He denies pain. He kept his epi fix and dressing clean, dry, and intact this past week. Progress of Wound: Improving Objective Data Objective Data Vital Signs: Vital Signs Temp Pulse Resp BP 97.1 F L 76 18 144/86 H 12/22/20 10:32 12/22/20 10:32 12/22/20 10:32 12/22/20 10:32 Weight: 145.15 kg Body Mass Index (BMI) 38.9 Physical Exam Const alert and oriented x3 General Appearance: cooperative HEENT normocephalic Extremity Extremity Narrative: No calf tenderness Diminished pulses Muscle wasting noted Partial right hallux amputation noted with reduced loaded and unloaded range of motion at the first metatarsophalangeal joint General Extremity: edema and no tenderness to palpation of joints or extremities; Negative for cyanosis Skin Skin Narrative: no purulence, no streaking, no odor, no infection. 100% granular base ulcer with peripheral callus noted. No deep tissue exposure, necrosis. Adjacent skin is atrophic. No interdigital maceration or eschar General Skin Exam: Negative for erythema Neuro Neuro Narrative: lack of normal epicritic sensation via light touch is consistent with neuropathy status Psych cooperative and affect normal Debridement Note Debridement Note Wound debrided: Plantar first metatarsal head left Wound Grade/Stage: 1 Type of Debridement: Excisional debridement Anesthesia Used: 4% Lidocaine Solution Depth: in the subcutaneous layer Percentage of wound debrided: 100 Instrument Used: #15 blade Tissue Removed: fibrous, devitalized subcutaneous, biofilm, slough Severity: Fat Layer Exposed Amount of bleeding with debridement: Mild Bleeding Controlled with: Pressure Patient tolerated procedure: Patient tolerated procedure well Post-Debridement Measurements and Additional Note: Post-Debridement Measurements/Treatment WC - Nurse 1 - General Ulcer Assessment Start: 12/22/20 10:32 Freq: Status: Active Protocol: WC.LOWEXT Activity Type Activity Date Activity User E-Sign Co-Sign Detail Recorded Client Recorded Date Recorded By Document 12/22/20 10:32 RB [id number] 12/22/20 10:35 12/22/20 10:32 - Today's Visit Information Type of service Follow-up Visit (Physician/PROJECT DIRECTOR ) Arrival Mode Ambulatory Transfer Assistance None Patient Identification Verified (Name & Yes ) Patient Requires Transmission-Based No Precautions Height and Weight Body Mass Index (BMI) 38.9 BMI Classification Obese Vital Signs Temperature (97.8 F-99.1 F) 97.1 F L Temperature Source Temporal Pulse Rate (60-100) 76 Respiratory Rate (12-18) 18 Respiratory rate source Observation Blood Pressure (90/60-120/80) 144/86 H Blood Pressure Mean (mm Hg) 105 Source Monitor Position Sitting Blood Pressure Location Left Arm History Since Last Visit- (Skip if this is Patient's initial visit) Have you changed medications since your No last visit? Any new allergies or adverse reactions No Had a fall/change in ADL's that may No increase risk of falls Signs or symptoms of abuse and/or No neglect since last visit Have you been in the hospital since your No last visit? Has dressing in place as prescribed Yes Has compression in place as prescribed No Has offloadiing in place as prescribed Yes Experienced any changes in pain level or No management Left Footwear Regular Shoe Right Footwear Surgical Shoe with pressure relief insole Pain Scale: 0-10 Numeric Is Patient Pain Free? Yes - Nurse 1 - General Ulcer Measurement Start: 12/22/20 10:32 Freq: Status: Active Protocol: Activity Type Activity Date Activity User E-Sign Co-Sign Detail Recorded Client Recorded Date Recorded By Document 12/22/20 10:32 RB [id number] 12/22/20 10:35 RB 12/22/20 10:32 Wound Center Nurse 1 #1 Right Great Toe Stub Plantar -Combined with other wound No -Current Size (cm) - Length 0.8 -Current Size (cm) - Width 1.1 -Current Size (cm) - Depth 0.2 -Total Square Cm 0.88 -Tunneling No -Undermining/Tunneling No -Circular Undermining No -Exudate Amt Medium -Exudate Type Serosanguineous -Wound Margin Distinct, Outline Attached -Granulation Amt Medium (34-66%) -Granulation Quality Red -Slough/Fibrin Yes -Necrosis Amt Small (1-33%) -Necrotic Tissue Type Adherent Slough -Structure Exposed N/A -Texture (Su-wound Skin Appearance) Callus -Moisture (Su-wound Skin Appearance) Assessed -Color (Su-wound Skin Appearance) Assessed -Temperature (Su-wound Skin No Abnormality Appearance) (Pt Warm) -Tenderness on Palpation (Su-wound No Skin Appearance) -Ulcer Cleansing Wound Cleanser -Foul Odor after Cleansing No -Anesthetic Used 4% Lidocaine Solution MIRIAM - Nurse 2 - General Ulcer CM Notes Start: 12/22/20 10:32 Freq: Status: Active Protocol: Activity Type Activity Date Activity User E-Sign Co-Sign Detail Recorded Client Recorded Date Recorded By Document 12/22/20 10:48 KYLE [id number] 12/22/20 10:51 KYLE 12/22/20 10:48 Wound Center Nurse 2 -Time 10:49 -Correct Patient Yes -Correct Side, Site, Position Yes -Correct Procedure Yes -Procedure Performed Yes -Type of Procedure Debridement -Clinical Debridement Subcutaneous -Tissue Removed Subcutaneous -Post Debridement (cm) - Length 0.8 -Post Debridement (cm) - Width 1.2 -Post Debridement (cm) - Depth 0.2 -Total Square (Post) (cm) 0.96 -Area of Debridement (cm) - Length 0.8 -Area of Debridement (cm) - Width 1.2 -Total Square (Area) (cm) 0.96 -Tunneling No -Undermining/Tunneling No -Circular Undermining No -Wound/Ulcer Outcome Not Healed -Ulcer Cleansing Rinsed/ Irrigated with Saline -Bioengineered Tissue Yes -Type of Bioengineered Tissue Epifix 18mm Disc -Expiration Date 09/16/25 -Product Lot Number [id number] -Percent Used 100 -Lot number of Saline Used [id number] -Bleeding Controlled with Pressure -Offloading Yes -Type of Offloading Camwalker -Treatment Response Procedure Tolerated Well -Debridement - Subq, 1st 20sq cm No -Apply Skin Sub - 1st 25 sq cm - Feet 1 -Epifix 18mm Disc 3 Pain Scale: 0-10 Numeric Is Patient Pain Free? Yes MIRIAM - Nurse 3 - General Ulcer D/C NN Start: 12/22/20 10:32 Freq: Status: Active Protocol: Activity Type Activity Date Activity User E-Sign Co-Sign Detail Recorded Client Recorded Date Recorded By Document 12/22/20 11:04 RB [id number] 12/22/20 11:04 LEAH 12/22/20 11:04 Wound Care Nurse 3 #1 Right Great Toe Stub Plantar -Primary Dressing Covered/Secured with Dry Gauze,Dry Gauze & Roll Gauze,Secured with Tape Treatment Response Procedure Tolerated Well Pain Scale: 0-10 Numeric Is Patient Pain Free? Yes WC - Visit Discharge Discharge Condition Stable Ambulatory Status Ambulatory Transportation Private Auto Medication Reconcilliation completed & No provided to patient/care provider Clinical Summary of Care Provided Yes Assessment/Plan Assessment/Plan (1) Chronic ulcer of great toe of right foot with fat layer exposed: CODE(S): L97.512 - Non-pressure chronic ulcer of other part of right foot with fat layer exposed (2) Hallux limitus of right foot: CODE(S): M20.5X1 - Other deformities of toe(s) (acquired), right foot (3) Type 2 diabetes mellitus with diabetic polyneuropathy: CODE(S): E11.42 - Type 2 diabetes mellitus with diabetic polyneuropathy (4) Delayed wound healing: CODE(S): T14.8XXD - Other injury of unspecified body region, subsequent encounter PLAN: I reviewed and discussed his case today. Debridement was performed today as noted in the clinical panel to all of the ulcer sites. The following work up and care recommendations were made: To keep secondary dressing clean, dry, and intact until follow-up next week. Tissue growth optimization: This has demonstrated delayed healing and he has had a chronic ulcer for over 1 year. I recommend application of advanced wound healing product to stimulate the healing potential. I recommend epi fix advanced wound healing product which is placental derived. Prior authorization was obtained. This is medically necessary for limb salvage. Is noted he already has amputations. Verbal consent was obtained and epi fix was applied according to standard protocol. This was secured in place with a wound veil and Steri-Strips. He tolerated this well. 100% of the product was utilized. Offload: To limit heel weightbearing activity with a cam walker boot with Plastizote offloading liner pockets. To use assistive device. I ultimately recommended the gold standard offloading which is a total contact cast and he defers at this time because he needs to be able to drive. Vascular: Noninvasive vascular studies were reviewed from with bilateral triphasic waveforms at the ankle level and normal left and right ABIs. Edema: To periodically elevate throughout the day. Is okay to use Tubigrip. Infection: There are no local or systemic signs of infection today and do not recommend a culture or antibiotics. Pain: This is controlled secondary to neuropathy Host factors: He is uncontrolled diabetes and he was advised on proper nutrition to optimize healing. His last A1c level was 8.8% in 06-25-20. Labs: He did not have leukocytosis or other gross abnormalities on 09-09-20. Imaging: His foot x-rays were reviewed from with partial right hallux amputation noted and no other osseous destruction, soft tissue emphysema or foreign body. I will see if he has updated x-rays more recent from the [facility]. If not updated x-rays will be ordered at follow-up visit. I answered all the patient's questions. To return to the wound healing center in 1 week or call sooner if the patient has any questions or concerns. Note: [employer] speech recognition medical records tech software was used to create portions of this document. Sound-alike and misspelled words, as well as other medical records tech errors may be contained in the documentation.
[2020-12-29 10:39] VITALS: BP 137/74; PULSE 75; RESP 18; TEMP 36.6; BMI 38.9
--- NOTE | 2020-12-29 11:46 | PCM.WC.PN ---
History of Present Illness Date of Service: 12/29/20 Chief Complaint: Chronic right foot ulcer History of Wound: He had a prior amputation performed 08-27-2019 including a partial right hallux amputation for treatment of ulcers. He has significant previous history of recurrent ulcers and infections. This ulcer has been present since August 2019 and has ongoing delays in healing. He is offloading with a cam walker boot. He denies redness, odor, streaking, fever, chill, nausea, vomiting. He denies pain. He kept his epi fix and dressing clean, dry, and intact this past week. Progress of Wound: Improving Objective Data Objective Data Vital Signs: Vital Signs Temp Pulse Resp BP 97.8 F 75 18 137/74 H 12/29/20 10:39 12/29/20 10:39 12/29/20 10:39 12/29/20 10:39 Weight: 145.15 kg Body Mass Index (BMI) 38.9 Physical Exam Extremity Extremity Narrative: No calf tenderness Diminished pulses Muscle wasting noted Partial right hallux amputation noted with reduced loaded and unloaded range of motion at the first metatarsophalangeal joint Skin Skin Narrative: no purulence, no streaking, no odor, no infection. 100% granular base ulcer with peripheral callus noted. No deep tissue exposure, necrosis. Adjacent skin is atrophic. No interdigital maceration or eschar Neuro Neuro Narrative: lack of normal epicritic sensation via light touch is consistent with neuropathy status Debridement Note Debridement Note Wound debrided: right plantar medial foot Wound Grade/Stage: 1 Type of Debridement: Excisional debridement Anesthesia Used: 4% Lidocaine Solution Depth: in the subcutaneous layer Percentage of wound debrided: 100 Instrument Used: #15 blade Tissue Removed: fibrous, devitalized subcutaneous, biofilm, slough Severity: Fat Layer Exposed Amount of bleeding with debridement: Mild Bleeding Controlled with: Pressure Patient tolerated procedure: Patient tolerated procedure well Post-Debridement Measurements and Additional Note: Post-Debridement Measurements/Treatment WC - Nurse 1 - General Ulcer Assessment Start: 12/22/20 10:32 Freq: Status: Active Protocol: RIZWAN Activity Type Activity Date Activity User E-Sign Co-Sign Detail Recorded Client Recorded Date Recorded By Document 12/22/20 10:32 RB [id number] 12/22/20 10:35 RB Document 12/29/20 10:39 RB [id number] 12/29/20 10:41 RB 12/22/20 12/29/20 10:32 10:39 - Today's Visit Information Type of service Follow-up Visit Follow-up Visit (Physician/BAR TENDER (Physician/BAR TENDER ) ) Arrival Mode Ambulatory Ambulatory Transfer Assistance None None Patient Identification Verified (Name & Yes Yes ) Patient Requires Transmission-Based No No Precautions Height and Weight Body Mass Index (BMI) 38.9 38.9 BMI Classification Obese Obese Vital Signs Temperature (97.8 F-99.1 F) 97.1 F L 97.8 F Temperature Source Temporal Temporal Pulse Rate (60-100) 76 75 Pulse Location Monitor Respiratory Rate (12-18) 18 18 Respiratory rate source Observation Observation Blood Pressure (90/60-120/80) 144/86 H 137/74 H Blood Pressure Mean (mm Hg) 105 95 Source Monitor Monitor Position Sitting Semi-Fowlers Blood Pressure Location Left Arm Left Arm History Since Last Visit- (Skip if this is Patient's initial visit) Have you changed medications since your No No last visit? Any new allergies or adverse reactions No No Had a fall/change in ADL's that may No No increase risk of falls Signs or symptoms of abuse and/or No No neglect since last visit Have you been in the hospital since your No No last visit? Has dressing in place as prescribed Yes Yes Has compression in place as prescribed No No Has offloadiing in place as prescribed Yes Yes Experienced any changes in pain level or No No management Left Footwear Regular Shoe Regular Shoe Right Footwear Surgical Shoe Regular Shoe with pressure relief insole Pain Scale: 0-10 Numeric Is Patient Pain Free? Yes Yes - Nurse 1 - General Ulcer Measurement Start: 12/22/20 10:32 Freq: Status: Active Protocol: Activity Type Activity Date Activity User E-Sign Co-Sign Detail Recorded Client Recorded Date Recorded By Document 12/22/20 10:32 RB [id number] 12/22/20 10:35 RB Document 12/29/20 10:39 RB [id number] 12/29/20 10:41 RB 12/22/20 12/29/20 10:32 10:39 Wound Center Nurse 1 #1 Right Great Toe Stub Plantar -Combined with other wound No No -Current Size (cm) - Length 0.8 0.7 -Current Size (cm) - Width 1.1 0.7 -Current Size (cm) - Depth 0.2 0.1 -Total Square Cm 0.88 0.49 -Tunneling No No -Undermining/Tunneling No No -Circular Undermining No No -Exudate Amt Medium Medium -Exudate Type Serosanguineous Serosanguineous -Wound Margin Distinct, Distinct, Outline Outline Attached Attached -Granulation Amt Medium (34-66%) Medium (34-66%) -Granulation Quality [place] -Slough/Fibrin Yes Yes -Necrosis Amt Small (1-33%) Small (1-33%) -Necrotic Tissue Type Adherent Slough Adherent Slough -Structure Exposed N/A N/A -Texture (Su-wound Skin Appearance) Callus Callus -Moisture (Su-wound Skin Appearance) Assessed Assessed -Color (Su-wound Skin Appearance) Assessed Assessed -Temperature (Su-wound Skin No Abnormality No Abnormality Appearance) (Pt Warm) (Pt Warm) -Tenderness on Palpation (Su-wound No No Skin Appearance) -Ulcer Cleansing Wound Cleanser Wound Cleanser -Foul Odor after Cleansing No No -Anesthetic Used 4% Lidocaine 4% Lidocaine Solution Solution WC - Nurse 2 - General Ulcer CM Notes Start: 12/22/20 10:32 Freq: Status: Active Protocol: Activity Type Activity Date Activity User E-Sign Co-Sign Detail Recorded Client Recorded Date Recorded By Document 12/22/20 10:48 [id number] 12/22/20 10:51 Document 12/29/20 11:04 [id number] 12/29/20 11:08 12/22/20 12/29/20 10:48 11:04 Wound Center Nurse 2 #1 Right Great Toe Stub Plantar -Time 10:49 11:04 -Correct Patient Yes Yes -Correct Side, Site, Position Yes Yes -Correct Procedure Yes Yes -Procedure Performed Yes Yes -Type of Procedure Debridement Debridement -Clinical Debridement Subcutaneous Subcutaneous -Tissue Removed Subcutaneous Subcutaneous -Post Debridement (cm) - Length 0.8 0.8 -Post Debridement (cm) - Width 1.2 0.7 -Post Debridement (cm) - Depth 0.2 0.1 -Total Square (Post) (cm) 0.96 0.56 -Area of Debridement (cm) - Length 0.8 0.8 -Area of Debridement (cm) - Width 1.2 0.7 -Total Square (Area) (cm) 0.96 0.56 -Tunneling No No -Undermining/Tunneling No No -Circular Undermining No No -Wound/Ulcer Outcome Not Healed Not Healed -Ulcer Cleansing Rinsed/ Rinsed/ Irrigated with Irrigated with Saline Saline -Foul Odor after Cleansing No -Bioengineered Tissue Yes Yes -Type of Bioengineered Tissue Epifix 18mm Epifix 18mm Disc Disc -Expiration Date 09/16/25 09/16/25 -Product Lot Number [id number] -Percent Used 100 100 -Lot number of Saline Used [id number] -Bleeding Controlled with Pressure Pressure -Offloading Yes Yes -Type of Offloading Camwalker Camwalker -Treatment Response Procedure Procedure Tolerated Well Tolerated Well -Debridement - Subq, 1st 20sq cm No No -Apply Skin Sub - 1st 25 sq cm - Feet 1 1 -Epifix 18mm Disc 3 3 Pain Scale: 0-10 Numeric Is Patient Pain Free? Yes Yes - Nurse 3 - General Ulcer D/C NN Start: 12/22/20 10:32 Freq: Status: Active Protocol: Activity Type Activity Date Activity User E-Sign Co-Sign Detail Recorded Client Recorded Date Recorded By Document 12/22/20 11:04 RB [id number] 12/22/20 11:04 RB Document 12/29/20 11:15 DL [id number] 12/29/20 11:16 DL 12/22/20 12/29/20 11:04 11:15 Wound Care Nurse 3 #1 Right Great Toe Stub Plantar -Foul Odor after Cleansing No -Other Dressing EpiFix -Primary Dressing Covered/Secured with Dry Gauze,Dry Dry Gauze & Gauze & Roll Roll Gauze, Gauze,Secured Secured with with Tape Tape Treatment Response Procedure Procedure Tolerated Well Tolerated Well Pain Scale: 0-10 Numeric Is Patient Pain Free? Yes Yes - Visit Discharge Discharge Condition Stable Stable Ambulatory Status Ambulatory Ambulatory Transportation Private Auto Private Auto Medication Reconcilliation completed & No provided to patient/care provider Clinical Summary of Care Provided Yes Assessment/Plan Assessment/Plan (1) Chronic ulcer of great toe of right foot with fat layer exposed: CODE(S): L97.512 - Non-pressure chronic ulcer of other part of right foot with fat layer exposed (2) Hallux limitus of right foot: CODE(S): M20.5X1 - Other deformities of toe(s) (acquired), right foot (3) Type 2 diabetes mellitus with diabetic polyneuropathy: CODE(S): E11.42 - Type 2 diabetes mellitus with diabetic polyneuropathy (4) Delayed wound healing: CODE(S): T14.8XXD - Other injury of unspecified body region, subsequent encounter PLAN: I reviewed and discussed his case today. Debridement was performed today as noted in the clinical panel to all of the ulcer sites. The following work up and care recommendations were made: To keep secondary dressing clean, dry, and intact until follow-up next week. Tissue growth optimization: This has demonstrated delayed healing and he has had a chronic ulcer for over 1 year. I recommend application of advanced wound healing product to stimulate the healing potential. I recommend epi fix advanced wound healing product which is placental derived. Prior authorization was obtained. This is medically necessary for limb salvage. Is noted he already has amputations. Verbal consent was obtained and epi fix was applied according to standard protocol. This was secured in place with a wound veil and Steri-Strips. He tolerated this well. 100% of the product was utilized. Offload: To limit heel weightbearing activity with a cam walker boot with Plastizote offloading liner pockets. To use assistive device. I ultimately recommended the gold standard offloading which is a total contact cast and he defers at this time because he needs to be able to drive. Vascular: Noninvasive vascular studies were reviewed from with bilateral triphasic waveforms at the ankle level and normal left and right ABIs. Edema: To periodically elevate throughout the day. Is okay to use Tubigrip. Infection: There are no local or systemic signs of infection today and do not recommend a culture or antibiotics. Pain: This is controlled secondary to neuropathy Host factors: He is uncontrolled diabetes and he was advised on proper nutrition to optimize healing. His last A1c level was 8.8% in 06-25-20. Labs: He did not have leukocytosis or other gross abnormalities on 09-09-20. Imaging: His foot x-rays were reviewed from with partial right hallux amputation noted and no other osseous destruction, soft tissue emphysema or foreign body. I will see if he has updated x-rays more recent from the [facility] ankle Center. If not updated x-rays will be ordered at follow-up visit. I answered all the patient's questions. To return to the wound healing center in 1 week or call sooner if the patient has any questions or concerns. Note: [employer] speech recognition land acquisition specialist software was used to create portions of this document. Sound-alike and misspelled words, as well as other land acquisition specialist errors may be contained in the documentation.
[2021-01-05 10:37] VITALS: BP 156/80; PULSE 68; RESP 16; TEMP 36.2; BMI 38.9
--- NOTE | 2021-01-05 12:56 | PN.PCM_ITS ---
History of Present Illness Date of Service: 01/05/21 Chief Complaint: Chronic right foot ulcer History of Wound: He had a prior amputation performed 08-27-2019 including a partial right hallux amputation for treatment of ulcers. He has significant previous history of recurrent ulcers and infections. This ulcer has been present since August 2019 and has ongoing delays in healing. He is offloading with a cam walker boot. He denies redness, odor, streaking, fever, chill, nausea, vomiting. He denies pain. He kept his epi fix and dressing clean, dry, and intact this past week. He denies participating in offloading assistive device even though this is been advised. Progress of Wound: Improving Objective Data Objective Data Vital Signs: Vital Signs Temp Pulse Resp BP 97.1 F L 68 16 156/80 H 01/05/21 10:37 01/05/21 10:37 01/05/21 10:37 01/05/21 10:37 Weight: 145.15 kg Body Mass Index (BMI) 38.9 Physical Exam Extremity Extremity Narrative: No calf tenderness Diminished pulses Muscle wasting noted Partial right hallux amputation noted with reduced loaded and unloaded range of motion at the first metatarsophalangeal joint Skin Skin Narrative: no purulence, no streaking, no odor, no infection. 100% granular base ulcer with peripheral callus noted. No deep tissue exposure, necrosis. Adjacent skin is atrophic. No interdigital maceration or eschar Neuro Neuro Narrative: lack of normal epicritic sensation via light touch is consistent with neuropathy status Debridement Note Debridement Note Wound debrided: plantar medial right foot Wound Grade/Stage: 1 Type of Debridement: Excisional debridement Anesthesia Used: 4% Lidocaine Solution Depth: in the subcutaneous layer Percentage of wound debrided: 100 Instrument Used: #15 blade Tissue Removed: fibrous, devitalized subcutaneous, biofilm, slough Severity: Fat Layer Exposed Amount of bleeding with debridement: Mild Bleeding Controlled with: Pressure Patient tolerated procedure: Patient tolerated procedure well Post-Debridement Measurements and Additional Note: Post-Debridement Measurements/Treatment WC - Nurse 1 - General Ulcer Assessment Start: 12/22/20 10:32 Freq: Status: Active Protocol: RIZWAN Activity Type Activity Date Activity User E-Sign Co-Sign Detail Recorded Client Recorded Date Recorded By Document 12/22/20 10:32 RB [id number] 12/22/20 10:35 RB Document 12/29/20 10:39 RB [id number] 12/29/20 10:41 RB Document 01/05/21 10:37 ML [id number] 01/05/21 10:39 ML 12/22/20 12/29/20 01/05/21 10:32 10:39 10:37 WC - Today's Visit Information Type of service Follow-up Visit Follow-up Visit Follow-up Visit (Physician/AUTO FLEET MANAGER (Physician/AUTO FLEET MANAGER (Physician/AUTO FLEET MANAGER ) ) ) Arrival Mode Ambulatory Ambulatory Ambulatory Transfer Assistance None None Patient Identification Verified (Name & Yes Yes Yes ) Patient Requires Transmission-Based No No No Precautions Safety Precautions NA Height and Weight Body Mass Index (BMI) 38.9 38.9 38.9 BMI Classification Obese Obese Obese Vital Signs Temperature (97.8 F-99.1 F) 97.1 F L 97.8 F 97.1 F L Temperature Source Temporal Temporal Temporal Pulse Rate (60-100) 76 75 68 Pulse Location Monitor Monitor Respiratory Rate (12-18) 18 18 16 Respiratory rate source Observation Observation Blood Pressure (90/60-120/80) 144/86 H 137/74 H 156/80 H Blood Pressure Mean (mm Hg) 105 95 105 Source Monitor Monitor Monitor Position Sitting Semi-Fowlers Sitting Blood Pressure Location Left Arm Left Arm Left Arm History Since Last Visit- (Skip if this is Patient's initial visit) Have you changed medications since your No No No last visit? Any new allergies or adverse reactions No No No Had a fall/change in ADL's that may No No No increase risk of falls Signs or symptoms of abuse and/or No No No neglect since last visit Have you been in the hospital since your No No No last visit? Has dressing in place as prescribed Yes Yes Yes Has compression in place as prescribed No No N/A Has offloadiing in place as prescribed Yes Yes N/A Experienced any changes in pain level or No No No management Left Footwear Regular Shoe Regular Shoe Regular Shoe Right Footwear Surgical Shoe Regular Shoe with pressure relief insole Pain Scale: 0-10 Numeric Is Patient Pain Free? Yes Yes WC - Nurse 1 - General Ulcer Measurement Start: 12/22/20 10:32 Freq: Status: Active Protocol: Activity Type Activity Date Activity User E-Sign Co-Sign Detail Recorded Client Recorded Date Recorded By Document 12/22/20 10:32 RB [id number] 12/22/20 10:35 RB Document 12/29/20 10:39 RB [id number] 12/29/20 10:41 RB Document 01/05/21 10:37 ML [id number] 01/05/21 10:39 ML 12/22/20 12/29/20 01/05/21 10:32 10:39 10:37 Wound Center Nurse 1 #1 Right Great Toe Stub Plantar -Combined with other wound No No -Current Size (cm) - Length 0.8 0.7 0.7 -Current Size (cm) - Width 1.1 0.7 0.6 -Current Size (cm) - Depth 0.2 0.1 0.1 -Total Square Cm 0.88 0.49 0.42 -Tunneling No No -Undermining/Tunneling No No -Circular Undermining No No -Exudate Amt Medium Medium Small -Exudate Type Serosanguineous Serosanguineous Serosanguineous -Wound Margin Distinct, Distinct, Distinct, Outline Outline Outline Attached Attached Attached -Granulation Amt Medium (34-66%) Medium (34-66%) Small (1-33%) -Granulation Quality [place] -Slough/Fibrin Yes Yes -Necrosis Amt Small (1-33%) Small (1-33%) Small (1-33%) -Necrotic Tissue Type Adherent Slough Adherent Slough Adherent Slough -Structure Exposed N/A N/A -Texture (Su-wound Skin Appearance) Callus Callus Assessed -Moisture (Su-wound Skin Appearance) Assessed Assessed Assessed -Color (Su-wound Skin Appearance) Assessed Assessed Assessed -Temperature (Su-wound Skin No Abnormality No Abnormality No Abnormality Appearance) (Pt Warm) (Pt Warm) (Pt Warm) -Tenderness on Palpation (Su-wound No No No Skin Appearance) -Ulcer Cleansing Wound Cleanser Wound Cleanser Soap and Water -Foul Odor after Cleansing No No No -Anesthetic Used 4% Lidocaine 4% Lidocaine 4% Lidocaine Solution Solution Solution WC - Nurse 2 - General Ulcer CM Notes Start: 12/22/20 10:32 Freq: Status: Active Protocol: Activity Type Activity Date Activity User E-Sign Co-Sign Detail Recorded Client Recorded Date Recorded By Document 12/22/20 10:48 KYLE [id number] 12/22/20 10:51 Document 12/29/20 11:04 [id number] 12/29/20 11:08 JF Document 01/05/21 11:06 JF [id number] 01/05/21 11:09 12/22/20 12/29/20 01/05/21 10:48 11:04 11:06 Wound Center Nurse 2 #1 Right Great Toe Stub Plantar -Time 10:49 11:04 11:06 -Correct Patient Yes Yes Yes -Correct Side, Site, Position Yes Yes Yes -Correct Procedure Yes Yes Yes -Procedure Performed Yes Yes Yes -Type of Procedure Debridement Debridement Debridement -Clinical Debridement Subcutaneous Subcutaneous Subcutaneous -Tissue Removed Subcutaneous Subcutaneous Subcutaneous -Post Debridement (cm) - Length 0.8 0.8 0.8 -Post Debridement (cm) - Width 1.2 0.7 0.8 -Post Debridement (cm) - Depth 0.2 0.1 0.1 -Total Square (Post) (cm) 0.96 0.56 0.64 -Area of Debridement (cm) - Length 0.8 0.8 0.8 -Area of Debridement (cm) - Width 1.2 0.7 0.8 -Total Square (Area) (cm) 0.96 0.56 0.64 -Tunneling No No No -Undermining/Tunneling No No No -Circular Undermining No No No -Wound/Ulcer Outcome Not Healed Not Healed Not Healed -Ulcer Cleansing Rinsed/ Rinsed/ Rinsed/ Irrigated with Irrigated with Irrigated with Saline Saline Saline -Foul Odor after Cleansing No No -Bioengineered Tissue Yes Yes Yes -Type of Bioengineered Tissue Epifix 18mm Epifix 18mm Epifix 18mm Disc Disc Disc -Expiration Date 09/16/25 09/16/25 09/16/25 -Product Lot Number [id number] -Percent Used 100 100 100 -Lot number of Saline Used [id number] -Bleeding Controlled with Pressure Pressure Pressure -Offloading Yes Yes Yes -Type of Offloading Camwalker Camwalker Camwalker -Treatment Response Procedure Procedure Procedure Tolerated Well Tolerated Well Tolerated Well -Debridement - Subq, 1st 20sq cm No No No -Apply Skin Sub - 1st 25 sq cm - Feet 1 1 1 -Epifix 18mm Disc 3 3 3 -Epifix Mesh (per sq cm) 3 Pain Scale: 0-10 Numeric Is Patient Pain Free? Yes Yes Yes - Nurse 3 - General Ulcer D/C NN Start: 12/22/20 10:32 Freq: Status: Active Protocol: Activity Type Activity Date Activity User E-Sign Co-Sign Detail Recorded Client Recorded Date Recorded By Document 12/22/20 11:04 RB [id number] 12/22/20 11:04 RB Document 12/29/20 11:15 DL [id number] 12/29/20 11:16 DL 12/22/20 12/29/20 11:04 11:15 Wound Care Nurse 3 #1 Right Great Toe Stub Plantar -Foul Odor after Cleansing No -Other Dressing EpiFix -Primary Dressing Covered/Secured with Dry Gauze,Dry Dry Gauze & Gauze & Roll Roll Gauze, Gauze,Secured Secured with with Tape Tape Treatment Response Procedure Procedure Tolerated Well Tolerated Well Pain Scale: 0-10 Numeric Is Patient Pain Free? Yes Yes - Visit Discharge Discharge Condition Stable Stable Ambulatory Status Ambulatory Ambulatory Transportation Private Auto Private Auto Medication Reconcilliation completed & No provided to patient/care provider Clinical Summary of Care Provided Yes Assessment/Plan Assessment/Plan (1) Chronic ulcer of great toe of right foot with fat layer exposed: CODE(S): L97.512 - Non-pressure chronic ulcer of other part of right foot with fat layer exposed (2) Hallux limitus of right foot: CODE(S): M20.5X1 - Other deformities of toe(s) (acquired), right foot (3) Type 2 diabetes mellitus with diabetic polyneuropathy: CODE(S): E11.42 - Type 2 diabetes mellitus with diabetic polyneuropathy (4) Delayed wound healing: CODE(S): T14.8XXD - Other injury of unspecified body region, subsequent encounter PLAN: I reviewed and discussed his case today. Debridement was performed today as noted in the clinical panel to all of the ulcer sites. The following work up and care recommendations were made: To keep secondary dressing clean, dry, and intact until follow-up next week. Tissue growth optimization: This has demonstrated delayed healing and he has had a chronic ulcer for over 1 year. I recommend application of advanced wound healing product to stimulate the healing potential. I recommend epi fix advanced wound healing product which is placental derived. Prior authorization was obtained. This is medically necessary for limb salvage. It is noted he already has amputations. Verbal consent was obtained and epi fix was applied according to standard protocol. This was secured in place with a wound veil and Steri-Strips. He tolerated this well. 100% of the product was utilized. Offload: To limit heel weightbearing activity with a cam walker boot with Plastizote offloading liner pockets. To use assistive device. I ultimately recommended the gold standard offloading which is a total contact cast and he defers at this time because he needs to be able to drive. A prescription for crutches was provided today and compliance was discussed. Vascular: Noninvasive vascular studies were reviewed from with bilateral triphasic waveforms at the ankle level and normal left and right ABIs. Edema: To periodically elevate throughout the day. Is okay to use Tubigrip. Infection: There are no local or systemic signs of infection today and do not recommend a culture or antibiotics. Pain: This is controlled secondary to neuropathy Host factors: He is uncontrolled diabetes and he was advised on proper nutrition to optimize healing. His last A1c level was 8.8% in 06-25-20. Labs: He did not have leukocytosis or other gross abnormalities on 09-09-20. Imaging: His foot x-rays were reviewed from with partial right hallux amputation noted and no other osseous destruction, soft tissue emphysema or foreign body. I will see if he has updated x-rays more recent from the foot and ankle Center. If not updated x-rays will be ordered at follow-up visit. I answered all the patient's questions. To return to the wound healing center in 1 week or call sooner if the patient has any questions or concerns. Note: [employer] speech recognition tire center supervisor software was used to create portions of this document. Sound-alike and misspelled words, as well as other tire center supervisor errors may be contained in the documentation.
[2021-01-12 10:58] VITALS: BP 149/73; PULSE 69; RESP 16; TEMP 35.8; BMI 38.9
--- NOTE | 2021-01-12 11:55 | PN.PCM_ITS ---
History of Present Illness Date of Service: 01/12/21 Chief Complaint: Chronic right foot ulcer History of Wound: He had a prior amputation performed 08-27-2019 including a partial right hallux amputation for treatment of ulcers. He has significant previous history of recurrent ulcers and infections. This ulcer has been present since August 2019 and has ongoing delays in healing. He is offloading with a cam walker boot. He denies redness, odor, streaking, fever, chill, nausea, vomiting. He denies pain. He kept his epi fix and dressing clean, dry, and intact this past week. He denies participating in offloading assistive device even though this is been advised. He would like to consider trial contact cast however drove himself here today. He understands he cannot drive with this cast in place. Progress of Wound: Improving Objective Data Objective Data Vital Signs: Vital Signs Temp Pulse Resp BP 96.4 F L 69 16 149/73 H 01/12/21 10:58 01/12/21 10:58 01/12/21 10:58 01/12/21 10:58 Oxygen Delivery Method Room Air Weight: 145.15 kg Body Mass Index (BMI) 38.9 Physical Exam Extremity Extremity Narrative: No calf tenderness Diminished pulses Muscle wasting noted Partial right hallux amputation noted with reduced loaded and unloaded range of motion at the first metatarsophalangeal joint Skin Skin Narrative: no purulence, no streaking, no odor, no infection. 100% granular base ulcer with peripheral callus noted. No deep tissue exposure, necrosis. Adjacent skin is atrophic. No interdigital maceration or eschar Neuro Neuro Narrative: lack of normal epicritic sensation via light touch is consistent with neuropathy status Debridement Note Debridement Note Wound debrided: Plantar right foot Wound Grade/Stage: 1 Type of Debridement: Excisional debridement Anesthesia Used: 4% Lidocaine Solution Depth: in the subcutaneous layer Percentage of wound debrided: 100 Instrument Used: #15 blade Tissue Removed: fibrous, devitalized subcutaneous, biofilm, slough Severity: Fat Layer Exposed Amount of bleeding with debridement: Mild Bleeding Controlled with: Pressure Patient tolerated procedure: Patient tolerated procedure well Post-Debridement Measurements and Additional Note: Post-Debridement Measurements/Treatment MIRIAM - Nurse 1 - General Ulcer Assessment Start: 12/22/20 10:32 Freq: Status: Active Protocol: RIZWAN Activity Type Activity Date Activity User E-Sign Co-Sign Detail Recorded Client Recorded Date Recorded By Document 12/22/20 10:32 RB [id number] 12/22/20 10:35 RB Document 12/29/20 10:39 RB [id number] 12/29/20 10:41 RB Document 01/05/21 10:37 ML [id number] 01/05/21 10:39 ML Document 01/12/21 10:58 BMF [id number] 01/12/21 11:04 BMF 12/22/20 12/29/20 01/05/21 10:32 10:39 10:37 WC - Today's Visit Information Type of service Follow-up Visit Follow-up Visit Follow-up Visit (Physician/GOODYEAR WELTER (Physician/GOODYEAR WELTER (Physician/GOODYEAR WELTER ) ) ) Arrival Mode Ambulatory Ambulatory Ambulatory Transfer Assistance None None Patient Identification Verified (Name & Yes Yes Yes ) Patient Requires Transmission-Based No No No Precautions Safety Precautions NA Height and Weight Body Mass Index (BMI) 38.9 38.9 38.9 BMI Classification Obese Obese Obese Vital Signs Temperature (97.8 F-99.1 F) 97.1 F L 97.8 F 97.1 F L Temperature Source Temporal Temporal Temporal Pulse Rate (60-100) 76 75 68 Pulse Location Monitor Monitor Respiratory Rate (12-18) 18 18 16 Respiratory rate source Observation Observation Oxygen Delivery Method Blood Pressure (90/60-120/80) 144/86 H 137/74 H 156/80 H Blood Pressure Mean (mm Hg) 105 95 105 Source Monitor Monitor Monitor Position Sitting Semi-Fowlers Sitting Blood Pressure Location Left Arm Left Arm Left Arm History Since Last Visit- (Skip if this is Patient's initial visit) Have you changed medications since your No No No last visit? Any new allergies or adverse reactions No No No Had a fall/change in ADL's that may No No No increase risk of falls Signs or symptoms of abuse and/or No No No neglect since last visit Have you been in the hospital since your No No No last visit? Has dressing in place as prescribed Yes Yes Yes Has compression in place as prescribed No No N/A Has offloadiing in place as prescribed Yes Yes N/A Experienced any changes in pain level or No No No management Left Footwear Regular Shoe Regular Shoe Regular Shoe Right Footwear Surgical Shoe Regular Shoe with pressure relief insole Pain Scale: 0-10 Numeric Is Patient Pain Free? Yes Yes 01/12/21 10:58 - Today's Visit Information Type of service Follow-up Visit (Physician/GOODYEAR WELTER ) Arrival Mode Ambulatory Transfer Assistance None Patient Identification Verified (Name & Yes ) Patient Requires Transmission-Based No Precautions Safety Precautions Height and Weight Body Mass Index (BMI) 38.9 BMI Classification Obese Vital Signs Temperature (97.8 F-99.1 F) 96.4 F L Temperature Source Temporal Pulse Rate (60-100) 69 Pulse Location Monitor Respiratory Rate (12-18) 16 Respiratory rate source Observation Oxygen Delivery Method Room Air Blood Pressure (90/60-120/80) 149/73 H Blood Pressure Mean (mm Hg) 98 Source Monitor Position Supine Blood Pressure Location Right Arm History Since Last Visit- (Skip if this is Patient's initial visit) Have you changed medications since your No last visit? Any new allergies or adverse reactions No Had a fall/change in ADL's that may No increase risk of falls Signs or symptoms of abuse and/or No neglect since last visit Have you been in the hospital since your No last visit? Has dressing in place as prescribed Yes Has compression in place as prescribed N/A Has offloadiing in place as prescribed Yes Experienced any changes in pain level or No management Left Footwear Regular Shoe Right Footwear Removable Cast Walker/Walking Boot Pain Scale: 0-10 Numeric Is Patient Pain Free? Yes - Nurse 1 - General Ulcer Measurement Start: 12/22/20 10:32 Freq: Status: Active Protocol: Activity Type Activity Date Activity User E-Sign Co-Sign Detail Recorded Client Recorded Date Recorded By Document 12/22/20 10:32 RB [id number] 12/22/20 10:35 RB Document 12/29/20 10:39 RB [id number] 12/29/20 10:41 RB Document 01/05/21 10:37 ML [id number] 01/05/21 10:39 ML Document 01/12/21 10:58 [facility] [id number] 01/12/21 11:04 BMF 12/22/20 12/29/20 01/05/21 10:32 10:39 10:37 Wound Center Nurse 1 #1 Right Great Toe Stub Plantar -Combined with other wound No No -Current Size (cm) - Length 0.8 0.7 0.7 -Current Size (cm) - Width 1.1 0.7 0.6 -Current Size (cm) - Depth 0.2 0.1 0.1 -Total Square Cm 0.88 0.49 0.42 -Photo Taken -Epithelialization -Tunneling No No -Undermining/Tunneling No No -Circular Undermining No No -Exudate Amt Medium Medium Small -Exudate Type Serosanguineous Serosanguineous Serosanguineous -Wound Margin Distinct, Distinct, Distinct, Outline Outline Outline Attached Attached Attached -Granulation Amt Medium (34-66%) Medium (34-66%) Small (1-33%) -Granulation Quality [place] -Slough/Fibrin Yes Yes -Necrosis Amt Small (1-33%) Small (1-33%) Small (1-33%) -Necrotic Tissue Type Adherent Slough Adherent Slough Adherent Slough -Structure Exposed N/A N/A -Texture (Su-wound Skin Appearance) Callus Callus Assessed -Moisture (Su-wound Skin Appearance) Assessed Assessed Assessed -Color (Su-wound Skin Appearance) Assessed Assessed Assessed -Temperature (Su-wound Skin No Abnormality No Abnormality No Abnormality Appearance) (Pt Warm) (Pt Warm) (Pt Warm) -Tenderness on Palpation (Su-wound No No No Skin Appearance) -Ulcer Cleansing Wound Cleanser Wound Cleanser Soap and Water -Foul Odor after Cleansing No No No -Anesthetic Used 4% Lidocaine 4% Lidocaine 4% Lidocaine Solution Solution Solution 01/12/21 10:58 Wound Center Nurse 1 #1 Right Great Toe Stub Plantar -Combined with other wound No -Current Size (cm) - Length 0.5 -Current Size (cm) - Width 0.6 -Current Size (cm) - Depth 0.2 -Total Square Cm 0.30 -Photo Taken No -Epithelialization Small 1-33% -Tunneling No -Undermining/Tunneling No -Circular Undermining No -Exudate Amt Medium -Exudate Type Serosanguineous -Wound Margin Distinct, Outline Attached -Granulation Amt Large (67-100%) -Granulation Quality Red -Slough/Fibrin Yes -Necrosis Amt Small (1-33%) -Necrotic Tissue Type Adherent Slough -Structure Exposed -Texture (Su-wound Skin Appearance) Assessed,Callus ,Scarring -Moisture (Su-wound Skin Appearance) Assessed,Dry/ Scaly -Color (Su-wound Skin Appearance) Assessed -Temperature (Su-wound Skin No Abnormality Appearance) (Pt Warm) -Tenderness on Palpation (Su-wound No Skin Appearance) -Ulcer Cleansing Soap and Water -Foul Odor after Cleansing No -Anesthetic Used 5% Lidocaine Gel WC - Nurse 2 - General Ulcer CM Notes Start: 12/22/20 10:32 Freq: Status: Active Protocol: Activity Type Activity Date Activity User E-Sign Co-Sign Detail Recorded Client Recorded Date Recorded By Document 12/22/20 10:48 JF [id number] 12/22/20 10:51 JF Document 12/29/20 11:04 JF [id number] 12/29/20 11:08 JF Document 01/05/21 11:06 JF [id number] 01/05/21 11:09 JF Edit Result 01/05/21 11:06 JF (1) [id number] 01/06/21 07:23 PL Document 01/12/21 11:31 JF [id number] 01/12/21 11:34 JF (1) #1 Right Great Toe Stub Plantar - Epifix Mesh (per sq cm) 3 => 12/22/20 12/29/20 01/05/21 10:48 11:04 11:06 Wound Center Nurse 2 #1 Right Great Toe Stub Plantar -Time 10:49 11:04 11:06 -Correct Patient Yes Yes Yes -Correct Side, Site, Position Yes Yes Yes -Correct Procedure Yes Yes Yes -Procedure Performed Yes Yes Yes -Type of Procedure Debridement Debridement Debridement -Clinical Debridement Subcutaneous Subcutaneous Subcutaneous -Tissue Removed Subcutaneous Subcutaneous Subcutaneous -Post Debridement (cm) - Length 0.8 0.8 0.8 -Post Debridement (cm) - Width 1.2 0.7 0.8 -Post Debridement (cm) - Depth 0.2 0.1 0.1 -Total Square (Post) (cm) 0.96 0.56 0.64 -Area of Debridement (cm) - Length 0.8 0.8 0.8 -Area of Debridement (cm) - Width 1.2 0.7 0.8 -Total Square (Area) (cm) 0.96 0.56 0.64 -Tunneling No No No -Undermining/Tunneling No No No -Circular Undermining No No No -Wound/Ulcer Outcome Not Healed Not Healed Not Healed -Ulcer Cleansing Rinsed/ Rinsed/ Rinsed/ Irrigated with Irrigated with Irrigated with Saline Saline Saline -Foul Odor after Cleansing No No -Bioengineered Tissue Yes Yes Yes -Type of Bioengineered Tissue Epifix 18mm Epifix 18mm Epifix 18mm Disc Disc Disc -Expiration Date 09/16/25 09/16/25 09/16/25 -Product Lot Number [id number] -Percent Used 100 100 100 -Lot number of Saline Used [id number] -Bleeding Controlled with Pressure Pressure Pressure -Offloading Yes Yes Yes -Type of Offloading Camwalker Camwalker Camwalker -Treatment Response Procedure Procedure Procedure Tolerated Well Tolerated Well Tolerated Well -Debridement - Subq, 1st 20sq cm No No No -Apply Skin Sub - 1st 25 sq cm - Feet 1 1 1 -Epifix 18mm Disc 3 3 3 Pain Scale: 0-10 Numeric Is Patient Pain Free? Yes Yes Yes 01/12/21 11:31 Wound Center Nurse 2 #1 Right Great Toe Stub Plantar -Time 11:31 -Correct Patient Yes -Correct Side, Site, Position Yes -Correct Procedure Yes -Procedure Performed Yes -Type of Procedure Debridement -Clinical Debridement Subcutaneous -Tissue Removed Subcutaneous -Post Debridement (cm) - Length 1 -Post Debridement (cm) - Width 0.7 -Post Debridement (cm) - Depth 0.2 -Total Square (Post) (cm) 0.7 -Area of Debridement (cm) - Length 1 -Area of Debridement (cm) - Width 0.7 -Total Square (Area) (cm) 0.7 -Tunneling No -Undermining/Tunneling No -Circular Undermining -Wound/Ulcer Outcome -Ulcer Cleansing Rinsed/ Irrigated with Saline -Foul Odor after Cleansing No -Bioengineered Tissue Yes -Type of Bioengineered Tissue Epifix 18mm Disc -Expiration Date 09/16/25 -Product Lot Number [id number] -Percent Used 100 -Lot number of Saline Used [id number] -Bleeding Controlled with Pressure -Offloading No -Type of Offloading -Treatment Response Procedure Tolerated Well -Debridement - Subq, 1st 20sq cm No -Apply Skin Sub - 1st 25 sq cm - Feet 1 -Epifix 18mm Disc 3 Pain Scale: 0-10 Numeric Is Patient Pain Free? Yes WC - Nurse 3 - General Ulcer D/C NN Start: 12/22/20 10:32 Freq: Status: Active Protocol: Activity Type Activity Date Activity User E-Sign Co-Sign Detail Recorded Client Recorded Date Recorded By Document 12/22/20 11:04 RB [id number] 12/22/20 11:04 RB Document 12/29/20 11:15 DL [id number] 12/29/20 11:16 DL Document 01/12/21 11:42 BMF [id number] 01/12/21 11:42 BMF 12/22/20 12/29/20 01/12/21 11:04 11:15 11:42 Wound Care Nurse 3 #1 Right Great Toe Stub Plantar -Foul Odor after Cleansing No -Primary Dressing Applied Mepilex Border, Other -Other Dressing EpiFix epifix -Primary Dressing Covered/Secured with Dry Gauze,Dry Dry Gauze & Gauze & Roll Roll Gauze, Gauze,Secured Secured with with Tape Tape -Mepilex Border 2 Treatment Response Procedure Procedure Procedure Tolerated Well Tolerated Well Tolerated Well Pain Scale: 0-10 Numeric Is Patient Pain Free? Yes Yes Yes WC - Visit Discharge Discharge Condition Stable Stable Stable Ambulatory Status Ambulatory Ambulatory Ambulatory Transportation Private Auto Private Auto Private Auto Medication Reconcilliation completed & No provided to patient/care provider Clinical Summary of Care Provided Yes Assessment/Plan Assessment/Plan (1) Chronic ulcer of great toe of right foot with fat layer exposed: CODE(S): L97.512 - Non-pressure chronic ulcer of other part of right foot with fat layer exposed (2) Hallux limitus of right foot: CODE(S): M20.5X1 - Other deformities of toe(s) (acquired), right foot (3) Type 2 diabetes mellitus with diabetic polyneuropathy: CODE(S): E11.42 - Type 2 diabetes mellitus with diabetic polyneuropathy (4) Delayed wound healing: CODE(S): T14.8XXD - Other injury of unspecified body region, subsequent encounter PLAN: I reviewed and discussed his case today. Debridement was performed today as noted in the clinical panel to all of the ulcer sites. The following work up and care recommendations were made: To keep secondary dressing clean, dry, and intact until follow-up next week. Tissue growth optimization: This has demonstrated delayed healing and he has had a chronic ulcer for over 1 year. I recommend application of advanced wound healing product to stimulate the healing potential. I recommend epi fix advanced wound healing product which is placental derived. Prior authorization was obtained. This is medically necessary for limb salvage. It is noted he already has amputations. Verbal consent was obtained and epi fix was applied according to standard protocol. This was secured in place with a wound veil and Steri-Strips. He tolerated this well. 100% of the product was utilized. Offload: To limit heel weightbearing activity with a cam walker boot with Plastizote offloading liner pockets. To use assistive device. I ultimately recommended the gold standard offloading which is a total contact cast and he defers at this time because he needs to be able to drive. A prescription for crutches was provided and he had difficulty using both crutches. He is going to proceed forward with using 1 crutch at a time. Vascular: Noninvasive vascular studies were reviewed from with bilateral triphasic waveforms at the ankle level and normal left and right ABIs. Edema: To periodically elevate throughout the day. Is okay to use Tubigrip. Infection: There are no local or systemic signs of infection today and do not recommend a culture or antibiotics. Pain: This is controlled secondary to neuropathy Host factors: He is uncontrolled diabetes and he was advised on proper nutrition to optimize healing. His last A1c level was 8.8% in 06-25-20. Labs: He did not have leukocytosis or other gross abnormalities on 09-09-20. Imaging: His foot x-rays were reviewed from with partial right hallux amputation noted and no other osseous destruction, soft tissue emphysema or foreign body. I will see if he has updated x-rays more recent from the [facility] Center. If not updated x-rays will be ordered at follow-up visit. I answered all the patient's questions. To return to the wound healing center in 1 week or call sooner if the patient has any questions or concerns. Note: [employer] speech recognition house wirer helper software was used to create portions of this document. Sound-alike and misspelled words, as well as other house wirer helper errors may be contained in the documentation.
== END 2021-01-16 23:59 ==
LOC: WC 10:45
PROVIDERS: PCP Preventive Medicine Occupational Medicine; Visit Provider Podiatrist
DX: E11.621 Type 2 diabetes mellitus with foot ulcer (principal); L97.512 Non-pressure chronic ulcer of other part of right foot with fat layer exposed; E11.42 Type 2 diabetes mellitus with diabetic polyneuropathy; M20.5X1 Other deformities of toe(s) (acquired), right foot; T14.8XXD Other injury of unspecified body region, subsequent encounter
CPT/HCPCS: 15275; Q4186

== ENCOUNTER 2021-02-09 10:45 | Outpatient (RCR) | payer OTHER, SELFPAY ==
[2021-01-17 00:30] VITALS: BP 149/73; PULSE 69; RESP 16; TEMP 35.8; BMI 38.9
[2021-01-19 10:52] VITALS: BP 133/84; PULSE 66; RESP 18; TEMP 35.9; BMI 38.9
--- NOTE | 2021-01-19 11:40 | PCM.WC.PN ---
History of Present Illness Date of Service: 01/19/21 Chief Complaint: Chronic right foot ulcer History of Wound: He had a prior amputation performed 08-27-2019 including a partial right hallux amputation for treatment of ulcers. He has significant previous history of recurrent ulcers and infections. This ulcer has been present since August 2019 and has ongoing delays in healing. He is offloading with a cam walker boot. He denies redness, odor, streaking, fever, chill, nausea, vomiting. He denies pain. He kept his epi fix and dressing clean, dry, and intact this past week. He denies participating in offloading assistive device even though this is been advised. Progress of Wound: Improving Objective Data Objective Data Vital Signs: Vital Signs Temp Pulse Resp BP 96.7 F L 66 18 133/84 H 01/19/21 10:52 01/19/21 10:52 01/19/21 10:52 01/19/21 10:52 Oxygen Delivery Method Room Air Weight: 145.15 kg Body Mass Index (BMI) 38.9 Physical Exam Extremity Extremity Narrative: No calf tenderness Diminished pulses Muscle wasting noted Partial right hallux amputation noted with reduced loaded and unloaded range of motion at the first metatarsophalangeal joint Skin Skin Narrative: no purulence, no streaking, no odor, no infection. 100% granular base ulcer with peripheral callus noted. No deep tissue exposure, necrosis. Adjacent skin is atrophic. No interdigital maceration or eschar Neuro Neuro Narrative: lack of normal epicritic sensation via light touch is consistent with neuropathy status Debridement Note Debridement Note Wound debrided: Right foot Wound Grade/Stage: 1 Type of Debridement: Excisional debridement Anesthesia Used: 4% Lidocaine Solution Depth: in the subcutaneous layer Percentage of wound debrided: 100 Instrument Used: #15 blade Tissue Removed: fibrous, devitalized subcutaneous, biofilm, slough Severity: Fat Layer Exposed Amount of bleeding with debridement: Mild Bleeding Controlled with: Pressure Patient tolerated procedure: Patient tolerated procedure well Post-Debridement Measurements and Additional Note: Post-Debridement Measurements/Treatment MIRIAM - Nurse 1 - General Ulcer Assessment Start: 01/19/21 10:50 Freq: Status: Active Protocol: RIZWAN Activity Type Activity Date Activity User E-Sign Co-Sign Detail Recorded Client Recorded Date Recorded By Document 01/19/21 10:52 MT Desktop 01/19/21 10:58 MT 01/19/21 10:52 - Today's Visit Information Type of service Follow-up Visit (Physician/EQUIPMENT ASSOCIATE ) Arrival Mode Ambulatory Accompanied by SELF Patient Identification Verified (Name & Yes ) Height and Weight Body Mass Index (BMI) 38.9 BMI Classification Obese Vital Signs Temperature (97.8 F-99.1 F) 96.7 F L Temperature Source Temporal Pulse Rate (60-100) 66 Pulse Location Monitor Respiratory Rate (12-18) 18 Respiratory rate source Observation Oxygen Delivery Method Room Air Blood Pressure (90/60-120/80) 133/84 H Blood Pressure Mean (mm Hg) 100 Source Monitor Position Sitting Blood Pressure Location Left Arm History Since Last Visit- (Skip if this is Patient's initial visit) Have you changed medications since your No last visit? Any new allergies or adverse reactions No Had a fall/change in ADL's that may No increase risk of falls Signs or symptoms of abuse and/or No neglect since last visit Have you been in the hospital since your Yes last visit? Has dressing in place as prescribed Yes Has compression in place as prescribed Yes Has offloadiing in place as prescribed Yes Experienced any changes in pain level or Yes management Left Footwear Regular Shoe Right Footwear Removable Cast Walker/Walking Boot - Nurse 1 - General Ulcer Measurement Start: 01/19/21 10:50 Freq: Status: Active Protocol: Activity Type Activity Date Activity User E-Sign Co-Sign Detail Recorded Client Recorded Date Recorded By Document 01/19/21 10:52 [place] Desktop 01/19/21 10:58 [place] 01/19/21 10:52 Wound Center Nurse 1 #1 Right Great Toe Stub Plantar -Current Size (cm) - Length 0.5 -Current Size (cm) - Width 0.7 -Current Size (cm) - Depth 0.2 -Total Square Cm 0.35 -Exudate Amt Small -Exudate Type Serosanguineous -Wound Margin Thickened & Rolled Under -Granulation Amt Large (67-100%) -Granulation Quality [place],Red -Slough/Fibrin No -Texture (Su-wound Skin Appearance) Assessed -Moisture (Su-wound Skin Appearance) Assessed -Color (Su-wound Skin Appearance) Assessed -Temperature (Su-wound Skin No Abnormality Appearance) (Pt Warm) -Tenderness on Palpation (Su-wound No Skin Appearance) -Ulcer Cleansing Rinsed/ Irrigated with Saline -Foul Odor after Cleansing No -Anesthetic Used 4% Lidocaine Solution Lower Limb Edema Present NA - Nurse 2 - General Ulcer CM Notes Start: 01/19/21 10:50 Freq: Status: Active Protocol: Activity Type Activity Date Activity User E-Sign Co-Sign Detail Recorded Client Recorded Date Recorded By Document 01/19/21 11:28 KYLE [id number] 01/19/21 11:31 KYLE 01/19/21 11:28 Wound Center Nurse 2 #1 Right Great Toe Stub Plantar -Time 11:29 -Correct Patient Yes -Correct Side, Site, Position Yes -Correct Procedure Yes -Procedure Performed Yes -Type of Procedure Debridement -Clinical Debridement Subcutaneous -Tissue Removed Subcutaneous -Post Debridement (cm) - Length 0.6 -Post Debridement (cm) - Width 0.7 -Post Debridement (cm) - Depth 0.1 -Total Square (Post) (cm) 0.42 -Area of Debridement (cm) - Length 0.6 -Area of Debridement (cm) - Width 0.7 -Total Square (Area) (cm) 0.42 -Tunneling No -Undermining/Tunneling No -Circular Undermining No -Wound/Ulcer Outcome Not Healed -Ulcer Cleansing Rinsed/ Irrigated with Saline -Foul Odor after Cleansing No -Bioengineered Tissue Yes -Type of Bioengineered Tissue Epifix 18mm Disc -Expiration Date 09/16/25 -Product Lot Number [id number] -Percent Used 100 -Lot number of Saline Used [id number] -Bleeding Controlled with Pressure -Offloading Yes -Type of Offloading Camwalker -Treatment Response Procedure Tolerated Well -Debridement - Subq, 1st 20sq cm No -Apply Skin Sub - 1st 25 sq cm - Feet 1 -Epifix 18mm Disc 3 Pain Scale: 0-10 Numeric Is Patient Pain Free? Yes - Nurse 3 - General Ulcer D/C NN Start: 01/19/21 10:50 Freq: Status: Active Protocol: Activity Type Activity Date Activity User E-Sign Co-Sign Detail Recorded Client Recorded Date Recorded By Document 01/19/21 11:37 RB [id number] 01/19/21 11:38 RB 01/19/21 11:37 Wound Care Nurse 3 #1 Right Great Toe Stub Plantar -Other Dressing mepilex border foam dressing applied Treatment Response Procedure Tolerated Well WC - Visit Discharge Discharge Condition Stable Ambulatory Status Ambulatory Transportation Private Auto Medication Reconcilliation completed & No provided to patient/care provider Clinical Summary of Care Provided Yes Assessment/Plan Assessment/Plan (1) Chronic ulcer of great toe of right foot with fat layer exposed: CODE(S): L97.512 - Non-pressure chronic ulcer of other part of right foot with fat layer exposed (2) Hallux limitus of right foot: CODE(S): M20.5X1 - Other deformities of toe(s) (acquired), right foot (3) Type 2 diabetes mellitus with diabetic polyneuropathy: CODE(S): E11.42 - Type 2 diabetes mellitus with diabetic polyneuropathy (4) Delayed wound healing: CODE(S): T14.8XXD - Other injury of unspecified body region, subsequent encounter PLAN: I reviewed and discussed his case today. Debridement was performed today as noted in the clinical panel to all of the ulcer sites. The following work up and care recommendations were made: To keep secondary dressing clean, dry, and intact until follow-up next week. Tissue growth optimization: This has demonstrated delayed healing and he has had a chronic ulcer for over 1 year. I recommend application of advanced wound healing product to stimulate the healing potential. I recommend epi fix advanced wound healing product which is placental derived. Prior authorization was obtained. This is medically necessary for limb salvage. It is noted he already has amputations. Verbal consent was obtained and epi fix was applied according to standard protocol. This was secured in place with a wound veil and Steri-Strips. He tolerated this well. 100% of the product was utilized. Offload: To limit heel weightbearing activity with a cam walker boot with Plastizote offloading liner pockets. To use assistive device. I ultimately recommended the gold standard offloading which is a total contact cast and he defers at this time because he needs to be able to drive. A prescription for crutches was provided and he had difficulty using both crutches. He is going to proceed forward with using 1 crutch at a time. Vascular: Noninvasive vascular studies were reviewed from with bilateral triphasic waveforms at the ankle level and normal left and right ABIs. Edema: To periodically elevate throughout the day. Is okay to use Tubigrip. Infection: There are no local or systemic signs of infection today and do not recommend a culture or antibiotics. Pain: This is controlled secondary to neuropathy Host factors: He is uncontrolled diabetes and he was advised on proper nutrition to optimize healing. His last A1c level was 8.8% in 06-25-20. Labs: He did not have leukocytosis or other gross abnormalities on 09-09-20. Imaging: His foot x-rays were reviewed from with partial right hallux amputation noted and no other osseous destruction, soft tissue emphysema or foreign body. I answered all the patient's questions. To return to the wound healing center in 1 week or call sooner if the patient has any questions or concerns. Note: [employer] speech recognition transcription typist software was used to create portions of this document. Sound-alike and misspelled words, as well as other transcription typist errors may be contained in the documentation.
[2021-01-26 11:02] VITALS: BP 145/73; PULSE 68; RESP 16; TEMP 36.2; BMI 38.9
--- NOTE | 2021-01-26 11:30 | PN.PCM_ITS ---
History of Present Illness Date of Service: 01/26/21 Chief Complaint: Chronic right foot ulcer History of Wound: He had a prior amputation performed 08-27-2019 including a partial right hallux amputation for treatment of ulcers. He has significant previous history of recurrent ulcers and infections. This ulcer has been present since August 2019 and has ongoing delays in healing. He is offloading with a cam walker boot. He denies redness, odor, streaking, fever, chill, nausea, vomiting. He denies pain. He kept his epi fix and dressing clean, dry, and intact this past week. He tries to offload better. Progress of Wound: Improving Objective Data Objective Data Vital Signs: Vital Signs Temp Pulse Resp BP 97.2 F L 68 16 145/73 H 01/26/21 11:01/26/21 11:02 01/26/21 11:01/26/21 11:02 Oxygen Delivery Method Room Air Weight: 145.15 kg Body Mass Index (BMI) 38.9 Physical Exam Extremity Extremity Narrative: No calf tenderness Diminished pulses Muscle wasting noted Partial right hallux amputation noted with reduced loaded and unloaded range of motion at the first metatarsophalangeal joint Skin Skin Narrative: no purulence, no streaking, no odor, no infection. 100% granular base ulcer with peripheral callus noted. No deep tissue exposure, necrosis. Adjacent skin is atrophic. No interdigital maceration or eschar Neuro Neuro Narrative: lack of normal epicritic sensation via light touch is consistent with neuropathy status Debridement Note Debridement Note Wound debrided: right foot Wound Grade/Stage: 1 Type of Debridement: Excisional debridement Anesthesia Used: 4% Lidocaine Solution Depth: in the subcutaneous layer Percentage of wound debrided: 100 Instrument Used: #15 blade Tissue Removed: fibrous, devitalized subcutaneous, biofilm, slough Severity: Fat Layer Exposed Amount of bleeding with debridement: Mild Bleeding Controlled with: Pressure Patient tolerated procedure: Patient tolerated procedure well Post-Debridement Measurements and Additional Note: Post-Debridement Measurements/Treatment WC - Nurse 1 - General Ulcer Assessment Start: 01/19/21 10:50 Freq: Status: Active Protocol: RIZWAN Activity Type Activity Date Activity User E-Sign Co-Sign Detail Recorded Client Recorded Date Recorded By Document 01/19/21 10:52 [place] Desktop 01/19/21 10:58 MT Document 01/26/21 11:02 [facility] [id number] 01/26/21 11:07 [facility] 01/19/21 01/26/21 10:52 11:02 - Today's Visit Information Type of service Follow-up Visit Follow-up Visit (Physician/SALES MANAGEMENT INTERN (Physician/SALES MANAGEMENT INTERN ) ) Arrival Mode Ambulatory Ambulatory, Crutches Transfer Assistance None Accompanied by SELF Patient Identification Verified (Name & Yes Yes ) Patient Requires Transmission-Based No Precautions Height and Weight Body Mass Index (BMI) 38.9 38.9 BMI Classification Obese Obese Vital Signs Temperature (97.8 F-99.1 F) 96.7 F L 97.2 F L Temperature Source Temporal Temporal Pulse Rate (60-100) 66 68 Pulse Location Monitor Monitor Respiratory Rate (12-18) 18 16 Respiratory rate source Observation Observation Oxygen Delivery Method Room Air Room Air Blood Pressure (90/60-120/80) 133/84 H 145/73 H Blood Pressure Mean (mm Hg) 100 97 Source Monitor Monitor Position Sitting Sitting Blood Pressure Location Left Arm Left Arm History Since Last Visit- (Skip if this is Patient's initial visit) Have you changed medications since your No No last visit? Any new allergies or adverse reactions No No Had a fall/change in ADL's that may No No increase risk of falls Signs or symptoms of abuse and/or No No neglect since last visit Have you been in the hospital since your Yes No last visit? Has dressing in place as prescribed Yes No Has compression in place as prescribed Yes N/A Has offloadiing in place as prescribed Yes Yes Experienced any changes in pain level or Yes No management Left Footwear Regular Shoe Regular Shoe Right Footwear Removable Cast Removable Cast Walker/Walking Walker/Walking Boot Boot Pain Scale: 0-10 Numeric Is Patient Pain Free? Yes - Nurse 1 - General Ulcer Measurement Start: 01/19/21 10:50 Freq: Status: Active Protocol: Activity Type Activity Date Activity User E-Sign Co-Sign Detail Recorded Client Recorded Date Recorded By Document 01/19/21 10:52 MT Desktop 01/19/21 10:58 MT Document 01/26/21 11:02 [facility] [id number] 01/26/21 11:07 [facility] 01/19/21 01/26/21 10:52 11:02 Wound Center Nurse 1 #1 Right Great Toe Stub Plantar -Combined with other wound No -Current Size (cm) - Length 0.5 0.2 -Current Size (cm) - Width 0.7 0.3 -Current Size (cm) - Depth 0.2 0.3 -Total Square Cm 0.35 0.06 -Photo Taken No -Epithelialization Small 1-33% -Tunneling No -Undermining/Tunneling No -Circular Undermining No -Exudate Amt Small Small -Exudate Type Serosanguineous Serosanguineous -Wound Margin Thickened & Distinct, Rolled Under Outline Attached -Granulation Amt Large (67-100%) Large (67-100%) -Granulation Quality [place],Red Red -Slough/Fibrin No Yes -Necrosis Amt Small (1-33%) -Necrotic Tissue Type Adherent Slough -Texture (Su-wound Skin Appearance) Assessed Callus,Scarring -Moisture (Su-wound Skin Appearance) Assessed Assessed,Dry/ Scaly -Color (Su-wound Skin Appearance) Assessed Assessed -Temperature (Su-wound Skin No Abnormality No Abnormality Appearance) (Pt Warm) (Pt Warm) -Tenderness on Palpation (Su-wound No No Skin Appearance) -Ulcer Cleansing Rinsed/ Soap and Water Irrigated with Saline -Foul Odor after Cleansing No No -Anesthetic Used 4% Lidocaine 5% Lidocaine Solution Gel Lower Limb Edema Present NA - Nurse 2 - General Ulcer CM Notes Start: 01/19/21 10:50 Freq: Status: Active Protocol: Activity Type Activity Date Activity User E-Sign Co-Sign Detail Recorded Client Recorded Date Recorded By Document 01/19/21 11:28 JF [id number] 01/19/21 11:31 Document 01/26/21 11:24 [id number] 01/26/21 11:27 01/19/21 01/26/21 11:28 11:24 Wound Center Nurse 2 #1 Right Great Toe Stub Plantar -Time 11:29 -Correct Patient Yes Yes -Correct Side, Site, Position Yes Yes -Correct Procedure Yes Yes -Procedure Performed Yes Yes -Type of Procedure Debridement Debridement -Clinical Debridement Subcutaneous Subcutaneous -Tissue Removed Subcutaneous Subcutaneous -Post Debridement (cm) - Length 0.6 0.3 -Post Debridement (cm) - Width 0.7 0.3 -Post Debridement (cm) - Depth 0.1 0.2 -Total Square (Post) (cm) 0.42 0.09 -Area of Debridement (cm) - Length 0.6 0.3 -Area of Debridement (cm) - Width 0.7 0.3 -Total Square (Area) (cm) 0.42 0.09 -Tunneling No No -Undermining/Tunneling No No -Circular Undermining No No -Wound/Ulcer Outcome Not Healed Not Healed -Ulcer Cleansing Rinsed/ Rinsed/ Irrigated with Irrigated with Saline Saline -Foul Odor after Cleansing No No -Bioengineered Tissue Yes Yes -Type of Bioengineered Tissue Epifix 18mm Epifix 18mm Disc Disc -Expiration Date 09/16/25 05/17/25 -Product Lot Number [id number] -Percent Used 100 100 -Lot number of Saline Used [id number] -Bleeding Controlled with Pressure Pressure -Offloading Yes Yes -Type of Offloading Camwalker Surgical Shoe -Treatment Response Procedure Procedure Tolerated Well Tolerated Well -Debridement - Subq, 1st 20sq cm No No -Apply Skin Sub - 1st 25 sq cm - Feet 1 1 -Epifix 18mm Disc 3 3 Pain Scale: 0-10 Numeric Is Patient Pain Free? Yes Yes - Nurse 3 - General Ulcer D/C NN Start: 01/19/21 10:50 Freq: Status: Active Protocol: Activity Type Activity Date Activity User E-Sign Co-Sign Detail Recorded Client Recorded Date Recorded By Document 01/19/21 11:37 RB [id number] 01/19/21 11:38 RB 01/19/21 11:37 Wound Care Nurse 3 #1 Right Great Toe Stub Plantar -Other Dressing mepilex border foam dressing applied Treatment Response Procedure Tolerated Well WC - Visit Discharge Discharge Condition Stable Ambulatory Status Ambulatory Transportation Private Auto Medication Reconcilliation completed & No provided to patient/care provider Clinical Summary of Care Provided Yes Assessment/Plan Assessment/Plan (1) Chronic ulcer of great toe of right foot with fat layer exposed: CODE(S): L97.512 - Non-pressure chronic ulcer of other part of right foot with fat layer exposed (2) Hallux limitus of right foot: CODE(S): M20.5X1 - Other deformities of toe(s) (acquired), right foot (3) Type 2 diabetes mellitus with diabetic polyneuropathy: CODE(S): E11.42 - Type 2 diabetes mellitus with diabetic polyneuropathy (4) Delayed wound healing: CODE(S): T14.8XXD - Other injury of unspecified body region, subsequent encounter PLAN: I reviewed and discussed his case today. Debridement was performed today as noted in the clinical panel to all of the ulcer sites. The following work up and care recommendations were made: To keep secondary dressing clean, dry, and intact until follow-up next week. Tissue growth optimization: This has demonstrated delayed healing and he has had a chronic ulcer for over 1 year. I recommend application of advanced wound healing product to stimulate the healing potential. I recommend epi fix advanced wound healing product which is placental derived. Prior authorization was obtained. This is medically necessary for limb salvage. It is noted he already has amputations. Verbal consent was obtained and epi fix was applied according to standard protocol. This was secured in place with a wound veil and Steri-Strips. He tolerated this well. 100% of the product was utilized. Offload: To limit heel weightbearing activity with a cam walker boot with Plastizote offloading liner pockets. To use assistive device. I ultimately recommended the gold standard offloading which is a total contact cast and he defers at this time because he needs to be able to drive. A prescription for crutches was provided and he had difficulty using both crutches. He is going to proceed forward with using 1 crutch at a time. Vascular: Noninvasive vascular studies were reviewed from with bilateral triphasic waveforms at the ankle level and normal left and right ABIs. Edema: To periodically elevate throughout the day. Is okay to use Tubigrip. Infection: There are no local or systemic signs of infection today and do not recommend a culture or antibiotics. Pain: This is controlled secondary to neuropathy Host factors: He is uncontrolled diabetes and he was advised on proper nutrition to optimize healing. His last A1c level was 8.8% in 06-25-20. Labs: He did not have leukocytosis or other gross abnormalities on 09-09-20. Imaging: His foot x-rays were reviewed from with partial right hallux amputation noted and no other osseous destruction, soft tissue emphysema or foreign body. I answered all the patient's questions. To return to the wound healing center i n 1 week or call sooner if the patient has any questions or concerns. Note: [employer] speech recognition director industrial relations software was used to create portions of this document. Sound-alike and misspelled words, as well as other director industrial relations errors may be contained in the documentation.
[2021-02-02 10:55] VITALS: BP 144/91; PULSE 76; RESP 18; TEMP 36.1; BMI 38.9
--- NOTE | 2021-02-02 12:02 | PCM.WC.PN ---
History of Present Illness Date of Service: 02/02/21 Chief Complaint: Chronic right foot ulcer History of Wound: He had a prior amputation performed 08-27-2019 including a partial right hallux amputation for treatment of ulcers. He has significant previous history of recurrent ulcers and infections. This ulcer has been present since August 2019 and has ongoing delays in healing. He is offloading with a cam walker boot. He denies redness, odor, streaking, fever, chill, nausea, vomiting. He denies pain. He kept his epi fix and dressing clean, dry, and intact this past week. He tries to offload better, but admits he continues to walk on this. Progress of Wound: Improving Objective Data Objective Data Vital Signs: Vital Signs Temp Pulse Resp BP 97 F L 76 18 144/91 H 02/02/21 10:55 02/02/21 10:55 02/02/21 10:55 02/02/21 10:55 Oxygen Delivery Method Room Air Weight: 145.15 kg Body Mass Index (BMI) 38.9 Physical Exam Extremity Extremity Narrative: No calf tenderness Diminished pulses Muscle wasting noted Partial right hallux amputation noted with reduced loaded and unloaded range of motion at the first metatarsophalangeal joint Skin Skin Narrative: no purulence, no streaking, no odor, no infection. 100% granular base ulcer with peripheral callus noted. No deep tissue exposure, necrosis. Adjacent skin is atrophic. No interdigital maceration or eschar Neuro Neuro Narrative: lack of normal epicritic sensation via light touch is consistent with neuropathy status Debridement Note Debridement Note Wound debrided: Right foot Wound Grade/Stage: 1 Type of Debridement: Excisional debridement Anesthesia Used: 4% Lidocaine Solution Depth: in the subcutaneous layer Percentage of wound debrided: 100 Instrument Used: #15 blade Tissue Removed: fibrous, devitalized subcutaneous, biofilm, slough Severity: Fat Layer Exposed Amount of bleeding with debridement: Mild Bleeding Controlled with: Pressure Patient tolerated procedure: Patient tolerated procedure well Post-Debridement Measurements and Additional Note: Post-Debridement Measurements/Treatment MIRIAM - Nurse 1 - General Ulcer Assessment Start: 01/19/21 10:50 Freq: Status: Active Protocol: RIZWAN Activity Type Activity Date Activity User E-Sign Co-Sign Detail Recorded Client Recorded Date Recorded By Document 01/19/21 10:52 MT Desktop 01/19/21 10:58 MT Document 01/26/21 11:02 [facility] [id number] 01/26/21 11:07 [facility] Document 02/02/21 10:55 IA [id number] 02/02/21 11:03 IA 01/19/21 01/26/21 02/02/21 10:52 11:02 10:55 - Today's Visit Information Type of service Follow-up Visit Follow-up Visit Follow-up Visit (Physician/BLENDING MACHINE OPERATOR (Physician/BLENDING MACHINE OPERATOR (Physician/BLENDING MACHINE OPERATOR ) ) ) Arrival Mode Ambulatory Ambulatory, Ambulatory Crutches Transfer Assistance None Accompanied by SELF Patient Identification Verified (Name & Yes Yes Yes ) Patient Requires Transmission-Based No Precautions Height and Weight Body Mass Index (BMI) 38.9 38.9 38.9 BMI Classification Obese Obese Obese Vital Signs Temperature (97.8 F-99.1 F) 96.7 F L 97.2 F L 97 F L Temperature Source Temporal Temporal Temporal Pulse Rate (60-100) 66 68 76 Pulse Location Monitor Monitor Monitor Respiratory Rate (12-18) 18 16 18 Respiratory rate source Observation Observation Observation Oxygen Delivery Method Room Air Room Air Room Air Blood Pressure (90/60-120/80) 133/84 H 145/73 H 144/91 H Blood Pressure Mean (mm Hg) 100 97 108 Source Monitor Monitor Monitor Position Sitting Sitting Sitting Blood Pressure Location Left Arm Left Arm Left Arm History Since Last Visit- (Skip if this is Patient's initial visit) Have you changed medications since your No No last visit? Any new allergies or adverse reactions No No Had a fall/change in ADL's that may No No increase risk of falls Signs or symptoms of abuse and/or No No neglect since last visit Have you been in the hospital since your Yes No Yes last visit? Has dressing in place as prescribed Yes No Yes Has compression in place as prescribed Yes N/A Yes Has offloadiing in place as prescribed Yes Yes Yes Experienced any changes in pain level or Yes No Yes management Left Footwear Regular Shoe Regular Shoe Regular Shoe Right Footwear Removable Cast Removable Cast Regular Shoe Walker/Walking Walker/Walking Boot Boot Pain Scale: 0-10 Numeric Is Patient Pain Free? Yes - Nurse 1 - General Ulcer Measurement Start: 01/19/21 10:50 Freq: Status: Active Protocol: Activity Type Activity Date Activity User E-Sign Co-Sign Detail Recorded Client Recorded Date Recorded By Document 01/19/21 10:52 IA Desktop 01/19/21 10:58 IA Document 01/26/21 11:02 [facility] [id number] 01/26/21 11:07 [facility] Document 02/02/21 10:55 IA [id number] 02/02/21 11:03 IA 01/19/21 01/26/21 02/02/21 10:52 11:02 10:55 Wound Center Nurse 1 #1 Right Great Toe Stub Plantar -Combined with other wound No -Current Size (cm) - Length 0.5 0.2 0.4 -Current Size (cm) - Width 0.7 0.3 0.3 -Current Size (cm) - Depth 0.2 0.3 0.3 -Total Square Cm 0.35 0.06 0.12 -Photo Taken No -Epithelialization Small 1-33% -Tunneling No -Undermining/Tunneling No -Circular Undermining No -Exudate Amt Small Small Small -Exudate Type Serosanguineous Serosanguineous Serous -Wound Margin Thickened & Distinct, Thickened & Rolled Under Outline Rolled Under Attached -Granulation Amt Large (67-100%) Large (67-100%) Large (67-100%) -Granulation Quality [place],Red [place] Pale,[place] -Slough/Fibrin No Yes Yes -Necrosis Amt Small (1-33%) Small (1-33%) -Necrotic Tissue Type Adherent Slough Adherent Slough -Texture (Su-wound Skin Appearance) Assessed Callus,Scarring Assessed -Moisture (Su-wound Skin Appearance) Assessed Assessed,Dry/ Assessed Scaly -Color (Su-wound Skin Appearance) Assessed Assessed Assessed -Temperature (Su-wound Skin No Abnormality No Abnormality No Abnormality Appearance) (Pt Warm) (Pt Warm) (Pt Warm) -Tenderness on Palpation (Su-wound No No No Skin Appearance) -Ulcer Cleansing Rinsed/ Soap and Water Rinsed/ Irrigated with Irrigated with Saline Saline -Foul Odor after Cleansing No No No -Anesthetic Used 4% Lidocaine 5% Lidocaine 4% Lidocaine Solution Gel Solution Lower Limb Edema Present NA NA WC - Nurse 2 - General Ulcer CM Notes Start: 01/19/21 10:50 Freq: Status: Active Protocol: Activity Type Activity Date Activity User E-Sign Co-Sign Detail Recorded Client Recorded Date Recorded By Document 01/19/21 11:28 [id number] 01/19/21 11:31 JF Document 01/26/21 11:24 JF [id number] 01/26/21 11:27 Document 02/02/21 11:11 [id number] 02/02/21 11:16 01/19/21 01/26/21 02/02/21 11:28 11:24 11:11 Wound Center Nurse 2 #1 Right Great Toe Stub Plantar -Time 11:29 11:12 -Correct Patient Yes Yes Yes -Correct Side, Site, Position Yes Yes Yes -Correct Procedure Yes Yes Yes -Procedure Performed Yes Yes Yes -Type of Procedure Debridement Debridement Debridement -Clinical Debridement Subcutaneous Subcutaneous Subcutaneous -Tissue Removed Subcutaneous Subcutaneous Subcutaneous -Post Debridement (cm) - Length 0.6 0.3 0.4 -Post Debridement (cm) - Width 0.7 0.3 0.5 -Post Debridement (cm) - Depth 0.1 0.2 0.1 -Total Square (Post) (cm) 0.42 0.09 0.20 -Area of Debridement (cm) - Length 0.6 0.3 0.4 -Area of Debridement (cm) - Width 0.7 0.3 0.5 -Total Square (Area) (cm) 0.42 0.09 0.20 -Tunneling No No No -Undermining/Tunneling No No No -Circular Undermining No No No -Wound/Ulcer Outcome Not Healed Not Healed Not Healed -Ulcer Cleansing Rinsed/ Rinsed/ Rinsed/ Irrigated with Irrigated with Irrigated with Saline Saline Saline -Foul Odor after Cleansing No No No -Bioengineered Tissue Yes Yes Yes -Type of Bioengineered Tissue Epifix 18mm Epifix 18mm Epifix 18mm Disc Disc Disc -Expiration Date 09/16/25 05/17/25 07/17/25 -Product Lot Number [id number] -Percent Used 100 100 100 -Lot number of Saline Used [id number] -Bleeding Controlled with Pressure Pressure Pressure -Offloading Yes Yes Yes -Type of Offloading Camwalker Surgical Shoe Camwalker -Treatment Response Procedure Procedure Procedure Tolerated Well Tolerated Well Tolerated Well -Debridement - Subq, 1st 20sq cm No No No -Apply Skin Sub - 1st 25 sq cm - Feet 1 1 1 -Epifix 18mm Disc 3 3 3 Pain Scale: 0-10 Numeric Is Patient Pain Free? Yes Yes Yes - Nurse 3 - General Ulcer D/C NN Start: 01/19/21 10:50 Freq: Status: Active Protocol: Activity Type Activity Date Activity User E-Sign Co-Sign Detail Recorded Client Recorded Date Recorded By Document 01/19/21 11:37 RB [id number] 01/19/21 11:38 RB Document 01/26/21 11:32 BM [id number] 01/26/21 11:33 BM Document 02/02/21 11:20 MT [id number] 02/02/21 11:23 MT 01/19/21 01/26/21 02/02/21 11:37 11:32 11:20 Wound Care Nurse 3 #1 Right Great Toe Stub Plantar -Primary Dressing Applied Mepilex Border Mepilex Border -Other Dressing mepilex border epifix epifix foam dressing applied -Mepilex Border 1 1 Right -Compression Wrap Gordon Wrap Treatment Response Procedure Procedure Tolerated Well Tolerated Well Pain Scale: 0-10 Numeric Is Patient Pain Free? Yes - Visit Discharge Discharge Condition Stable Stable Stable Ambulatory Status Ambulatory Ambulatory, Ambulatory Crutches Transportation Private Auto Private Auto Private Auto Medication Reconcilliation completed & No No provided to patient/care provider Clinical Summary of Care Provided Yes Yes Assessment/Plan Assessment/Plan (1) Chronic ulcer of great toe of right foot with fat layer exposed: CODE(S): L97.512 - Non-pressure chronic ulcer of other part of right foot with fat layer exposed (2) Hallux limitus of right foot: CODE(S): M20.5X1 - Other deformities of toe(s) (acquired), right foot (3) Type 2 diabetes mellitus with diabetic polyneuropathy: CODE(S): E11.42 - Type 2 diabetes mellitus with diabetic polyneuropathy (4) Delayed wound healing: CODE(S): T14.8XXD - Other injury of unspecified body region, subsequent encounter PLAN: I reviewed and discussed his case today. Debridement was performed today as noted in the clinical panel to all of the ulcer sites. The following work up and care recommendations were made: To keep secondary dressing clean, dry, and intact until follow-up next week. Tissue growth optimization: This has demonstrated delayed healing and he has had a chronic ulcer for over 1 year. I recommend application of advanced wound healing product to stimulate the healing potential. I recommend epi fix advanced wound healing product which is placental derived. Prior authorization was obtained. This is medically necessary for limb salvage. It is noted he already has amputations. Verbal consent was obtained and epi fix was applied according to standard protocol. This was secured in place with a wound veil and Steri-Strips. He tolerated this well. 100% of the product was utilized. Offload: To limit heel weightbearing activity with a cam walker boot with Plastizote offloading liner pockets. To use assistive device. I ultimately recommended the gold standard offloading which is a total contact cast and he defers at this time because he needs to be able to drive. A prescription for crutches was provided and he had difficulty using both crutches. He is going to proceed forward with using 1 crutch at a time. Vascular: Noninvasive vascular studies were reviewed from with bilateral triphasic waveforms at the ankle level and normal left and right ABIs. Edema: To periodically elevate throughout the day. Is okay to use Tubigrip. Infection: There are no local or systemic signs of infection today and do not recommend a culture or antibiotics. Pain: This is controlled secondary to neuropathy Host factors: He is uncontrolled diabetes and he was advised on proper nutrition to optimize healing. His last A1c level was 8.8% in 06-25-20. Labs: He did not have leukocytosis or other gross abnormalities on 09-09-20. Imaging: His foot x-rays were reviewed from with partial right hallux amputation noted and no other osseous destruction, soft tissue emphysema or foreign body. I answered all the patient's questions. To return to the wound healing center in 1 week or call sooner if the patient has any questions or concerns. Note: [employer] speech recognition electrolog operator software was used to create portions of this document. Sound-alike and misspelled words, as well as other electrolog operator errors may be contained in the documentation.
[2021-02-09 10:55] VITALS: BP 129/79; PULSE 81; RESP 18; TEMP 36.3; BMI 38.9
--- NOTE | 2021-02-09 11:57 | PN.PCM_ITS ---
History of Present Illness Date of Service: 02/09/21 Chief Complaint: Chronic right foot ulcer History of Wound: He had a prior amputation performed 08-27-2019 including a partial right hallux amputation for treatment of ulcers. He has significant previous history of recurrent ulcers and infections. This ulcer has been present since August 2019 and has ongoing delays in healing. He is offloading with a cam walker boot. He denies redness, odor, streaking, fever, chill, nausea, vomiting. He denies pain. He kept his epi fix and dressing clean, dry, and intact this past week. He tries to offload better, but admits he continues to walk on this leg raising his foot down with each step. Progress of Wound: Improving Objective Data Objective Data Vital Signs: Vital Signs Temp Pulse Resp BP 97.3 F L 81 18 129/79 H 02/09/21 10:55 02/09/21 10:55 02/09/21 10:55 02/09/21 10:55 Oxygen Delivery Method Room Air Weight: 145.15 kg Body Mass Index (BMI) 38.9 Physical Exam Extremity Extremity Narrative: No calf tenderness Diminished pulses Muscle wasting noted Partial right hallux amputation noted with reduced loaded and unloaded range of motion at the first metatarsophalangeal joint Skin Skin Narrative: no purulence, no streaking, no odor, no infection. 100% granular base ulcer with peripheral callus noted. No deep tissue exposure, necr osis. Adjacent skin is atrophic. No interdigital maceration or eschar Neuro Neuro Narrative: lack of normal epicritic sensation via light touch is consistent with neuropathy status Debridement Note Debridement Note Wound debrided: Plantar right foot Wound Grade/Stage: 1 Type of Debridement: Excisional debridement Anesthesia Used: 4% Lidocaine Solution Depth: in the subcutaneous layer Percentage of wound debrided: 100 Instrument Used: #15 blade Tissue Removed: fibrous, devitalized subcutaneous, biofilm, slough Severity: Fat Layer Exposed Amount of bleeding with debridement: Mild Bleeding Controlled with: Pressure Patient tolerated procedure: Patient tolerated procedure well Post-Debridement Measurements and Additional Note: Post-Debridement Measurements/Treatment WC - Nurse 1 - General Ulcer Assessment Start: 01/19/21 10:50 Freq: Status: Active Protocol: RIZWAN Activity Type Activity Date Activity User E-Sign Co-Sign Detail Recorded Client Recorded Date Recorded By Document 01/19/21 10:52 MT Desktop 11/03/21 10:58 MT Document 01/26/21 11:02 [facility] [id number] 01/26/21 11:07 BM Document 02/02/21 10:55 MT [id number] 02/02/21 11:03 MT Document 02/09/21 10:55 RB [id number] 02/09/21 10:58 RB 01/19/21 01/26/21 02/02/21 10:52 11:02 10:55 WC - Today's Visit Information Type of service Follow-up Visit Follow-up Visit Follow-up Visit (Physician/INVENTORY TAKER (Physician/INVENTORY TAKER (Physician/INVENTORY TAKER ) ) ) Arrival Mode Ambulatory Ambulatory, Ambulatory Crutches Transfer Assistance None Accompanied by SELF Patient Identification Verified (Name & Yes Yes Yes ) Patient Requires Transmission-Based No Precautions Height and Weight Body Mass Index (BMI) 38.9 38.9 38.9 BMI Classification Obese Obese Obese Vital Signs Temperature (97.8 F-99.1 F) 96.7 F L 97.2 F L 97 F L Temperature Source Temporal Temporal Temporal Pulse Rate (60-100) 66 68 76 Pulse Location Monitor Monitor Monitor Respiratory Rate (12-18) 18 16 18 Respiratory rate source Observation Observation Observation Oxygen Delivery Method Room Air Room Air Room Air Blood Pressure (90/60-120/80) 133/84 H 145/73 H 144/91 H Blood Pressure Mean (mm Hg) 100 97 108 Source Monitor Monitor Monitor Position Sitting Sitting Sitting Blood Pressure Location Left Arm Left Arm Left Arm History Since Last Visit- (Skip if this is Patient's initial visit) Have you changed medications since your No No last visit? Any new allergies or adverse reactions No No Had a fall/change in ADL's that may No No increase risk of falls Signs or symptoms of abuse and/or No No neglect since last visit Have you been in the hospital since your Yes No Yes last visit? Has dressing in place as prescribed Yes No Yes Has compression in place as prescribed Yes N/A Yes Has offloadiing in place as prescribed Yes Yes Yes Experienced any changes in pain level or Yes No Yes management Left Footwear Regular Shoe Regular Shoe Regular Shoe Right Footwear Removable Cast Removable Cast Regular Shoe Walker/Walking Walker/Walking Boot Boot Pain Scale: 0-10 Numeric Is Patient Pain Free? Yes 02/09/21 10:55 - Today's Visit Information Type of service Follow-up Visit (Physician/INVENTORY TAKER ) Arrival Mode Ambulatory Transfer Assistance None Accompanied by Patient Identification Verified (Name & Yes ) Patient Requires Transmission-Based No Precautions Height and Weight Body Mass Index (BMI) 38.9 BMI Classification Obese Vital Signs Temperature (97.8 F-99.1 F) 97.3 F L Temperature Source Temporal Pulse Rate (60-100) 81 Pulse Location Monitor Respiratory Rate (12-18) 18 Respiratory rate source Observation Oxygen Delivery Method Blood Pressure (90/60-120/80) 129/79 H Blood Pressure Mean (mm Hg) 95 Source Monitor Position Semi-Fowlers Blood Pressure Location Left Arm History Since Last Visit- (Skip if this is Patient's initial visit) Have you changed medications since your No last visit? Any new allergies or adverse reactions No Had a fall/change in ADL's that may No increase risk of falls Signs or symptoms of abuse and/or No neglect since last visit Have you been in the hospital since your No last visit? Has dressing in place as prescribed Yes Has compression in place as prescribed No Has offloadiing in place as prescribed No Experienced any changes in pain level or No management Left Footwear Regular Shoe Right Footwear Regular Shoe Pain Scale: 0-10 Numeric Is Patient Pain Free? Yes - Nurse 1 - General Ulcer Measurement Start: 01/19/21 10:50 Freq: Status: Active Protocol: Activity Type Activity Date Activity User E-Sign Co-Sign Detail Recorded Client Recorded Date Recorded By Document 01/19/21 10:52 [place] Desktop 01/19/21 10:58 [place] Document 01/26/21 11:02 [facility] [id number] 01/26/21 11:07 [facility] Document 02/02/21 10:55 MT [id number] 02/02/21 11:03 MT Document 02/09/21 10:55 RB [id number] 02/09/21 10:58 RB 01/19/21 01/26/21 02/02/21 10:52 11:02 10:55 Wound Center Nurse 1 #1 Right Great Toe Stub Plantar -Combined with other wound No -Current Size (cm) - Length 0.5 0.2 0.4 -Current Size (cm) - Width 0.7 0.3 0.3 -Current Size (cm) - Depth 0.2 0.3 0.3 -Total Square Cm 0.35 0.06 0.12 -Photo Taken No -Epithelialization Small 1-33% -Tunneling No -Undermining/Tunneling No -Circular Undermining No -Exudate Amt Small Small Small -Exudate Type Serosanguineous Serosanguineous Serous -Wound Margin Thickened & Distinct, Thickened & Rolled Under Outline Rolled Under Attached -Granulation Amt Large (67-100%) Large (67-100%) Large (67-100%) -Granulation Quality [place],Red Red Pale,[place] -Slough/Fibrin No Yes Yes -Necrosis Amt Small (1-33%) Small (1-33%) -Necrotic Tissue Type Adherent Slough Adherent Slough -Structure Exposed -Texture (Su-wound Skin Appearance) Assessed Callus,Scarring Assessed -Moisture (Su-wound Skin Appearance) Assessed Assessed,Dry/ Assessed Scaly -Color (Su-wound Skin Appearance) Assessed Assessed Assessed -Temperature (Su-wound Skin No Abnormality No Abnormality No Abnormality Appearance) (Pt Warm) (Pt Warm) (Pt Warm) -Tenderness on Palpation (Su-wound No No No Skin Appearance) -Ulcer Cleansing Rinsed/ Soap and Water Rinsed/ Irrigated with Irrigated with Saline Saline -Foul Odor after Cleansing No No No -Anesthetic Used 4% Lidocaine 5% Lidocaine 4% Lidocaine Solution Gel Solution Lower Limb Edema Present NA NA 02/09/21 10:55 Wound Center Nurse 1 #1 Right Great Toe Stub Plantar -Combined with other wound No -Current Size (cm) - Length 0.3 -Current Size (cm) - Width 0.3 -Current Size (cm) - Depth 0.2 -Total Square Cm 0.09 -Photo Taken -Epithelialization -Tunneling No -Undermining/Tunneling No -Circular Undermining No -Exudate Amt Medium -Exudate Type Serosanguineous -Wound Margin Thickened -Granulation Amt Medium (34-66%) -Granulation Quality [place] -Slough/Fibrin Yes -Necrosis Amt Small (1-33%) -Necrotic Tissue Type Adherent Slough -Structure Exposed N/A -Texture (Su-wound Skin Appearance) Callus -Moisture (Su-wound Skin Appearance) Assessed -Color (Su-wound Skin Appearance) Assessed, Erythema -Temperature (Su-wound Skin No Abnormality Appearance) (Pt Warm) -Tenderness on Palpation (Su-wound No Skin Appearance) -Ulcer Cleansing Wound Cleanser -Foul Odor after Cleansing No -Anesthetic Used 5% Lidocaine Gel Lower Limb Edema Present WC - Nurse 2 - General Ulcer CM Notes Start: 01/19/21 10:50 Freq: Status: Active Protocol: Activity Type Activity Date Activity User E-Sign Co-Sign Detail Recorded Client Recorded Date Recorded By Document 01/19/21 11:28 [id number] 01/19/21 11:31 Document 01/26/21 11:24 [id number] 01/26/21 11:27 Document 02/02/21 11:11 [id number] 02/02/21 11:16 Document 02/09/21 11:11 [id number] 02/09/21 11:13 01/19/21 01/26/21 02/02/21 11:28 11:24 11:11 Wound Center Nurse 2 #1 Right Great Toe Stub Plantar -Time 11:29 11:12 -Correct Patient Yes Yes Yes -Correct Side, Site, Position Yes Yes Yes -Correct Procedure Yes Yes Yes -Procedure Performed Yes Yes Yes -Type of Procedure Debridement Debridement Debridement -Clinical Debridement Subcutaneous Subcutaneous Subcutaneous -Tissue Removed Subcutaneous Subcutaneous Subcutaneous -Post Debridement (cm) - Length 0.6 0.3 0.4 -Post Debridement (cm) - Width 0.7 0.3 0.5 -Post Debridement (cm) - Depth 0.1 0.2 0.1 -Total Square (Post) (cm) 0.42 0.09 0.20 -Area of Debridement (cm) - Length 0.6 0.3 0.4 -Area of Debridement (cm) - Width 0.7 0.3 0.5 -Total Square (Area) (cm) 0.42 0.09 0.20 -Tunneling No No No -Undermining/Tunneling No No No -Circular Undermining No No No -Wound/Ulcer Outcome Not Healed Not Healed Not Healed -Ulcer Cleansing Rinsed/ Rinsed/ Rinsed/ Irrigated with Irrigated with Irrigated with Saline Saline Saline -Foul Odor after Cleansing No No No -Bioengineered Tissue Yes Yes Yes -Type of Bioengineered Tissue Epifix 18mm Epifix 18mm Epifix 18mm Disc Disc Disc -Expiration Date 09/16/25 05/17/25 07/17/25 -Product Lot Number [id number] -Percent Used 100 100 100 -Lot number of Saline Used [id number] -Bleeding Controlled with Pressure Pressure Pressure -Offloading Yes Yes Yes -Type of Offloading Camwalker Surgical Shoe Camwalker -Treatment Response Procedure Procedure Procedure Tolerated Well Tolerated Well Tolerated Well -Debridement - Subq, 1st 20sq cm No No No -Apply Skin Sub - 1st 25 sq cm - Feet 1 1 1 -Epifix 18mm Disc 3 3 3 Pain Scale: 0-10 Numeric Is Patient Pain Free? Yes Yes Yes 02/09/21 11:11 Wound Center Nurse 2 #1 Right Great Toe Stub Plantar -Time 11:11 -Correct Patient Yes -Correct Side, Site, Position Yes -Correct Procedure Yes -Procedure Performed Yes -Type of Procedure Debridement -Clinical Debridement Subcutaneous -Tissue Removed Subcutaneous -Post Debridement (cm) - Length 0.5 -Post Debridement (cm) - Width 0.5 -Post Debridement (cm) - Depth 0.2 -Total Square (Post) (cm) 0.25 -Area of Debridement (cm) - Length 0.5 -Area of Debridement (cm) - Width 0.5 -Total Square (Area) (cm) 0.25 -Tunneling No -Undermining/Tunneling No -Circular Undermining No -Wound/Ulcer Outcome Not Healed -Ulcer Cleansing Rinsed/ Irrigated with Saline -Foul Odor after Cleansing No -Bioengineered Tissue Yes -Type of Bioengineered Tissue Epifix 18mm Disc -Expiration Date 11/17/25 -Product Lot Number [id number] -Percent Used 100 -Lot number of Saline Used [id number] -Bleeding Controlled with Pressure -Offloading Yes -Type of Offloading Camwalker -Treatment Response Procedure Tolerated Well -Debridement - Subq, 1st 20sq cm No -Apply Skin Sub - 1st 25 sq cm - Feet 1 -Epifix 18mm Disc 3 Pain Scale: 0-10 Numeric Is Patient Pain Free? Yes WC - Nurse 3 - General Ulcer D/C NN Start: 01/19/21 10:50 Freq: Status: Active Protocol: Activity Type Activity Date Activity User E-Sign Co-Sign Detail Recorded Client Recorded Date Recorded By Document 01/19/21 11:37 RB [id number] 01/19/21 11:38 RB Document 01/26/21 11:32 [facility] [id number] 01/26/21 11:33 BM Document 02/02/21 11:20 MT [id number] 02/02/21 11:23 MT Document 02/09/21 11:21 RB [id number] 02/09/21 11:22 RB Edit Result 02/09/21 11:21 RB (1) [id number] 02/09/21 11:40 RB (1) #1 Right Great Toe Stub Plantar - Primary Dressing Applied Optilok 6.5x10 => Mepilex Border - Mepilex Border => 1 - Optilok 6.5x10 1 => 01/19/21 01/26/21 02/02/21 11:37 11:32 11:20 Wound Care Nurse 3 #1 Right Great Toe Stub Plantar -Primary Dressing Applied Mepilex Border Mepilex Border -Other Dressing mepilex border epifix epifix foam dressing applied -Mepilex Border 1 1 Right -Compression Wrap Gordon Wrap Treatment Response Procedure Procedure Tolerated Well Tolerated Well Pain Scale: 0-10 Numeric Is Patient Pain Free? Yes WC - Visit Discharge Discharge Condition Stable Stable Stable Ambulatory Status Ambulatory Ambulatory, Ambulatory Crutches Transportation Private Auto Private Auto Private Auto Medication Reconcilliation completed & No No provided to patient/care provider Clinical Summary of Care Provided Yes Yes 02/09/21 11:21 Wound Care Nurse 3 #1 Right Great Toe Stub Plantar -Primary Dressing Applied Mepilex Border -Other Dressing -Mepilex Border 1 Right -Compression Wrap Treatment Response Procedure Tolerated Well Pain Scale: 0-10 Numeric Is Patient Pain Free? Yes WC - Visit Discharge Discharge Condition Stable Ambulatory Status Ambulatory Transportation Private Auto Medication Reconcilliation completed & No provided to patient/care provider Clinical Summary of Care Provided Yes Assessment/Plan Assessment/Plan (1) Chronic ulcer of great toe of right foot with fat layer exposed: CODE(S): L97.512 - Non-pressure chronic ulcer of other part of right foot with fat layer exposed (2) Hallux limitus of right foot: CODE(S): M20.5X1 - Other deformities of toe(s) (acquired), right foot (3) Type 2 diabetes mellitus with diabetic polyneuropathy: CODE(S): E11.42 - Type 2 diabetes mellitus with diabetic polyneuropathy (4) Delayed wound healing: CODE(S): T14.8XXD - Other injury of unspecified body region, subsequent encounter PLAN: I reviewed and discussed his case today. Debridement was performed today as noted in the clinical panel to all of the ulcer sites. The following work up and care recommendations were made: To keep secondary dressing clean, dry, and intact until follow-up next week. Tissue growth optimization: This has demonstrated delayed healing and he has had a chronic ulcer for over 1 year. I recommend application of advanced wound hea ling product to stimulate the healing potential. I recommend epi fix advanced wound healing product which is placental derived. Prior authorization was obtained. This is medically necessary for limb salvage. It is noted he already has amputations. Verbal consent was obtained and epi fix was applied according to standard protocol. This was secured in place with a wound veil and Steri- Strips. He tolerated this well. 100% of the product was utilized. Offload: To limit heel weightbearing activity with a cam walker boot with Plastizote offloading liner pockets. To use assistive device. I ultimately recommended the gold standard offloading which is a total contact cast and he defers at this time because he needs to be able to drive. A prescription for crutches was provided and he had difficulty using both crutches. He is going to proceed forward with using 1 crutch at a time which is not recommended or expected to optimize his healing process. Vascular: Noninvasive vascular studies were reviewed from with bilateral triphasic waveforms at the ankle level and normal left and right ABIs. Edema: To periodically elevate throughout the day. Is okay to use Tubigrip. Infection: There are no local or systemic signs of infection today and do not recommend a culture or antibiotics. Pain: This is controlled secondary to neuropathy Host factors: He is uncontrolled diabetes and he was advised on proper nutrition to optimize healing. His last A1c level was 8.8% in 06-25-20. Labs: He did not have leukocytosis or other gross abnormalities on 09-09-20. Imaging: His foot x-rays were reviewed from with partial right hallux amputation noted and no other osseous destruction, soft tissue emphysema or foreign body. I answered all the patient's questions. To return to the wound healing center in 1 week or call sooner if the patient has any questions or concerns. Note: [employer] speech recognition laborer cook house software was used to create portions of this document. Sound-alike and misspelled words, as well as other laborer cook house errors may be contained in the documentation.
== END 2021-02-15 23:59 ==
LOC: WC 10:45
PROVIDERS: PCP Preventive Medicine Occupational Medicine; Visit Provider Podiatrist
DX: E11.621 Type 2 diabetes mellitus with foot ulcer (principal); L97.512 Non-pressure chronic ulcer of other part of right foot with fat layer exposed; M20.5X1 Other deformities of toe(s) (acquired), right foot; E11.42 Type 2 diabetes mellitus with diabetic polyneuropathy; T14.8XXD Other injury of unspecified body region, subsequent encounter; E11.65 Type 2 diabetes mellitus with hyperglycemia
CPT/HCPCS: 15275; Q4186

== ENCOUNTER 2021-03-02 10:45 | Outpatient (RCR) | payer OTHER, SELFPAY ==
[2021-02-16 00:33] VITALS: BP 129/79; PULSE 81; RESP 18; TEMP 36.3; BMI 38.9
[2021-02-16 10:40] VITALS: BP 160/70; PULSE 68; RESP 16; TEMP 35.9; BMI 38.9
--- NOTE | 2021-02-16 11:11 | PN.PCM_ITS ---
History of Present Illness Date of Service: 02/16/21 Chief Complaint: Chronic right foot ulcer History of Wound: He had a prior amputation performed 08-27-2019 including a partial right hallux amputation for treatment of ulcers. He has significant previous history of recurrent ulcers and infections. This ulcer has been present since August 2019 and has ongoing delays in healing. He is offloading with a cam walker boot. He denies redness, odor, streaking, fever, chill, nausea, vomiting. He denies pain. He kept his epi fix and dressing clean, dry, and intact this past week. He went hunting for 2 days and reports he was very bad with walking all over his ulcer site. Progress of Wound: Stable Objective Data Objective Data Vital Signs: Vital Signs Temp Pulse Resp BP 96.7 F L 68 16 160/70 H 02/16/21 10:40 02/16/21 10:40 02/16/21 10:40 02/16/21 10:40 Oxygen Delivery Method Room Air Weight: 145.15 kg Body Mass Index (BMI) 38.9 Physical Exam Extremity Extremity Narrative: No calf tenderness Diminished pulses Muscle wasting noted Partial right hallux amputation noted with reduced loaded and unloaded range of motion at the first metatarsophalangeal joint Skin Skin Narrative: no purulence, no streaking, no odor, no infection. 100% granular base ulcer with peripheral callus noted. No deep tissue exposure, necrosis. Adjacent skin is atrophic. No interdigital maceration or eschar Neuro Neuro Narrative: lack of normal epicritic sensation via light touch is consistent with neuropathy status Debridement Note Debridement Note Wound debrided: right foot Wound Grade/Stage: 1 Type of Debridement: Excisional debridement Anesthesia Used: 4% Lidocaine Solution Depth: in the subcutaneous layer Percentage of wound debrided: 100 Instrument Used: #15 blade Tissue Removed: fibrous, devitalized subcutaneous, biofilm, slough Severity: Fat Layer Exposed Amount of bleeding with debridement: Mild Bleeding Controlled with: Pressure Patient tolerated procedure: Patient tolerated procedure well Post-Debridement Measurements and Additional Note: Post-Debridement Measurements/Treatment MIRIAM - Nurse 1 - General Ulcer Assessment Start: 02/16/21 10:39 Freq: Status: Active Protocol: RIZWAN Activity Type Activity Date Activity User E-Sign Co-Sign Detail Recorded Client Recorded Date Recorded By Document 02/16/21 10:40 [facility] [id number] 02/16/21 10:49 [facility] 02/16/21 10:40 - Today's Visit Information Type of service 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 ) Arrival Mode Ambulatory, Crutches Transfer Assistance None Patient Identification Verified (Name & Yes ) Patient Requires Transmission-Based No Precautions Height and Weight Body Mass Index (BMI) 38.9 BMI Classification Obese Vital Signs Temperature (97.8 F-99.1 F) 96.7 F L Temperature Source Temporal Pulse Rate (60-100) 68 Pulse Location Monitor Respiratory Rate (12-18) 16 Respiratory rate source Observation Oxygen Delivery Method Room Air Blood Pressure (90/60-120/80) 160/70 H Blood Pressure Mean (mm Hg) 100 Source Monitor Position Sitting Blood Pressure Location Right Forearm History Since Last Visit- (Skip if this is Patient's initial visit) Have you changed medications since your No last visit? Any new allergies or adverse reactions No Had a fall/change in ADL's that may No increase risk of falls Signs or symptoms of abuse and/or No neglect since last visit Have you been in the hospital since your No last visit? Has dressing in place as prescribed No Has compression in place as prescribed N/A Has offloadiing in place as prescribed Yes Left Footwear Regular Shoe Right Footwear Removable Cast Walker/Walking Boot Pain Scale: 0-10 Numeric Is Patient Pain Free? Yes - Nurse 1 - General Ulcer Measurement Start: 02/16/21 10:39 Freq: Status: Active Protocol: Activity Type Activity Date Activity User E-Sign Co-Sign Detail Recorded Client Recorded Date Recorded By Document 02/16/21 10:40 [facility] [id number] 02/16/21 10:49 [facility] 02/16/21 10:40 Wound Center Nurse 1 #1 Right Great Toe Stub Plantar -Combined with other wound No -Current Size (cm) - Length 0.2 -Current Size (cm) - Width 0.2 -Current Size (cm) - Depth 0.3 -Total Square Cm 0.04 -Photo Taken No -Epithelialization None Present -Tunneling No -Undermining/Tunneling Yes -Undermining/Tunneling Starts (O'clock 12 ) -Undermining/Tunneling Ends (O'clock) 12 -Maximum Distance (cm) 0.2 -Circular Undermining No -Exudate Amt Small -Exudate Type Serosanguineous -Wound Margin Distinct, Outline Attached -Granulation Amt Large (67-100%) -Granulation Quality Red -Slough/Fibrin Yes -Necrosis Amt Small (1-33%) -Necrotic Tissue Type Adherent Slough -Texture (Su-wound Skin Appearance) Callus,Scarring -Moisture (Su-wound Skin Appearance) Assessed, Maceration -Color (Su-wound Skin Appearance) Assessed -Temperature (Su-wound Skin No Abnormality Appearance) (Pt Warm) -Tenderness on Palpation (Su-wound No Skin Appearance) -Ulcer Cleansing Rinsed/ Irrigated with Saline -Foul Odor after Cleansing Yes, Due to Product Use -Anesthetic Used 5% Lidocaine Gel WC - Nurse 2 - General Ulcer CM Notes Start: 02/16/21 10:39 Freq: Status: Active Protocol: Activity Type Activity Date Activity User E-Sign Co-Sign Detail Recorded Client Recorded Date Recorded By Document 02/16/21 10:53 [facility] [id number] 02/16/21 10:57 [facility] 02/16/21 10:53 Wound Center Nurse 2 -Time 10:53 -Correct Patient Yes -Correct Side, Site, Position Yes -Correct Procedure Yes -Procedure Performed Yes -Type of Procedure Debridement -Clinical Debridement Subcutaneous -Tissue Removed Subcutaneous -Post Debridement (cm) - Length 0.2 -Post Debridement (cm) - Width 0.3 -Post Debridement (cm) - Depth 0.2 -Total Square (Post) (cm) 0.06 -Area of Debridement (cm) - Length 0.2 -Area of Debridement (cm) - Width 0.3 -Total Square (Area) (cm) 0.06 -Tunneling No -Undermining/Tunneling No -Circular Undermining No -Wound/Ulcer Outcome Not Healed -Ulcer Cleansing Rinsed/ Irrigated with Saline -Foul Odor after Cleansing No -Bioengineered Tissue Yes -Type of Bioengineered Tissue Epifix 18mm Disc -Expiration Date 11/17/25 -Product Lot Number [id number] -Percent Used 100 -Lot number of Saline Used [id number] -Bleeding Controlled with Pressure -Type of Offloading Camwalker -Treatment Response Procedure Tolerated Well -Debridement - Subq, 1st 20sq cm No -Apply Skin Sub - 1st 25 sq cm - Feet 1 -Epifix 18mm Disc 3 Pain Scale: 0-10 Numeric Is Patient Pain Free? Yes - Nurse 3 - General Ulcer D/C NN Start: 02/16/21 10:39 Freq: Status: Active Protocol: Activity Type Activity Date Activity User E-Sign Co-Sign Detail Recorded Client Recorded Date Recorded By Document 02/16/21 11:00 [facility] [id number] 02/16/21 11:01 [facility] 02/16/21 11:00 Wound Care Nurse 3 #1 Right Great Toe Stub Plantar -Primary Dressing Applied Mepilex Border -Other Dressing epifix -Mepilex Border 1 Treatment Response Procedure Tolerated Well Pain Scale: 0-10 Numeric Is Patient Pain Free? Yes WC - Visit Discharge Discharge Condition Stable Ambulatory Status Ambulatory, Crutches Transportation Private Auto Assessment/Plan Assessment/Plan (1) Chronic ulcer of great toe of right foot with fat layer exposed: CODE(S): L97.512 - Non-pressure chronic ulcer of other part of right foot with fat layer exposed (2) Hallux limitus of right foot: CODE(S): M20.5X1 - Other deformities of toe(s) (acquired), right foot (3) Type 2 diabetes mellitus with diabetic polyneuropathy: CODE(S): E11.42 - Type 2 diabetes mellitus with diabetic polyneuropathy (4) Delayed wound healing: CODE(S): T14.8XXD - Other injury of unspecified body region, subsequent encounter PLAN: I reviewed and discussed his case today. Debridement was performed today as noted in the clinical panel to all of the ulcer sites. The following work up and care recommendations were made: To keep secondary dressing clean, dry, and intact until follow-up next week. Tissue growth optimization: This has demonstrated delayed healing and he has had a chronic ulcer for over 1 year. I recommend application of advanced wound healing product to stimulate the healing potential. I recommend epi fix advanced wound healing product which is placental derived. Prior authorization was obtained. This is medically necessary for limb salvage. It is noted he already has amputations. Verbal consent was obtained and epi fix was applied according to standard protocol. This was secured in place with a wound veil and Steri-Strips. He tolerated this well. 100% of the product was utilized. Offload: To limit heel weightbearing activity with a cam walker boot with Plastizote offloading liner pockets. To use assistive device. I ultimately recommended the gold standard offloading which is a total contact cast and he defers at this time because he needs to be able to drive. A prescription for crutches was provided and he had difficulty using both crutches. He is going to proceed forward with using 1 crutch at a time which is not recommended or expected to optimize his healing process. Compliance was compromised and reviewed at great length again today. Vascular: Noninvasive vascular studies were reviewed from with bilateral triphasic waveforms at the ankle level and normal left and right ABIs. Edema: To periodically elevate throughout the day. Is okay to use Tubigrip. Infection: There are no local or systemic signs of infection today and do not recommend a culture or antibiotics. Pain: This is controlled secondary to neuropathy Host factors: He is uncontrolled diabetes and he was advised on proper nutrition to optimize healing. His last A1c level was 8.8% in 06-25-20. Labs: He did not have leukocytosis or other gross abnormalities on 09-09-20. Imaging: His foot x-rays were reviewed from with partial right hallux amputation noted and no other osseous destruction, soft tissue emphysema or foreign body. I answered all the patient's questions. To return to the wound healing center in 1 week or call sooner if the patient has any questions or concerns. Note: [employer] speech recognition guard rail installer software was used to create portions of this document. Sound-alike and misspelled words, as well as other guard rail installer errors may be contained in the documentation.
[2021-03-02 10:50] VITALS: BP 130/78; PULSE 70; RESP 20; TEMP 36.4; BMI 38.9
--- NOTE | 2021-03-02 11:35 | RAD_ITS ---
STUDY: X-RAY - RIGHT FOOT CLINICAL: Male, 46 years old. ULCER TECHNIQUE: 4 view(s) of the foot. COMPARISON: None. FINDINGS: There has been previous amputation of the distal half of the proximal first phalanx as well as the distal phalanx. No suspicious soft tissue swelling, or subcutaneous emphysema noted. There is no evidence of a suspicious erosive lesion within the remaining stump of the proximal first phalanx Normal talus, calcaneus, and tarsal bones. Normal visualized subtalar, talonavicular, calcaneocuboid, tarsal and tarsometatarsal articulations. Normal metatarsi. Normal metatarsophalangeal joint of the great toe. Normal tibial and fibular sesamoid bones. Normal interphalangeal joint of the great toe. Normal phalanges of the great toe. There is significant arthrosis at the second MTP joint and in the proximal interphalangeal joint of the second toe. There are subtle erosive lucencies suggesting there may be inflammatory arthropathy here. Normal second through fifth metatarsophalangeal joints. Normal remaining interphalangeal joints and phalanges of the lesser toes. The soft tissue structures are unremarkable. RAD/Foot min 3 Views IMPRESSION: No demonstrate a fracture or suspicious erosive lesion to suspect osteomyelitis. No suspicious soft tissue swelling or subcutaneous emphysema. Second MTP joint arthrosis Significant arthrosis in the proximal interphalangeal joint of the second toe with subchondral erosions, this may represent an inflammatory arthropathy. Electronically Signed: Bereket Grier MD at 17:02 EST , Service support ,
--- NOTE | 2021-03-02 13:05 | PN.PCM_ITS ---
History of Present Illness Date of Service: 03/02/21 Chief Complaint: Chronic right foot ulcer History of Wound: He had a prior amputation performed 08-27-2019 including a partial right hallux amputation for treatment of ulcers. He has significant previous history of recurrent ulcers and infections. This ulcer has been present since August 2019 and has ongoing delays in healing. He is offloading with a cam walker boot. He denies redness, odor, streaking, fever, chill, nausea, vomiting. He denies pain. He offloaded well for a week and then partially last week. Progress of Wound: Stable Objective Data Objective Data Vital Signs: Vital Signs Temp Pulse Resp BP 97.6 F L 70 20 H 130/78 H 03/02/21 10:50 03/02/21 10:50 03/02/21 10:50 03/02/21 10:50 Oxygen Delivery Method Room Air Weight: 145.15 kg Body Mass Index (BMI) 38.9 Physical Exam Extremity Extremity Narrative: No calf tenderness Diminished pulses Muscle wasting noted Partial right hallux amputation noted with reduced loaded and unloaded range of motion at the first metatarsophalangeal joint Skin Skin Narrative: no purulence, no streaking, no odor, no infection. 100% granu lar base ulcer with peripheral callus noted. No deep tissue exposure, necrosis. Adjacent skin is atrophic. No interdigital maceration or eschar Neuro Neuro Narrative: lack of normal epicritic sensation via light touch is consistent with neuropathy status Debridement Note Debridement Note Wound debrided: plantar medial right foot Wound Grade/Stage: 1 Type of Debridement: Excisional debridement Anesthesia Used: 4% Lidocaine Solution Depth: in the subcutaneous layer Percentage of wound debrided: 100 Instrument Used: #15 blade Tissue Removed: fibrous, devitalized subcutaneous, biofilm, slough Severity: Fat Layer Exposed Amount of bleeding with debridement: Mild Bleeding Controlled with: Pressure Patient tolerated procedure: Patient tolerated procedure well Post-Debridement Measurements and Additional Note: Post-Debridement Measurements/Treatment WC - Nurse 1 - General Ulcer Assessment Start: 02/16/21 10:39 Freq: Status: Active Protocol: RIZWAN Activity Type Activity Date Activity User E-Sign Co-Sign Detail Recorded Client Recorded Date Recorded By Document 02/16/21 10:40 [facility] [id number] 02/16/21 10:49 [facility] Document 03/02/21 10:50 DL [id number] 03/02/21 10:56 DL 02/16/21 03/02/21 10:40 10:50 - Today's Visit Information Type of service Follow-up Visit Follow-up Visit (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/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 (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/PRODUCTION 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 ) ) Arrival Mode Ambulatory, Ambulatory Crutches Transfer Assistance None None Patient Identification Verified (Name & Yes Yes ) Patient Requires Transmission-Based No No Precautions Height and Weight Body Mass Index (BMI) 38.9 38.9 BMI Classification Obese Obese Vital Signs Temperature (97.8 F-99.1 F) 96.7 F L 97.6 F L Temperature Source Temporal Temporal Pulse Rate (60-100) 68 70 Pulse Location Monitor Monitor Respiratory Rate (12-18) 16 20 H Respiratory rate source Observation Observation Oxygen Delivery Method Room Air Blood Pressure (90/60-120/80) 160/70 H 130/78 H Blood Pressure Mean (mm Hg) 100 95 Source Monitor Monitor Position Sitting Blood Pressure Location Right Forearm History Since Last Visit- (Skip if this is Patient's initial visit) Have you changed medications since your No No last visit? Any new allergies or adverse reactions No No Had a fall/change in ADL's that may No No increase risk of falls Signs or symptoms of abuse and/or No No neglect since last visit Have you been in the hospital since your No No last visit? Has dressing in place as prescribed No Yes Has compression in place as prescribed N/A N/A Has offloadiing in place as prescribed Yes Yes Experienced any changes in pain level or No management Left Footwear Regular Shoe Right Footwear Removable Cast Removable Cast Walker/Walking Walker/Walking Boot Boot Pain Scale: 0-10 Numeric Is Patient Pain Free? Yes - Nurse 1 - General Ulcer Measurement Start: 02/16/21 10:39 Freq: Status: Active Protocol: Activity Type Activity Date Activity User E-Sign Co-Sign Detail Recorded Client Recorded Date Recorded By Document 02/16/21 10:40 [facility] [id number] 02/16/21 10:49 BM Document 03/02/21 10:50 DL [id number] 03/02/21 10:56 DL 02/16/21 03/02/21 10:40 10:50 Wound Center Nurse 1 #1 Right Great Toe Stub Plantar -Combined with other wound No -Current Size (cm) - Length 0.2 0.3 -Current Size (cm) - Width 0.2 0.3 -Current Size (cm) - Depth 0.3 0.4 -Total Square Cm 0.04 0.09 -Photo Taken No No -Epithelialization None Present -Tunneling No -Undermining/Tunneling Yes -Undermining/Tunneling Starts (O'clock 12 ) -Undermining/Tunneling Ends (O'clock) 12 -Maximum Distance (cm) 0.2 -Maximum Distance #2 (cm) 0.3 -Circular Undermining No Yes -Exudate Amt Small Small -Exudate Type Serosanguineous Serosanguineous -Wound Margin Distinct, Distinct, Outline Outline Attached Attached -Granulation Amt Large (67-100%) Small (1-33%) -Granulation Quality Red Red -Slough/Fibrin Yes -Necrosis Amt Small (1-33%) Small (1-33%) -Necrotic Tissue Type Adherent Slough Adherent Slough -Structure Exposed N/A -Texture (Su-wound Skin Appearance) Callus,Scarring Callus -Moisture (Su-wound Skin Appearance) Assessed, Dry/Scaly Maceration -Color (Su-wound Skin Appearance) Assessed No Abnormality -Temperature (Su-wound Skin No Abnormality No Abnormality Appearance) (Pt Warm) (Pt Warm) -Tenderness on Palpation (Su-wound No Skin Appearance) -Ulcer Cleansing Rinsed/ Rinsed/ Irrigated with Irrigated with Saline Saline -Foul Odor after Cleansing Yes, Due to Product Use -Anesthetic Used 5% Lidocaine 5% Lidocaine Gel Gel WC - Nurse 2 - General Ulcer CM Notes Start: 02/16/21 10:39 Freq: Status: Active Protocol: Activity Type Activity Date Activity User E-Sign Co-Sign Detail Recorded Client Recorded Date Recorded By Document 02/16/21 10:53 [id number] 02/16/21 10:57 Document 03/02/21 11:08 [id number] 03/02/21 11:11 02/16/21 03/02/21 10:53 11:08 Wound Center Nurse 2 #1 Right Great Toe Stub Plantar -Time 10:53 11:09 -Correct Patient Yes Yes -Correct Side, Site, Position Yes Yes -Correct Procedure Yes Yes -Procedure Performed Yes Yes -Type of Procedure Debridement Debridement -Clinical Debridement Subcutaneous Subcutaneous -Tissue Removed Subcutaneous Subcutaneous -Post Debridement (cm) - Length 0.2 0.6 -Post Debridement (cm) - Width 0.3 0.6 -Post Debridement (cm) - Depth 0.2 0.1 -Total Square (Post) (cm) 0.06 0.36 -Area of Debridement (cm) - Length 0.2 0.6 -Area of Debridement (cm) - Width 0.3 0.6 -Total Square (Area) (cm) 0.06 0.36 -Tunneling No No -Undermining/Tunneling No No -Circular Undermining No No -Wound/Ulcer Outcome Not Healed Not Healed -Ulcer Cleansing Rinsed/ Rinsed/ Irrigated with Irrigated with Saline Saline -Foul Odor after Cleansing No No -Bioengineered Tissue Yes No -Type of Bioengineered Tissue Epifix 18mm Disc -Expiration Date 11/17/25 -Product Lot Number [id number] -Percent Used 100 -Lot number of Saline Used [id number] -Bleeding Controlled with Pressure Pressure -Offloading Yes -Type of Offloading Camwalker Camwalker -Treatment Response Procedure Procedure Tolerated Well Tolerated Well -Debridement - Subq, 1st 20sq cm No Yes -Apply Skin Sub - 1st 25 sq cm - Feet 1 -Epifix 18mm Disc 3 Pain Scale: 0-10 Numeric Is Patient Pain Free? Yes Yes WC - Nurse 3 - General Ulcer D/C NN Start: 02/16/21 10:39 Freq: Status: Active Protocol: Activity Type Activity Date Activity User E-Sign Co-Sign Detail Recorded Client Recorded Date Recorded By Document 02/16/21 11:00 [facility] [id number] 02/16/21 11:01 [facility] Document 03/02/21 11:21 RB [id number] 03/02/21 11:22 RB 02/16/21 03/02/21 11:00 11:21 Wound Care Nurse 3 #1 Right Great Toe Stub Plantar -Ulcer Cleansing Rinsed/ Irrigated with Saline -Primary Dressing Applied Mepilex Border Promogran Jennifer Matter -Other Dressing epifix -Primary Dressing Covered/Secured with Dry Gauze, Secured with Tape -Mepilex Border 1 -Promogran Jennifer Matter 1 Treatment Response Procedure Procedure Tolerated Well Tolerated Well Pain Scale: 0-10 Numeric Is Patient Pain Free? Yes WC - Visit Discharge Discharge Condition Stable Stable Ambulatory Status Ambulatory, Crutches Crutches Transportation Private Auto Private Auto Medication Reconcilliation completed & No provided to patient/care provider Clinical Summary of Care Provided Yes Assessment/Plan Assessment/Plan (1) Chronic ulcer of great toe of right foot with fat layer exposed: CODE(S): L97.512 - Non-pressure chronic ulcer of other part of right foot with fat layer exposed (2) Hallux limitus of right foot: CODE(S): M20.5X1 - Other deformities of toe(s) (acquired), right foot (3) Type 2 diabetes mellitus with diabetic polyneuropathy: CODE(S): E11.42 - Type 2 diabetes mellitus with diabetic polyneuropathy (4) Delayed wound healing: CODE(S): T14.8XXD - Other injury of unspecified body region, subsequent encounter PLAN: I reviewed and discussed his case today. Debridement was performed today as noted in the clinical panel to all of the ulcer sites. The following work up and care recommendations were made: Dressing: Jennifer daily Wash: Soap and water Offload: To limit heel weightbearing activity with a cam walker boot with Plastizote offloading liner pockets. To use assistive device. I ultimately recommended the gold standard offloading which is a total contact cast and he defers at this time because he needs to be able to drive. A prescription for crutches was provided and he had difficulty using both crutches. He is going to proceed forward with using 1 crutch at a time which is not recommended or expected to optimize his healing process. Compliance was compromised and reviewed at great length again today. Vascular: Noninvasive vascular studies were reviewed from with bilateral triphasic waveforms at the ankle level and normal left and right ABIs. Edema: To periodically elevate throughout the day. Is okay to use Tubigrip. Infection: There are no local or systemic signs of infection today and do not recommend a culture or antibiotics. Pain: This is controlled secondary to neuropathy Host factors: He is uncontrolled diabetes and he was advised on proper nutrition to optimize healing. His last A1c level was 8.8% in 06-25-20. Labs: He did not have leukocytosis or other gross abnormalities on 09-09-20. Imaging: His foot x-rays were reviewed from with partial right hallux amputation noted and no other osseous destruction, soft tissue emphysema or foreign body. I recommend an updated x-ray to see if additional amputation would be beneficial or if he has any osseous prominence or spurring adjacent to the ulcer site. I answered all the patient's questions. To return to the wound healing center in 1 week or call sooner if the patient has any questions or concerns. Note: [employer] speech recognition junior network administrator software was used to create portions of this document. Sound-alike and misspelled words, as well as other junior network administrator errors may be contained in the documentation. 10 minutes was spent on this encounter. This included face to face and non face to face care including preparing for the visit, reviewing the history, performing the exam, counseling and providing education to the patient, family, or caregiver, ordering medications/test/ procedures if indicated as documented, communicating with other healthcare providers, documenting information in the medical record, interpreting / sharing this information when indicated as documented, and care coordination.
== END 2021-03-18 23:59 ==
LOC: WC 10:45
PROVIDERS: PCP Preventive Medicine Occupational Medicine; Visit Provider Podiatrist
DX: E11.621 Type 2 diabetes mellitus with foot ulcer (principal); L97.512 Non-pressure chronic ulcer of other part of right foot with fat layer exposed; E11.42 Type 2 diabetes mellitus with diabetic polyneuropathy; E11.65 Type 2 diabetes mellitus with hyperglycemia; M19.071 Primary osteoarthritis, right ankle and foot; M20.5X1 Other deformities of toe(s) (acquired), right foot; T14.8XXD Other injury of unspecified body region, subsequent encounter
CPT/HCPCS: 11042; 15275; 73630; Q4186

== ENCOUNTER 2021-03-21 11:07 | Outpatient (CLI) | payer OTHER, SELFPAY ==
[2021-03-21 12:03] LABS: Color, Urine Yellow (Yellow); Glucose, Dipstick 50 mg/dl (Normal); Ketone-Dipstick 5 mg/dl (Negative); Leukocyte Esterase-Dipstick Negative /ul (Negative); Nitrite-Dipstick Negative (Negative); Occult Blood-Urine Negative /ul (Negative); Protein-Dipstick Negative (Negative); Specific Gravity, Urine 1.025 (1.002-1.030); Urine Bilirubin Dipstick Negative (Negative); Urine Clarity Sl. Cloudy (Clear); Urine Urobilinogen Normal (Normal)
[2021-03-21 12:16] LABS: Protein, Urine (Random) 25.2 mg/dL (<11.9); Protein:Creat Ratio 118 mg/g CRE (0-200)
[2021-03-21 12:56] LABS: Anion Gap 8 (5-15); BUN 15 mg/dL (7-18); BUN/Creat Ratio 14.7 RATIO (10-20); Calcium,Total 9.2 mg/dL (8.5-10.1); Chloride 107 mmol/L (98-107); Creatinine, Serum 1.02 mg/dL (0.70-1.30); EST Glomerular Filtration Rate 83 mL/min (>60); Est Glom Filt Rate - Afr Amer 100 mL/min (>60); Glucose 147 mg/dL (74-106); Sodium Level 140 mmol/L (136-145)
== END 2021-03-21 23:59 | disposition home or self-care (01) ==
LOC: LAB 11:08
PROVIDERS: PCP Preventive Medicine Occupational Medicine; Referring Provider Internal Medicine; Visit Provider Internal Medicine
DX: N17.9 Acute kidney failure, unspecified (principal)
CPT/HCPCS: 36415; 80048; 81002; 82570; 84156

== ENCOUNTER 2021-04-13 10:45 | Outpatient (RCR) | payer OTHER, SELFPAY ==
[2021-03-19 00:30] VITALS: BP 130/78; PULSE 70; RESP 20; TEMP 36.4; BMI 38.9
[2021-03-23 10:39] VITALS: BP 157/71; PULSE 100; TEMP 36.2; BMI 38.9
--- NOTE | 2021-03-23 22:30 | PN.PCM_ITS ---
History of Present Illness Date of Service: 03/23/21 Chief Complaint: Chronic right foot ulcer History of Wound: He had a prior amputation performed 08-27-2019 including a partial right hallux amputation for treatment of ulcers. He has significant previous history of recurrent ulcers and infections. This ulcer has been present since August 2019 and has ongoing delays in healing. He is offloading with a cam walker boot. He denies redness, odor, streaking, fever, chill, nausea, vomiting. He denies pain. He has not been compliant with offloading. Progress of Wound: Stable Objective Data Objective Data Vital Signs: Vital Signs Temp Pulse Resp BP 97.2 F L 100 20 H 157/71 H 03/23/21 10:39 03/23/21 10:39 03/19/21 00:30 03/23/21 10:39 Weight: 145.15 kg Body Mass Index (BMI) 38.9 Physical Exam Extremity Extremity Narrative: No calf tenderness Diminished pulses Muscle wasting noted Partial right hallux amputation noted with reduced loaded and unloaded range of motion at the first metatarsophalangeal joint Skin Skin Narrative: no purulence, no streaking, no odor, no infection. 100% granular base ulcer with peripheral callus noted. No deep tissue exposure, necrosis. Adjacent skin is atrophic. No interdigital maceration or eschar Neuro Neuro Narrative: lack of normal epicritic sensation via light touch is consistent with neuropathy status Debridement Note Debridement Note Wound debrided: right plantar medial foot Wound Grade/Stage: 1 Type of Debridement: Excisional debridement Anesthesia Used: 4% Lidocaine Solution Depth: in the subcutaneous layer Percentage of wound debrided: 100 Instrument Used: #15 blade Tissue Removed: fibrous, devitalized subcutaneous, biofilm, slough Severity: Fat Layer Exposed Amount of bleeding with debridement: Mild Bleeding Controlled with: Pressure Patient tolerated procedure: Patient tolerated procedure well Post-Debridement Measurements and Additional Note: Post-Debridement Measurements/Treatment MIRIAM - Nurse 1 - General Ulcer Assessment Start: 03/23/21 10:39 Freq: Status: Active Protocol: RIZWAN Activity Type Activity Date Activity User E-Sign Co-Sign Detail Recorded Client Recorded Date Recorded By Document 03/23/21 10:39 BEATRIZ [id number] 03/23/21 10:42 AK 03/23/21 10:39 MIRIAM - Today's Visit Information Type of service 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 Any new allergies or adverse reactions No Had a fall/change in ADL's that may No increase risk of falls Signs or symptoms of abuse and/or No neglect since last visit Have you been in the hospital since your No last visit? Has dressing in place as prescribed Yes Has compression in place as prescribed No Has offloadiing in place as prescribed N/A Experienced any changes in pain level or No management Left Footwear Regular Shoe Right Footwear Regular Shoe WC - Nurse 1 - General Ulcer Measurement Start: 03/23/21 10:39 Freq: Status: Active Protocol: Activity Type Activity Date Activity User E-Sign Co-Sign Detail Recorded Client Recorded Date Recorded By Document 03/23/21 10:39 BEATRIZ [id number] 03/23/21 10:42 BEATRIZ 03/23/21 10:39 Wound Center Nurse 1 #1 Right Great Toe Stub Plantar -Combined with other wound No -Current Size (cm) - Length 0.4 -Current Size (cm) - Width 0.6 -Current Size (cm) - Depth 0.2 -Total Square Cm 0.24 -Photo Taken No -Epithelialization None Present -Tunneling No -Undermining/Tunneling No -Circular Undermining No -Change in Wound Grade/Stage No -Exudate Amt Medium -Exudate Type Serosanguineous -Wound Margin Distinct, Outline Attached -Granulation Amt Small (1-33%) -Granulation Quality N/A -Slough/Fibrin No -Necrosis Amt Small (1-33%) -Necrotic Tissue Type Adherent Slough -Structure Exposed N/A -Texture (Su-wound Skin Appearance) Assessed,Callus -Moisture (Su-wound Skin Appearance) Assessed, Maceration -Color (Su-wound Skin Appearance) No Abnormality, Assessed -Temperature (Su-wound Skin No Abnormality Appearance) (Pt Warm) -Tenderness on Palpation (Su-wound No Skin Appearance) -Ulcer Cleansing Rinsed/ Irrigated with Saline -Foul Odor after Cleansing No -Anesthetic Used 4% Lidocaine Solution MIRIAM - Nurse 2 - General Ulcer CM Notes Start: 03/23/21 10:39 Freq: Status: Active Protocol: Activity Type Activity Date Activity User E-Sign Co-Sign Detail Recorded Client Recorded Date Recorded By Document 03/23/21 10:45 [id number] 03/23/21 10:47 KYLE 03/23/21 10:45 Wound Center Nurse 2 -Time 10:46 -Correct Patient Yes -Correct Side, Site, Position Yes -Correct Procedure Yes -Procedure Performed Yes -Type of Procedure Debridement -Clinical Debridement Subcutaneous -Tissue Removed Subcutaneous -Post Debridement (cm) - Length 1.0 -Post Debridement (cm) - Width 0.6 -Post Debridement (cm) - Depth 0.2 -Total Square (Post) (cm) 0.60 -Area of Debridement (cm) - Length 1.0 -Area of Debridement (cm) - Width 0.6 -Total Square (Area) (cm) 0.60 -Tunneling No -Undermining/Tunneling No -Circular Undermining No -Wound/Ulcer Outcome Not Healed -Ulcer Cleansing Rinsed/ Irrigated with Saline -Foul Odor after Cleansing Yes, Due to Product Use -Bioengineered Tissue No -Bleeding Controlled with Pressure -Offloading No -Treatment Response Procedure Tolerated Well -Debridement - Subq, 1st 20sq cm Yes Pain Scale: 0-10 Numeric Is Patient Pain Free? Yes MIRIAM - Nurse 3 - General Ulcer D/C NN Start: 03/23/21 10:39 Freq: Status: Active Protocol: Activity Type Activity Date Activity User E-Sign Co-Sign Detail Recorded Client Recorded Date Recorded By Document 03/23/21 10:58 RB [id number] 03/23/21 10:59 RB 03/23/21 10:58 Wound Care Nurse 3 #1 Right Great Toe Stub Plantar -Ulcer Cleansing Wound Cleanser -Primary Dressing Applied Promogran Jennifer Matter -Primary Dressing Covered/Secured with Dry Gauze,Dry Gauze & Roll Gauze,Secured with Tape -Promogran Jennifer Matter 1 Treatment Response Procedure Tolerated Well Pain Scale: 0-10 Numeric Is Patient Pain Free? Yes WC - Visit Discharge Discharge Condition Stable Ambulatory Status Ambulatory Transportation Private Auto Medication Reconcilliation completed & No provided to patient/care provider Clinical Summary of Care Provided Yes Assessment/Plan Assessment/Plan (1) Chronic ulcer of great toe of right foot with fat layer exposed: CODE(S): L97.512 - Non-pressure chronic ulcer of other part of right foot with fat layer exposed (2) Hallux limitus of right foot: CODE(S): M20.5X1 - Other deformities of toe(s) (acquired), right foot (3) Type 2 diabetes mellitus with diabetic polyneuropathy: CODE(S): E11.42 - Type 2 diabetes mellitus with diabetic polyneuropathy (4) Delayed wound healing: CODE(S): T14.8XXD - Other injury of unspecified body region, subsequent encounter PLAN: I reviewed and discussed his case today. Debridement was performed today as noted in the clinical panel to all of the ulcer sites. The following work up and care recommendations were made: Dressing: Jennifer daily Wash: Soap and water Offload: To limit heel weightbearing activity with a cam walker boot with Plastizote offloading liner pockets. To use assistive device. I ultimately recommended the gold standard offloading which is a total contact cast and he defers at this time because he needs to be able to drive. A prescription for crutches was provided and he had difficulty using both crutches. He is going to proceed forward with using 1 crutch at a time which is not recommended or expected to optimize his healing process. Compliance was compromised and reviewed at great length again today. Vascular: Noninvasive vascular studies were reviewed from with bilateral triphasic waveforms at the ankle level and normal left and right ABIs. Edema: To periodically elevate throughout the day. Is okay to use Tubigrip. Infection: There are no local or systemic signs of infection today and do not recommend a culture or antibiotics. Pain: This is controlled secondary to neuropathy Host factors: He is uncontrolled diabetes and he was advised on proper nutrition to optimize healing. His last A1c level was 8.8% in 06-25-20. Labs: He did not have leukocytosis or other gross abnormalities on 09-09-20. Imaging: His foot x-rays were reviewed from with partial right hallux amputation noted and no other osseous destruction, soft tissue emphysema or foreign body. I recommend an updated x-ray to see if additional amputation would be beneficial or if he has any osseous prominence or spurring adjacent to the ulcer site. I answered all the patient's questions. To return to the wound healing center in 1 week or call sooner if the patient has any questions or concerns. Note: [employer] speech recognition host/hostess restaurant software was used to create portions of this document. Sound-alike and misspelled words, as well as other host/hostess restaurant errors may be contained in the documentation.
[2021-04-13 10:39] VITALS: BP 135/89; PULSE 81; RESP 16; TEMP 36.3; BMI 38.9
--- NOTE | 2021-04-13 11:22 | PCM.WC.PN ---
History of Present Illness Date of Service: 04/13/21 Chief Complaint: Chronic right foot ulcer History of Wound: He had a prior amputation performed 08-27-2019 including a partial right hallux amputation for treatment of ulcers. He has significant previous history of recurrent ulcers and infections. This ulcer has been present since August 2019 and has ongoing delays in healing. He is offloading with a cam walker boot. He denies redness, odor, streaking, fever, chill, nausea, vomiting. He denies pain. He has not been compliant with offloading. He relates he was going to continue roller however did not. Progress of Wound: Deeper and larger Objective Data Objective Data Vital Signs: Vital Signs Temp Pulse Resp BP 97.4 F L 81 16 135/89 H 04/13/21 10:39 04/13/21 10:39 04/13/21 10:39 04/13/21 10:39 Oxygen Delivery Method Room Air Weight: 145.15 kg Body Mass Index (BMI) 38.9 Physical Exam Extremity Extremity Narrative: No calf tenderness Diminished pulses Muscle wasting noted Partial right hallux amputation noted with reduced loaded and unloaded range of motion at the first metatarsophalangeal joint Skin Skin Narrative: no purulence, no streaking, no odor, no infection. 100% granular base ulcer with peripheral callus noted. No deep tissue exposure, necrosis. Adjacent skin is atrophic. No interdigital maceration or eschar Neuro Neuro Narrative: lack of normal epicritic sensation via light touch is consistent with neuropathy status Debridement Note Debridement Note Wound debrided: plantar right foot Wound Grade/Stage: 1 Type of Debridement: Excisional debridement Anesthesia Used: 4% Lidocaine Solution Depth: in the subcutaneous layer Percentage of wound debrided: 100 Instrument Used: #15 blade Tissue Removed: fibrous, devitalized subcutaneous, biofilm, slough Severity: Fat Layer Exposed Amount of bleeding with debridement: Mild Bleeding Controlled with: Pressure Patient tolerated procedure: Patient tolerated procedure well Post-Debridement Measurements and Additional Note: Post-Debridement Measurements/Treatment WC - Nurse 1 - General Ulcer Assessment Start: 03/23/21 10:39 Freq: Status: Active Protocol: [email or web address].[email or web address] Activity Type Activity Date Activity User E-Sign Co-Sign Detail Recorded Client Recorded Date Recorded By Document 03/23/21 10:39 AK [id number] 03/23/21 10:42 AK Document 04/13/21 10:39 [facility] [id number] 04/13/21 10:42 [facility] 03/23/21 04/13/21 10:39 10:39 - Today's Visit Information Type of service Follow-up Visit Follow-up Visit (Physician/VP TALENT MANAGEMENT (Physician/VP TALENT MANAGEMENT ) ) Arrival Mode Ambulatory Ambulatory Transfer Assistance None Patient Identification Verified (Name & Yes ) Patient Requires Transmission-Based No Precautions Safety Precautions NA Height and Weight Body Mass Index (BMI) 38.9 38.9 BMI Classification Obese Obese Vital Signs Temperature (97.8 F-99.1 F) 97.2 F L 97.4 F L Temperature Source Temporal Temporal Pulse Rate (60-100) 100 81 Pulse Location Monitor Monitor Respiratory Rate (12-18) 16 Respiratory rate source Observation Oxygen Delivery Method Room Air Blood Pressure (90/60-120/80) 157/71 H 135/89 H Blood Pressure Mean (mm Hg) 99 104 Source Monitor Monitor Position Sitting Blood Pressure Location Left Arm History Since Last Visit- (Skip if this is Patient's initial visit) Have you changed medications since your No No last visit? Any new allergies or adverse reactions No No Had a fall/change in ADL's that may No No increase risk of falls Signs or symptoms of abuse and/or No No neglect since last visit Have you been in the hospital since your No No last visit? Has dressing in place as prescribed Yes No Has compression in place as prescribed No N/A Has offloadiing in place as prescribed N/A N/A Experienced any changes in pain level or No No management Left Footwear Regular Shoe Regular Shoe Right Footwear Regular Shoe Regular Shoe Pain Scale: 0-10 Numeric Is Patient Pain Free? Yes - Nurse 1 - General Ulcer Measurement Start: 03/23/21 10:39 Freq: Status: Active Protocol: Activity Type Activity Date Activity User E-Sign Co-Sign Detail Recorded Client Recorded Date Recorded By Document 03/23/21 10:39 BEATRIZ [id number] 03/23/21 10:42 AK Document 04/13/21 10:39 [facility] [id number] 04/13/21 10:42 [facility] 03/23/21 04/13/21 10:39 10:39 Wound Center Nurse 1 #1 Right Great Toe Stub Plantar -Combined with other wound No No -Current Size (cm) - Length 0.4 0.6 -Current Size (cm) - Width 0.6 0.5 -Current Size (cm) - Depth 0.2 0.5 -Total Square Cm 0.24 0.30 -Photo Taken No No -Epithelialization None Present None Present -Tunneling No No -Undermining/Tunneling No No -Circular Undermining No No -Change in Wound Grade/Stage No -Exudate Amt Medium Medium -Exudate Type Serosanguineous Serosanguineous -Wound Margin Distinct, Distinct, Outline Outline Attached Attached -Granulation Amt Small (1-33%) Large (67-100%) -Granulation Quality N/A Red -Slough/Fibrin No Yes -Necrosis Amt Small (1-33%) Small (1-33%) -Necrotic Tissue Type Adherent Slough Adherent Slough -Structure Exposed N/A -Texture (Su-wound Skin Appearance) Assessed,Callus Assessed, Scarring -Moisture (Su-wound Skin Appearance) Assessed, Assessed,Dry/ Maceration Scaly -Color (Su-wound Skin Appearance) No Abnormality, Assessed Assessed -Temperature (Su-wound Skin No Abnormality No Abnormality Appearance) (Pt Warm) (Pt Warm) -Tenderness on Palpation (Su-wound No No Skin Appearance) -Ulcer Cleansing Rinsed/ Rinsed/ Irrigated with Irrigated with Saline Saline -Foul Odor after Cleansing No No -Anesthetic Used 4% Lidocaine 5% Lidocaine Solution Gel WC - Nurse 2 - General Ulcer CM Notes Start: 03/23/21 10:39 Freq: Status: Active Protocol: Activity Type Activity Date Activity User E-Sign Co-Sign Detail Recorded Client Recorded Date Recorded By Document 03/23/21 10:45 [id number] 03/23/21 10:47 Document 04/13/21 10:56 [id number] 04/13/21 10:58 03/23/21 04/13/21 10:45 10:56 Wound Center Nurse 2 #1 Right Great Toe Stub Plantar -Time 10:46 10:56 -Correct Patient Yes Yes -Correct Side, Site, Position Yes Yes -Correct Procedure Yes Yes -Procedure Performed Yes Yes -Type of Procedure Debridement Debridement -Clinical Debridement Subcutaneous Subcutaneous -Tissue Removed Subcutaneous Subcutaneous -Post Debridement (cm) - Length 1.0 0.6 -Post Debridement (cm) - Width 0.6 0.6 -Post Debridement (cm) - Depth 0.2 0.5 -Total Square (Post) (cm) 0.60 0.36 -Area of Debridement (cm) - Length 1.0 0.6 -Area of Debridement (cm) - Width 0.6 0.6 -Total Square (Area) (cm) 0.60 0.36 -Tunneling No No -Undermining/Tunneling No No -Circular Undermining No No -Wound/Ulcer Outcome Not Healed Not Healed -Ulcer Cleansing Rinsed/ Rinsed/ Irrigated with Irrigated with Saline Saline -Foul Odor after Cleansing Yes, Due to No Product Use -Bioengineered Tissue No No -Bleeding Controlled with Pressure Pressure -Offloading No Yes -Type of Offloading Camwalker -Treatment Response Procedure Procedure Tolerated Well Tolerated Well -Debridement - Subq, 1st 20sq cm Yes Yes Pain Scale: 0-10 Numeric Is Patient Pain Free? Yes Yes - Nurse 3 - General Ulcer D/C NN Start: 03/23/21 10:39 Freq: Status: Active Protocol: Activity Type Activity Date Activity User E-Sign Co-Sign Detail Recorded Client Recorded Date Recorded By Document 03/23/21 10:58 [id number] 03/23/21 10:59 RB Document 04/13/21 11:01 [id number] 04/13/21 11:01 RB 03/23/21 04/13/21 10:58 11:01 Wound Care Nurse 3 #1 Right Great Toe Stub Plantar -Ulcer Cleansing Wound Cleanser Rinsed/ Irrigated with Saline -Primary Dressing Applied Promogran Promogran Jennifer Matter Jennifer Matter -Primary Dressing Covered/Secured with Dry Gauze,Dry Dry Gauze, Gauze & Roll Secured with Gauze,Secured Tape with Tape -Promogran Jennifer Matter 1 1 Treatment Response Procedure Procedure Tolerated Well Tolerated Well Pain Scale: 0-10 Numeric Is Patient Pain Free? Yes Yes - Visit Discharge Discharge Condition Stable Stable Ambulatory Status Ambulatory Ambulatory Transportation Private Auto Private Auto Medication Reconcilliation completed & No No provided to patient/care provider Clinical Summary of Care Provided Yes Yes Assessment/Plan Assessment/Plan (1) Chronic ulcer of great toe of right foot with fat layer exposed: CODE(S): L97.512 - Non-pressure chronic ulcer of other part of right foot with fat layer exposed (2) Hallux limitus of right foot: CODE(S): M20.5X1 - Other deformities of toe(s) (acquired), right foot (3) Type 2 diabetes mellitus with diabetic polyneuropathy: CODE(S): E11.42 - Type 2 diabetes mellitus with diabetic polyneuropathy (4) Delayed wound healing: CODE(S): T14.8XXD - Other injury of unspecified body region, subsequent encounter (5) Non-compliance: CODE(S): Z91.19 - Patient's noncompliance with other medical treatment and regimen PLAN: I reviewed and discussed his case today. Debridement was performed today as noted in the clinical panel to all of the ulcer sites. The following work up and care recommendations were made: Dressing: Jennifer daily Wash: Soap and water Offload: To limit heel weightbearing activity with a cam walker boot with Plastizote offloading liner pockets. To use assistive device. I ultimately recommended the gold standard offloading which is a total contact cast and he defers at this time because he needs to be able to drive. He discontinued trying to get a knee roller and he was advised today this was discussed. This is imperative to give him a healing opportunity. Vascular: Noninvasive vascular studies were reviewed from with bilateral triphasic waveforms at the ankle level and normal left and right ABIs. Edema: To periodically elevate throughout the day. Is okay to use Tubigrip. Infection: There are no local or systemic signs of infection today and do not recommend a culture or antibiotics. Pain: This is controlled secondary to neuropathy Host factors: He is uncontrolled diabetes and he was advised on proper nutrition to optimize healing. His last A1c level was 8.8% in 06-25-20. Labs: He did not have leukocytosis or other gross abnormalities on 09-09-20. Imaging: His foot x-rays were reviewed from with partial right hallux amputation noted and no other osseous destruction, soft tissue emphysema or foreign body. I recommend an updated x-ray to see if additional amputation would be beneficial or if he has any osseous prominence or spurring adjacent to the ulcer site. 10 minutes was spent on this encounter. This included face to face and non face to face care including preparing for the visit, reviewing the history, performing the exam, counseling and providing education to the patient, family, or caregiver, ordering medications/test/ procedures if indicated as documented, communicating with other healthcare providers, documenting information in the medical record, interpreting / sharing this information when indicated as documented, and care coordination. I answered all the patient's questions. To return to the wound healing center in 1 week or call sooner if the patient has any questions or concerns. Note: [employer] speech recognition colored liquid plastic applier software was used to create portions of this document. Sound-alike and misspelled words, as well as other colored liquid plastic applier errors may be contained in the documentation.
== END 2021-04-18 23:59 ==
LOC: WC 10:45
PROVIDERS: PCP Preventive Medicine Occupational Medicine; Visit Provider Podiatrist
DX: E11.621 Type 2 diabetes mellitus with foot ulcer (principal); L97.512 Non-pressure chronic ulcer of other part of right foot with fat layer exposed; E11.42 Type 2 diabetes mellitus with diabetic polyneuropathy; Z91.19 Patient's noncompliance with other medical treatment and regimen; M20.5X1 Other deformities of toe(s) (acquired), right foot; T14.8XXD Other injury of unspecified body region, subsequent encounter
CPT/HCPCS: 11042

== ENCOUNTER 2021-05-11 10:45 | Outpatient (RCR) | payer OTHER, SELFPAY ==
[2021-04-19 00:37] VITALS: BP 135/89; PULSE 81; RESP 16; TEMP 36.3; BMI 38.9
[2021-05-04 11:04] VITALS: BP 144/82; PULSE 85; RESP 18; TEMP 36.4; BMI 38.9
--- NOTE | 2021-05-04 12:05 | RAD_ITS ---
STUDY: X-RAY - RIGHT FOOT CLINICAL: Male, 46 years old. Ulceration left first toe.. TECHNIQUE: 3 view(s) of the foot. COMPARISON: 03/02/2021. FINDINGS: Osteopenia. Small inferior calcaneal spur. Stable resection of the distal aspect of the distal phalanx of the first digit. Soft tissue swelling distal to the resection site. Normal metatarsi. Osteoarthritic changes of the MTP and IP joints with hammertoe deformities, unchanged. RAD/Foot min 3 Views IMPRESSION: Stable foot with no evidence of osteomyelitis. Soft tissue swelling distal to the partially resected distal phalanx. Electronically Signed: Osmany Sun MD at 13:53 EST ,
--- NOTE | 2021-05-04 15:45 | PN.PCM_ITS ---
History of Present Illness Date of Service: 05/04/21 Chief Complaint: Chronic right foot ulcer History of Wound: He had a prior amputation performed 08-27-2019 including a partial right hallux amputation for treatment of ulcers. He has significant previous history of recurrent ulcers and infections. This ulcer has been present since August 2019 and he has ongoing delays in healing. He is offloading with a cam walker boot. He denies redness, odor, streaking, fever, chill, nausea, vomiting. He denies pain. He recently got a knee roller. He defers total contact cast still. Progress of Wound: worse due to increased ulcer size Objective Data Objective Data Vital Signs: Vital Signs Temp Pulse Resp BP 97.5 F L 85 18 144/82 H 05/04/21 11:04 05/04/21 11:04 05/04/21 11:04 05/04/21 11:04 Weight: 145.15 kg Body Mass Index (BMI) 38.9 Radiography Diagnostic Testing: Radiology Impression Foot X-Ray 05/04/21 12:05 IMPRESSION: Stable foot with no evidence of osteomyelitis. Soft tissue swelling distal to the partially resected distal phalanx. Electronically Signed: Osmany Sun MD at 13:53 EST , Physical Exam Extremity Extremity Narrative: No calf tenderness Diminished pulses Muscle wasting noted Partial right hallux amputation noted with reduced loaded and unloaded range of motion at the first metatarsophalangeal joint Skin Skin Narrative: no purulence, no streaking, no odor, no infection. 100% granular base ulcer with peripheral callus noted. increased size and depth noted. No deep tissue exposure, necrosis. Adjacent skin is atrophic. No interdigital maceration or eschar Neuro Neuro Narrative: lack of normal epicritic sensation via light touch is consistent with neuropathy status Debridement Note Debridement Note Wound debrided: right foot Wound Grade/Stage: 1 Type of Debridement: Excisional debridement Anesthesia Used: 4% Lidocaine Solution Depth: in the subcutaneous layer Percentage of wound debrided: 100 Instrument Used: #15 blade Tissue Removed: fibrous, devitalized subcutaneous, biofilm, slough Severity: Fat Layer Exposed Amount of bleeding with debridement: Mild Bleeding Controlled with: Pressure Patient tolerated procedure: Patient tolerated procedure well Post-Debridement Measurements and Additional Note: Post-Debridement Measurements/Treatment - Nurse 1 - General Ulcer Assessment Start: 05/04/21 11:04 Freq: Status: Active Protocol: RIZWAN Activity Type Activity Date Activity User E-Sign Co-Sign Detail Recorded Client Recorded Date Recorded By Document 05/04/21 11:04 LEAH [id number] 05/04/21 11:10 RB 05/04/21 11:04 - Today's Visit Information Type of service 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 ) Arrival Mode Ambulatory, Other Transfer Assistance Manual Patient Identification Verified (Name & Yes ) Patient Requires Transmission-Based No Precautions Height and Weight Body Mass Index (BMI) 38.9 BMI Classification Obese Vital Signs Temperature (97.8 F-99.1 F) 97.5 F L Temperature Source Temporal Pulse Rate (60-100) 85 Pulse Location Monitor Respiratory Rate (12-18) 18 Respiratory rate source Observation Blood Pressure (90/60-120/80) 144/82 H Blood Pressure Mean (mm Hg) 102 Source Monitor Position Semi-Fowlers Blood Pressure Location Right Arm History Since Last Visit- (Skip if this is Patient's initial visit) Have you changed medications since your No last visit? Any new allergies or adverse reactions No Had a fall/change in ADL's that may No increase risk of falls Signs or symptoms of abuse and/or No neglect since last visit Have you been in the hospital since your No last visit? Has dressing in place as prescribed Yes Has compression in place as prescribed No Has offloadiing in place as prescribed No Experienced any changes in pain level or No management Pain Scale: 0-10 Numeric Is Patient Pain Free? Yes [facility] Nurse 1 - General Ulcer Measurement Start: 05/04/21 11:04 Freq: Status: Active Protocol: Activity Type Activity Date Activity User E-Sign Co-Sign Detail Recorded Client Recorded Date Recorded By Document 05/04/21 11:04 LEAH [id number] 05/04/21 11:10 RB 05/04/21 11:04 Wound Center Nurse 1 #1 Right Great Toe Stub Plantar -Combined with other wound No -Current Size (cm) - Length 1.1 -Current Size (cm) - Width 0.6 -Current Size (cm) - Depth 0.4 -Total Square Cm 0.66 -Tunneling No -Undermining/Tunneling No -Circular Undermining No -Exudate Amt Large -Exudate Type Serosanguineous -Wound Margin Thickened & Rolled Under -Granulation Amt Medium (34-66%) -Granulation Quality [place] -Slough/Fibrin Yes -Necrosis Amt Small (1-33%) -Necrotic Tissue Type Adherent Slough -Structure Exposed N/A -Texture (Su-wound Skin Appearance) Callus -Moisture (Su-wound Skin Appearance) Assessed -Color (Su-wound Skin Appearance) Assessed -Temperature (Su-wound Skin No Abnormality Appearance) (Pt Warm) -Tenderness on Palpation (Su-wound No Skin Appearance) -Ulcer Cleansing Wound Cleanser -Foul Odor after Cleansing No -Anesthetic Used 5% Lidocaine Gel WC - Nurse 2 - General Ulcer CM Notes Start: 05/04/21 11:04 Freq: Status: Active Protocol: Activity Type Activity Date Activity User E-Sign Co-Sign Detail Recorded Client Recorded Date Recorded By Document 05/04/21 11:25 [id number] 05/04/21 11:31 KYLE 05/04/21 11:25 Wound Center Nurse 2 -Time 11:26 -Correct Patient Yes -Correct Side, Site, Position Yes -Correct Procedure Yes -Procedure Performed Yes -Type of Procedure Debridement -Clinical Debridement Subcutaneous -Tissue Removed Subcutaneous -Post Debridement (cm) - Length 1.4 -Post Debridement (cm) - Width 1.1 -Post Debridement (cm) - Depth 0.8 -Total Square (Post) (cm) 1.54 -Area of Debridement (cm) - Length 1.4 -Area of Debridement (cm) - Width 1.1 -Total Square (Area) (cm) 1.54 -Tunneling No -Undermining/Tunneling No -Circular Undermining No -Wound/Ulcer Outcome Not Healed -Ulcer Cleansing Rinsed/ Irrigated with Saline -Foul Odor after Cleansing No -Bioengineered Tissue No -Bleeding Controlled with Pressure -Offloading Yes -Type of Offloading Knee Walker -Treatment Response Procedure Tolerated Well -Debridement - Subq, 1st 20sq cm Yes Pain Scale: 0-10 Numeric Is Patient Pain Free? Yes MIRIAM - Nurse 3 - General Ulcer D/C NN Start: 05/04/21 11:04 Freq: Status: Active Protocol: Activity Type Activity Date Activity User E-Sign Co-Sign Detail Recorded Client Recorded Date Recorded By Document 05/04/21 12:09 KYLE [id number] 05/04/21 12:10 KYLE 05/04/21 12:09 Wound Care Nurse 3 #1 Right Great Toe Stub Plantar -Ulcer Cleansing Rinsed/ Irrigated with Saline -Foul Odor after Cleansing No -Primary Dressing Applied Aquacel AG 4x4 -Primary Dressing Covered/Secured with Dry Gauze, Secured with Tape -Aquacel AG 4x4 1 Pain Scale: 0-10 Numeric Is Patient Pain Free? Yes WC - Visit Discharge Discharge Condition Stable Ambulatory Status Ambulatory, Walker Transportation Private Auto Medication Reconcilliation completed & Yes provided to patient/care provider Clinical Summary of Care Provided Yes Assessment/Plan Assessment/Plan (1) Chronic ulcer of great toe of right foot with fat layer exposed: CODE(S): L97.512 - Non-pressure chronic ulcer of other part of right foot with fat layer exposed (2) Hallux limitus of right foot: CODE(S): M20.5X1 - Other deformities of toe(s) (acquired), right foot (3) Type 2 diabetes mellitus with diabetic polyneuropathy: CODE(S): E11.42 - Type 2 diabetes mellitus with diabetic polyneuropathy (4) Delayed wound healing: CODE(S): T14.8XXD - Other injury of unspecified body region, subsequent encounter (5) Non-compliance: CODE(S): Z91.19 - Patient's noncompliance with other medical treatment and regimen PLAN: I reviewed and discussed his case today. Debridement was performed today as noted in the clinical panel to all of the ulcer sites. The following work up and care recommendations were made: Dressing: Jennifer daily Wash: Soap and water Offload: To limit heel weightbearing activity with a cam walker boot with Plastizote offloading liner pockets. To use assistive device. I ultimately recommended the gold standard offloading which is a total contact cast and he defers at this time because he needs to be able to drive. To continue knee roller use. Vascular: Noninvasive vascular studies were reviewed from with bilateral triphasic waveforms at the ankle level and normal left and right ABIs. Edema: To periodically elevate throughout the day. Is okay to use Tubigrip. Infection: There are no local or systemic signs of infection today and do not recommend a culture or antibiotics. Due to his status change I obtained aerobic, anaerobic, and MRSA PCR culture today to see if there is any bacterial contamination or colonization that may be contributing. Pain: This is controlled secondary to neuropathy Host factors: He is uncontrolled diabetes and he was advised on proper nutrition to optimize healing. His last A1c level was 8.8% in 06-25-20. Labs: He did not have leukocytosis or other gross abnormalities on 09-09-20. Imaging: His foot x-rays were reviewed from with partial right hallux amputation noted and no other osseous destruction, soft tissue emphysema or foreign body. I recommend an updated x-ray due to his status change. I answered all the patient's questions. To return to the wound healing center in 1 week or call sooner if the patient has any questions or concerns. Note: [employer] speech recognition coil taper software was used to create portions of this document. Sound-alike and misspelled words, as well as other coil taper errors may be contained in the documentation. The medical decision making level is low. There is noted low risk of morbidity after considering this treatment plan and diagnostic data. The problems addressed require a low medical decision making level which includes two or more minor problems, a stable chronic illness, or an acute uncomplicated illness or injury.
[2021-05-04 17:58] LABS: M R Staph aureus DNA By PCR Negative (Negative); Probe Check PASS; Staph aureus DNA By PCR POSITIVE (Negative)
[2021-05-11 10:36] VITALS: BP 127/82; PULSE 71; RESP 20; TEMP 36; BMI 38.9
--- NOTE | 2021-05-11 13:41 | PN.PCM_ITS ---
History of Present Illness Date of Service: 05/11/21 Chief Complaint: Chronic right foot ulcer History of Wound: He had a prior amputation performed 08-27-2019 including a partial right hallux amputation for treatment of ulcers. He has significant previous history of recurrent ulcers and infections. This ulcer has been present since August 2019 and he has ongoing delays in healing. He is offloading with a cam walker boot. He denies redness, odor, streaking, fever, chill, nausea, vomiting. He denies pain. He recently got a knee roller. He is ready to proceed with a total contact cast today. He started augmentin as advised and denies side effects. Progress of Wound: stable Objective Data Objective Data Vital Signs: Vital Signs Temp Pulse Resp BP 96.8 F L 71 20 H 127/82 H 05/11/21 10:36 05/11/21 10:36 05/11/21 10:36 05/11/21 10:36 Weight: 145.15 kg Body Mass Index (BMI) 38.9 Lab / Micro Data Micro: Microbiology 05/04/21 Unknown Wound Abcess - Right Foot Gram Stain - Final 05/04/21 Unknown Wound Abcess - Right Foot Wound Culture - Final Staphylococcus aureus Streptococcus agalactiae (B) 05/04/21 Unknown Wound Abcess - Right Foot Anaerobic Culture - Final Anaerobic cocci Physical Exam Extremity Extremity Narrative: No calf tenderness Diminished pulses Muscle wasting noted Partial right hallux amputation noted with reduced loaded and unloaded range of motion at the first metatarsophalangeal joint Skin Skin Narrative: no purulence, no streaking, no odor, no infection. 100% granular base ulcer with peripheral callus noted. increased size and depth noted. No deep tissue exposure, necrosis. Adjacent skin is atrophic. No interdigital maceration or eschar Neuro Neuro Narrative: lack of normal epicritic sensation via light touch is consistent with neuropathy status Debridement Note Debridement Note Wound debrided: Right plantar foot Wound Grade/Stage: 1 Type of Debridement: Excisional debridement Anesthesia Used: 4% Lidocaine Solution Depth: in the subcutaneous layer Percentage of wound debrided: 100 Instrument Used: #15 blade Tissue Removed: fibrous, devitalized subcutaneous, biofilm, slough Severity: Fat Layer Exposed Amount of bleeding with debridement: Mild Bleeding Controlled with: Pressure Patient tolerated procedure: Patient tolerated procedure well Post-Debridement Measurements and Additional Note: Post-Debridement Measurements/Treatment WC - Nurse 1 - General Ulcer Assessment Start: 05/04/21 11:04 Freq: Status: Active Protocol: RIZWAN Activity Type Activity Date Activity User E-Sign Co-Sign Detail Recorded Client Recorded Date Recorded By Document 05/04/21 11:04 RB [id number] 05/04/21 11:10 RB Document 05/11/21 10:36 DL [id number] 05/11/21 10:44 DL 05/04/21 05/11/21 11:04 10:36 WC - Today's Visit Information Type of service Follow-up Visit 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 (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/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 SUPERVISING 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 ) ) Arrival Mode Ambulatory, Ambulatory, Other Walker Transfer Assistance Manual None Patient Identification Verified (Name & Yes Yes ) Patient Requires Transmission-Based No No Precautions Finger Stick Blood Sugar(mg/dl) (if 250 indicated): Blood Sugar Stated by Patient Height and Weight Body Mass Index (BMI) 38.9 38.9 BMI Classification Obese Obese Vital Signs Temperature (97.8 F-99.1 F) 97.5 F L 96.8 F L Temperature Source Temporal Temporal Pulse Rate (60-100) 85 71 Pulse Location Monitor Monitor Respiratory Rate (12-18) 18 20 H Respiratory rate source Observation Observation Blood Pressure (90/60-120/80) 144/82 H 127/82 H Blood Pressure Mean (mm Hg) 102 97 Source Monitor Monitor Position Semi-Fowlers Blood Pressure Location Right Arm History Since Last Visit- (Skip if this is Patient's initial visit) Have you changed medications since your No No last visit? Any new allergies or adverse reactions No No Had a fall/change in ADL's that may No No increase risk of falls Signs or symptoms of abuse and/or No No neglect since last visit Have you been in the hospital since your No No last visit? Has dressing in place as prescribed Yes Yes Has compression in place as prescribed No Yes Has offloadiing in place as prescribed No Yes Experienced any changes in pain level or No No management Left Footwear Regular Shoe Right Footwear Surgical Shoe with pressure relief insole Pain Scale: 0-10 Numeric Is Patient Pain Free? Yes Yes - Nurse 1 - General Ulcer Measurement Start: 05/04/21 11:04 Freq: Status: Active Protocol: Activity Type Activity Date Activity User E-Sign Co-Sign Detail Recorded Client Recorded Date Recorded By Document 05/04/21 11:04 RB [id number] 05/04/21 11:10 RB Document 05/11/21 10:36 DL [id number] 05/11/21 10:44 DL 05/04/21 05/11/21 11:04 10:36 Wound Center Nurse 1 #1 Right Great Toe Stub Plantar -Combined with other wound No -Current Size (cm) - Length 1.1 1.1 -Current Size (cm) - Width 0.6 0.8 -Current Size (cm) - Depth 0.4 0.5 -Total Square Cm 0.66 0.88 -Photo Taken No -Tunneling No -Undermining/Tunneling No -Maximum Distance #2 (cm) 0.2 -Circular Undermining No Yes -Exudate Amt Large Medium -Exudate Type Serosanguineous Serosanguineous -Wound Margin Thickened & Distinct, Rolled Under Outline Attached -Granulation Amt Medium (34-66%) Medium (34-66%) -Granulation Quality [place] -Slough/Fibrin Yes -Necrosis Amt Small (1-33%) Medium (34-66%) -Necrotic Tissue Type Adherent Slough Adherent Slough -Structure Exposed N/A N/A -Texture (Su-wound Skin Appearance) Callus Callus,Scarring -Moisture (Su-wound Skin Appearance) Assessed No Abnormality -Color (Su-wound Skin Appearance) Assessed No Abnormality -Temperature (Su-wound Skin No Abnormality No Abnormality Appearance) (Pt Warm) (Pt Warm) -Tenderness on Palpation (Su-wound No No Skin Appearance) -Ulcer Cleansing Wound Cleanser Rinsed/ Irrigated with Saline -Foul Odor after Cleansing No No -Anesthetic Used 5% Lidocaine 5% Lidocaine Gel Gel WC - Nurse 2 - General Ulcer CM Notes Start: 05/04/21 11:04 Freq: Status: Active Protocol: Activity Type Activity Date Activity User E-Sign Co-Sign Detail Recorded Client Recorded Date Recorded By Document 05/04/21 11:25 [id number] 05/04/21 11:31 Document 05/11/21 10:56 [id number] 05/11/21 10:58 JF 02/16/22 02/23/22 11:25 10:56 Wound Center Nurse 2 #1 Right Great Toe Stub Plantar -Time 11:26 10:56 -Correct Patient Yes Yes -Correct Side, Site, Position Yes Yes -Correct Procedure Yes Yes -Procedure Performed Yes Yes -Type of Procedure Debridement Debridement -Clinical Debridement Subcutaneous Subcutaneous -Tissue Removed Subcutaneous Subcutaneous -Post Debridement (cm) - Length 1.4 1.0 -Post Debridement (cm) - Width 1.1 1.0 -Post Debridement (cm) - Depth 0.8 0.2 -Total Square (Post) (cm) 1.54 1.00 -Area of Debridement (cm) - Length 1.4 1.0 -Area of Debridement (cm) - Width 1.1 1.0 -Total Square (Area) (cm) 1.54 1.00 -Tunneling No No -Undermining/Tunneling No No -Circular Undermining No No -Wound/Ulcer Outcome Not Healed Not Healed -Ulcer Cleansing Rinsed/ Rinsed/ Irrigated with Irrigated with Saline Saline -Foul Odor after Cleansing No No -Bioengineered Tissue No No -Bleeding Controlled with Pressure Pressure -Offloading Yes Yes -Type of Offloading Knee Walker Knee Walker -Treatment Response Procedure Procedure Tolerated Well Tolerated Well -Debridement - Subq, 1st 20sq cm Yes Yes Pain Scale: 0-10 Numeric Is Patient Pain Free? Yes Yes - Nurse 3 - General Ulcer D/C NN Start: 05/04/21 11:04 Freq: Status: Active Protocol: Activity Type Activity Date Activity User E-Sign Co-Sign Detail Recorded Client Recorded Date Recorded By Document 05/04/21 12:09 KYLE [id number] 05/04/21 12:10 KYLE 05/04/21 12:09 Wound Care Nurse 3 #1 Right Great Toe Stub Plantar -Ulcer Cleansing Rinsed/ Irrigated with Saline -Foul Odor after Cleansing No -Primary Dressing Applied Aquacel AG 4x4 -Primary Dressing Covered/Secured with Dry Gauze, Secured with Tape -Aquacel AG 4x4 1 Pain Scale: 0-10 Numeric Is Patient Pain Free? Yes - Visit Discharge Discharge Condition Stable Ambulatory Status Ambulatory, Walker Transportation Private Auto Medication Reconcilliation completed & Yes provided to patient/care provider Clinical Summary of Care Provided Yes Assessment/Plan Assessment/Plan (1) Chronic ulcer of great toe of right foot with fat layer exposed: CODE(S): L97.512 - Non-pressure chronic ulcer of other part of right foot with fat layer exposed (2) Hallux limitus of right foot: CODE(S): M20.5X1 - Other deformities of toe(s) (acquired), right foot (3) Type 2 diabetes mellitus with diabetic polyneuropathy: CODE(S): E11.42 - Type 2 diabetes mellitus with diabetic polyneuropathy (4) Delayed wound healing: CODE(S): T14.8XXD - Other injury of unspecified body region, subsequent encounter (5) Non-compliance: CODE(S): Z91.19 - Patient's noncompliance with other medical treatment and regimen PLAN: I reviewed and discussed his case today. Debridement was performed today as noted in the clinical panel to all of the ulcer sites. The following work up and care recommendations were made: Dressing: Jennifer daily Wash: Soap and water Offload: To use assistive device. I ultimately recommended the gold standard offloading which is a total contact cast and he was amenable to proceed today. The indications benefits and anticipated use were reviewed. This was applied according standard protocol in a well-padded rectus manner. Verbal consent was obtained and he tolerated this well. He was advised to keep this clean, dry, and intact until follow-up next week. He will try to take time off work and I will complete additional paperwork upon receipt. Vascular: Noninvasive vascular studies were reviewed from with bilateral triphasic waveforms at the ankle level and normal left and right ABIs. Edema: To periodically elevate throughout the day. Is okay to use Tubigrip. Infection: There are no local or systemic signs of infection today and do not recommend a culture or antibiotics. Due to his status change I obtained aerobic, anaerobic, and MRSA PCR culture today to see if there is any bacterial contamination or colonization that may be contributing. Pain: This is controlled secondary to neuropathy Host factors: He is uncontrolled diabetes and he was advised on proper nutrition to optimize healing. His last A1c level was 8.8% in 06-25-20. Labs: He did not have leukocytosis or other gross abnormalities on 09-09-20. Imaging: His foot x-rays were reviewed from with partial right hallux amputation noted and no other osseous destruction, soft tissue emphysema or foreign body. I recommend an updated x-ray due to his status change. I answered all the patient's questions. To return to the wound healing center in 1 week or call sooner if the patient has any questions or concerns. Note: [employer] speech recognition commodities trader software was used to create portions of this document. Sound-alike and misspelled words, as well as other commodities trader errors may be contained in the documentation.
== END 2021-05-16 23:59 | disposition home or self-care (01) ==
LOC: WC 10:45
PROVIDERS: PCP Preventive Medicine Occupational Medicine; Referring Provider Podiatrist; Visit Provider Podiatrist
DX: E11.621 Type 2 diabetes mellitus with foot ulcer (principal); L97.512 Non-pressure chronic ulcer of other part of right foot with fat layer exposed; E11.42 Type 2 diabetes mellitus with diabetic polyneuropathy; Z91.19 Patient's noncompliance with other medical treatment and regimen; T14.8XXD Other injury of unspecified body region, subsequent encounter; M20.5X1 Other deformities of toe(s) (acquired), right foot
CPT/HCPCS: 11042; 29445; 73630; 87070; 87075; 87077; 87186; 87205; 87640

== ENCOUNTER 2021-06-15 10:30 | Outpatient (RCR) | payer OTHER, SELFPAY ==
[2021-05-17 00:30] VITALS: BP 127/82; PULSE 71; RESP 20; TEMP 36; BMI 38.9
[2021-05-18 10:46] VITALS: BP 141/79; PULSE 75; RESP 18; TEMP 36.4; BMI 38.9
--- NOTE | 2021-05-18 12:02 | PN.PCM_ITS ---
History of Present Illness Date of Service: 05/18/21 Chief Complaint: Chronic right foot ulcer History of Wound: He had a prior amputation performed 08-27-2019 including a partial right hallux amputation for treatment of ulcers. He has significant previous history of recurrent ulcers and infections. This ulcer has been present since August 2019 and he has ongoing delays in healing. He is offloading with a cam walker boot. He denies redness, odor, streaking, fever, chill, nausea, vomiting. He denies pain. He uses a knee roller. He is ready to proceed with a total contact cast today. He continued with augmentin as advised and denies side effects. He is with his today. Progress of Wound: improving Objective Data Objective Data Vital Signs: Vital Signs Temp Pulse Resp BP 97.5 F L 75 18 141/79 H 05/18/21 10:46 05/18/21 10:46 05/18/21 10:46 05/18/21 10:46 Weight: 145.15 kg Body Mass Index (BMI) 38.9 Physical Exam Extremity Extremity Narrative: No calf tenderness Diminished pulses Muscle wasting noted Partial right hallux amputation noted with reduced loaded and unloaded range of motion at the first metatarsophalangeal joint Skin Skin Narrative: no purulence, no streaking, no odor, no infection. 100% granular base ulcer with peripheral callus noted. increased size and depth noted. No deep tissue exposure, necrosis. Adjacent skin is atrophic. No interdigital maceration or eschar Neuro Neuro Narrative: lack of normal epicritic sensation via light touch is consistent with neuropathy status Debridement Note Debridement Note Wound debrided: plantar medial right foot Wound Grade/Stage: 1 Type of Debridement: Excisional debridement Anesthesia Used: 4% Lidocaine Solution Depth: in the subcutaneous layer Percentage of wound debrided: 100 Instrument Used: #15 blade Tissue Removed: fibrous, devitalized subcutaneous, biofilm, slough Severity: Fat Layer Exposed Amount of bleeding with debridement: Mild Bleeding Controlled with: Pressure Patient tolerated procedure: Patient tolerated procedure well Post-Debridement Measurements and Additional Note: Post-Debridement Measurements/Treatment MIRIAM - Nurse 1 - General Ulcer Assessment Start: 05/18/21 10:46 Freq: Status: Active Protocol: RIZWAN Activity Type Activity Date Activity User E-Sign Co-Sign Detail Recorded Client Recorded Date Recorded By Document 05/18/21 10:46 LEAH [id number] 05/18/21 10:48 05/18/21 10:46 - Today's Visit Information Type of service Follow-up Visit (Physician/ANALYTICAL CHEMIST ) Arrival Mode Ambulatory, Walker,Other Transfer Assistance None Patient Identification Verified (Name & Yes ) Height and Weight Body Mass Index (BMI) 38.9 BMI Classification Obese Vital Signs Temperature (97.8 F-99.1 F) 97.5 F L Temperature Source Temporal Pulse Rate (60-100) 75 Pulse Location Monitor Respiratory Rate (12-18) 18 Respiratory rate source Observation Blood Pressure (90/60-120/80) 141/79 H Blood Pressure Mean (mm Hg) 99 Source Monitor Position Semi-Fowlers Blood Pressure Location Right Arm History Since Last Visit- (Skip if this is Patient's initial visit) Have you changed medications since your No last visit? Any new allergies or adverse reactions No Had a fall/change in ADL's that may No increase risk of falls Signs or symptoms of abuse and/or No neglect since last visit Have you been in the hospital since your No last visit? Has dressing in place as prescribed Yes Has compression in place as prescribed No Has offloadiing in place as prescribed Yes Experienced any changes in pain level or No management Left Footwear Regular Shoe Right Footwear Total Contact Cast Pain Scale: 0-10 Numeric Is Patient Pain Free? Yes - Nurse 1 - General Ulcer Measurement Start: 05/18/21 10:46 Freq: Status: Active Protocol: Activity Type Activity Date Activity User E-Sign Co-Sign Detail Recorded Client Recorded Date Recorded By Document 05/18/21 10:46 [id number] 05/18/21 10:48 05/18/21 10:46 Wound Center Nurse 1 #1 Right Great Toe Stub Plantar -Current Size (cm) - Length 0.8 -Current Size (cm) - Width 0.8 -Current Size (cm) - Depth 0.2 -Total Square Cm 0.64 -Tunneling No -Undermining/Tunneling No -Circular Undermining No -Exudate Amt Medium -Exudate Type Serous -Wound Margin Thickened & Rolled Under -Granulation Amt Medium (34-66%) -Granulation Quality [place] -Slough/Fibrin Yes -Necrosis Amt Small (1-33%) -Necrotic Tissue Type Adherent Slough -Structure Exposed N/A -Texture (Su-wound Skin Appearance) Callus -Moisture (Su-wound Skin Appearance) Assessed -Color (Su-wound Skin Appearance) Assessed -Temperature (Su-wound Skin No Abnormality Appearance) (Pt Warm) -Tenderness on Palpation (Su-wound No Skin Appearance) -Ulcer Cleansing Wound Cleanser -Foul Odor after Cleansing No -Anesthetic Used 5% Lidocaine Gel WC - Nurse 2 - General Ulcer CM Notes Start: 05/18/21 10:46 Freq: Status: Active Protocol: Activity Type Activity Date Activity User E-Sign Co-Sign Detail Recorded Client Recorded Date Recorded By Document 05/18/21 10:55 KYLE [id number] 05/18/21 10:57 KYLE 05/18/21 10:55 Wound Center Nurse 2 -Time 10:56 -Correct Patient Yes -Correct Side, Site, Position Yes -Correct Procedure Yes -Procedure Performed Yes -Type of Procedure Debridement -Clinical Debridement Subcutaneous -Tissue Removed Subcutaneous -Post Debridement (cm) - Length 1.2 -Post Debridement (cm) - Width 0.7 -Post Debridement (cm) - Depth 0.1 -Total Square (Post) (cm) 0.84 -Area of Debridement (cm) - Length 1.2 -Area of Debridement (cm) - Width 0.7 -Total Square (Area) (cm) 0.84 -Tunneling No -Undermining/Tunneling No -Circular Undermining No -Wound/Ulcer Outcome Not Healed -Ulcer Cleansing Rinsed/ Irrigated with Saline -Foul Odor after Cleansing No -Bioengineered Tissue No -Bleeding Controlled with Pressure -Offloading Yes -Type of Offloading Total Contact Cast (TCC) - Right ($) -Treatment Response Procedure Tolerated Well -Debridement - Subq, 1st 20sq cm Yes Pain Scale: 0-10 Numeric Is Patient Pain Free? Yes Assessment/Plan Assessment/Plan (1) Chronic ulcer of great toe of right foot with fat layer exposed: CODE(S): L97.512 - Non-pressure chronic ulcer of other part of right foot with fat layer exposed (2) Hallux limitus of right foot: CODE(S): M20.5X1 - Other deformities of toe(s) (acquired), right foot (3) Type 2 diabetes mellitus with diabetic polyneuropathy: CODE(S): E11.42 - Type 2 diabetes mellitus with diabetic polyneuropathy (4) Delayed wound healing: CODE(S): T14.8XXD - Other injury of unspecified body region, subsequent encounter (5) Non-compliance: CODE(S): Z91.19 - Patient's noncompliance with other medical treatment and regimen PLAN: I reviewed and discussed his case today. Debridement was performed today as noted in the clinical panel to all of the ulcer sites. The following work up and care recommendations were made: Dressing: Jennifer applied prior to cast application today Offload: To use assistive device. I ultimately recommended the gold standard offloading which is a total contact cast and he was amenable to proceed today. The indications benefits and anticipated use were reviewed. This was applied according standard protocol in a well-padded rectus manner. Verbal consent was obtained and he tolerated this well. He was advised to keep this clean, dry, and intact until follow-up next week. Vascular: Noninvasive vascular studies were reviewed from with bilateral triphasic waveforms at the ankle level and normal left and right ABIs. Edema: To periodically elevate throughout the day. Is okay to use Tubigrip. Infection: There are no local or systemic signs of infection today and do not recommend a culture or antibiotics. Due to his status change I obtained aerobic, anaerobic, and MRSA PCR culture. To complete course of oral Augmentin. This went well so far. Pain: This is controlled secondary to neuropathy Host factors: He is uncontrolled diabetes and he was advised on proper nutrition to optimize healing. His last A1c level was 8.8% in 06-25-20. Labs: He did not have leukocytosis or other gross abnormalities on 09-09-20. Imaging: His foot x-rays were reviewed from with partial right hallux amputation noted and no other osseous destruction, soft tissue emphysema or foreign body. I recommend an updated x-ray due to his status change. Short-term disability paperwork has been completed and I recommend he avoids weightbearing activities. I answered all the patient's questions. To return to the wound healing center in 1 week or call sooner if the patient has any questions or concerns. Note: [employer] speech recognition behavioral health care coordinator software was used to create portions of this document. Sound-alike and misspelled words, as well as other behavioral health care coordinator errors may be contained in the documentation.
[2021-05-25 10:44] VITALS: BP 154/85; PULSE 76; RESP 22; TEMP 35.3; BMI 38.9
--- NOTE | 2021-05-25 13:05 | PCM.WC.PN ---
History of Present Illness Date of Service: 05/25/21 Chief Complaint: Chronic right foot ulcer History of Wound: He had a prior amputation performed 08-27-2019 including a partial right hallux amputation for treatment of ulcers. He has significant previous history of recurrent ulcers and infections. This ulcer has been present since August 2019 and he has ongoing delays in healing. He denies redness, odor, streaking, fever, chill, nausea, vomiting. He denies pain. He uses a knee roller. He is ready to proceed with a total contact cast again today. He completed oral augmentin as advised and denies side effects. He is currently on short-term disability. He tolerated the total contact cast last week and is amenable to proceed forward again this week. Progress of Wound: improving Objective Data Objective Data Vital Signs: Vital Signs Temp Pulse Resp BP 95.6 F L 76 22 H 154/85 H 05/25/21 10:44 05/25/21 10:44 05/25/21 10:44 05/25/21 10:44 Weight: 145.15 kg Body Mass Index (BMI) 38.9 Physical Exam Extremity Extremity Narrative: No calf tenderness Diminished pulses Muscle wasting noted Partial right hallux amputation noted with reduced loaded and unloaded range of motion at the first metatarsophalangeal joint Skin Skin Narrative: no purulence, no streaking, no odor, no infection. 100% granular base ulcer with peripheral callus noted. increased size and depth noted. No deep tissue exposure, necrosis. Adjacent skin is atrophic. No interdigital maceration or eschar Neuro Neuro Narrative: lack of normal epicritic sensation via light touch is consistent with neuropathy status Debridement Note Debridement Note Wound debrided: Plantar medial right foot Wound Grade/Stage: 1 Type of Debridement: Excisional debridement Anesthesia Used: 4% Lidocaine Solution Depth: in the subcutaneous layer Percentage of wound debrided: 100 Instrument Used: #15 blade Tissue Removed: fibrous, devitalized subcutaneous, biofilm, slough Severity: Fat Layer Exposed Amount of bleeding with debridement: Mild Bleeding Controlled with: Pressure Patient tolerated procedure: Patient tolerated procedure well Post-Debridement Measurements and Additional Note: Post-Debridement Measurements/Treatment MRIIAM - Nurse 1 - General Ulcer Assessment Start: 05/18/21 10:46 Freq: Status: Active Protocol: RIZWAN Activity Type Activity Date Activity User E-Sign Co-Sign Detail Recorded Client Recorded Date Recorded By Document 05/18/21 10:46 RB [id number] 05/18/21 10:48 RB Document 05/25/21 10:44 DL [id number] 05/25/21 10:55 DL 05/18/21 05/25/21 10:46 10:44 - Today's Visit Information Type of service Follow-up Visit Follow-up Visit (Physician/RADIOTELEPHONE OPERATOR (Physician/RADIOTELEPHONE OPERATOR ) ) Arrival Mode Ambulatory, Ambulatory Walker,Other Transfer Assistance None None Patient Identification Verified (Name & Yes Yes ) Patient Requires Transmission-Based No Precautions Height and Weight Body Mass Index (BMI) 38.9 38.9 BMI Classification Obese Obese Vital Signs Temperature (97.8 F-99.1 F) 97.5 F L 95.6 F L Temperature Source Temporal Temporal Pulse Rate (60-100) 75 76 Pulse Location Monitor Monitor Respiratory Rate (12-18) 18 22 H Respiratory rate source Observation Observation Blood Pressure (90/60-120/80) 141/79 H 154/85 H Blood Pressure Mean (mm Hg) 99 108 Source Monitor Monitor Position Semi-Fowlers Blood Pressure Location Right Arm History Since Last Visit- (Skip if this is Patient's initial visit) Have you changed medications since your No No last visit? Any new allergies or adverse reactions No No Had a fall/change in ADL's that may No No increase risk of falls Signs or symptoms of abuse and/or No No neglect since last visit Have you been in the hospital since your No No last visit? Has dressing in place as prescribed Yes Yes Has compression in place as prescribed No N/A Has offloadiing in place as prescribed Yes Yes Experienced any changes in pain level or No No management Left Footwear Regular Shoe Right Footwear Total Contact Total Contact Cast Cast Pain Scale: 0-10 Numeric Is Patient Pain Free? Yes Yes - Nurse 1 - General Ulcer Measurement Start: 05/18/21 10:46 Freq: Status: Active Protocol: Activity Type Activity Date Activity User E-Sign Co-Sign Detail Recorded Client Recorded Date Recorded By Document 05/18/21 10:46 RB [id number] 05/18/21 10:48 RB Document 05/25/21 10:44 DL [id number] 05/25/21 10:55 DL 05/18/21 05/25/21 10:46 10:44 Wound Center Nurse 1 #1 Right Great Toe Stub Plantar -Current Size (cm) - Length 0.8 0.6 -Current Size (cm) - Width 0.8 0.5 -Current Size (cm) - Depth 0.2 0.2 -Total Square Cm 0.64 0.30 -Photo Taken No -Tunneling No -Undermining/Tunneling No -Circular Undermining No -Exudate Amt Medium Small -Exudate Type Serous Serosanguineous -Wound Margin Thickened & Distinct, Rolled Under Outline Attached -Granulation Amt Medium (34-66%) Small (1-33%) -Granulation Quality [place] -Slough/Fibrin Yes -Necrosis Amt Small (1-33%) Small (1-33%) -Necrotic Tissue Type Adherent Slough Adherent Slough -Structure Exposed N/A N/A -Texture (Su-wound Skin Appearance) Callus Scarring -Moisture (Su-wound Skin Appearance) Assessed Maceration -Color (Su-wound Skin Appearance) Assessed No Abnormality -Temperature (Su-wound Skin No Abnormality No Abnormality Appearance) (Pt Warm) (Pt Warm) -Tenderness on Palpation (Su-wound No No Skin Appearance) -Ulcer Cleansing Wound Cleanser Soap and Water -Foul Odor after Cleansing No No -Anesthetic Used 5% Lidocaine 5% Lidocaine Gel Gel WC - Nurse 2 - General Ulcer CM Notes Start: 05/18/21 10:46 Freq: Status: Active Protocol: Activity Type Activity Date Activity User E-Sign Co-Sign Detail Recorded Client Recorded Date Recorded By Document 05/18/21 10:55 [id number] 05/18/21 10:57 Document 05/25/21 11:09 [id number] 05/25/21 11:10 05/18/21 05/25/21 10:55 11:09 Wound Center Nurse 2 #1 Right Great Toe Stub Plantar -Time 10:56 11:10 -Correct Patient Yes Yes -Correct Side, Site, Position Yes Yes -Correct Procedure Yes Yes -Procedure Performed Yes Yes -Type of Procedure Debridement Debridement -Clinical Debridement Subcutaneous Subcutaneous -Tissue Removed Subcutaneous Subcutaneous -Post Debridement (cm) - Length 1.2 0.3 -Post Debridement (cm) - Width 0.7 0.3 -Post Debridement (cm) - Depth 0.1 0.1 -Total Square (Post) (cm) 0.84 0.09 -Area of Debridement (cm) - Length 1.2 0.3 -Area of Debridement (cm) - Width 0.7 0.3 -Total Square (Area) (cm) 0.84 0.09 -Tunneling No No -Undermining/Tunneling No No -Circular Undermining No No -Wound/Ulcer Outcome Not Healed Not Healed -Ulcer Cleansing Rinsed/ Rinsed/ Irrigated with Irrigated with Saline Saline -Foul Odor after Cleansing No No -Bioengineered Tissue No No -Bleeding Controlled with Pressure Pressure -Offloading Yes Yes -Type of Offloading Total Contact Total Contact Cast (TCC) - Cast (TCC) - Right ($) Right ($) -Treatment Response Procedure Procedure Tolerated Well Tolerated Well -Debridement - Subq, 1st 20sq cm Yes Yes Pain Scale: 0-10 Numeric Is Patient Pain Free? Yes Yes - Nurse 3 - General Ulcer D/C NN Start: 05/18/21 10:46 Freq: Status: Active Protocol: Activity Type Activity Date Activity User E-Sign Co-Sign Detail Recorded Client Recorded Date Recorded By Document 05/25/21 11:29 [id number] 05/25/21 11:30 RB 05/25/21 11:29 Wound Care Nurse 3 #1 Right Great Toe Stub Plantar -Primary Dressing Applied Promogran Jennifer Matter -Other Dressing 4 inch TCC primary layer applied -Promogran Jennifer Matter 1 Pain Scale: 0-10 Numeric Is Patient Pain Free? Yes - Visit Discharge Discharge Condition Stable Ambulatory Status Ambulatory Transportation Private Auto Medication Reconcilliation completed & No provided to patient/care provider Clinical Summary of Care Provided Yes Notes: knee walker Assessment/Plan Assessment/Plan (1) Hallux limitus of right foot: CODE(S): M20.5X1 - Other deformities of toe(s) (acquired), right foot (2) Type 2 diabetes mellitus with diabetic polyneuropathy: CODE(S): E11.42 - Type 2 diabetes mellitus with diabetic polyneuropathy (3) Delayed wound healing: CODE(S): T14.8XXD - Other injury of unspecified body region, subsequent encounter (4) Non-compliance: CODE(S): Z91.19 - Patient's noncompliance with other medical treatment and regimen (5) Chronic ulcer of right foot with fat layer exposed: CODE(S): L97.512 - Non-pressure chronic ulcer of other part of right foot with fat layer exposed PLAN: I reviewed and discussed his case today. Debridement was performed today as noted in the clinical panel to all of the ulcer sites. The following work up and care recommendations were made: Dressing: Jennifer applied prior to cast application today Offload: To use assistive device. I ultimately recommended the gold standard offloading which is a total contact cast and he was amenable to proceed today. The indications benefits and anticipated use were reviewed. This was applied according standard protocol in a well-padded rectus manner. Verbal consent was obtained and he tolerated this well. He was advised to keep this clean, dry, and intact until follow-up next week. Vascular: Noninvasive vascular studies were reviewed from with bilateral triphasic waveforms at the ankle level and normal left and right ABIs. Edema: To periodically elevate throughout the day. Is okay to use Tubigrip. Infection: There are no local or systemic signs of infection today and do not recommend a culture or antibiotics. Due to his status change I obtained aerobic, anaerobic, and MRSA PCR culture. To complete course of oral Augmentin. This went well so far. Pain: This is controlled secondary to neuropathy Host factors: He is uncontrolled diabetes and he was advised on proper nutrition to optimize healing. His last A1c level was 8.8% in 06-25-20. Labs: He did not have leukocytosis or other gross abnormalities on 09-09-20. Imaging: His foot x-rays were reviewed from with partial right hallux amputation noted and no other osseous destruction, soft tissue emphysema or foreign body. I recommend an updated x-ray due to his status change. Short-term disability paperwork has been completed and I recommend he avoids weightbearing activities. I answered all the patient's questions. To return to the wound healing center in 1 week or call sooner if the patient has any questions or concerns. Note: [employer] speech recognition associate field service engineer software was used to create portions of this document. Sound-alike and misspelled words, as well as other associate field service engineer errors may be contained in the documentation.
[2021-06-01 14:50] VITALS: BP 170/64; PULSE 61; RESP 16; BMI 38.9
--- NOTE | 2021-06-01 15:49 | PN.PCM_ITS ---
History of Present Illness Date of Service: 06/01/21 Chief Complaint: Chronic right foot ulcer History of Wound: He had a prior amputation performed 08-27-2019 including a partial right hallux amputation for treatment of ulcers. He has significant previous history of recurrent ulcers and infections. This ulcer has been present since August 2019 and he has ongoing delays in healing. He denies redness, odor, streaking, fever, chill, nausea, vomiting. He denies pain. He uses a knee roller. He is ready to proceed with a total contact cast again today. He completed oral augmentin as advised and denies side effects. He is currently on short-term disability. He tolerated the total contact cast last week and is amenable to proceed forward again this week. We discussed nutrition habits today and it is noted he is drinking over a liter of Mountain Dew soda every day and takes and minimal if any fresh whole foods. He previously tried John nutritional supplementation and did not like it unless he mixed it with pop. Progress of Wound: improving Objective Data Objective Data Vital Signs: Vital Signs Temp Pulse Resp BP 95.6 F L 61 16 170/64 H 05/25/21 10:44 06/01/21 14:50 06/01/21 14:50 06/01/21 14:50 Oxygen Delivery Method Room Air Weight: 145.15 kg Body Mass Index (BMI) 38.9 Physical Exam Extremity Extremity Narrative: No calf tenderness Diminished pulses Muscle wasting noted Partial right hallux amputation noted with reduced loaded and unloaded range of motion at the first metatarsophalangeal joint Skin Skin Narrative: no purulence, no streaking, no odor, no infection. 100% granular base ulcer with peripheral callus noted. reduced size and depth noted. No deep tissue exposure, necrosis. Adjacent skin is atrophic. No interdigital maceration or eschar Neuro Neuro Narrative: lack of normal epicritic sensation via light touch is consistent with neuropathy status Debridement Note Debridement Note Wound debrided: plantar medial right foot Wound Grade/Stage: 1 Type of Debridement: Excisional debridement Anesthesia Used: 4% Lidocaine Solution Depth: in the subcutaneous layer Percentage of wound debrided: 100 Instrument Used: #15 blade Tissue Removed: fibrous, devitalized subcutaneous, biofilm, slough Severity: Fat Layer Exposed Amount of bleeding with debridement: Mild Bleeding Controlled with: Pressure Patient tolerated procedure: Patient tolerated procedure well Post-Debridement Measurements and Additional Note: Post-Debridement Measurements /Treatment WC - Nurse 1 - General Ulcer Assessment Start: 05/18/21 10:46 Freq: Status: Active Protocol: RIZWAN Activity Type Activity Date Activity User E-Sign Co-Sign Detail Recorded Client Recorded Date Recorded By Document 05/18/21 10:46 RB [id number] 05/18/21 10:48 RB Document 05/25/21 10:44 DL [id number] 05/25/21 10:55 DL Document 06/01/21 14:50 BMF [id number] 06/01/21 14:59 BMF 05/18/21 05/25/21 06/01/21 10:46 10:44 14:50 WC - Today's Visit Information Type of service Follow-up Visit Follow-up Visit Follow-up Visit (Physician/DESKTOP PUBLISHING SPECIALIST (Physician/DESKTOP PUBLISHING SPECIALIST (Physician/DESKTOP PUBLISHING SPECIALIST ) ) ) Arrival Mode Ambulatory, Ambulatory Ambulatory Walker,Other Transfer Assistance None None None Patient Identification Verified (Name & Yes Yes Yes ) Patient Requires Transmission-Based No No Precautions Height and Weight Body Mass Index (BMI) 38.9 38.9 38.9 BMI Classification Obese Obese Obese Vital Signs Temperature (97.8 F-99.1 F) 97.5 F L 95.6 F L Temperature Source Temporal Temporal Pulse Rate (60-100) 75 76 61 Pulse Location Monitor Monitor Monitor Respiratory Rate (12-18) 18 22 H 16 Respiratory rate source Observation Observation Observation Oxygen Delivery Method Room Air Blood Pressure (90/60-120/80) 141/79 H 154/85 H 170/64 H Blood Pressure Mean (mm Hg) 99 108 99 Source Monitor Monitor Monitor Position Semi-Fowlers Sitting Blood Pressure Location Right Arm Right Arm History Since Last Visit- (Skip if this is Patient's initial visit) Have you changed medications since your No No No last visit? Any new allergies or adverse reactions No No No Had a fall/change in ADL's that may No No No increase risk of falls Signs or symptoms of abuse and/or No No No neglect since last visit Have you been in the hospital since your No No No last visit? Has dressing in place as prescribed Yes Yes Yes Has compression in place as prescribed No N/A N/A Has offloadiing in place as prescribed Yes Yes Yes Experienced any changes in pain level or No No No management Left Footwear Regular Shoe Regular Shoe Right Footwear Total Contact Total Contact Total Contact Cast Cast Cast Pain Scale: 0-10 Numeric Is Patient Pain Free? Yes Yes Yes WC - Nurse 1 - General Ulcer Measurement Start: 05/18/21 10:46 Freq: Status: Active Protocol: Activity Type Activity Date Activity User E-Sign Co-Sign Detail Recorded Client Recorded Date Recorded By Document 05/18/21 10:46 RB [id number] 05/18/21 10:48 RB Document 05/25/21 10:44 DL [id number] 05/25/21 10:55 DL Document 06/01/21 14:50 BMF [id number] 06/01/21 14:59 BMF 05/18/21 05/25/21 06/01/21 10:46 10:44 14:50 Wound Center Nurse 1 #1 Right Great Toe Stub Plantar -Combined with other wound No -Current Size (cm) - Length 0.8 0.6 0.3 -Current Size (cm) - Width 0.8 0.5 0.3 -Current Size (cm) - Depth 0.2 0.2 0.2 -Total Square Cm 0.64 0.30 0.09 -Photo Taken No No -Epithelialization Small 1-33% -Tunneling No No -Undermining/Tunneling No No -Circular Undermining No No -Exudate Amt Medium Small Medium -Exudate Type Serous Serosanguineous Serosanguineous -Wound Margin Thickened & Distinct, Distinct, Rolled Under Outline Outline Attached Attached -Granulation Amt Medium (34-66%) Small (1-33%) Large (67-100%) -Granulation Quality [place] Red -Slough/Fibrin Yes No -Necrosis Amt Small (1-33%) Small (1-33%) None Present (0 %) -Necrotic Tissue Type Adherent Slough Adherent Slough -Structure Exposed N/A N/A -Texture (Su-wound Skin Appearance) Callus Scarring Assessed, Scarring -Moisture (Su-wound Skin Appearance) Assessed Maceration Assessed, Maceration -Color (Su-wound Skin Appearance) Assessed No Abnormality Assessed,Palor -Temperature (Su-wound Skin No Abnormality No Abnormality No Abnormality Appearance) (Pt Warm) (Pt Warm) (Pt Warm) -Tenderness on Palpation (Su-wound No No No Skin Appearance) -Ulcer Cleansing Wound Cleanser Soap and Water Soap and Water -Foul Odor after Cleansing No No No -Anesthetic Used 5% Lidocaine 5% Lidocaine 5% Lidocaine Gel Gel Gel WC - Nurse 2 - General Ulcer CM Notes Start: 05/18/21 10:46 Freq: Status: Active Protocol: Activity Type Activity Date Activity User E-Sign Co-Sign Detail Recorded Client Recorded Date Recorded By Document 05/18/21 10:55 [id number] 05/18/21 10:57 Document 05/25/21 11:09 [id number] 05/25/21 11:10 Document 06/01/21 15:14 [id number] 06/01/21 15:17 05/18/21 05/25/21 06/01/21 10:55 11:09 15:14 Wound Center Nurse 2 #1 Right Great Toe Stub Plantar -Time 10:56 11:10 15:14 -Correct Patient Yes Yes Yes -Correct Side, Site, Position Yes Yes Yes -Correct Procedure Yes Yes Yes -Procedure Performed Yes Yes Yes -Type of Procedure Debridement Debridement Debridement -Clinical Debridement Subcutaneous Subcutaneous Subcutaneous -Tissue Removed Subcutaneous Subcutaneous Subcutaneous -Post Debridement (cm) - Length 1.2 0.3 0.3 -Post Debridement (cm) - Width 0.7 0.3 0.3 -Post Debridement (cm) - Depth 0.1 0.1 0.2 -Total Square (Post) (cm) 0.84 0.09 0.09 -Area of Debridement (cm) - Length 1.2 0.3 0.3 -Area of Debridement (cm) - Width 0.7 0.3 0.3 -Total Square (Area) (cm) 0.84 0.09 0.09 -Tunneling No No No -Undermining/Tunneling No No No -Circular Undermining No No No -Wound/Ulcer Outcome Not Healed Not Healed Not Healed -Ulcer Cleansing Rinsed/ Rinsed/ Rinsed/ Irrigated with Irrigated with Irrigated with Saline Saline Saline -Foul Odor after Cleansing No No No -Bioengineered Tissue No No No -Bleeding Controlled with Pressure Pressure Pressure -Offloading Yes Yes Yes -Type of Offloading Total Contact Total Contact Total Contact Cast (TCC) - Cast (TCC) - Cast (TCC) - Right ($) Right ($) Right ($) -Treatment Response Procedure Procedure Procedure Tolerated Well Tolerated Well Tolerated Well -Debridement - Subq, 1st 20sq cm Yes Yes Yes Pain Scale: 0-10 Numeric Is Patient Pain Free? Yes Yes Yes - Nurse 3 - General Ulcer D/C NN Start: 05/18/21 10:46 Freq: Status: Active Protocol: Activity Type Activity Date Activity User E-Sign Co-Sign Detail Recorded Client Recorded Date Recorded By Document 05/25/21 11:29 RB [id number] 05/25/21 11:30 RB Document 06/01/21 15:40 [facility] [id number] 06/01/21 15:41 BM 05/25/21 06/01/21 11:29 15:40 Wound Care Nurse 3 #1 Right Great Toe Stub Plantar -Ulcer Cleansing Rinsed/ Irrigated with Saline -Foul Odor after Cleansing No -Primary Dressing Applied Promogran Mepilex Border, Albino Matter Other -Other Dressing 4 inch TCC ALBINO primary layer applied -Other Covering UNDERCAST FOR TCC APPLIED -Mepilex Border 1 -Promogran Albino Matter 1 0 Treatment Response Procedure Not Tolerated Well Pain Scale: 0-10 Numeric Is Patient Pain Free? Yes Yes - Visit Discharge Discharge Condition Stable Stable Ambulatory Status Ambulatory Ambulatory Transportation Private Auto Private Auto Medication Reconcilliation completed & No provided to patient/care provider Clinical Summary of Care Provided Yes Notes: knee walker Assessment/Plan Assessment/Plan (1) Hallux limitus of right foot: CODE(S): M20.5X1 - Other deformities of toe(s) (acquired), right foot (2) Type 2 diabetes mellitus with diabetic polyneuropathy: CODE(S): E11.42 - Type 2 diabetes mellitus with diabetic polyneuropathy (3) Delayed wound healing: CODE(S): T14.8XXD - Other injury of unspecified body region, subsequent encounter (4) Non-compliance: CODE(S): Z91.19 - Patient's noncompliance with other medical treatment and regimen (5) Chronic ulcer of right foot with fat layer exposed: CODE(S): L97.512 - Non-pressure chronic ulcer of other part of right foot with fat layer exposed (6) Malnutrition: CODE(S): E46 - Unspecified protein-calorie malnutrition PLAN: I reviewed and discussed his case today. Debridement was performed today as noted in the clinical panel to all of the ulcer sites. The following work up and care recommendations were made: Dressing: Albino applied prior to cast application today Offload: To use assistive device. I ultimately recommended the gold standard offloading which is a total contact cast and he was amenable to proceed today. The indications benefits and anticipated use were reviewed. This was applied according standard protocol in a well-padded rectus manner. Verbal consent was obtained and he tolerated this well. He was advised to keep this clean, dry, and intact until follow-up next week. Vascular: Noninvasive vascular studies were reviewed from with bilateral triphasic waveforms at the ankle level and normal left and right ABIs. Edema: To periodically elevate throughout the day. Is okay to use Tubigrip. Infection: There are no local or systemic signs of infection today and do not recommend a culture or antibiotics. Due to his status change I obtained aerobic, anaerobic, and MRSA PCR culture. To complete course of oral Augmentin. This went well so far. Pain: This is controlled secondary to neuropathy Host factors: He is uncontrolled diabetes and he was advised on proper nutrition to optimize healing. His last A1c level was 8.8% in 06-25-20. I recommend nutritional supplementation with John. Is noted he did not like the flavor options. I recommend he try unflavored option. It is noted he is drinking over a liter of Mountain Dew daily I recommend he discontinue processed foods including sodas. There is limited if any nutritional value to this. I recommend he strives for eating whole foods including at least 5 fresh fruits and vegetables daily. He was also advised to intake adequate and quality protein. He understands this will optimize his healing potential. Labs: He did not have leukocytosis or other gross abnormalities on 09-09-20. Imaging: His foot x-rays were reviewed from with partial right hallux amputation noted and no other osseous destruction, soft tissue emphysema or foreign body. I recommend an updated x-ray due to his status change. Short-term disability paperwork has been completed and I recommend he avoids weightbearing activities. I answered all the patient's questions. To return to the wound healing center in 1 week or call sooner if the patient has any questions or concerns. Note: relocality speech recognition food trades assistants software was used to create portions of this document. Sound-alike and misspelled words, as well as other food trades assistants errors may be contained in the documentation. 13 minutes was spent on this encounter. This included face to face and non face to face care including preparing for the visit, reviewing the history, performing the exam, counseling and providing education to the patient, family, or caregiver, ordering medications/test/ procedures if indicated as documented, communicating with other healthcare providers, documenting information in the medical record, interpreting / sharing this information when indicated as documented, and care coordination.
[2021-06-08 08:48] VITALS: BP 162/92; PULSE 81; TEMP 36.3; BMI 38.9
--- NOTE | 2021-06-08 09:50 | PCM.WC.PN ---
History of Present Illness Date of Service: 06/08/21 Chief Complaint: Chronic right foot ulcer History of Wound: He had a prior amputation performed 08-27-2019 including a partial right hallux amputation for treatment of ulcers. He has significant previous history of recurrent ulcers and infections. This ulcer has been present since August 2019 and he has ongoing delays in healing. He denies redness, odor, streaking, fever, chill, nausea, vomiting. He denies pain. He uses a knee roller. He is ready to proceed with a total contact cast again today. He completed oral augmentin as advised and denies side effects. He is currently on short-term disability. He tolerated the total contact cast last week and is amenable to proceed forward again this week. He is trying to increase the intake of fresh whole foods. Progress of Wound: improving Objective Data Objective Data Vital Signs: Vital Signs Temp Pulse Resp BP 97.4 F L 81 16 162/92 H 06/08/21 08:48 06/08/21 08:48 06/01/21 14:50 06/08/21 08:48 Oxygen Delivery Method Room Air Weight: 145.15 kg Body Mass Index (BMI) 38.9 Physical Exam Extremity Extremity Narrative: No calf tenderness Diminished pulses Muscle wasting noted Partial right hallux amputation noted with reduced loaded and unloaded range of motion at the first metatarsophalangeal joint Skin Skin Narrative: no purulence, no streaking, no odor, no infection. 100% granular base ulcer with peripheral callus noted. reduced size and depth noted. No deep tissue exposure, necrosis. Adjacent skin is atrophic. No interdigital maceration or eschar Neuro Neuro Narrative: lack of normal epicritic sensation via light touch is consistent with neuropathy status Debridement Note Debridement Note Wound debrided: plantar right foot (distal medial stump site) Wound Grade/Stage: 1 Type of Debridement: Excisional debridement Anesthesia Used: 4% Lidocaine Solution Depth: in the subcutaneous layer Percentage of wound debrided: 100 Instrument Used: #15 blade Tissue Removed: fibrous, devitalized subcutaneous, biofilm, slough Severity: Fat Layer Exposed Amount of bleeding with debridement: Mild Bleeding Controlled with: Pressure Patient tolerated procedure: Patient tolerated procedure well Post-Debridement Measurements and Additional Note: Post-Debridement Measurements/Treatment MIRIAM - Nurse 1 - General Ulcer Assessment Start: 05/18/21 10:46 Freq: Status: Active Protocol: WC.LOWEXT Activity Type Activity Date Activity User E-Sign Co-Sign Detail Recorded Client Recorded Date Recorded By Document 05/18/21 10:46 RB [id number] 05/18/21 10:48 RB Document 05/25/21 10:44 DL [id number] 05/25/21 10:55 DL Document 06/01/21 14:50 BMF [id number] 06/01/21 14:59 BMF Document 06/08/21 08:48 KR [id number] 06/08/21 08:53 KR 05/18/21 05/25/21 06/01/21 10:46 10:44 14:50 WC - Today's Visit Information Type of service Follow-up Visit Follow-up Visit Follow-up Visit (Physician/MARKET RESEARCH MANAGER (Physician/MARKET RESEARCH MANAGER (Physician/MARKET RESEARCH MANAGER ) ) ) Arrival Mode Ambulatory, Ambulatory Ambulatory Walker,Other Transfer Assistance None None None Patient Identification Verified (Name & Yes Yes Yes ) Patient Requires Transmission-Based No No Precautions Height and Weight Body Mass Index (BMI) 38.9 38.9 38.9 BMI Classification Obese Obese Obese Vital Signs Temperature (97.8 F-99.1 F) 97.5 F L 95.6 F L Temperature Source Temporal Temporal Pulse Rate (60-100) 75 76 61 Pulse Location Monitor Monitor Monitor Respiratory Rate (12-18) 18 22 H 16 Respiratory rate source Observation Observation Observation Oxygen Delivery Method Room Air Blood Pressure (90/60-120/80) 141/79 H 154/85 H 170/64 H Blood Pressure Mean (mm Hg) 99 108 99 Source Monitor Monitor Monitor Position Semi-Fowlers Sitting Blood Pressure Location Right Arm Right Arm History Since Last Visit- (Skip if this is Patient's initial visit) Have you changed medications since your No No No last visit? Any new allergies or adverse reactions No No No Had a fall/change in ADL's that may No No No increase risk of falls Signs or symptoms of abuse and/or No No No neglect since last visit Have you been in the hospital since your No No No last visit? Has dressing in place as prescribed Yes Yes Yes Has compression in place as prescribed No N/A N/A Has offloadiing in place as prescribed Yes Yes Yes Experienced any changes in pain level or No No No management Left Footwear Regular Shoe Regular Shoe Right Footwear Total Contact Total Contact Total Contact Cast Cast Cast Pain Scale: 0-10 Numeric Is Patient Pain Free? Yes Yes Yes 06/08/21 08:48 WC - Today's Visit Information Type of service Follow-up Visit (Physician/MARKET RESEARCH MANAGER ) Arrival Mode Ambulatory Transfer Assistance Patient Identification Verified (Name & Yes ) Patient Requires Transmission-Based Precautions Height and Weight Body Mass Index (BMI) 38.9 BMI Classification Obese Vital Signs Temperature (97.8 F-99.1 F) 97.4 F L Temperature Source Temporal Pulse Rate (60-100) 81 Pulse Location Monitor Respiratory Rate (12-18) Respiratory rate source Oxygen Delivery Method Blood Pressure (90/60-120/80) 162/92 H Blood Pressure Mean (mm Hg) 115 Source Monitor Position Sitting Blood Pressure Location Left Arm History Since Last Visit- (Skip if this is Patient's initial visit) Have you changed medications since your No last visit? Any new allergies or adverse reactions No Had a fall/change in ADL's that may No increase risk of falls Signs or symptoms of abuse and/or No neglect since last visit Have you been in the hospital since your No last visit? Has dressing in place as prescribed Yes Has compression in place as prescribed N/A Has offloadiing in place as prescribed Yes Experienced any changes in pain level or No management Left Footwear Total Contact Cast Right Footwear Regular Shoe Pain Scale: 0-10 Numeric Is Patient Pain Free? Yes WC - Nurse 1 - General Ulcer Measurement Start: 05/18/21 10:46 Freq: Status: Active Protocol: Activity Type Activity Date Activity User E-Sign Co-Sign Detail Recorded Client Recorded Date Recorded By Document 05/18/21 10:46 RB [id number] 05/18/21 10:48 RB Document 05/25/21 10:44 DL [id number] 05/25/21 10:55 DL Document 06/01/21 14:50 BMF [id number] 06/01/21 14:59 BMF Document 06/08/21 08:48 KR [id number] 06/08/21 08:53 KR 05/18/21 05/25/21 06/01/21 10:46 10:44 14:50 Wound Center Nurse 1 #1 Right Great Toe Stub Plantar -Combined with other wound No -Current Size (cm) - Length 0.8 0.6 0.3 -Current Size (cm) - Width 0.8 0.5 0.3 -Current Size (cm) - Depth 0.2 0.2 0.2 -Total Square Cm 0.64 0.30 0.09 -Photo Taken No No -Epithelialization Small 1-33% -Tunneling No No -Undermining/Tunneling No No -Circular Undermining No No -Exudate Amt Medium Small Medium -Exudate Type Serous Serosanguineous Serosanguineous -Wound Margin Thickened & Distinct, Distinct, Rolled Under Outline Outline Attached Attached -Granulation Amt Medium (34-66%) Small (1-33%) Large (67-100%) -Granulation Quality Moffett Moffett Red -Slough/Fibrin Yes No -Necrosis Amt Small (1-33%) Small (1-33%) None Present (0 %) -Necrotic Tissue Type Adherent Slough Adherent Slough -Structure Exposed N/A N/A -Texture (Su-wound Skin Appearance) Callus Scarring Assessed, Scarring -Moisture (Su-wound Skin Appearance) Assessed Maceration Assessed, Maceration -Color (Su-wound Skin Appearance) Assessed No Abnormality Assessed,Palor -Temperature (Su-wound Skin No Abnormality No Abnormality No Abnormality Appearance) (Pt Warm) (Pt Warm) (Pt Warm) -Tenderness on Palpation (Su-wound No No No Skin Appearance) -Ulcer Cleansing Wound Cleanser Soap and Water Soap and Water -Foul Odor after Cleansing No No No -Anesthetic Used 5% Lidocaine 5% Lidocaine 5% Lidocaine Gel Gel Gel 06/08/21 08:48 Wound Center Nurse 1 #1 Right Great Toe Stub Plantar -Combined with other wound -Current Size (cm) - Length 0.3 -Current Size (cm) - Width 0.2 -Current Size (cm) - Depth 0.1 -Total Square Cm 0.06 -Photo Taken No -Epithelialization -Tunneling -Undermining/Tunneling -Circular Undermining -Exudate Amt Small -Exudate Type Serosanguineous -Wound Margin Flat & Intact -Granulation Amt Small (1-33%) -Granulation Quality Moffett -Slough/Fibrin -Necrosis Amt -Necrotic Tissue Type Eschar -Structure Exposed N/A -Texture (Su-wound Skin Appearance) Scarring -Moisture (Su-wound Skin Appearance) Maceration -Color (Su-wound Skin Appearance) No Abnormality, Assessed -Temperature (Su-wound Skin No Abnormality Appearance) (Pt Warm) -Tenderness on Palpation (Su-wound No Skin Appearance) -Ulcer Cleansing Soap and Water -Foul Odor after Cleansing No -Anesthetic Used 4% Lidocaine Solution WC - Nurse 2 - General Ulcer CM Notes Start: 05/18/21 10:46 Freq: Status: Active Protocol: Activity Type Activity Date Activity User E-Sign Co-Sign Detail Recorded Client Recorded Date Recorded By Document 05/18/21 10:55 [id number] 05/18/21 10:57 Document 05/25/21 11:09 [id number] 05/25/21 11:10 Document 06/01/21 15:14 [id number] 06/01/21 15:17 Document 06/08/21 09:13 [id number] 06/08/21 09:14 05/18/21 05/25/21 06/01/21 10:55 11:09 15:14 Wound Center Nurse 2 #1 Right Great Toe Stub Plantar -Time 10:56 11:10 15:14 -Correct Patient Yes Yes Yes -Correct Side, Site, Position Yes Yes Yes -Correct Procedure Yes Yes Yes -Procedure Performed Yes Yes Yes -Type of Procedure Debridement Debridement Debridement -Clinical Debridement Subcutaneous Subcutaneous Subcutaneous -Tissue Removed Subcutaneous Subcutaneous Subcutaneous -Post Debridement (cm) - Length 1.2 0.3 0.3 -Post Debridement (cm) - Width 0.7 0.3 0.3 -Post Debridement (cm) - Depth 0.1 0.1 0.2 -Total Square (Post) (cm) 0.84 0.09 0.09 -Area of Debridement (cm) - Length 1.2 0.3 0.3 -Area of Debridement (cm) - Width 0.7 0.3 0.3 -Total Square (Area) (cm) 0.84 0.09 0.09 -Tunneling No No No -Undermining/Tunneling No No No -Circular Undermining No No No -Wound/Ulcer Outcome Not Healed Not Healed Not Healed -Ulcer Cleansing Rinsed/ Rinsed/ Rinsed/ Irrigated with Irrigated with Irrigated with Saline Saline Saline -Foul Odor after Cleansing No No No -Bioengineered Tissue No No No -Bleeding Controlled with Pressure Pressure Pressure -Treatment Response Procedure Procedure Procedure Tolerated Well Tolerated Well Tolerated Well -Offloading Yes Yes Yes -Type of Offloading Total Contact Total Contact Total Contact Cast (TCC) - Cast (TCC) - Cast (TCC) - Right ($) Right ($) Right ($) -Debridement - Subq, 1st 20sq cm Yes Yes Yes Pain Scale: 0-10 Numeric Is Patient Pain Free? Yes Yes Yes 06/08/21 09:13 Wound Center Nurse 2 #1 Right Great Toe Stub Plantar -Time 09:13 -Correct Patient Yes -Correct Side, Site, Position Yes -Correct Procedure Yes -Procedure Performed Yes -Type of Procedure Debridement -Clinical Debridement Subcutaneous -Tissue Removed Subcutaneous -Post Debridement (cm) - Length 0.2 -Post Debridement (cm) - Width 0.2 -Post Debridement (cm) - Depth 0.1 -Total Square (Post) (cm) 0.04 -Area of Debridement (cm) - Length 0.2 -Area of Debridement (cm) - Width 0.2 -Total Square (Area) (cm) 0.04 -Tunneling No -Undermining/Tunneling No -Circular Undermining No -Wound/Ulcer Outcome Not Healed -Ulcer Cleansing Rinsed/ Irrigated with Saline -Foul Odor after Cleansing Yes, Due to Product Use -Bioengineered Tissue No -Bleeding Controlled with Pressure -Treatment Response Procedure Tolerated Well -Offloading Yes -Type of Offloading Total Contact Cast (TCC) - Right ($) -Debridement - Subq, 1st 20sq cm Yes Pain Scale: 0-10 Numeric Is Patient Pain Free? Yes - Nurse 3 - General Ulcer D/C NN Start: 05/18/21 10:46 Freq: Status: Active Protocol: Activity Type Activity Date Activity User E-Sign Co-Sign Detail Recorded Client Recorded Date Recorded By Document 05/25/21 11:29 RB [id number] 05/25/21 11:30 RB Document 06/01/21 15:40 [facility] [id number] 06/01/21 15:41 BMF 03/09/22 03/16/22 11:29 15:40 Wound Care Nurse 3 #1 Right Great Toe Stub Plantar -Ulcer Cleansing Rinsed/ Irrigated with Saline -Foul Odor after Cleansing No -Primary Dressing Applied Promogran Mepilex Border, Albino Matter Other -Other Dressing 4 inch TCC ALBINO primary layer applied -Other Covering UNDERCAST FOR TCC APPLIED -Mepilex Border 1 -Promogran Albino Matter 1 0 Treatment Response Procedure Not Tolerated Well Pain Scale: 0-10 Numeric Is Patient Pain Free? Yes Yes WC - Visit Discharge Discharge Condition Stable Stable Ambulatory Status Ambulatory Ambulatory Transportation Private Auto Private Auto Medication Reconcilliation completed & No provided to patient/care provider Clinical Summary of Care Provided Yes Notes: knee walker Assessment/Plan Assessment/Plan (1) Hallux limitus of right foot: CODE(S): M20.5X1 - Other deformities of toe(s) (acquired), right foot (2) Type 2 diabetes mellitus with diabetic polyneuropathy: CODE(S): E11.42 - Type 2 diabetes mellitus with diabetic polyneuropathy (3) Delayed wound healing: CODE(S): T14.8XXD - Other injury of unspecified body region, subsequent encounter (4) Non-compliance: CODE(S): Z91.19 - Patient's noncompliance with other medical treatment and regimen (5) Chronic ulcer of right foot with fat layer exposed: CODE(S): L97.512 - Non-pressure chronic ulcer of other part of right foot with fat layer exposed (6) Malnutrition: CODE(S): E46 - Unspecified protein-calorie malnutrition PLAN: I reviewed and discussed his case today. Debridement was performed today as noted in the clinical panel to all of the ulcer sites. The following work up and care recommendations were made: Dressing: hydrogel applied prior to cast application today Offload: To use assistive device. I ultimately recommended the gold standard offloading which is a total contact cast and he was amenable to proceed today. The indications benefits and anticipated use were reviewed. This was applied according standard protocol in a well-padded rectus manner. Verbal consent was obtained and he tolerated this well. He was advised to keep this clean, dry, and intact until follow-up next week. Vascular: Noninvasive vascular studies were reviewed from with bilateral triphasic waveforms at the ankle level and normal left and right ABIs. Edema: To periodically elevate throughout the day. Is okay to use Tubigrip. Infection: There are no local or systemic signs of infection today and do not recommend a culture or antibiotics. Due to his status change I obtained aerobic, anaerobic, and MRSA PCR culture. To complete course of oral Augmentin. This went well so far. Pain: This is controlled secondary to neuropathy Host factors: He is uncontrolled diabetes and he was advised on proper nutrition to optimize healing. His last A1c level was 8.8% in 06-25-20. I recommend nutritional supplementation with John. Is noted he did not like the flavor options. I recommend he try unflavored option. It is noted he is drinking over a liter of Mountain Dew daily I recommend he discontinue processed foods including sodas. There is limited if any nutritional value to this. I recommend he strives for eating whole foods including at least 5 fresh fruits and vegetables daily. He was also advised to intake adequate and quality protein. He understands this will optimize his healing potential. Labs: He did not have leukocytosis or other gross abnormalities on 09-09-20. Imaging: His foot x-rays were reviewed from with partial right hallux amputation noted and no other osseous destruction, soft tissue emphysema or foreign body. I recommend an updated x-ray due to his status change. Short-term disability paperwork has been completed and I recommend he avoids weightbearing activities. I answered all the patient's questions. To return to the wound healing center in 1 week or call sooner if the patient has any questions or concerns. Note: Near Page speech recognition supervisor ditching software was used to create portions of this document. Sound-alike and misspelled words, as well as other supervisor ditching errors may be contained in the documentation.
[2021-06-15 10:28] VITALS: BP 145/83; PULSE 83; RESP 22; TEMP 36.9; BMI 38.9
--- NOTE | 2021-06-15 14:08 | PN.PCM_ITS ---
History of Present Illness Date of Service: 06/15/21 Chief Complaint: Chronic right foot ulcer History of Wound: He had a prior amputation performed 08-27-2019 including a partial right hallux amputation for treatment of ulcers. He has significant previous history of recurrent ulcers and infections. This ulcer has been present since August 2019 and he has ongoing delays in healing. He denies redness, odor, streaking, fever, chill, nausea, vomiting. He denies pain. He uses a knee roller. He has had improvement with total contact cast applications. Progress of Wound: Healed Objective Data Objective Data Vital Signs: Vital Signs Temp Pulse Resp BP 98.5 F 83 22 H 145/83 H 06/15/21 10:28 06/15/21 10:28 06/15/21 10:28 06/15/21 10:28 Oxygen Delivery Method Room Air Weight: 145.15 kg Body Mass Index (BMI) 38.9 Physical Exam Extremity Extremity Narrative: No calf tenderness Diminished pulses Muscle wasting noted Partial right hallux amputation noted with reduced loaded and unloaded range of motion at the first metatarsophalangeal joint Skin Skin Narrative: no purulence, no streaking, no odor, no infection. No interdigital maceration or eschar. Full epithelialization at prior ulcer site. No bogginess or fluctuance on palpation. No drainage. Neuro Neuro Narrative: lack of normal epicritic sensation via light touch is consistent with neuropathy status Debridement Note Debridement Note Post-Debridement Measurements and Additional Note: Post-Debridement Measurements/Treatment MIRIAM - Nurse 1 - General Ulcer Assessment Start: 05/18/21 10:46 Freq: Status: Active Protocol: RIZWAN Activity Type Activity Date Activity User E-Sign Co-Sign Detail Recorded Client Recorded Date Recorded By Document 05/18/21 10:46 RB [id number] 05/18/21 10:48 RB Document 05/25/21 10:44 DL [id number] 05/25/21 10:55 DL Document 06/01/21 14:50 BMF [id number] 06/01/21 14:59 BMF Document 06/08/21 08:48 KR [id number] 06/08/21 08:53 KR Document 06/15/21 10:28 DL [id number] 06/15/21 10:35 DL 05/18/21 05/25/21 06/01/21 10:46 10:44 14:50 WC - Today's Visit Information Type of service Follow-up Visit Follow-up Visit Follow-up Visit (Physician/RETAIL STORE ASSOCIATE (Physician/RETAIL STORE ASSOCIATE (Physician/RETAIL STORE ASSOCIATE ) ) ) Arrival Mode Ambulatory, Ambulatory Ambulatory Walker,Other Transfer Assistance None None None Patient Identification Verified (Name & Yes Yes Yes ) Patient Requires Transmission-Based No No Precautions Finger Stick Blood Sugar(mg/dl) (if indicated): Blood Sugar Height and Weight Body Mass Index (BMI) 38.9 38.9 38.9 BMI Classification Obese Obese Obese Vital Signs Temperature (97.8 F-99.1 F) 97.5 F L 95.6 F L Temperature Source Temporal Temporal Pulse Rate (60-100) 75 76 61 Pulse Location Monitor Monitor Monitor Respiratory Rate (12-18) 18 22 H 16 Respiratory rate source Observation Observation Observation Oxygen Delivery Method Room Air Blood Pressure (90/60-120/80) 141/79 H 154/85 H 170/64 H Blood Pressure Mean (mm Hg) 99 108 99 Source Monitor Monitor Monitor Position Semi-Fowlers Sitting Blood Pressure Location Right Arm Right Arm History Since Last Visit- (Skip if this is Patient's initial visit) Have you changed medications since your No No No last visit? Any new allergies or adverse reactions No No No Had a fall/change in ADL's that may No No No increase risk of falls Signs or symptoms of abuse and/or No No No neglect since last visit Have you been in the hospital since your No No No last visit? Has dressing in place as prescribed Yes Yes Yes Has compression in place as prescribed No N/A N/A Has offloadiing in place as prescribed Yes Yes Yes Experienced any changes in pain level or No No No management Left Footwear Regular Shoe Regular Shoe Right Footwear Total Contact Total Contact Total Contact Cast Cast Cast Pain Scale: 0-10 Numeric Is Patient Pain Free? Yes Yes Yes 06/08/21 06/15/21 08:48 10:28 - Today's Visit Information Type of service Follow-up Visit Follow-up Visit (Physician/RETAIL STORE ASSOCIATE (Physician/RETAIL STORE ASSOCIATE ) ) Arrival Mode Ambulatory Ambulatory Transfer Assistance None Patient Identification Verified (Name & Yes Yes ) Patient Requires Transmission-Based Precautions Finger Stick Blood Sugar(mg/dl) (if 115 indicated): Blood Sugar Stated by Patient Height and Weight Body Mass Index (BMI) 38.9 38.9 BMI Classification Obese Obese Vital Signs Temperature (97.8 F-99.1 F) 97.4 F L 98.5 F Temperature Source Temporal Temporal Pulse Rate (60-100) 81 83 Pulse Location Monitor Monitor Respiratory Rate (12-18) 22 H Respiratory rate source Observation Oxygen Delivery Method Blood Pressure (90/60-120/80) 162/92 H 145/83 H Blood Pressure Mean (mm Hg) 115 103 Source Monitor Monitor Position Sitting Blood Pressure Location Left Arm History Since Last Visit- (Skip if this is Patient's initial visit) Have you changed medications since your No No last visit? Any new allergies or adverse reactions No No Had a fall/change in ADL's that may No No increase risk of falls Signs or symptoms of abuse and/or No No neglect since last visit Have you been in the hospital since your No No last visit? Has dressing in place as prescribed Yes Yes Has compression in place as prescribed N/A N/A Has offloadiing in place as prescribed Yes Yes Experienced any changes in pain level or No No management Left Footwear Total Contact Cast Right Footwear Regular Shoe Total Contact Cast Pain Scale: 0-10 Numeric Is Patient Pain Free? Yes Yes WC - Nurse 1 - General Ulcer Measurement Start: 05/18/21 10:46 Freq: Status: Active Protocol: Activity Type Activity Date Activity User E-Sign Co-Sign Detail Recorded Client Recorded Date Recorded By Document 05/18/21 10:46 RB [id number] 05/18/21 10:48 RB Document 05/25/21 10:44 DL [id number] 05/25/21 10:55 DL Document 06/01/21 14:50 BMF [id number] 06/01/21 14:59 BMF Document 06/08/21 08:48 KR [id number] 06/08/21 08:53 KR Document 06/15/21 10:28 DL [id number] 06/15/21 10:35 DL 05/18/21 05/25/21 06/01/21 10:46 10:44 14:50 Wound Center Nurse 1 #1 Right Great Toe Stub Plantar -Combined with other wound No -Current Size (cm) - Length 0.8 0.6 0.3 -Current Size (cm) - Width 0.8 0.5 0.3 -Current Size (cm) - Depth 0.2 0.2 0.2 -Total Square Cm 0.64 0.30 0.09 -Photo Taken No No -Epithelialization Small 1-33% -Tunneling No No -Undermining/Tunneling No No -Circular Undermining No No -Exudate Amt Medium Small Medium -Exudate Type Serous Serosanguineous Serosanguineous -Wound Margin Thickened & Distinct, Distinct, Rolled Under Outline Outline Attached Attached -Granulation Amt Medium (34-66%) Small (1-33%) Large (67-100%) -Granulation Quality [place] Red -Slough/Fibrin Yes No -Necrosis Amt Small (1-33%) Small (1-33%) None Present (0 %) -Necrotic Tissue Type Adherent Slough Adherent Slough -Structure Exposed N/A N/A -Texture (Su-wound Skin Appearance) Callus Scarring Assessed, Scarring -Moisture (Su-wound Skin Appearance) Assessed Maceration Assessed, Maceration -Color (Su-wound Skin Appearance) Assessed No Abnormality Assessed,Palor -Temperature (Su-wound Skin No Abnormality No Abnormality No Abnormality Appearance) (Pt Warm) (Pt Warm) (Pt Warm) -Tenderness on Palpation (Su-wound No No No Skin Appearance) -Ulcer Cleansing Wound Cleanser Soap and Water Soap and Water -Foul Odor after Cleansing No No No -Anesthetic Used 5% Lidocaine 5% Lidocaine 5% Lidocaine Gel Gel Gel 06/08/21 06/15/21 08:48 10:28 Wound Center Nurse 1 #1 Right Great Toe Stub Plantar -Combined with other wound -Current Size (cm) - Length 0.3 0.1 -Current Size (cm) - Width 0.2 0.1 -Current Size (cm) - Depth 0.1 0.1 -Total Square Cm 0.06 0.01 -Photo Taken No No -Epithelialization -Tunneling No -Undermining/Tunneling No -Circular Undermining No -Exudate Amt Small -Exudate Type Serosanguineous -Wound Margin Flat & Intact Distinct, Outline Attached -Granulation Amt Small (1-33%) Large (67-100%) -Granulation Quality [place] -Slough/Fibrin Yes -Necrosis Amt Medium (34-66%) -Necrotic Tissue Type Eschar Adherent Slough -Structure Exposed N/A N/A -Texture (Su-wound Skin Appearance) Scarring Scarring -Moisture (Su-wound Skin Appearance) Maceration -Color (Su-wound Skin Appearance) No Abnormality, No Abnormality Assessed -Temperature (Su-wound Skin No Abnormality No Abnormality Appearance) (Pt Warm) (Pt Warm) -Tenderness on Palpation (Su-wound No No Skin Appearance) -Ulcer Cleansing Soap and Water Soap and Water -Foul Odor after Cleansing No No -Anesthetic Used 4% Lidocaine 4% Lidocaine Solution Solution WC - Nurse 2 - General Ulcer CM Notes Start: 05/18/21 10:46 Freq: Status: Active Protocol: Activity Type Activity Date Activity User E-Sign Co-Sign Detail Recorded Client Recorded Date Recorded By Document 05/18/21 10:55 [id number] 05/18/21 10:57 Document 05/25/21 11:09 [id number] 05/25/21 11:10 Document 06/01/21 15:14 [id number] 06/01/21 15:17 Document 06/08/21 09:13 [id number] 06/08/21 09:14 Document 06/15/21 10:42 [id number] 06/15/21 10:43 05/18/21 05/25/21 06/01/21 10:55 11:09 15:14 Wound Center Nurse 2 #1 Right Great Toe Stub Plantar -Time 10:56 11:10 15:14 -Correct Patient Yes Yes Yes -Correct Side, Site, Position Yes Yes Yes -Correct Procedure Yes Yes Yes -Procedure Performed Yes Yes Yes -Type of Procedure Debridement Debridement Debridement -Clinical Debridement Subcutaneous Subcutaneous Subcutaneous -Tissue Removed Subcutaneous Subcutaneous Subcutaneous -Post Debridement (cm) - Length 1.2 0.3 0.3 -Post Debridement (cm) - Width 0.7 0.3 0.3 -Post Debridement (cm) - Depth 0.1 0.1 0.2 -Total Square (Post) (cm) 0.84 0.09 0.09 -Area of Debridement (cm) - Length 1.2 0.3 0.3 -Area of Debridement (cm) - Width 0.7 0.3 0.3 -Total Square (Area) (cm) 0.84 0.09 0.09 -Tunneling No No No -Undermining/Tunneling No No No -Circular Undermining No No No -Wound/Ulcer Outcome Not Healed Not Healed Not Healed -Ulcer Cleansing Rinsed/ Rinsed/ Rinsed/ Irrigated with Irrigated with Irrigated with Saline Saline Saline -Foul Odor after Cleansing No No No -Bioengineered Tissue No No No -Bleeding Controlled with Pressure Pressure Pressure -Treatment Response Procedure Procedure Procedure Tolerated Well Tolerated Well Tolerated Well -Offloading Yes Yes Yes -Type of Offloading Total Contact Total Contact Total Contact Cast (TCC) - Cast (TCC) - Cast (TCC) - Right ($) Right ($) Right ($) -Debridement - Subq, 1st 20sq cm Yes Yes Yes Pain Scale: 0-10 Numeric Is Patient Pain Free? Yes Yes Yes 06/08/21 06/15/21 09:13 10:42 Wound Center Nurse 2 #1 Right Great Toe Stub Plantar -Time 09:13 -Correct Patient Yes No -Correct Side, Site, Position Yes No -Correct Procedure Yes No -Procedure Performed Yes No -Type of Procedure Debridement -Clinical Debridement Subcutaneous -Tissue Removed Subcutaneous -Post Debridement (cm) - Length 0.2 0 -Post Debridement (cm) - Width 0.2 0 -Post Debridement (cm) - Depth 0.1 0 -Total Square (Post) (cm) 0.04 0 -Area of Debridement (cm) - Length 0.2 0 -Area of Debridement (cm) - Width 0.2 0 -Total Square (Area) (cm) 0.04 0 -Tunneling No -Undermining/Tunneling No -Circular Undermining No -Wound/Ulcer Outcome Not Healed Healed- Epithelialized -Ulcer Cleansing Rinsed/ Irrigated with Saline -Foul Odor after Cleansing Yes, Due to Product Use -Bioengineered Tissue No -Bleeding Controlled with Pressure -Treatment Response Procedure Tolerated Well -Offloading Yes -Type of Offloading Total Contact Cast (TCC) - Right ($) -Debridement - Subq, 1st 20sq cm Yes Pain Scale: 0-10 Numeric Is Patient Pain Free? Yes No WC - Nurse 3 - General Ulcer D/C NN Start: 05/18/21 10:46 Freq: Status: Active Protocol: Activity Type Activity Date Activity User E-Sign Co-Sign Detail Recorded Client Recorded Date Recorded By Document 05/25/21 11:29 RB [id number] 05/25/21 11:30 RB Document 06/01/21 15:40 BMF [id number] 06/01/21 15:41 BMF Document 06/08/21 10:06 DL [id number] 06/08/21 10:07 DL Document 06/15/21 10:46 JF [id number] 06/15/21 10:47 JF 05/25/21 06/01/21 06/08/21 11:29 15:40 10:06 Wound Care Nurse 3 #1 Right Great Toe Stub Plantar -Ulcer Cleansing Rinsed/ Soap and Water Irrigated with Saline -Foul Odor after Cleansing No No -Primary Dressing Applied Promogran Mepilex Border, Albino Matter Other -Other Dressing 4 inch TCC ALBINO hydrogel/ primary layer superabsorber applied -Other Covering UNDERCAST FOR TCC TCC APPLIED -Mepilex Border 1 -Promogran Albino Matter 1 0 Treatment Response Procedure Not Procedure Tolerated Well Tolerated Well Pain Scale: 0-10 Numeric Is Patient Pain Free? Yes Yes Yes WC - Visit Discharge Discharge Condition Stable Stable Stable Ambulatory Status Ambulatory Ambulatory Ambulatory Transportation Private Auto Private Auto Private Auto Medication Reconcilliation completed & No provided to patient/care provider Clinical Summary of Care Provided Yes Notes: knee walker TCC applied 06/15/21 10:46 Wound Care Nurse 3 #1 Right Great Toe Stub Plantar -Ulcer Cleansing -Foul Odor after Cleansing -Primary Dressing Applied -Other Dressing -Other Covering -Mepilex Border -Promogran Albino Matter Treatment Response Pain Scale: 0-10 Numeric Is Patient Pain Free? Yes WC - Visit Discharge Discharge Condition Stable Ambulatory Status Ambulatory Transportation Private Auto Medication Reconcilliation completed & Yes provided to patient/care provider Clinical Summary of Care Provided Yes Notes: cam walker applied Assessment/Plan Assessment/Plan (1) Hallux limitus of right foot: CODE(S): M20.5X1 - Other deformities of toe(s) (acquired), right foot (2) Type 2 diabetes mellitus with diabetic polyneuropathy: CODE(S): E11.42 - Type 2 diabetes mellitus with diabetic polyneuropathy (3) Delayed wound healing: CODE(S): T14.8XXD - Other injury of unspecified body region, subsequent encounter (4) Non-compliance: CODE(S): Z91.19 - Patient's noncompliance with other medical treatment and regimen (5) Chronic ulcer of right foot with fat layer exposed: CODE(S): L97.512 - Non-pressure chronic ulcer of other part of right foot with fat layer exposed (6) Malnutrition: CODE(S): E46 - Unspecified protein-calorie malnutrition PLAN: I reviewed and discussed his case today. Debridement was not performed because the ulcer is healed. The following work up and care recommendations were made: Dressing: Discontinue dressing because the ulcer is healed Offload: To heel weight-bear and offloading device durable medical equipment for other week. Been advised to carefully transition into a properly fitted shoes in length, width, and depth. Vascular: Noninvasive vascular studies were reviewed from with bilateral triphasic waveforms at the ankle level and normal left and right ABIs. Edema: To periodically elevate throughout the day. Is okay to use Tubigrip. Infection: There are no local or systemic signs of infection today and do not recommend a culture or antibiotics. Due to his status change I obtained aerobic, anaerobic, and MRSA PCR culture. To complete course of oral Augmentin. This went well so far. Pain: This is controlled secondary to neuropathy Host factors: He is uncontrolled diabetes and he was advised on proper nutrition to optimize healing. His last A1c level was 8.8% in 06-25-20. Nutrition recommendations were discussed previously. S daily. He was also advised to intake adequate and quality protein. He understands this will optimize his healing potential. Labs: He did not have leukocytosis or other gross abnormalities on 09-09-20. Imaging: His foot x-rays were reviewed from with partial right hallux amputation noted and no other osseous destruction, soft tissue emphysema or foreign body. I answered all the patient's questions. To return to the wound healing center in 1 week or call sooner if the patient has any questions or concerns. Note: [employer] speech recognition lathe sander software was used to create portions of this document. Sound-alike and misspelled words, as well as other lathe sander errors may be contained in the documentation. 22 minutes was spent on this encounter. This included face to face and non face to face care including preparing for the visit, reviewing the history, performing the exam, counseling and providing education to the patient, family, or caregiver, ordering medications/test/ procedures if indicated as documented, communicating with other healthcare providers, documenting information in the medical record, interpreting / sharing this information when indicated as documented, and care coordination.
== END 2021-06-16 23:59 | disposition home or self-care (01) ==
LOC: WC 10:30
PROVIDERS: PCP Preventive Medicine Occupational Medicine; Referring Provider Podiatrist; Visit Provider Podiatrist
DX: E11.621 Type 2 diabetes mellitus with foot ulcer (principal); L97.512 Non-pressure chronic ulcer of other part of right foot with fat layer exposed; E46 Unspecified protein-calorie malnutrition; E11.42 Type 2 diabetes mellitus with diabetic polyneuropathy; Z91.19 Patient's noncompliance with other medical treatment and regimen; T14.8XXD Other injury of unspecified body region, subsequent encounter; M20.5X1 Other deformities of toe(s) (acquired), right foot
CPT/HCPCS: 11042; 29445; 99213; G0463

== ENCOUNTER 2021-07-13 10:45 | Outpatient (RCR) | payer OTHER, SELFPAY ==
[2021-06-17 00:32] VITALS: BP 145/83; PULSE 83; RESP 22; TEMP 36.9; BMI 38.9
[2021-06-28 14:09] VITALS: BP 172/75; PULSE 79; TEMP 35.2; BMI 38.9
--- NOTE | 2021-06-28 14:23 | PN.PCM_ITS ---
History of Present Illness Date of Service: 06/28/21 Chief Complaint: Chronic right foot ulcer History of Wound: He had a prior amputation performed 08-27-2019 including a partial right hallux amputation for treatment of ulcers. He has significant previous history of recurrent ulcers and infections. This ulcer has been present since August 2019 and he has ongoing delays in healing. He denies redness, odor, streaking, fever, chill, nausea, vomiting. He denies pain. He uses a knee roller. He has had improvement with total contact cast applications previously. This past week it healed. He went to a car shoe and walked around all day in a regular shoe and his ulcer reopened. Progress of Wound: ulcer returned Objective Data Objective Data Vital Signs: Vital Signs Temp Pulse Resp BP 98.5 F 83 22 H 145/83 H 06/17/21 00:32 06/17/21 00:32 06/17/21 00:32 06/17/21 00:32 Weight: 145.15 kg Body Mass Index (BMI) 38.9 Physical Exam Extremity Extremity Narrative: No calf tenderness Diminished pulses Muscle wasting noted Partial right hallux amputation noted with reduced loaded and unloaded range of motion at the first metatarsophalangeal joint Skin Skin Narrative: no purulence, no streaking, no odor, no infection. 100% granular base ulcer with peripheral callus noted. No deep tissue exposure, necrosis. Adjacent skin is atrophic. No interdigital maceration or eschar Neuro Neuro Narrative: lack of normal epicritic sensation via light touch is consistent with neuropathy status Debridement Note Debridement Note Wound debrided: right Wound Grade/Stage: 1 Type of Debridement: Excisional debridement Anesthesia Used: 4% Lidocaine Solution Depth: in the subcutaneous layer Percentage of wound debrided: 100 Instrument Used: #15 blade Tissue Removed: fibrous, devitalized subcutaneous, biofilm, slough Severity: Fat Layer Exposed Amount of bleeding with debridement: Mild Bleeding Controlled with: Pressure Patient tolerated procedure: Patient tolerated procedure well Post-Debridement Measurements and Additional Note: Post-Debridement Measurements/Treatment WC - Nurse 2 - General Ulcer CM Notes Start: 06/28/21 14:09 Freq: Status: Active Protocol: Activity Type Activity Date Activity User E-Sign Co-Sign Detail Recorded Client Recorded Date Recorded By Document 06/28/21 14:16 KYLE [id number] 06/28/21 14:18 JF 06/28/21 14:16 Wound Center Nurse 2 #1 Right Great Toe Stub Plantar -Time 14:18 -Correct Patient Yes -Correct Side, Site, Position Yes -Correct Procedure Yes -Procedure Performed Yes -Type of Procedure Debridement -Clinical Debridement Subcutaneous -Tissue Removed Subcutaneous -Post Debridement (cm) - Length 0.8 -Post Debridement (cm) - Width 0.6 -Post Debridement (cm) - Depth 0.1 -Total Square (Post) (cm) 0.48 -Area of Debridement (cm) - Length 0.8 -Area of Debridement (cm) - Width 0.6 -Total Square (Area) (cm) 0.48 -Tunneling No -Undermining/Tunneling No -Circular Undermining No -Wound/Ulcer Outcome Not Healed -Ulcer Cleansing Rinsed/ Irrigated with Saline -Foul Odor after Cleansing No -Bioengineered Tissue No -Bleeding Controlled with Pressure -Treatment Response Procedure Tolerated Well -Offloading Yes -Type of Offloading Total Contact Cast (TCC) - Right ($) -Debridement - Subq, 1st 20sq cm Yes Pain Scale: 0-10 Numeric Is Patient Pain Free? Yes Assessment/Plan Assessment/Plan (1) Chronic ulcer of right foot with fat layer exposed: CODE(S): L97.512 - Non-pressure chronic ulcer of other part of right foot with fat layer exposed (2) Hallux limitus of right foot: CODE(S): M20.5X1 - Other deformities of toe(s) (acquired), right foot (3) Type 2 diabetes mellitus with diabetic polyneuropathy: CODE(S): E11.42 - Type 2 diabetes mellitus with diabetic polyneuropathy (4) Delayed wound healing: CODE(S): T14.8XXD - Other injury of unspecified body region, subsequent encounter (5) Non-compliance: CODE(S): Z91.19 - Patient's noncompliance with other medical treatment and regimen (6) Malnutrition: CODE(S): E46 - Unspecified protein-calorie malnutrition PLAN: I reviewed and discussed his case today. Debridement was not performed because the ulcer is healed. The following work up and care recommendations were made: Dressing: pavan applied. Offload: To heel weight-bear and offloading device durable medical equipment for other week. Verbal consent was obtained for application of total contact cast. This was applied in neutral position and well-padded manner. To keep clean, dry, and intact until next week. He tolerated this well. Vascular: Noninvasive vascular studies were reviewed from with bilateral triphasic waveforms at the ankle level and normal left and right ABIs. Edema: To periodically elevate throughout the day. Is okay to use Tubigrip. Infection: There are no local or systemic signs of infection today and do not recommend a culture or antibiotics. Due to his status change I obtained aerobic, anaerobic, and MRSA PCR culture. To complete course of oral Augmentin. This went well so far. Pain: This is controlled secondary to neuropathy Host factors: He is uncontrolled diabetes and he was advised on proper nutrition to optimize healing. His last A1c level was 8.8% in 06-25-20. Nutrition recommendations were discussed previously. S daily. He was also advised to intake adequate and quality protein. He understands this will optimize his healing potential. Labs: He did not have leukocytosis or other gross abnormalities on 09-09-20. Imaging: His foot x-rays were reviewed from with partial right hallux amputation noted and no other osseous destruction, soft tissue emphysema or foreign body. I answered all the patient's questions. To return to the wound healing center in 1 week or call sooner if the patient has any questions or concerns. Note: [employer] speech recognition paper processing machine helper software was used to create portions of this document. Sound-alike and misspelled words, as well as other paper processing machine helper errors may be contained in the documentation.
[2021-07-06 10:26] VITALS: BP 179/91; PULSE 66; RESP 18; TEMP 36.6; BMI 38.9
--- NOTE | 2021-07-06 11:44 | PCM.WC.PN ---
History of Present Illness Date of Service: 07/06/21 Chief Complaint: Chronic right foot ulcer History of Wound: He had a prior amputation performed 08-27-2019 including a partial right hallux amputation for treatment of ulcers. He has significant previous history of recurrent ulcers and infections. This ulcer has been present since August 2019 and he has ongoing delays in healing. He denies redness, odor, streaking, fever, chill, nausea, vomiting. He denies pain. He uses a knee roller. He has had improvement with total contact cast applications previously. Progress of Wound: ulcer healed Objective Data Objective Data Vital Signs: Vital Signs Temp Pulse Resp BP 97.8 F 66 18 179/91 H 07/06/21 10:07/06/21 10:26 07/06/21 10:07/06/21 10: Weight: 145.15 kg Body Mass Index (BMI) 38.9 Physical Exam Extremity Extremity Narrative: No calf tenderness Diminished pulses Muscle wasting noted Partial right hallux amputation noted with reduced loaded and unloaded range of motion at the first metatarsophalangeal joint Skin Skin Narrative: no purulence, no streaking, no odor, no infection. There is full epithelialization at the prior ulcer site and this is healed today. The skin at the ulcer site is atrophic and also adjacent skin is atrophic. No interdigital maceration or eschar Neuro Neuro Narrative: lack of normal epicritic sensation via light touch is consistent with neuropathy status Debridement Note Debridement Note Post-Debridement Measurements and Additional Note: Post-Debridement Measurements/Treatment - Nurse 1 - General Ulcer Assessment Start: 06/28/21 14:09 Freq: Status: Active Protocol: RIZWAN Activity Type Activity Date Activity User E-Sign Co-Sign Detail Recorded Client Recorded Date Recorded By Document 06/28/21 14:09 AK [id number] 06/28/21 14:34 AK Document 07/06/21 10:26 RB [id number] 07/06/21 10:27 RB 06/28/21 07/06/21 14:09 10:26 - Today's Visit Information Type of service Follow-up Visit Follow-up Visit (Physician/IT RISK AND ASSURANCE MANAGER (Physician/IT RISK AND ASSURANCE MANAGER ) ) Arrival Mode Ambulatory Ambulatory Transfer Assistance None Patient Identification Verified (Name & Yes Yes ) Patient Requires Transmission-Based No Precautions Safety Precautions NA Height and Weight Body Mass Index (BMI) 38.9 38.9 BMI Classification Obese Obese Vital Signs Temperature (97.8 F-99.1 F) 95.4 F L 97.8 F Temperature Source Temporal Temporal Pulse Rate (60-100) 79 66 Pulse Location Monitor Monitor Respiratory Rate (12-18) 18 Respiratory rate source Observation Blood Pressure (90/60-120/80) 172/75 H 179/91 H Blood Pressure Mean (mm Hg) 107 120 Source Monitor Monitor Position Semi-Fowlers Blood Pressure Location Left Arm History Since Last Visit- (Skip if this is Patient's initial visit) Have you changed medications since your No No last visit? Any new allergies or adverse reactions No No Had a fall/change in ADL's that may No No increase risk of falls Signs or symptoms of abuse and/or No No neglect since last visit Have you been in the hospital since your No No last visit? Has dressing in place as prescribed Yes Yes Has compression in place as prescribed N/A No Has offloadiing in place as prescribed Yes Yes Experienced any changes in pain level or No No management Left Footwear Regular Shoe Regular Shoe Right Footwear Surgical Shoe Total Contact with pressure Cast relief insole Pain Scale: 0-10 Numeric Is Patient Pain Free? Yes Yes WC - Nurse 1 - General Ulcer Measurement Start: 06/28/21 14:09 Freq: Status: Active Protocol: Activity Type Activity Date Activity User E-Sign Co-Sign Detail Recorded Client Recorded Date Recorded By Document 07/06/21 10:26 LEAH [id number] 07/06/21 10:27 LEAH 07/06/21 10:26 Wound Center Nurse 1 #1 Right Great Toe Stub Plantar -Combined with other wound No -Current Size (cm) - Length 0.1 -Current Size (cm) - Width 0.1 -Current Size (cm) - Depth 0.1 -Total Square Cm 0.01 -Tunneling No -Undermining/Tunneling No -Circular Undermining No -Exudate Amt Small -Exudate Type Serosanguineous -Wound Margin Thickened -Granulation Amt Medium (34-66%) -Granulation Quality [place] -Slough/Fibrin Yes -Necrosis Amt Medium (34-66%) -Necrotic Tissue Type Adherent Slough -Structure Exposed N/A -Texture (Su-wound Skin Appearance) Callus -Moisture (Su-wound Skin Appearance) Assessed -Color (Su-wound Skin Appearance) Assessed -Temperature (Su-wound Skin No Abnormality Appearance) (Pt Warm) -Tenderness on Palpation (Su-wound No Skin Appearance) -Ulcer Cleansing Wound Cleanser -Foul Odor after Cleansing No -Anesthetic Used 5% Lidocaine Gel - Nurse 2 - General Ulcer CM Notes Start: 06/28/21 14:09 Freq: Status: Active Protocol: Activity Type Activity Date Activity User E-Sign Co-Sign Detail Recorded Client Recorded Date Recorded By Document 06/28/21 14:16 [id number] 06/28/21 14:18 Document 07/06/21 10:48 [id number] 07/06/21 10:49 06/28/21 07/06/21 14:16 10:48 Wound Center Nurse 2 #1 Right Great Toe Stub Plantar -Time 14:18 -Correct Patient Yes No -Correct Side, Site, Position Yes No -Correct Procedure Yes No -Procedure Performed Yes No -Type of Procedure Debridement -Clinical Debridement Subcutaneous -Tissue Removed Subcutaneous -Post Debridement (cm) - Length 0.8 0 -Post Debridement (cm) - Width 0.6 0 -Post Debridement (cm) - Depth 0.1 0 -Total Square (Post) (cm) 0.48 0 -Area of Debridement (cm) - Length 0.8 0 -Area of Debridement (cm) - Width 0.6 0 -Total Square (Area) (cm) 0.48 0 -Tunneling No -Undermining/Tunneling No -Circular Undermining No -Wound/Ulcer Outcome Not Healed Healed- Epithelialized -Ulcer Cleansing Rinsed/ Irrigated with Saline -Foul Odor after Cleansing No -Bioengineered Tissue No -Bleeding Controlled with Pressure -Treatment Response Procedure Tolerated Well -Offloading Yes Yes -Type of Offloading Total Contact Total Contact Cast (TCC) - Cast (TCC) - Right ($) Right ($) -Debridement - Subq, 1st 20sq cm Yes No Pain Scale: 0-10 Numeric Is Patient Pain Free? Yes Yes MIRIAM - Nurse 3 - General Ulcer D/C NN Start: 06/28/21 14:09 Freq: Status: Active Protocol: Activity Type Activity Date Activity User E-Sign Co-Sign Detail Recorded Client Recorded Date Recorded By Document 06/28/21 14:34 FL [id number] 06/28/21 14:36 AK Document 07/06/21 10:59 [facility] [id number] 07/06/21 11:00 [facility] 06/28/21 07/06/21 14:34 10:59 Wound Care Nurse 3 #1 Right Great Toe Stub Plantar -Ulcer Cleansing Rinsed/ Irrigated with Saline -Foul Odor after Cleansing No -Negative Pressure Wound Therapy N/A -Primary Dressing Applied Mepilex Border, Mepilex Border Promogran Jennifer Matter -Other Covering size 4 TCC -Mepilex Border 1 1 -Promogran Jennifer Matter 1 Right -Other TCC UNDERCAST APPLIED Treatment Response Procedure Tolerated Well Pain Scale: 0-10 Numeric Is Patient Pain Free? Yes Yes WC - Visit Discharge Discharge Condition Stable Stable Transportation Private Auto Private Auto Medication Reconcilliation completed & Yes provided to patient/care provider Clinical Summary of Care Provided Yes Assessment/Plan Assessment/Plan (1) Chronic ulcer of right foot with fat layer exposed: CODE(S): L97.512 - Non-pressure chronic ulcer of other part of right foot with fat layer exposed (2) Hallux limitus of right foot: CODE(S): M20.5X1 - Other deformities of toe(s) (acquired), right foot (3) Type 2 diabetes mellitus with diabetic polyneuropathy: CODE(S): E11.42 - Type 2 diabetes mellitus with diabetic polyneuropathy (4) Delayed wound healing: CODE(S): T14.8XXD - Other injury of unspecified body region, subsequent encounter (5) Non-compliance: CODE(S): Z91.19 - Patient's noncompliance with other medical treatment and regimen (6) Malnutrition: CODE(S): E46 - Unspecified protein-calorie malnutrition PLAN: I reviewed and discussed his case today. Debridement was not performed because the ulcer is healed. The following work up and care recommendations were made: Dressing: Discontinue due to ulcer healed Offload: To heel weight-bear and offloading device durable medical equipment for an additional week. Verbal consent was obtained for application of total contact cast. This was applied in neutral position and well-padded manner. To keep clean, dry, and intact until next week. He tolerated this well. Vascular: Noninvasive vascular studies were reviewed from with bilateral triphasic waveforms at the ankle level and normal left and right ABIs. Edema: To periodically elevate throughout the day. Infection: There are no local or systemic signs of infection today and do not recommend a culture or antibiotics. Pain: This is controlled secondary to neuropathy Host factors: He is uncontrolled diabetes and he was advised on proper nutrition to optimize healing. His last A1c level was 8.8% in 06-25-20. Nutrition recommendations were discussed previously. S daily. He was also advised to intake adequate and quality protein. He understands this will optimize his healing potential. Labs: He did not have leukocytosis or other gross abnormalities on 09-09-20. Imaging: His foot x-rays were reviewed from with partial right hallux amputation noted and no other osseous destruction, soft tissue emphysema or foreign body. I answered all the patient's questions. To return to the wound healing center in 1 week or call sooner if the patient has any questions or concerns. Note: [employer] speech recognition abrasive water jet cutter operator software was used to create portions of this document. Sound-alike and misspelled words, as well as other abrasive water jet cutter operator errors may be contained in the documentation.
[2021-07-13 10:58] VITALS: BP 124/58; PULSE 83; RESP 20; TEMP 36.4; BMI 38.9
--- NOTE | 2021-07-13 13:02 | PCM.WC.PN ---
History of Present Illness Date of Service: 07/13/21 Chief Complaint: Chronic right foot ulcer History of Wound: He had a prior amputation performed 08-27-2019 including a partial right hallux amputation for treatment of ulcers. He has significant previous history of recurrent ulcers and infections. This ulcer has been present since August 2019 and he has ongoing delays in healing. He denies redness, odor, streaking, fever, chill, nausea, vomiting. He denies pain. He uses a knee roller. He did well with a total contact cast last week and is here for healed ulcer check today. Progress of Wound: ulcer healed Objective Data Objective Data Vital Signs: Vital Signs Temp Pulse Resp BP 97.5 F L 83 20 H 124/58 H 07/13/21 10:58 07/13/21 10:58 07/13/21 10:58 07/13/21 10:58 Weight: 145.15 kg Body Mass Index (BMI) 38.9 Physical Exam Extremity Extremity Narrative: No calf tenderness Diminished pulses Muscle wasting noted Partial right hallux amputation noted with reduced loaded and unloaded range of motion at the first metatarsophalangeal joint Skin Skin Narrative: no purulence, no streaking, no odor, no infection. There is full epithelialization at the prior ulcer site and this is healed today. skin is atrophic. No interdigital maceration or eschar Neuro Neuro Narrative: lack of normal epicritic sensation via light touch is consistent with neuropathy status Debridement Note Debridement Note Post-Debridement Measurements and Additional Note: Post-Debridement Measurements/Treatment - Nurse 1 - General Ulcer Assessment Start: 06/28/21 14:09 Freq: Status: Active Protocol: RIZWAN Activity Type Activity Date Activity User E-Sign Co-Sign Detail Recorded Client Recorded Date Recorded By Document 06/28/21 14:09 AK [id number] 06/28/21 14:34 AK Document 07/06/21 10:26 RB [id number] 07/06/21 10:27 RB Document 07/13/21 10:58 DL [id number] 07/13/21 11:04 DL 06/28/21 07/06/21 07/13/21 14:09 10:26 10:58 - Today's Visit Information Type of service Follow-up Visit Follow-up Visit Follow-up Visit (Physician/SLOT FLOOR SUPERVISOR (Physician/SLOT FLOOR SUPERVISOR (Physician/SLOT FLOOR SUPERVISOR ) ) ) Arrival Mode Ambulatory Ambulatory Ambulatory Transfer Assistance None None Patient Identification Verified (Name & Yes Yes Yes ) Patient Requires Transmission-Based No No Precautions Safety Precautions NA Height and Weight Body Mass Index (BMI) 38.9 38.9 38.9 BMI Classification Obese Obese Obese Vital Signs Temperature (97.8 F-99.1 F) 95.4 F L 97.8 F 97.5 F L Temperature Source Temporal Temporal Temporal Pulse Rate (60-100) 79 66 83 Pulse Location Monitor Monitor Monitor Respiratory Rate (12-18) 18 20 H Respiratory rate source Observation Observation Blood Pressure (90/60-120/80) 172/75 H 179/91 H 124/58 H Blood Pressure Mean (mm Hg) 107 120 80 Source Monitor Monitor Monitor Position Semi-Fowlers Blood Pressure Location Left Arm History Since Last Visit- (Skip if this is Patient's initial visit) Have you changed medications since your No No No last visit? Any new allergies or adverse reactions No No No Had a fall/change in ADL's that may No No No increase risk of falls Signs or symptoms of abuse and/or No No No neglect since last visit Have you been in the hospital since your No No No last visit? Has dressing in place as prescribed Yes Yes Yes Has compression in place as prescribed N/A No N/A Has offloadiing in place as prescribed Yes Yes Yes Experienced any changes in pain level or No No No management Left Footwear Regular Shoe Regular Shoe Right Footwear Surgical Shoe Total Contact Total Contact with pressure Cast Cast relief insole Pain Scale: 0-10 Numeric Is Patient Pain Free? Yes Yes Yes WC - Nurse 1 - General Ulcer Measurement Start: 06/28/21 14:09 Freq: Status: Active Protocol: Activity Type Activity Date Activity User E-Sign Co-Sign Detail Recorded Client Recorded Date Recorded By Document 07/06/21 10:26 RB [id number] 07/06/21 10:27 RB Document 07/13/21 10:58 DL [id number] 07/13/21 11:04 DL 07/06/21 07/13/21 10:26 10:58 Wound Center Nurse 1 #1 Right Great Toe Stub Plantar -Combined with other wound No -Current Size (cm) - Length 0.1 0 -Current Size (cm) - Width 0.1 0 -Current Size (cm) - Depth 0.1 0 -Total Square Cm 0.01 0 -Photo Taken Yes -Tunneling No -Undermining/Tunneling No -Circular Undermining No -Exudate Amt Small None Present -Exudate Type Serosanguineous -Wound Margin Thickened Flat & Intact -Granulation Amt Medium (34-66%) Large (67-100%) -Granulation Quality [place] Pale -Slough/Fibrin Yes -Necrosis Amt Medium (34-66%) None Present (0 %) -Necrotic Tissue Type Adherent Slough -Structure Exposed N/A N/A -Texture (Su-wound Skin Appearance) Callus Callus,Scarring -Moisture (Su-wound Skin Appearance) Assessed Dry/Scaly -Color (Su-wound Skin Appearance) Assessed No Abnormality -Temperature (Su-wound Skin No Abnormality No Abnormality Appearance) (Pt Warm) (Pt Warm) -Tenderness on Palpation (Su-wound No No Skin Appearance) -Ulcer Cleansing Wound Cleanser Soap and Water -Foul Odor after Cleansing No No -Anesthetic Used 5% Lidocaine Gel WC - Nurse 2 - General Ulcer CM Notes Start: 06/28/21 14:09 Freq: Status: Active Protocol: Activity Type Activity Date Activity User E-Sign Co-Sign Detail Recorded Client Recorded Date Recorded By Document 06/28/21 14:16 [id number] 06/28/21 14:18 Document 07/06/21 10:48 [id number] 07/06/21 10:49 Document 07/13/21 11:10 [id number] 07/13/21 11:10 06/28/21 07/06/21 07/13/21 14:16 10:48 11:10 Wound Center Nurse 2 #1 Right Great Toe Stub Plantar -Time 14:18 -Correct Patient Yes No No -Correct Side, Site, Position Yes No No -Correct Procedure Yes No No -Procedure Performed Yes No No -Type of Procedure Debridement -Clinical Debridement Subcutaneous -Tissue Removed Subcutaneous -Post Debridement (cm) - Length 0.8 0 0 -Post Debridement (cm) - Width 0.6 0 0 -Post Debridement (cm) - Depth 0.1 0 0 -Total Square (Post) (cm) 0.48 0 0 -Area of Debridement (cm) - Length 0.8 0 0 -Area of Debridement (cm) - Width 0.6 0 0 -Total Square (Area) (cm) 0.48 0 0 -Tunneling No -Undermining/Tunneling No -Circular Undermining No -Wound/Ulcer Outcome Not Healed Healed- Healed- Epithelialized Epithelialized -Ulcer Cleansing Rinsed/ Irrigated with Saline -Foul Odor after Cleansing No -Bioengineered Tissue No -Bleeding Controlled with Pressure -Treatment Response Procedure Tolerated Well -Offloading Yes Yes -Type of Offloading Total Contact Total Contact Cast (TCC) - Cast (TCC) - Right ($) Right ($) -Debridement - Subq, 1st 20sq cm Yes No Pain Scale: 0-10 Numeric Is Patient Pain Free? Yes Yes Yes - Nurse 3 - General Ulcer D/C NN Start: 06/28/21 14:09 Freq: Status: Active Protocol: Activity Type Activity Date Activity User E-Sign Co-Sign Detail Recorded Client Recorded Date Recorded By Document 06/28/21 14:34 RI [id number] 06/28/21 14:36 RI Document 07/06/21 10:59 [facility] [id number] 07/06/21 11:00 [facility] Document 07/13/21 11:10 [id number] 07/13/21 11:14 06/28/21 07/06/21 07/13/21 14:34 10:59 11:10 Wound Care Nurse 3 #1 Right Great Toe Stub Plantar -Ulcer Cleansing Rinsed/ Irrigated with Saline -Foul Odor after Cleansing No -Negative Pressure Wound Therapy N/A -Primary Dressing Applied Mepilex Border, Mepilex Border Promogran Jennifer Matter -Other Covering size 4 TCC -Mepilex Border 1 1 -Promogran Jennifer Matter 1 Right -Other TCC UNDERCAST APPLIED Treatment Response Procedure Tolerated Well Pain Scale: 0-10 Numeric Is Patient Pain Free? Yes Yes Yes - Visit Discharge Discharge Condition Stable Stable Stable Ambulatory Status Ambulatory Transportation Private Auto Private Auto Private Auto Medication Reconcilliation completed & Yes Yes provided to patient/care provider Clinical Summary of Care Provided Yes Yes Assessment/Plan Assessment/Plan (1) Chronic ulcer of right foot with fat layer exposed: CODE(S): L97.512 - Non-pressure chronic ulcer of other part of right foot with fat layer exposed (2) Hallux limitus of right foot: CODE(S): M20.5X1 - Other deformities of toe(s) (acquired), right foot (3) Type 2 diabetes mellitus with diabetic polyneuropathy: CODE(S): E11.42 - Type 2 diabetes mellitus with diabetic polyneuropathy PLAN: I reviewed and discussed his case today. Debridement was not performed because the ulcer is healed. The following work up and care recommendations were made: Dressing: Discontinue due to ulcer healed Offload: To heel weight-bear and offloading device durable medical equipment for an additional week; CAM. If doing well at that time, to transition to extra depth diabetic shoe with custom orthotic. Toe filler appears to cause rubbing near ulcer site so this was cut off today. V Vascular: Noninvasive vascular studies were reviewed from with bilateral triphasic waveforms at the ankle level and normal left and right ABIs. Edema: To periodically elevate throughout the day. Infection: There are no local or systemic signs of infection today and do not recommend a culture or antibiotics. Pain: This is controlled secondary to neuropathy Host factors: He is uncontrolled diabetes and he was advised on proper nutrition to optimize healing. His last A1c level was 8.8% in 06-25-20. Nutrition recommendations were discussed previously. S daily. He was also advised to intake adequate and quality protein. He understands this will optimize his healing potential. Labs: He did not have leukocytosis or other gross abnormalities on 09-09-20. Imaging: His foot x-rays were reviewed from with partial right hallux amputation noted and no other osseous destruction, soft tissue emphysema or foreign body. I answered all the patient's questions. To return to the foot and ankle Center for healed ulcer check in 2 weeks, or call sooner if the patient has any questions or concerns. Note: [employer] speech recognition home health clinical liaison software was used to create portions of this document. Sound-alike and misspelled words, as well as other home health clinical liaison errors may be contained in the documentation. The medical decision making level is moderate. There is noted moderate risk of morbidity after considering this treatment plan and diagnostic data. Considerations were given to prescription management, decisions regarding surgical options, or social determinants of health. The problems addressed require a moderate decision making level which includes one or more chronic illnesses (w/ exacerbation, progression, or side effects), two or more stable chronic illnesses, one undiagnosed new problem w/ uncertain prognosis, one acute illness with systemic symptoms, or one acute complicated injury.
== END 2021-07-13 15:45 | disposition home or self-care (01) ==
LOC: WC 10:45
PROVIDERS: PCP Preventive Medicine Occupational Medicine; Referring Provider Podiatrist; Visit Provider Podiatrist
DX: E11.621 Type 2 diabetes mellitus with foot ulcer (principal); L97.512 Non-pressure chronic ulcer of other part of right foot with fat layer exposed; E46 Unspecified protein-calorie malnutrition; E11.42 Type 2 diabetes mellitus with diabetic polyneuropathy; Z91.19 Patient's noncompliance with other medical treatment and regimen; Z60.9 Problem related to social environment, unspecified; M20.5X1 Other deformities of toe(s) (acquired), right foot; T14.8XXD Other injury of unspecified body region, subsequent encounter
CPT/HCPCS: 11042; 29445; 99213; G0463

== ENCOUNTER → 2021-11-04 | Outpatient (CLI) | payer OTHER, SELFPAY ==
[2021-11-04 12:57] LABS: Anion Gap 6 (5-15); BUN 11 mg/dL (7-18); Calcium,Total 8.9 mg/dL (8.5-10.1); Chloride 106 mmol/L (98-107); Cholesterol 116 mg/dL (200); EST Glomerular Filtration Rate 85 mL/min (>60); Est Glom Filt Rate - Afr Amer 102 mL/min (>60); Glucose 184 mg/dL (74-106); High Density Lipoprotein 33 mg/dL; Potassium 4.3 mmol/L (3.5-5.1); Sodium Level 137 mmol/L (136-145); Triglycerides 72 mg/dL; Very Low Density Lipoprotein 14 mg/dL (5-40)
== END | disposition home or self-care (01) ==
LOC: LAB 11:28
PROVIDERS: PCP Preventive Medicine Occupational Medicine; Referring Provider Preventive Medicine Occupational Medicine; Visit Provider Preventive Medicine Occupational Medicine
DX: E11.9 Type 2 diabetes mellitus without complications (principal)
CPT/HCPCS: 36415; 80048; 80061

== ENCOUNTER → 2022-05-16 | Outpatient (CLI) | payer BC, SELFPAY ==
--- NOTE | 2022-05-16 11:40 | RAD_ITS ---
INDICATION: PRE-OP EXAMINATION/TECHNIQUE: X-RAY - XR Chest 2 Views COMPARISON: None. FINDINGS: LINES/DEVICES: None. LUNGS: No consolidation, edema or effusion. No pneumothorax. MEDIASTINUM AND CARDIOVASCULAR STRUCTURES: Cardiac silhouette not enlarged. Central airways and mediastinal contour are unremarkable. RAD/Chest PA and Lateral IMPRESSION: No radiographic evidence of acute cardiopulmonary disease. Electronically Signed: Toño Yousif MD at 18:31 EST ,
[2022-05-16 15:34] LABS: Absolute Lymphocyte Count 1.72 X10^3/uL (0.83-4.51); Absolute Neutrophil Count 4.5 X10^3/uL (2.0-7.7); Basophil# 0.05 X10^3/uL; Basophil% 0.7 % (0-1); Eosinophil# 0.09 X10^3/uL; Eosinophils% 1.3 % (0-5); Hematocrit 46.3 % (40-54); Hemoglobin 14.8 g/dL (13.0-16.5); Lymphocyte # 1.72 X10^3/ul (0.83-4.51); Mean Corpuscular Hgb 26.2 pg (27.0-32.0); Mean Corpuscular Volume 81.9 fL (80-94); Mean Platelet Vol. 10.5 fl (6.2-12.0); Monocyte# 0.46 X10^3/uL; Monocyte% 6.7 % (0-10); NRBC Flagged by Analyzer 0 % (0-5); Neutrophil # 4.54 X10^3/uL (2.7-7.7); Platelet Count 273 K/mm3 (150-450); RBC Distribution Width CV 13.3 % (11.6-14.6); RBC Distribution Width SD 39.8 fl (35.1-43.9); Red Blood Count 5.65 M/mm3 (4.6-6.2); White Blood Count 6.9 K/mm3 (4.4-11.0)
[2022-05-16 16:39] LABS: AST(SGOT) 24 U/L (15-37); Alanine Aminotransfer ALT/SGPT 44 U/L (16-61); Albumin, Serum 3.5 g/dL (3.2-5.0); Alkaline Phosphatase 62 U/L (45-117); Anion Gap 8 (5-15); BUN 14 mg/dL (7-18); BUN/Creat Ratio 12.4 RATIO (10-20); Calcium,Total 9.2 mg/dL (8.5-10.1); Chloride 101 mmol/L (98-107); Creatinine, Serum 1.13 mg/dL (0.70-1.30); EST Glomerular Filtration Rate 73 mL/min (>60); Est Glom Filt Rate - Afr Amer 89 mL/min (>60); Globulin 3.6 g/dL (2.2-4.2); Glucose 391 mg/dL (74-106); Potassium 4.1 mmol/L (3.5-5.1); Protein, Total 7.1 g/dL (6.4-8.2); Sodium Level 132 mmol/L (136-145)
== END | disposition home or self-care (01) ==
LOC: MTLAB 11:39
PROVIDERS: PCP Family Medicine; Referring Provider Family Medicine; Visit Provider Family Medicine
DX: Z01.818 Encounter for other preprocedural examination (principal)
CPT/HCPCS: 36415; 71046; 80053; 85025

== ENCOUNTER 2022-06-09 11:11 | Day surgery (SDC) | payer BC, SELFPAY ==
[2022-06-09] VITALS (9 sets, daily range): BP systolic 99–132; BP diastolic 57–76; PULSE 50–80; RESP 16–17; TEMP 35.9–36.2; O2SAT 94–100; BMI 34.6
[2022-06-09] MEDS: Lactated Ringers 1,000 ML 15 ML IV (11:52)
[2022-06-09 12:21] LABS: Bedside Glucose 306 mg/dL (74-106)
--- NOTE | 2022-06-09 12:27 | DCINST_ITS ---
Discharge Instructions Diet Discharge Diet: No restrictions Activity Discharge Activity: May Shower (Use cast bag covering to keep dressings clean, dry, and intact to right foot) Weight Bearing Status: Partial weight bearing (May be partial weightbearing to right heel in cam boot) Keep extremity elevated above heart level: Right Leg (Please elevate right lower extremity at all times of rest for postoperative edema control) Dressing / Incision Call your doctor if you observe: Fever of 101 or Higher, Chest pain, Calf discomfort and Uncontrolled pain Change Dressing in: do not change dressing Remove Dressing in: leave in place till F/U (Physician will change dressing at first postoperative appointment) Cleanse incision/area with: Do not get Incision Wet (Please keep dressings clean, dry, and intact to the right foot) and Keep Dressing Clean & Dry Follow Up Care Please Follow Up With: Timur Pro DPM When: Patient has first postoperative appointment in office next week Test Results: Test results from this visit will be discussed in further detail at your follow- up appointment, if applicable. Discharge Plan Admission Attending Provider: Timur Pro Primary Care Provider: Yamilet Chilel Consulting Providers: Theo Castañeda Discharge Orders/Prescriptions Prescriptions: New doxycycline hyclate 100 mg capsule 100 mg PO DAILY Qty: 10 0RF oxycodone-acetaminophen 5-325 mg tablet 1 tab PO Q6H PRN (Reason: pain) 7 Days Qty: 28 0RF No Action Trulicity 0.75 mg/0.5 mL pen injector 0.75 mg SUBCUT SANTOS Label Comments: INJECT 0.5 ML SUBCUTANEOUSLY EVERY WEEK insulin aspart U-100 [Novolog FlexPen U-100 Insulin] 100 unit/mL (3 mL) Insulin Pen 30 unit SUBCUT TID Levemir FlexPen 100 unit/mL (3 mL) Insulin Pen 70 unit SUBCUT DAILY Referrals / Follow Up: Yamilet Chilel MD [Primary Care Provider] - Disposition Disposition (needs filled in before D/C Order can be placed): Home, Self Care
[2022-06-09] MEDS: Insulin Lispro 100 UNIT/ML INSULN.PEN 6 UNIT SC (12:47)
--- NOTE | 2022-06-09 13:00 | BONBX_PTH ---
PATIENT: LISBET GREENBERG [place] [facility] [place][id number] AGE/SX: 47/M ROOM: RE06/09/[address]: Dr. Timur Pro DPM : 1975 BED: DIS: 06/09/2022 SPEC #: [id number] RECD: 06/09/22 17:10 STATUS: SAGE REMaryam #: [id number] LIUDMILA: 06/09/22 13:[address]: Timur Pro DEPT: SURGICAL PATHOLOGY RECD BY: Rajesh Jay ENTERED: 06/12/22 08:40 SP TYPE: Bone OTHR DR: MD Dr. Theo Mcallister MD Tissues: Bone of foot, NOS Procedures: Decalcification bone/plaque Surgery Specimen Level IV HEADER OPERATION: Excision of bone of proximal phalanx with excision PRE-OP DIAGNOSIS: Nonhealing chronic ulcer TISSUE SUBMITTED: Bone and tissue of right great toe MICROSCOPIC DIAGNOSIS Bone and tissue right great toe, amputation: Ulceration, acute inflammation and granulation tissue reaction. Extensive hyperkeratosis and pseudoepitheliomatous hyperplasia. Underlying bone with reactive changes and chronic inflammation, negative for acute osteomyelitis. MATEUS:weston 06/15/2022 MICROSCOPIC DESCRIPTION Slides are reviewed. GROSS DESCRIPTION Received in fixative is one container labeled with the patient's name and designated bone and tissue right great toe. The specimen consists of a piece of skin with underlying tissue that appears to consist of tip of toe measuring 2.5 x 1.3 x 1.4 cm. A focal area of ulceration is noted at the tip. Also present in the container is a piece of bone measuring 2.5 x 2.5 x 1.7 cm. Atmospheric Chemist sections are submitted in two cassettes as follows: 1 ? skin with area of ulceration, 2 ? bone after decalcification. / MATEUS:weston 06/12/2022 TC:2 CPT: 03916, 56492
[2022-06-09] MEDS: Cefazolin 2 GM in 0.9% Normal Saline 100 ML IV (13:27)
[2022-06-09] MEDS: Bupivacaine 0.25% 30 ML Vial (13:30)
--- NOTE | 2022-06-09 13:34 | RAD_ITS ---
INDICATION: Excision of bone of the proximal phalanx with debridement of foot ulceration EXAMINATION/TECHNIQUE: X-RAY - RIGHT XR Foot 2 Views 4 VIEWS COMPARISON: Right foot series 05/04/2021 FINDINGS: 4 intraoperative fluoroscopic spot films were obtained of the right foot during excision of the remnant of the first proximal phalanx. Refer to surgical report. Total fluoroscopic time 11 seconds. RAD/Foot 2 Views IMPRESSION: Status postresection of the remnant of the first proximal phalanx. Electronically Signed: Dc Asif MD at 17:43 EDT ,
--- NOTE | 2022-06-09 15:01 | RAD_ITS ---
INDICATION: Postop removal base of proximal phalanx right foot EXAMINATION/TECHNIQUE: X-RAY - RIGHT XR Foot Min 3 Views 3 VIEWS COMPARISON: 05/04/2021 FINDINGS: Interval resection of the residual base of the first proximal phalanx. Soft tissue swelling and subcutaneous air overlies the distal first metatarsal. Remaining osseous structures unchanged. RAD/Foot min 3 Views IMPRESSION: Status postresection of the residual portion of the first proximal phalanx. Electronically Signed: Dc Asif MD at 16:07 EDT ,
--- NOTE | 2022-06-09 15:18 | PCM.OPRPT ---
Problems Associated Problem List Diagnoses (1) Type 2 diabetes mellitus with diabetic polyneuropathy: (2) Non-pressure chronic ulcer of other part of right foot with fat layer exposed: (3) Exostosis of bone of foot: Report of Operation Date of Procedure: 06/09/22 Pre-Operative Diagnosis: 1. 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 Chronic non-healing ulceration sub-base of right hallux 3. Uncontrolled DM type II with peripheral polyneuropathy Post-Operative Diagnosis: 1. 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 Chronic non-healing ulceration sub-base of right hallux 3. Uncontrolled DM type II with peripheral polyneuropathy Surgery/Procedure Performed:: 1. Excision of base of proximal phalanx of the right hallux 2. Excision of chronic diabetic ulceration right foot Description of Surgical Findings:: See operative note for findings Surgeon: Timur Pro [employer] spacelift: Evelina Garcia DPM PGY-3 Type of Anesthesia: Local (10 cc 0.25% Marcaine plain) and MAC Specimen's removed: Bone base of proximal phalanx right hallux and ulcerative tissue right foot Drains: None Estimated Blood Loss (mL): < 3 mL Description of Procedure: HPI/indication: Patient is a 47-year-old male with uncontrolled diabetes mellitus type 2 with peripheral polyneuropathy. He has had history of previous ulcerations at the base of the hallux of the right foot previously treated by another physician. He states that he had healed and had not been seen in office for several months. He did return to regular shoe gear despite being advised to remain in diabetic shoes with plantar offloading. He states that the ulcerative site reopened in which he presented back to the office for local wound care. Patient did not want to go to wound care center to undergo debridements and grafts. Local wound care was performed in office with waxing and waning of ulcerative size due to noncompliance and offloading. Patient does not check blood sugars with reported hemoglobin A1c of 10.5%. It was stressed upon him to comply with diet and follow-up with endocrinology and family physician to obtain strict glucose control. Patient does not regularly follow guidelines for lowering his A1c. Due to nonhealing ulceration repeat radiographs were obtained demonstrating remaining portion of the base of the proximal phalanx creating plantar prominence leading to subsequent ulceration. I discussed with him surgical intervention for removal of the remaining portion of the base of the proximal phalanx and that this would be necessary to heal his ulceration and prevent reulceration. Patient has had history of healing and breaking down with subsequent infection. I discussed with him the site is not currently infected but does pose high risk for infection and possibly a more proximal amputation. I discussed with him that this is not an elective and would be necessary to heal and prevent a more proximal amputation. Patient voices understanding of this and agreement with this decision. He was educated about the risks of his high A1c and increased blood sugars pertaining to delayed wound healing and increased infection risk. I discussed the benefits of the surgical procedure as well as risks and complications. He he understands the risk and complications include but are not limited to the following: Pain, continued pain, complex regional pain syndrome, infection, neuritis/numbness, delayed healing/nonhealing, dehiscence, edema, poor cosmetic result, scar tissue, recurrence, difficulty with ambulation, transfer lesions, need for additional surgery, blood clot, allergic reaction, loss of function, loss of limb, and loss of life. Patient in agreement with these. Patient able to repeat these back. Patient voices understanding that this is not an elective procedure and is necessary to heal and prevent a more proximal amputation. Again patient voices understanding of that. Patient willing to proceed with the surgical intervention. Consent forms were obtained and patient signed them freely. Patient was cleared by his family physician for surgical intervention. Upon clearance it is also noted in his lab work his A1c noted to be 11%. Surgery to continue to proceed due to high risk of infection and more proximal amputation as this is not elective. Patient was scheduled for surgical intervention on 06/09/2022 at [facility]. H&P was reviewed prior to surgery. Operative limb was signed prior to entering the OR. Procedure: Under mild sedation patient was brought into the operating placed on table in the supine position. Following IV sedation a local anesthetic block was performed about the first metatarsal consisting of 10 cc of 0.25% Marcaine plain. A pneumatic ankle tourniquet was then placed about the patient's right ankle. The foot was then scrubbed, prepped, and draped in the usual aseptic manner. An Esmarch bandage was utilized to exsanguinate the right foot and the pneumatic ankle tourniquet was plated to 250 mmHg. At this time attention was directed to the right foot where fluoroscopy was utilized to identify the prominent portion of bone and guide incision placement. Fluoroscopy imaging obtained in multiple views. Next, a linear incision was made utilizing a #15 blade at the dorsal aspect of the first metatarsal head extended distally overlying the remaining portion of the base of the proximal phalanx. Incision was deepened utilizing sharp dissection. The first metatarsophalangeal joint capsule was incised and the remainder of the base of the proximal phalanx was disarticulated at the metatarsophalangeal joint. The bone of the base of the proximal phalanx is noted to be hard and of good color indicating viability and healthy portion of bone. The head of the first metatarsal was inspected and noted to have smooth, intact, glistening white cartilage indicating healthy viability of the first metatarsal. First metatarsal bone noted to be hard indicating good quality. The site was then flushed with copious amounts of normal sterile saline. At this time the ulcerative site was inspected and noted to have no plantar prominence remaining to the ulcerative site. The ulceration of the plantar aspect of the foot was then sharply excised. The site was again flushed with copious amounts of normal sterile saline. Fluoroscopy was then utilized in multiple views to confirm removal of the remaining portion of the base of the proximal phalanx. Next any redundant skin was excised for an adequate soft tissue closure. Deep layer was then closed with 3-0 Vicryl. Subcutaneous layer closed with 4-0 Monocryl. The skin was then reapproximated with a 2-0 Prolene in simple interrupted fashion. At this time the pneumatic ankle tourniquet was deflated and a prompt hyperemic response was noted to the digits of the right foot. The distal stump at the first metatarsal was noted to pink in color following deflation of the tourniquet. Incision sites were then dressed with Betadine soaked Adaptic, 4 x 4 gauze, ABD, Kerlix, and 4 inch Gordon wrap rolled onto the right foot. The patient tolerated the procedure and anesthesia well was transported to PACU with vital signs stable and vascular status intact to the right foot. Patient did receive discharge instructions outlining his postoperative care. Patient does have a cam boot with him today and was placed back into the boot and will be allowed protective partial weightbearing to the right heel only. Due to patient's high risk of infection secondary to uncontrolled diabetes mellitus he will be placed on oral doxycycline 100 mg following surgery. He was instructed to keep dressings clean, dry, and intact to the right foot and utilize cast bag for showering. He is to continue to elevate the right foot at all times of rest for postoperative edema control. These were outlined in his discharge instructions. He has first postoperative appointment scheduled in office next week. Grafts/Implants Used: None Complications None Admit VTE Documentation VTE Present on Admission: No VTE Mechan Device Prophylaxis: SCD's VTE Pharm Prophylaxis ordered?: No Reason prophylaxis not ordered:: Procedure Not Indicated
[2022-06-09 15:45] LABS: Bedside Glucose 236 mg/dL (74-106)
== END 2022-06-09 15:43 | disposition home or self-care (01) ==
LOC: SDC 11:13 → AC 11:13
PROVIDERS: Anesthesiology; PCP Family Medicine; Referring Provider Student in an Organized Health Care Education/Training Program; Visit Provider Student in an Organized Health Care Education/Training Program
PROC: (CPT 28288; principal; 2022-06-09 12:45)
DX: E11.621 Type 2 diabetes mellitus with foot ulcer (principal); L97.512 Non-pressure chronic ulcer of other part of right foot with fat layer exposed; E11.42 Type 2 diabetes mellitus with diabetic polyneuropathy; M20.5X1 Other deformities of toe(s) (acquired), right foot; I10 Essential (primary) hypertension; F17.200 Nicotine dependence, unspecified, uncomplicated
CPT/HCPCS: 28288; 01480; 36415; 73620; 73630; 76000; 82962; 83036; 88304; 88305; 88307; 88311; J7120; J2405

== ENCOUNTER → 2022-07-11 | Outpatient (CLI) | payer BC, SELFPAY | END | disposition home or self-care (01) | PROVIDERS: PCP Family Medicine; Visit Provider Podiatrist | DX: L97.512 Non-pressure chronic ulcer of other part of right foot with fat layer exposed (principal) | CPT/HCPCS: 87070; 87077; 87186; 87205 ==

== ENCOUNTER → 2022-07-13 | Outpatient (CLI) | payer BC, SELFPAY ==
[2022-07-13 12:49] LABS: Cholesterol 100 mg/dL (200); High Density Lipoprotein 35 mg/dL; Triglycerides 57 mg/dL; Very Low Density Lipoprotein 11 mg/dL (5-40)
[2022-07-13 15:48] LABS: Microalbumin,Random Urine 18.1 mg/L (NO RANGE EST.)
== END | disposition home or self-care (01) ==
LOC: MFPLAB 10:21
PROVIDERS: PCP Family Medicine; Visit Provider Family Medicine
DX: E11.65 Type 2 diabetes mellitus with hyperglycemia (principal)
CPT/HCPCS: 36415; 80061; 82043

== ENCOUNTER → 2022-12-18 | Outpatient (CLI) | payer BC, SELFPAY ==
[2022-12-18 12:51] LABS: ALB/GLOB Ratio 0.9 RATIO (0.9-2.4); AST(SGOT) 24 U/L (15-37); Alanine Aminotransfer ALT/SGPT 60 U/L (16-61); Albumin, Serum 3.4 g/dL (3.2-5.0); Alkaline Phosphatase 43 U/L (45-117); Anion Gap 6 (5-15); BUN 16 mg/dL (7-18); BUN/Creat Ratio 16.9 RATIO (10-20); Calcium,Total 8.6 mg/dL (8.5-10.1); Chloride 107 mmol/L (98-107); Creatinine, Serum 0.95 mg/dL (0.70-1.30); EST Glomerular Filtration Rate 90 mL/min (>60); Est Glom Filt Rate - Afr Amer 108 mL/min (>60); Globulin 3.6 g/dL (2.2-4.2); Glucose 136 mg/dL (74-106); Sodium Level 137 mmol/L (136-145)
== END | disposition home or self-care (01) ==
LOC: MFPLAB 10:55
PROVIDERS: PCP Family Medicine; Visit Provider Family Medicine
DX: E87.1 Hypo-osmolality and hyponatremia (principal)
CPT/HCPCS: 36415; 80053

== ENCOUNTER → 2023-03-26 | Outpatient (CLI) | payer BC, SELFPAY | END | disposition home or self-care (01) | PROVIDERS: PCP Family Medicine; Visit Provider Student in an Organized Health Care Education/Training Program | DX: L97.512 Non-pressure chronic ulcer of other part of right foot with fat layer exposed (principal) | CPT/HCPCS: 87070; 87077; 87186; 87205 ==

== ENCOUNTER → 2023-04-26 | Outpatient (CLI) | payer BC, SELFPAY ==
[2023-04-26 15:05] LABS: Absolute Lymphocyte Count 1.82 X10^3/uL (0.83-4.51); Basophil# 0.05 X10^3/uL; Basophil% 0.7 % (0-1); Eosinophil# 0.13 X10^3/uL; Eosinophils% 1.7 % (0-5); Hematocrit 48.4 % (40-54); Lymphocyte # 1.82 X10^3/ul (0.83-4.51); Lymphocyte % 24.3 % (19-41); Mean Corpuscular Volume 83.9 fL (80-94); Mean Platelet Vol. 10.5 fl (6.2-12.0); Monocyte# 0.53 X10^3/uL; Monocyte% 7.1 % (0-10); NRBC Flagged by Analyzer 0 % (0-5); Neutrophil # 4.95 X10^3/uL (2.7-7.7); Neutrophil % 65.9 % (47-70); Platelet Count 279 K/mm3 (150-450); RBC Distribution Width SD 39.7 fl (35.1-43.9); Red Blood Count 5.77 M/mm3 (4.6-6.2); White Blood Count 7.5 K/mm3 (4.4-11.0)
[2023-04-26 15:21] LABS: ALB/GLOB Ratio 0.9 RATIO (0.9-2.4); AST(SGOT) 14 U/L (15-37); Alanine Aminotransfer ALT/SGPT 40 U/L (16-61); Albumin, Serum 3.4 g/dL (3.2-5.0); Alkaline Phosphatase 50 U/L (45-117); Anion Gap 6 (5-15); BUN 14 mg/dL (7-18); BUN/Creat Ratio 13.7 RATIO (10-20); Calcium,Total 9.1 mg/dL (8.5-10.1); Chloride 105 mmol/L (98-107); Creatinine, Serum 1.02 mg/dL (0.70-1.30); EST Glomerular Filtration Rate 82 mL/min (>60); Est Glom Filt Rate - Afr Amer 99 mL/min (>60); Globulin 3.7 g/dL (2.2-4.2); Glucose 269 mg/dL (74-106); Potassium 4.7 mmol/L (3.5-5.1); Protein, Total 7.1 g/dL (6.4-8.2); Sodium Level 138 mmol/L (136-145)
[2023-04-27 10:16] LABS: Hemoglobin A1c 10.6 % (3.8-5.6)
== END | disposition home or self-care (01) ==
LOC: MFPLAB 12:14
PROVIDERS: PCP Family Medicine; Visit Provider Family Medicine
DX: Z01.812 Encounter for preprocedural laboratory examination (principal); Z20.822 Contact with and (suspected) exposure to COVID-19
CPT/HCPCS: 36415; 80053; 83036; 85025

== ENCOUNTER 2023-05-01 10:52 | Day surgery (SDC) | payer BC, SELFPAY ==
[2023-05-01] VITALS (9 sets, daily range): BP systolic 107–125; BP diastolic 61–80; PULSE 53–82; RESP 14–16; TEMP 36.3–36.6; O2SAT 94–97; BMI 32.7
--- NOTE | 2023-05-01 11:00 | RAD_ITS ---
STUDY: X-RAY CHEST REASON FOR EXAM: Male, 48 years old. PRE-OP TECHNIQUE: PA and lateral views of the chest. COMPARISON: Comparison is made with prior study dated May 16, 2022. FINDINGS: There is hyperinflation of the lungs consistent with chronic obstructive lung disease (COPD). Right upper lobe scarring. There is no demonstrated pleural abnormality. Normal size heart. Normal mediastinum and parvin. Normal visualized pulmonary arteries. Normal visualized aortic arch and descending thoracic aorta. There are diffuse degenerative changes of the visualized thoracic spine. Normal visualized ribs, clavicles, and shoulders. There is no demonstrated abnormality of the visualized soft tissue structures of the upper abdomen. RAD/Chest PA and Lateral IMPRESSION: Findings in keeping with COPD. Stable scarring in the right upper lobe. Electronically Signed: Bharat Bruno MD at 11:24 EST ,
[2023-05-01] MEDS: Lactated Ringers 1,000 ML 15 ML IV ×2 (11:45→14:38)
[2023-05-01 12:10] LABS: Bedside Glucose 203 mg/dL (74-106)
--- NOTE | 2023-05-01 12:30 | BON_PTH ---
PATHOLOGY RESULTS PATIENT: LISBET GREENBERG [place] [facility] [place][id number] AGE/SX: 48/M ROOM: RE05/01/[address]: Dr. Timur Pro DPM : 1975 BED: DIS: 05/01/2023 SPEC #: [id number] RECD: 05/02/23 08:29 STATUS: SAGE REMaryam #: [id number] LIUDMILA: 05/01/23 12:[address]: Timur Pro DEPT: SURGICAL PATHOLOGY RECD BY: Jill Ascencio ENTERED: 05/02/23 08:59 SP TYPE: Bone OTHR DR: Cristina Turk DO Tissues: Foot, NOS Procedures: Decalcification bone/plaque Surgery Specimen Level IV HEADER OPERATION: Right foot second metatarsal head resection, I & D, soft tissue PRE-OP DIAGNOSIS: Nonhealing polyneuropathy; osteomyelitis second metatarsal right foot TISSUE SUBMITTED: Right foot second metatarsal bone MICROSCOPIC DIAGNOSIS Right foot second metatarsal bone, excision: Acute osteomyelitis. Reactive and reparative change. AM:weston 05/07/2023 MICROSCOPIC DESCRIPTION Slides are reviewed. GROSS DESCRIPTION Received in fixative is one container labeled with the patient's name and designated right foot second metatarsal bone. The specimen consists of a piece of bone measuring 3.5 x 2.0 x 1.4 cm. The entire specimen is submitted in three cassettes after decalcification. / MATEUS:weston 05/02/2023 TC:2 CPT: 36137, 45972
--- NOTE | 2023-05-01 12:31 | RAD_ITS ---
EXAM: XR RIGHT FOOT, 2 VIEWS CLINICAL INDICATION: PAIN TECHNIQUE: Frontal and lateral views of the right foot. COMPARISON: 06/09/2022 FINDINGS: BONES/JOINTS: Intraoperative views show amputation of the proximal first phalanx. No acute fracture. No subluxation. Normal alignment. Preservation of the joint space. No sclerotic or destructive changes observed. SOFT TISSUES: Unremarkable. No soft tissue swelling or gas. No radiopaque foreign body. RAD/Foot 2 Views IMPRESSION: Amputation of the proximal first phalanx. Electronically Signed: Tobias Marlow MD at 16:51 EST ,
[2023-05-01] MEDS: Cefazolin 2 GM in 0.9% Normal Saline (100mL Bag) 100 ML IV (12:50)
--- NOTE | 2023-05-01 12:51 | DCINST_ITS ---
Discharge Instructions Diet Discharge Diet: No restrictions Activity Discharge Activity: May Not Drive, May Shower (Please utilize cast bag covering when showering to keep dressings clean, dry, and intact to Right foot) and Use Crutches (Please utilize crutches to remain nonweightbearing to the right lower extremity) Weight Bearing Status: No weight bearing (Please remain non-weight bearing to the Right foot with the assistance of crutches) Keep extremity elevated above heart level: Right Leg (Please elevate Right lower extremity at all times of rest for post-operative edema control) Dressing / Incision Call your doctor if you observe: Fever of 101 or Higher, Shortness of breath, Chest pain, Calf discomfort and Uncontrolled pain Change Dressing in: do not change dressing Remove Dressing in: leave in place till F/U (Physician will change dressing at first post-operative appointment.) Cleanse incision/area with: Do not get Incision Wet and Keep Dressing Clean & Dry (Do not get wet and keep dressings clean, dry, and intact to the Right foot) Follow Up Care Please Follow Up With: Timur Pro DPM When: Patient has first post-operative appointment in office early next week Test Results: Test results from this visit will be discussed in further detail at your follow- up appointment, if applicable. Discharge Plan Admission Attending Provider: Timur Pro Primary Care Provider: Cristina Turk Discharge Orders/Prescriptions Prescriptions: New oxycodone-acetaminophen 5-325 mg tablet 1 tab PO Q8H PRN (Reason: pain) 7 Days Qty: 28 0RF aspirin 325 mg capsule 325 mg PO DAILY Qty: 20 0RF No Action insulin aspart U-100 [Novolog FlexPen U-100 Insulin] 100 unit/mL (3 mL) Insulin Pen 6 unit SUBCUT TID PRN (Reason: DIABETES) Levemir FlexPen 100 unit/mL (3 mL) Insulin Pen 46 unit SUBCUT DAILY Trulicity 4.5 mg/0.5 mL pen injector 4.5 mg SUBCUT TH Patient Comments: INJECT 4.5MG UNDER THE SKIN WEEKLY amoxicillin-pot clavulanate 875-125 mg tablet 1 tab PO BID Patient Comments: TAKE 1 TABLET BY MOUTH TWICE DAILY UNTIL GONE Referrals / Follow Up: Cristina Turk DO [Primary Care Provider] - Disposition Disposition (needs filled in before D/C Order can be placed): Home, Self Care
[2023-05-01] MEDS: Vancomycin IV 1,000 MG/20 ML Vial 1000 MG OPERA.SITE (13:43)
[2023-05-01] MEDS: Lidocaine 1% (30 ml sdv) 30 ML Vial (14:04)
[2023-05-01] MEDS: Bupivacaine Mpf 0.5% 30 ML VIAL (14:04)
--- NOTE | 2023-05-01 14:25 | RAD_ITS ---
EXAM: XR RIGHT FOOT COMPLETE, 3 OR MORE VIEWS CLINICAL INDICATION: Post-operative 2nd metatarsal head resection TECHNIQUE: Frontal, lateral and oblique views of the right foot. COMPARISON: 06/09/2022 FINDINGS: BONES/JOINTS: There is also been amputation of the first phalanx. No acute fracture. No subluxation. Normal alignment. Preservation of the joint space. No sclerotic or destructive changes observed. SOFT TISSUES: Since the reference examination there has been surgical resection of the distal aspect of the second metatarsal. There is gas in the soft tissues in the surgical site. No radiopaque foreign body. RAD/Foot min 3 Views IMPRESSION: Postsurgical amputation of the distal aspect of the second metatarsal. There has been previous amputation of the first phalanx. Electronically Signed: Tobias Marlow MD at 19:59 EST ,
[2023-05-01 14:41] LABS: Bedside Glucose 181 mg/dL (74-106)
--- NOTE | 2023-05-01 14:43 | OP.PCM_ITS ---
Problems Associated Problem List Diagnoses (1) Neuropathic ulcer of right foot with fat layer exposed: (2) Osteomyelitis of right foot: (3) Delayed wound healing: (4) Non-compliance: (5) Type 2 diabetes mellitus with diabetic polyneuropathy: Report of Operation Date of Procedure: 05/01/23 Pre-Operative Diagnosis: 1. Nonhealing neuropathic ulceration sub-second metatarsal head right foot 2. Osteomyelitis second metatarsal head right foot 3. Delayed wound healing 4. Diabetes mellitus type 2 with peripheral polyneuropathy Post-Operative Diagnosis: 1. Nonhealing neuropathic ulceration sub-second metatarsal head right foot 2. Osteomyelitis second metatarsal head right foot 3. Delayed wound healing 4. Diabetes mellitus type 2 with peripheral polyneuropathy Surgery/Procedure Performed:: 1. Second metatarsal head resection right foot 2. Incision of bone cortex right foot 3. Incision and drainage with wide debridement right foot 4. Tissue rearrangement/soft tissue skin flap right foot Description of Surgical Findings:: See operative note for findings Surgeon: Timur Pro registered nursing professor: Hazel Souza DPM PGY-1 Type of Anesthesia: General and Local (20 cc one-to-one mixture of 1% lidocaine plain and 0.5% Marcaine plain) Specimen's removed: Second metatarsal head right foot Drains: None Estimated Blood Loss (mL): < 3 mL Description of Procedure: HPI/indication: This is a 48-year-old male who is well-known to the office presented with new ulceration to the plantar right foot, subsecond metatarsal head in February 2023. He has history of uncontrolled diabetes mellitus type 2 with peripheral polyneuropathy and noncompliance. He did undergo removal of the remaining portion of the proximal phalanx base of the hallux in May 2022 due to nonhealing ulceration. He did heal postoperatively however developed new ulceration to the plantar second metatarsal head with serosanguineous drainage. Radiographs were obtained of the right foot demonstrating no evidence of acute osteomyelitis. He was started on oral antibiotics and did complete course however due to noncompliance of application of dressings, wearing proper shoe gear, and offloading of the ulcerative site he did develop chronic nonhealing ulceration secondary to excessive second metatarsal head pressure with subsequent osteomyelitis of the second metatarsal head. He did continue to undergo local wound care until time of surgical intervention. Ulceration measured 0.6 cm x 0.4 cm x 0.4 cm. I discussed surgical intervention with him for excision of the second metatarsal head with soft tissue skin flap of the right foot. The surgical procedure was discussed in detail with the patient. Postoperative course was discussed in detail with the patient. Discussed all options in detail with the patient. Discussed with patient development of osteomyelitis of the second metatarsal head due to longstanding nonhealing ulceration. Discussed that this would be a limb salvage procedure and would not be elective in order to prevent further spread of infection. Patient is in agreement with the need for surgical intervention and is willing to proceed forward with second metatarsal head amputation, incision and drainage with debridement, and soft tissue skin flap of the right foot. Discussed the risks and benefits of the procedure. Discussed the risks include but are not limited to the following: Pain, continued pain, complex regional pain syndrome, neuritis/numbness, infection, delayed healing, nonhealing, transfer lesions, scar tissue, poor cosmetic result, swelling, need for further/additional surgery, floating toe, contracted toe, deviated toe, bleeding, blood clot, allergic reaction, addiction to pain medication, loss of function, loss of limb, loss of life. Patient voices understanding of these and is able to repeat these back. No promises were made. No guarantees were given. He was cleared by PCP prior to surgical intervention. Diagnostic data was obtained and reviewed prior to surgical intervention. Operative limb was signed prior to entering the OR. He was scheduled to undergo second metatarsal head resection, I&D with wide debridement, incision of bone cortex, and soft tissue skin flap/tissue rearrangement of the right foot at [facility] on 05/01/2023. Procedure: Under mild sedation patient was brought into the operating placed on the table in supine position. He was secured to the operative table via safety belt. [place] bump was placed under the right hip and right foot elevated with blanket bump. Following induction of general anesthesia a pneumatic ankle block was performed about the patient's right ankle consisting of 10 cc of a one-to-one mixture of 1% lidocaine plain and 0.5% Marcaine plain. A pneumatic ankle tourniquet was then placed about the patient's right ankle. The foot was then scrubbed, prepped, and draped in the usual aseptic manner. An Esmarch bandage was utilized to exsanguinate the right foot and pneumatic ankle tourniquet was inflated to 250 mmHg. At this time under guidance of fluoroscopy all prominent landmarks were marked for incision placement overlying the second metatarsal head. Next, a linear incision was made overlying the second metatarsal head and extended distally towards the base of the phalanx of the second digit utilizing a #15 blade. Incision was deepened through sharp and blunt dissection. No evidence of purulent drainage was noted throughout the duration of this case. Dorsal tissues appeared healthy with no evidence of tissue necrosis. The extensor t endon to the second digit was visualized and retracted laterally and protected throughout the duration of this case. It is noted that the extensor tendon appeared healthy. Second metatarsal head was identified all soft tissue attachments were freed via sharp dissection. Next, the second metatarsal head was resected utilizing sagittal saw under guidance of fluoroscopy. The second metatarsal head was then dissected free and passed from the operative field to the table in toto. Upon inspection of the plantar aspect of the second metatarsal head it is noted to be soft and discolored consistent with early osteomyelitis changes of the second metatarsal head. Second metatarsal head was sent to pathology for analysis. All remaining plantar soft tissues were inspected and debrided of all necrotic tissue. Flexor tendon to the second digit was identified and was noted to be healthy appearing. At this time attention was directed to the plantar aspect of the foot where there was a ulceration noted to the subsecond metatarsal head measuring 0.6 cm x 0.4 cm x 0.4 cm. Ulceration was excised and underlying soft tissue was debrided of all necrotic tissue. Remaining tissue appeared healthy. Next, surgical sites were irrigated via 3000 cc pulse lavage. Following irrigation remaining tissues appeared healthy with no evidence of necrotic tissue. Third metatarsal head appeared healthy in color and was noted to be of hard consistency. First metatarsal head appeared to be healthy in color and was noted to be of hard consistency. Remaining portion of the second metatarsal was noted to be healthy in appearance with hard consistency indicating viability of bone. Next, fluoroscopic imaging was obtained confirming resection of the second metatarsal head. Following this the plantar skin underwent tissue rearrangement for a soft tissue skin flap for closure of the previous plantar ulceration site. The skin flap was noted to be aesthetically pleasing and tension-free with the deep tissue closed with a 4-0 Vicryl. Subcutaneous tissue closed with a 4-0 Monocryl. And the skin reapproximated with a 3-0 Prolene in simple interrupted fashion. Next, 1 g of vancomycin powder was placed throughout the tissues at the surgical site and the dorsal incision deep tissue layer was closed with 4-0 Vicryl. The subcutaneous tissues closed with 4-0 Monocryl. At this time the pneumatic ankle tourniquet was deflated and a prompt hyperemic response was noted to the digits of the right foot. The skin was reapproximated with a 3-0 Prolene in simple interrupted fashion. A postoperative local anesthetic block was then performed about the right ankle consisting of 10 cc of a one-to-one mixture of 1% lidocaine plain and 0.5% Marcaine plain. Incision sites dressed with Betadine soaked Adaptic, 4 x 4 gauze, Kerlix, 4 inch Gordon, and 6 inch Gordon. The patient tolerated the procedure and anesthesia well was taken to PACU with vital signs stable and vascular status intact to the right foot. Postoperative imaging was obtained in PACU and reviewed prior to leaving. Discharge instructions were given to patient and family outlining his postoperative care. He is to remain nonweightbearing to the right lower extremity with the assistance of crutches and a surgical shoe to the right foot. He is to elevate the right foot at all times of rest for postoperative edema control. He is to keep all dressings clean, dry, and intact to the right foot. He is to take all postoperative medications as instructed. He has first postoperative appointment with me in office early next week. Grafts/Implants Used: 1 gram vancomycin powder Complications None Admit VTE Documentation VTE Present on Admission: No VTE Mechan Device Prophylaxis: SCD's VTE Pharm Prophylaxis ordered?: No Reason prophylaxis not ordered:: Procedure Not Indicated
== END 2023-05-01 15:44 | disposition home or self-care (01) ==
LOC: SDC 10:55 → AC 10:57
PROVIDERS: PCP Family Medicine; Referring Provider Student in an Organized Health Care Education/Training Program; Visit Provider Student in an Organized Health Care Education/Training Program
PROC: (CPT 28112; principal; 2023-05-01 12:15)
DX: E11.621 Type 2 diabetes mellitus with foot ulcer (principal); Z89.429 Acquired absence of other toe(s), unspecified side; L97.512 Non-pressure chronic ulcer of other part of right foot with fat layer exposed; M86.171 Other acute osteomyelitis, right ankle and foot; E11.42 Type 2 diabetes mellitus with diabetic polyneuropathy; E11.69 Type 2 diabetes mellitus with other specified complication; T14.8XXD Other injury of unspecified body region, subsequent encounter; Z87.19 Personal history of other diseases of the digestive system; Z90.49 Acquired absence of other specified parts of digestive tract; F17.200 Nicotine dependence, unspecified, uncomplicated; Z91.199 Patient's noncompliance with other medical treatment and regimen due to unspecified reason
CPT/HCPCS: 28112; 28005; 01480; 71046; 73620; 73630; 76000; 82962; 88305; 88311; J7120; J2405

== ENCOUNTER → 2023-07-11 | Outpatient (CLI) | payer BC, SELFPAY ==
[2023-07-11 15:39] LABS: Absolute Lymphocyte Count 1.61 X10^3/uL (0.83-4.51); Absolute Neutrophil Count 4.2 X10^3/uL (2.0-7.7); Basophil# 0.05 X10^3/uL; Basophil% 0.8 % (0-1); Eosinophil# 0.11 X10^3/uL; Eosinophils% 1.7 % (0-5); Hematocrit 45.4 % (40-54); Hemoglobin 14.8 g/dL (13.0-16.5); Lymphocyte # 1.61 X10^3/ul (0.83-4.51); Lymphocyte % 25.2 % (19-41); Mean Corp Hgb Conc 32.6 g/dL (32-36); Mean Corpuscular Hgb 26.8 pg (27.0-32.0); Mean Corpuscular Volume 82.2 fL (80-94); Monocyte# 0.46 X10^3/uL; Monocyte% 7.2 % (0-10); NRBC Flagged by Analyzer 0 % (0-5); Neutrophil # 4.15 X10^3/uL (2.7-7.7); Neutrophil % 64.8 % (47-70); Platelet Count 242 K/mm3 (150-450); RBC Distribution Width CV 13.2 % (11.6-14.6); RBC Distribution Width SD 39.1 fl (35.1-43.9); Red Blood Count 5.52 M/mm3 (4.6-6.2); White Blood Count 6.4 K/mm3 (4.4-11.0)
[2023-07-11 16:39] LABS: AST(SGOT) 17 U/L (15-37); Alanine Aminotransfer ALT/SGPT 33 U/L (16-61); Albumin, Serum 3.3 g/dL (3.2-5.0); Alkaline Phosphatase 55 U/L (45-117); Anion Gap 5 (5-15); BUN 16 mg/dL (7-18); BUN/Creat Ratio 13.4 RATIO (10-20); Calcium,Total 8.8 mg/dL (8.5-10.1); Chloride 103 mmol/L (98-107); Creatinine, Serum 1.19 mg/dL (0.70-1.30); EST Glomerular Filtration Rate 69 mL/min (>60); Est Glom Filt Rate - Afr Amer 83 mL/min (>60); Globulin 3.3 g/dL (2.2-4.2); Glucose 467 mg/dL (74-106); Potassium 4.5 mmol/L (3.5-5.1); Protein, Total 6.6 g/dL (6.4-8.2); Sodium Level 132 mmol/L (136-145)
== END | disposition home or self-care (01) ==
LOC: MFPLAB 11:56
PROVIDERS: PCP Family Medicine; Visit Provider Family Medicine
DX: Z01.810 Encounter for preprocedural cardiovascular examination (principal)
CPT/HCPCS: 36415; 80053; 85025

== ENCOUNTER 2023-07-20 11:13 | Day surgery (SDC) | payer BC, SELFPAY ==
[2023-07-20 11:39] VITALS: BP 107/73; PULSE 77; RESP 16; TEMP 36.3; O2SAT 98; BMI 32.2
[2023-07-20] MEDS: Lactated Ringers 1,000 ML 15 ML IV (11:49)
--- NOTE | 2023-07-20 12:00 | RAD_ITS ---
STUDY: X-RAY - RIGHT FOOT CLINICAL: Male, 48 years old. EXCISION OF RIGHT 3/4/5 METATARSAL HEADS IN OR TECHNIQUE: 5 limited intraoperative view(s) of the foot. COMPARISON: 05/01/2023 FINDINGS: 5 limited intraoperative C-arm films were performed as the patient has undergone additional surgery on the right foot, excising the metatarsal heads of the third fourth and fifth toes. Normal intraoperative subcutaneous emphysema noted. No intraoperative complications noted RAD/Foot 2 Views IMPRESSION: No intraoperative complications noted during excision of the third fourth and fifth metatarsal heads Electronically Signed: Bereket Grier MD at 23:38 EDT ,
--- NOTE | 2023-07-20 12:04 | DCINST_ITS ---
Discharge Instructions Diet Discharge Diet: - (Diabetic carb controlled no sugar diet.) Activity Discharge Activity: May Shower (Please utilize cast bag covering to keep all dressings clean, dry, and intact to right lower extremity) Weight Bearing Status: Partial weight bearing (Please remain as a protective weightbearing utilizing cam boot or surgical shoe to the right foot) Keep extremity elevated above heart level: Right Leg (Please elevate right lower extremity at all times of rest for postoperative edema control) Dressing / Incision Call your doctor if you observe: Shortness of breath, Chest pain, Calf discomfort and Uncontrolled pain Change Dressing in: do not change dressing Remove Dressing in: leave in place till F/U (Physician will change dressing at first postoperative appointment. Please keep dressing clean, dry, and intact to the right lower extremity) Cleanse incision/area with: Do not get Incision Wet and Keep Dressing Clean & Dry (Do not get dressings wet and keep clean, dry, and intact to the right lower extremity.) Follow Up Care Please Follow Up With: Timur Pro DPM When: Patient has first postoperative appointment with me in office early next week Test Results: Test results from this visit will be discussed in further detail at your follow- up appointment, if applicable. Discharge Plan Admission Attending Provider: Timur Pro Primary Care Provider: David Gutiérrez Discharge Orders/Prescriptions Prescriptions: New oxycodone-acetaminophen 5-325 mg tablet 1 tab PO Q8H PRN (Reason: pain) 7 Days Qty: 28 0RF doxycycline hyclate 100 mg capsule 100 mg PO DAILY Qty: 10 0RF No Action insulin aspart U-100 [Novolog FlexPen U-100 Insulin] 100 unit/mL (3 mL) Insulin Pen 6 unit SUBCUT TID PRN (Reason: DIABETES) Levemir FlexPen 100 unit/mL (3 mL) Insulin Pen 46 unit SUBCUT DAILY Trulicity 4.5 mg/0.5 mL pen injector 4.5 mg SUBCUT TH Hold Instructions: ON BACK ORDER Patient Comments: INJECT 4.5MG UNDER THE SKIN WEEKLY Referrals / Follow Up: David Gutiérrez MD [Primary Care Provider] - Disposition Disposition (needs filled in before D/C Order can be placed): Home, Self Care
[2023-07-20] MEDS: Insulin Lispro 100 UNIT/ML INSULN.PEN 8 UNIT SC (12:11)
[2023-07-20 12:27] LABS: Bedside Glucose 284 mg/dL (74-106)
--- NOTE | 2023-07-20 13:00 | BONBX_PTH ---
PATIENT: LISBET GREENBERG LOC: [facility] – [place], [place] U#:[id number] AGE/SX: 48/M ROOM: RE07/20/[address]: Dr. Timur Pro DPM : 1975 BED: DIS: 07/20/2023 SPEC #: [id number] RECD: 07/20/23 15:32 STATUS: SAGE KATHY #: [id number] LIUDMILA: 07/20/23 13:[address]: Timur Pro DEPT: SURGICAL PATHOLOGY RECD BY: Rajesh Jay ENTERED: 07/23/23 07:56 SP TYPE: Bone OTHR DR: David Gutiérrez MD Tissues: A - Toe, NOS B - Toe, NOS C - Toe, NOS Procedures: Decalcification bone/plaque Surgery Specimen Level IV Surgery Specimen Level V HEADER OPERATION: Excision of right third, fourth and fifth metatarsal heads PRE-OP DIAGNOSIS: Pressure ulceration 3rd, metatarsal right foot TISSUE SUBMITTED: A- 3rd metatarsal head right foot, B- 4th metatarsal head right foot, C- 5th metatarsal head right foot MICROSCOPIC DIAGNOSIS A. 3rd metatarsal head right foot, excision: Pieces of bone with reactive changes. Negative for acute osteomyelitis. B. 4th metatarsal head right foot, excision: A Piece of bone with reactive changes. Negative for acute osteomyelitis. C. 5th metatarsal head right foot, excision: A Piece of bone with reactive changes. Negative for acute osteomyelitis. / 07/27/2023 MICROSCOPIC DESCRIPTION Slides are reviewed. GROSS DESCRIPTION A. Received in fixative is one container labeled with the patient's name and designated 3rd metatarsal head right foot. The specimen consists of a piece of bone measuring 2.0 x 2.0 x 1.0cm. Also present in the container are two smaller pieces of bone measuring 0.7 x 0.5 x 0.1cm. The entire specimen is submitted in two cassettes after decalcification. B. Received in fixative is one container labeled with the patient's name and designated 4th metatarsal head right foot. The specimen consists of a piece of bone measuring 2.0 x 2.0 x 1.2cm. The entire specimen is submitted in two cassettes after decalcification. C. Received in fixative is one container labeled with the patient's name and designated 5th metatarsal head right foot. The specimen consists of a piece of bone measuring 2.0 x 1.5 x 1.5cm. The entire specimen is submitted in two cassettes after decalcification. / 07/23/23 TC:5 CPT: 86273y7,94683a6
[2023-07-20 13:04] LABS: Bedside Glucose 254 mg/dL (74-106)
[2023-07-20] MEDS: Cefazolin 2 GM in 0.9% Normal Saline (100mL Bag) 100 ML IV (13:22)
[2023-07-20] MEDS: Bupivacaine Mpf 0.5% 30 ML VIAL (13:34)
[2023-07-20] MEDS: Lidocaine 1% (30 ml sdv) 30 ML Vial (13:34)
--- NOTE | 2023-07-20 14:53 | PCM.OPRPT ---
Problems Associated Problem List Diagnoses (1) Neuropathic ulcer of right foot with fat layer exposed: (2) Type 2 diabetes mellitus with diabetic polyneuropathy: (3) Type 2 diabetes mellitus with foot ulcer: (4) Non-compliance: Report of Operation Date of Procedure: 07/20/23 Pre-Operative Diagnosis: 1. Neuropathic Pressure Ulceration sub 3rd metatarsal head Right foot 2. Diabetes mellitus type II with Peripheral Polyneuropathy 3. Diabetes mellitus with foot ulceration Right foot Post-Operative Diagnosis: 1. Neuropathic Pressure Ulceration sub 3rd metatarsal head Right foot 2. Diabetes mellitus type II with Peripheral Polyneuropathy 3. Diabetes mellitus with foot ulceration Right foot Surgery/Procedure Performed:: 1. Excision of third metatarsal head right foot 2. Excision of fourth metatarsal head right foot 3. Excision of fifth metatarsal head right foot Description of Surgical Findings:: See operative note for findings Surgeon: Timur Pro supervisor asphalt paving: Caio Dove DPM PGY-1 Type of Anesthesia: Local (10 cc one-to-one mixture 1% lidocaine plain 0.5% Marcaine plain; 10 cc 0.5% Marcaine plain) and MAC Anesthesiologist: Theo Castañeda Specimen's removed: Bone third metatarsal head, fourth metatarsal head, fifth metatarsal head right foot Drains: None Estimated Blood Loss (mL): < 3 mL Description of Procedure: HPI/indication: This is a 48-year-old male who presents for continual chronic ulceration of the right foot and noncompliance of diabetic status. Patient is an uncontrolled diabetic with blood sugars ranging from 250 to 350 mg/dL and A1c 11%. He does not follow diabetic diet nor check blood sugars regularly. He had developed an ulceration subproximal phalanx base of the hallux which did undergo removal for acute osteomyelitis on 06/09/2022. Patient did well in the postoperative period but did breakdown under the second metatarsal head in January 2023 and underwent local wound care but would present to office without dressings or offloading of the right foot. Ulceration did develop infection early acute osteomyelitis of the second metatarsal head and subsequently underwent excision of the metatarsal head on 05/01/2023. At this time he had no plantar prominences following surgery but did eventually break down upon return to work below the third metatarsal head on 06/25/2023. This ulceration underwent local wound care and was discussed further surgical intervention for removal of the remaining metatarsal heads. Discussed with patient in great detail his noncompliance and diabetic status and failure to wear proper offloading shoes, often electing for barefoot ambulation about his house is continuing to lead to chronic breakdown of his remaining metatarsal heads and thus an excision of the third metatarsal head would be required to properly heal and offload the subthird metatarsal ulceration. Discussed removal of the fourth and fifth metatarsal heads to prevent future breakdown at the sites. Patient states that he is worried about chronic breakdown across the metatarsal heads as it affects his ability to work in the garden or working his job with steel toe boots. Patient states that he is having to miss work due to ulcerations and is in agreement with removal of the remainder of the metatarsal heads to prevent future breakdown. Discussed the procedure in great detail. Discussed risk and complications of the procedure. Discussed risks include but are not limited to the following: Pain, continued pain, complex regional pain syndrome, neuritis/numbness, dehiscence, infection, delayed healing/nonhealing, floating toe, cock-up toe, flail toe, deviated toe, scarring, poor cosmetic result, need for additional surgery, swelling, difficulty wearing a shoe, inability to wear shoe gear, weakness, blood clot, stroke, heart attack, allergic reaction, loss of function, loss of limb, loss of life. Patient voices understanding of these and was able to repeat these back. Typical postoperative course was reviewed with patient. Patient is in agreement and wants to proceed forward with the surgical intervention. No promises were made. No guarantees were given. Patient was seen by PCP and was cleared for surgical intervention. Diagnostic data was reviewed prior to surgical procedure. Operative limb was signed prior to entering the OR. Patient was scheduled to undergo excision of the third, fourth, and fifth metatarsal heads of the right foot at [facility] on 07/20/2023. Procedure: Under mild sedation patient brought into the operating placed on the table in the supine position. Patient was then secured to table with safety belt. [place] bump was placed under the right lower extremity. Following induction of IV anesthetic a local anesthetic block was then performed about the patient's right ankle consisting of 10 cc of one-to-one mixture 1% lidocaine plain and 0.5% Marcaine plain. A pneumatic ankle tourniquet was then placed about the patient's right ankle. The foot was then scrubbed, prepped, and draped in the usual aseptic manner. Right foot was then elevated and the pneumatic ankle tourniquet was inflated to 250 mmHg. At this time attention was directed to the right foot where under fluoroscopy incision site was marked and ulceration was marked plantar to the third metatarsal head. Third metatarsal head was palpable on the table with excessive pressure at the ulcerative site leading to breakdown. It is also noted the fourth metatarsal head is starting to become more prominent at this time. Patient does also have rigid hammertoe contracture and glycosylated tissues secondary to uncontrolled diabetes mellitus type 2. Next, a linear incision was made overlying the third metatarsal head utilizing a #15 blade. Incision was deepened through sharp and blunt dissection. Care was taken to identify and retract all vital neurovascular structures. Extensor tendon to the digit was also visualized and retracted medially and protected throughout the duration of this case. The third metatarsal head was then visualized and capsulotomy was performed to access and free the metatarsal head from surrounding tissues. Next, utilizing fluoroscopy a sagittal saw was utilized to resect the head of the third metatarsal just proximal to the surgical neck maintaining a metatarsal parabola. Metatarsal head was then dissected free of all surrounding soft tissue attachments and passed from the operative field to the table in toto. Metatarsal head was examined and appeared healthy in color. Surrounding soft tissues appeared healthy in color. No purulence was encountered during procedure. The third metatarsal head was then sent to pathology for analysis. Next, a linear incision was made between the fourth and fifth metatarsal heads for access to both sites. The incision was then deepened through sharp and blunt dissection and care was taken to identify and retract all vital neurovascular structures. Extensor tendon to the fourth digit was identified and retracted medially and protected throughout the duration of this case. The fourth metatarsal head was visualized and capsulotomy was performed to access and free the metatarsal head from surrounding tissues. Next, utilizing fluoroscopy a sagittal saw was utilized to resect the head of the fourth metatarsal head just proximal to the surgical neck maintaining metatarsal parabola. Metatarsal head was then dissected free of surrounding soft tissue attachments and passed from the operative field to the table in toto. Fourth metatarsal head was also examined and noted to be healthy in color with surrounding tissues healthy in appearance. Fourth metatarsal head was then sent to pathology for analysis. Next, utilizing this previous incision the extensor tendon to the fifth digit was retracted medially and protected throughout the duration of this case and a capsulotomy was then performed about the fifth metatarsophalangeal joint to access the fifth metatarsal head. Next, utilizing fluoroscopy for guidance the fifth metatarsal head was resected just proximal to the surgical neck maintaining metatarsal parabola. The fifth metatarsal head was then sharply dissected free of all surrounding soft tissue attachments and passed from the field to the table in toto. Fifth metatarsal head was sent to pathology for analysis. At this time incision sites were then flushed with copious amounts of normal sterile saline. All surrounding tissue appeared healthy with no signs of infection. No purulence was encountered during the surgical procedure. There was no sharp bony prominences noted at the resected metatarsal heads and forefoot was essentially offloaded. Next, fluoroscopy was utilized for final images in multiple views. The deep tissues were then closed with 4-0 Vicryl. The subcutaneous tissues were closed with 4-0 Monocryl. At this time the pneumatic tourniquet was deflated and a prompt hyperemic response was noted to the digits of the right foot. The skin was then reapproximated with 3-0 Prolene in simple interrupted fashion. Incision sites were then dressed with Betadine soaked Adaptic, 4 x 4 gauze, Kerlix x 2, and 4 inch Gordon wrap rolled onto the right foot. Patient tolerated the procedure and anesthesia well was transported the PACU vital signs stable vascular status intact to the right foot. Final radiographic images were obtained in PACU and reviewed prior to leaving. Discharge instructions were given to patient and family outlining postoperative care. Patient was instructed to remain nonweightbearing to the right lower extremity and to elevate right lower extremity at all times of rest for postoperative edema control. Given patient's prior history of noncompliance he will most likely ambulate in surgical shoe or cam boot to the right foot in this postoperative setting. Patient was instructed to utilize shower bag to keep dressings clean, dry, and intact to the right foot. He was instructed to leave dressings intact and physician will change dressing at his first postoperative appointment. He will follow-up in office early next week for first postoperative appointment. Grafts/Implants Used: None Procedure Start Time: 13:40 Procedure Stop Time: 14:20 Complications None Admit VTE Documentation VTE Present on Admission: No VTE Mechan Device Prophylaxis: SCD's VTE Pharm Prophylaxis ordered?: No Reason prophylaxis not ordered:: Procedure Not Indicated
[2023-07-20 14:54] VITALS: BP 107/73; BP 110/72; PULSE 61; RESP 18; TEMP 36.2; O2SAT 95
[2023-07-20 14:55] VITALS: BP 106/74; BP 107/73; PULSE 64; RESP 18; O2SAT 98
[2023-07-20 15:00] VITALS: BP 107/73; BP 125/55; PULSE 69; RESP 14; O2SAT 99
--- NOTE | 2023-07-20 15:01 | RAD_ITS ---
STUDY: X-RAY - RIGHT FOOT CLINICAL: Male, 48 years old. Post-op resection metatarsal heads 3,4,5 TECHNIQUE: 3 view(s) of the foot. COMPARISON: 05/01/2023 FINDINGS: Patient is postop from resection of the third fourth and fifth metatarsal heads. Normal postoperative soft tissue swelling and subcutaneous emphysema noted. Stable postsurgical changes in the first digit with previous removal of the phalanges, and previous removal of the second metatarsal head. There is no demonstrated acute fracture or suspicious osseous lesion. The remaining joint spaces are well-preserved. RAD/Foot min 3 Views IMPRESSION: Status post resection of the third fourth and fifth metatarsal heads. Normal postoperative soft tissue swelling and subcutaneous emphysema. No postoperative complications noted Electronically Signed: Bereket Grier MD at 23:53 EDT ,
[2023-07-20 15:10] VITALS: BP 107/73; BP 116/71; PULSE 56; RESP 100; TEMP 36.2; O2SAT 100
[2023-07-20 15:18] VITALS: BP 107/73
[2023-07-20 15:24] LABS: Bedside Glucose 161 mg/dL (74-106)
== END 2023-07-20 15:33 | disposition home or self-care (01) ==
LOC: SDC 11:15 → AC 11:16
PROVIDERS: PCP Family Medicine; Referring Provider Student in an Organized Health Care Education/Training Program; Visit Provider Student in an Organized Health Care Education/Training Program
PROC: (CPT 28292; principal; 2023-07-20 12:45)
DX: E11.621 Type 2 diabetes mellitus with foot ulcer (principal); L97.512 Non-pressure chronic ulcer of other part of right foot with fat layer exposed; E11.42 Type 2 diabetes mellitus with diabetic polyneuropathy; Z90.49 Acquired absence of other specified parts of digestive tract; Z87.19 Personal history of other diseases of the digestive system; Z89.429 Acquired absence of other toe(s), unspecified side; F17.220 Nicotine dependence, chewing tobacco, uncomplicated; Z91.199 Patient's noncompliance with other medical treatment and regimen due to unspecified reason
CPT/HCPCS: 28112; 28113; 01480; 73620; 73630; 76000; 82962; 88305; 88307; 88311; J7120; J2405

== ENCOUNTER 2024-02-08 13:07 | Day surgery (SDC) | payer BC, SELFPAY ==
[2024-02-08] VITALS (9 sets, daily range): BP systolic 135–147; BP diastolic 72–79; PULSE 65–71; RESP 16–18; TEMP 36.1–37; O2SAT 97–100; BMI 33.7
--- NOTE | 2024-02-08 13:30 | RAD_ITS ---
STUDY: INTRAOPERATIVE FLUOROSCOPY TECHNIQUE: The examination was performed with referring physician in attendance. Under fluoroscopic observation, fluoroscopic images were obtained. Radiologist was not present for the study. Radiologist did not perform the procedure. This dictation is for documentation of the radiation dosage only. There is no interpretation of the images. TOTAL NUMBER OF IMAGES: 8 COMPARISON: None RADIATION DOSE: 0.1091 mGy FLUOROSCOPY TIME: 11 seconds REASON FOR EXAM: PARTIAL AMPUTATION RIGHT FOOT Male, 48 years old. FINDINGS: Images of the foot. Resection of the metatarsal heads.. RAD/Foot 2 Views IMPRESSION: Fluoroscopic assistance images were obtained. Dictation for documentation purposes only. Electronically Signed: Carlos Comer MD at 17:57 EST ,
[2024-02-08] MEDS: Lactated Ringers 1,000 ML 15 ML IV (13:35)
[2024-02-08 13:45] LABS: Bedside Glucose 119 mg/dL (74-106)
--- NOTE | 2024-02-08 13:55 | PRE.ANES_ITS ---
ASA Classification* ASA Classification ASA Classification: 3 Assessment & Plan Anesthesia* Anesthesia Assessment Anesthesia Assessment: Discussed sedation and/or anesthesia options, risks, benefits, and alternatives with patient/parents/legal guardian/POA. Questions invited. The patient/parents/legal guardian/POA seems to understand and agrees to proceed with anesthesia plan. Reviewed the physical assessment, medical history, allergy history and patient home medications list prior to surgery/procedure/anesthetic and documented any changes. Performed airway and anesthesia risk assessments. Anesthesia Type Anesthesia Type: General, MAC and Block (Patient is consented for block if he needs it.) History Source History Obtained from:: Patient and Chart Anesthesia Focused Assessment* Temperature: 97 F Pulse Rate: 71 Blood Pressure: 135/79 Respiratory Rate: 16 Pulse Ox: 100 Oxygen Delivery Method: Room Air Airway Assessment Mouth opens: >3 cm Mallampati Score: I Teeth Condition: Dentures (The patient has upper dentures. Lower dentures are out) Neck Range of motion (ROM): Limited ROM (Slight decrease in extension) Focused Labs Anesthesia Preop lab: CBC WBC 6.4 K/mm3 (4.4-11.0) 07/11/23 11:56 RBC 5.52 M/mm3 (4.6-6.2) 07/11/23 11:56 Hgb 14.8 g/dL (13.0-16.5) 07/11/23 11:56 Hct 45.4 % (40-54) 07/11/23 11:56 Plt Count 242 K/mm3 (150-450) 07/11/23 11:56 CHEMISTRY Potassium 4.5 mmol/L (3.5-5.1) 07/11/23 11:56 Sodium 132 mmol/L (136-145) L 07/11/23 11:56 Magnesium 1.8 mg/dL (1.6-2.6) 06/24/20 16:37 Phosphorus 2.9 mg/dL (2.5-4.9) 10/21/19 12:45 BUN 16 mg/dL (7-18) 07/11/23 11:56 Creatinine 1.19 mg/dL (0.70-1.30) 07/11/23 11:56 Glucose 467 mg/dL (74-106) H* 07/11/23 11:56 POC Glucose 119 mg/dL (74-106) H 02/08/24 13:27 COAG PT 13.3 SECONDS (11.7-14.9) 08/26/19 17:30 Pre-Assessment Diagnosis/Proposed Procedure Planned Operative Procedure(s): PARTIAL FIRST RAY AMPUTATION RIGHT FOOT,I&D RIGHT FOOT,INCISION OF THE RIGHT BONE CORTEX,RIGHT FOOT ULCER DEBRIDEMENT TISSUE REARRANGEMENT WITH SKIN FLAP AND APPLICATION SPLINT Anesthesia History 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 When Was Last Pacemaker Check QUESTION #4 FULL TEXT: You/Your Family Experience fever (hyperthermia) with Anesthesia Last Oral Intake Last Oral intake: Last Oral Intake NPO since 12:00 02/08/24 13:29 Meds taken in AM with sips of No 02/08/24 13:29 water? Meds patient instructed to take am of surgery PONV PONV - eyewear manufacturing supervisor: PONV - eyewear manufacturing supervisor Female No 02/04/24 08:26 HX of Motion Sickness No 02/04/24 08:26 HX of N/V After Surgery No 02/04/24 08:26 Non-Smoker No 02/04/24 08:26 Duration of Surgery greater Yes 02/04/24 08:26 than 60 minutes Number of Risk Factors 1 02/04/24 08:26 PONV Score Low Risk 02/04/24 08:26 Height & Weight Height & Weight: Anesthesia: Height & Weight Height 6 ft 4 in 02/08/24 13:29 Weight: 126 kg 02/08/24 13:29 Body Mass Index (BMI) 33.7 02/08/24 13:29 Respiratory Assessment Respiratory Assessment - eyewear manufacturing supervisor: Respiratory Tract Infection Hx - eyewear manufacturing supervisor Hx Respiratory Tract Infection No 02/04/24 08:26 STOP Sleep Apnea STOP Sleep Apnea - eyewear manufacturing supervisor: STOP Sleep Apnea - eyewear manufacturing supervisor Hx Hypertension No 02/04/24 08:26 Hx Sleep Apnea No 02/04/24 08:26 CPAP No 02/04/24 08:26 BIPAP No 02/04/24 08:26 Do you snore loudly (louder No 02/04/24 08:26 than talking or can be heard Do you often feel tired/ No 02/04/24 08:26 fatigued/ sleepy during daytime? Has anyone observed you stop No 02/04/24 08:26 breathing during sleep? STOP Results Negative 02/04/24 08:26 QUESTION #5 FULL TEXT : Do you snore loudly (louder than talking or can be heard through closed doors)? Tobacco Use History Tobacco Use History - eyewear manufacturing supervisor: Tobacco Use History - eyewear manufacturing supervisor Tobacco Use Smoking Status Current every day smoker 02/04/24 08:26 Hx Tobacco Use Yes 02/04/24 08:26 Years Smoking Packs Smoked per Day Smoking Cessation Date was within the last 15 years Hx Smoking Cessation Date Hx Smoking Cessation Counseling Any additional information?: Yes Tobacco Use: Chew (Did not chew today) Hematologic Medial History Hematologic Hx - eyewear manufacturing supervisor: Hematologic Medical Hx - documentation lead Hx of Blood Transfusion Yes 02/04/24 08:26 Hx of Transfusion in last 3 No 02/04/24 08:26 Months Date of Last Transfusion (if within last 3 months) Ever experience any problems No 02/04/24 08:26 with transfusion(s)? Specify any problems Hx of Preganancy in last 3 N/A 02/04/24 08:26 Months Nurse Filling Out Transfusion DSCHRIBER 02/04/24 08:26 & Questions: Date: 02/04/24 02/04/24 08:26 Time: 08:02/04/24 08:26 Patient unable to answer at this time (ie. confused, unrespo /Reproduction History /Reproductive History - eyewear manufacturing supervisor: /Reproductive Hx- eyewear manufacturing supervisor Hx Now Gestational Age (in weeks): EDC: Hx Hx Para Hx Section SAB No 02/04/24 08:26 Active Medications Active Medications: Current Medications Generic Name Dose Route Start Last Admin Trade Name Freq PRN Reason Stop Dose Admin Cefazolin Sodium 2 gm/ N/A 20 mls @ 400 mls/hr 02/08/24 14:30 IV 02/08/24 14:32 PREOP ONE Lactated Ringer's 1,000 mls @ 15 mls/hr 02/08/24 13:15 02/08/24 13:35 IV 02/14/24 02:34 15 mls/hr .Q48H ASHLEY Administration Protocol [facility] Medical History Kidney cysts Injury of head and neck Wears glasses Wears dentures Alcohol use Marijuana use Substance abuse Insulin dependent diabetes mellitus Back pain Dietary restriction Heartburn Chewing tobacco nicotine dependence Leg cramps Toe amputee Hypertension Home Medications ?Medication ?Instructions ?Recorded ?Last Taken ?Type insulin aspart U-100 100 unit/mL 6 unit subcut TID PRN DIABETES 06/02/22 05/01/23 01:00 History (3 mL) subcutaneous pen (Novolog FlexPen U-100 Insulin aspart) insulin detemir U-100 100 unit/mL 28 unit subcut BID 06/02/22 02/07/24 01:00 History (3 mL) subcutaneous pen (Levemir 14 unit FlexPen) dulaglutide 4.5 mg/0.5 mL 4.5 mg subcut FR 04/30/23 01/25/24 History subcutaneous pen injector (Trulicity) Allergy/AdvReac Type Severity Reaction Status Date / Time No Known Allergies Allergy Verified 02/08/24 13:27 Surgical History Hx of foot surgery Hx of foot surgery Hx of abdominal surgery Hx of hernia repair Hx of toe surgery Hx of foot surgery Hx laparoscopic cholecystectomy Social History Smoking Status: Current every day smoker tobacco type: smokeless tobacco substance use type: does not use Review of Systems (Anesthesia) ROS Narrative System reviewed and no additional complaints, except as documented.
--- NOTE | 2024-02-08 14:30 | AMP_PTH ---
PATIENT: LISBET GREENBERG [place] [facility] [id number] AGE/SX: 48/M ROOM: RE02/08/[address]: Dr. Timur Pro DPM : [id number] BED: DIS: 02/08/2024 SPEC #: [id number] RECD: 02/11/24 10:21 STATUS: SAGE REMaryam #: [id number] LIUDMILA: 02/08/24 14:[address]: Timur Pro DEPT: SURGICAL PATHOLOGY RECD BY: Jill Ascencio ENTERED: 02/11/24 11:24 SP TYPE: Amputation OTHR DR: David Gutiérrez MD Tissues: Toe, NOS Procedures: Decalcification bone/plaque Surgery Specimen Level IV HEADER OPERATION: Partial first ray amputation of right foot PRE-OP DIAGNOSIS: Right foot amputation TISSUE SUBMITTED: 1st metatarsal bone MICROSCOPIC DIAGNOSIS 1st metatarsal bone, bone biopsy: Chronic reparative and reactive change. Acute osteomyelitis. AM.mr 02/15/2024 MICROSCOPIC DESCRIPTION Slides are reviewed. GROSS DESCRIPTION Received in fixative is one container labeled with the patient's name and designated 1st metatarsal bone. The specimen consists of an irregular fragment of ochoa bone measuring 5.0 x 3.0 x 2.5cm. No mass lesions are identified. Field Attendant sections are submitted in two cassettes after decalcification. AM. 02/11/2024 TC:2 CPT:72939,36856
--- NOTE | 2024-02-08 14:33 | RAD_ITS ---
HISTORY: Postop partial first ray amputation (PACU). TECHNIQUE: XR Foot Min 3 Views. COMPARISON: 07/20/2023. FINDINGS: BONES : Partial amputation of the first metatarsal. Chronic amputation of the first toe. Chronic second through fifth transmetatarsal amputations with interval callus formation. Plantar calcaneal spur noted JOINTS: No dislocation. Chronic fusion of the second proximal interphalangeal joint. SOFT TISSUES: Postoperative air and edema. RAD/Foot min 3 Views IMPRESSION: Satisfactory postoperative alignment of the right foot. Electronically Signed: Julissa Nesbitt MD at 8:07 EST ,
--- NOTE | 2024-02-08 14:34 | PCM.DC ---
Discharge Instructions Diet Discharge Diet: No restrictions Activity Discharge Activity: May Not Drive, May Shower (Please utilize cast bag when showering to keep dressings clean, dry, and intact to the right foot) and Use Crutches (Please utilize crutches to maintain nonweightbearing status to the right lower extremity) Weight Bearing Status: No weight bearing (Please remain nonweightbearing to the right lower extremity with the assistance of crutches) Keep extremity elevated above heart level: Right Leg (Elevate right lower extremity at all times of rest for postoperative edema control) Dressing / Incision Call your doctor if you observe: Fever of 101 or Higher, Shortness of breath, Chest pain and Calf discomfort Change Dressing in: do not change dressing Remove Dressing in: leave in place till F/U (Do not change dressing. Leave dressing in place physician will change dressing at first postoperative appointment) Cleanse incision/area with: Do not get Incision Wet and Keep Dressing Clean & Dry (Do not get site wet. Please keep all dressings clean, dry, and intact to the right lower extremity) Follow Up Care Please Follow Up With: Timur Pro DPM When: Patient has first postoperative appointment with me in office early next week Test Results: Test results from this visit will be discussed in further detail at your follow-up appointment, if applicable. Discharge Plan Admission Attending Provider: Timur Pro Primary Care Provider: David Gutiérrez Instructions Print Language: Montserratian Discharge Orders/Prescriptions Prescriptions: New doxycycline hyclate 100 mg capsule 100 mg PO DAILY Qty: 10 0RF oxycodone-acetaminophen 5-325 mg tablet 1 tab PO Q8H PRN (Reason: pain) 7 Days Qty: 28 0RF aspirin 325 mg capsule 325 mg PO DAILY Qty: 20 0RF No Action insulin aspart U-100 [Novolog FlexPen U-100 Insulin] 100 unit/mL (3 mL) Insulin Pen 6 unit SUBCUT TID PRN (Reason: DIABETES) Levemir FlexPen 100 unit/mL (3 mL) Insulin Pen 28 unit SUBCUT BID Trulicity 4.5 mg/0.5 mL pen injector 4.5 mg SUBCUT FR Patient Comments: INJECT 4.5MG UNDER THE SKIN WEEKLY Referrals / Follow Up: David Gutiérrez MD [Primary Care Provider] - Disposition Disposition (needs filled in before D/C Order can be placed): Home, Self Care
[2024-02-08] MEDS: Cefazolin 3 GM in Syringe 1 EACH IV (15:07)
[2024-02-08] MEDS: Bupivacaine Mpf 0.5% 30 ML VIAL (15:24)
[2024-02-08] MEDS: Lidocaine 1% /Epi 1:100 (20ml) 20 ML Vial (15:24)
[2024-02-08] MEDS: Vancomycin IV 1,000 MG/20 ML Vial 1000 MG OPERA.SITE (16:36)
--- NOTE | 2024-02-08 17:13 | PCM.POST.ANE ---
Anesthesia: Postop Eval I Current Vital Signs Temperature: 97.7 F Pulse Rate: 70 Blood Pressure: 141/72 Respiratory Rate: 16 Pulse Ox: 98 Oxygen Delivery Method: Room Air Assessment Airway patent: Yes Spontaneous unlabored respirations: Yes Mental status: Awake and Calm nausea: No Vomiting: No Anesthesia Complication: No Fluid Hydration Crystalloid volume administer (ml): 500 Total IV fluid infused: 500 Progress Note Anesthesia document: Postop Eval 1 completed: Yes
--- NOTE | 2024-02-08 17:14 | POSTOPAN2_ITS ---
Anesthesia Postop Eval I Sum Postop Eval Completion status Anesthesia document: Postop Eval 1 completed: Yes Anesthesia Postop Eval I Summary Anesthesia Postop Eval I Summary: Anesthesia Postop Eval I: Assessment Summary Airway patent Yes 02/08/24 17:14 [email or web address] [email or web address] Spontaneous unlabored Yes 02/08/24 17:14 BARREL [email or web address] [email or web address].OT respirations Mental status Awake,Calm 02/08/24 17:14 [email or web address] [email or web address].MDOT nausea No 02/08/24 17:14 BARREL [email or web address].MDOT Vomiting No 02/08/24 17:14 [email or web address] [email or web address] Anesthesia Postop Eval I: Fluid Summary Crystalloid volume administer 500 02/08/24 17:14 BARREL [email or web address].MDOT (ml) Colloids volume administered ( ml) Blood Product volume administered (ml) Total IV fluid infused 500 02/08/24 17:14 [email or web address] Anesthesia Postop Eval I: Summary Notes Anesthesia Complication No 02/08/24 17:14 [email or web address] Anesthesia Complication Comment: Post-operative progress note Anesthesia: Postop Eval II Evaluation Mental status: Awake and Calm Pain Level: 0 nausea: No Vomiting: No Complications Anesthesia Complication: No
--- NOTE | 2024-02-08 17:14 | PCM.POSTANE2 ---
Anesthesia Postop Eval I Sum Postop Eval Completion status Anesthesia document: Postop Eval 1 completed: Yes Anesthesia Postop Eval I Summary Anesthesia Postop Eval I Summary: Anesthesia Postop Eval I: Assessment Summary Airway patent Yes 02/08/24 17:14 CONTRACTING [email or web address] Spontaneous unlabored Yes 02/08/24 17:14 CONTRACTING ANALYST.OT respirations Mental status Awake,Calm 02/08/24 17:14 CONTRACTING ANALYST.MDOT nausea No 02/08/24 17:14 CONTRACTING [email or web address].MDOT Vomiting No 02/08/24 17:14 CONTRACTING [email or web address].MDOT Anesthesia Postop Eval I: Fluid Summary Crystalloid volume administer 500 02/08/24 17:14 CONTRACTING ANALYST.MDOT (ml) Colloids volume administered ( ml) Blood Product volume administered (ml) Total IV fluid infused 500 02/08/24 17:14 CONTRACTING [email or web address] Anesthesia Postop Eval I: Summary Notes Anesthesia Complication No 02/08/24 17:14 CONTRACTING [email or web address] Anesthesia Complication Comment: Post-operative progress note Anesthesia: Postop Eval II Evaluation Mental status: Awake and Calm Pain Level: 0 nausea: No Vomiting: No Complications Anesthesia Complication: No
--- NOTE | 2024-02-08 18:28 | PCM.OPRPT ---
Problems Associated Problem List Diagnoses (1) Osteomyelitis of right foot: (2) Neuropathic ulcer of right foot with fat layer exposed: (3) Type 2 diabetes mellitus with diabetic polyneuropathy: (4) Type 2 diabetes mellitus with foot ulcer: (5) Non-compliance: Operative Report (Standard) Operative Information Surgery/Procedure Performed: 1. Tendo-Achilles Lengthening Right foot 2. Partial 1st Ray Amputation Right foot 3. I&D with wide debridement of necrotic tissue Right foot 4. Incision of Bone Cortex Right Foot 5. Debridement of plantar foot ulceration to the level of bone Right foot 6. Tissue Rearrangement/Skin Flap Dorsal and Plantar Right foot 7. Application of AO splint Right foot Surgeon: Timur Pro Date of Procedure: 02/08/24 Procedure Start Time: 15:41 Procedure Stop Time: 17:04 Pre-Operative Diagnosis: 1. Osteomyelitis first metatarsal head right foot 2. Neuropathic pressure ulceration subfirst metatarsal head right foot to the level of bone 3. Gastrocsoleus Equinus deformity Right foot 4. DM type II with Diabetic Peripheral Polyneuropathy 5. DM type II with Right foot ulceration Post-Operative Diagnosis: 1. Osteomyelitis first metatarsal head right foot 2. Neuropathic pressure ulceration subfirst metatarsal head right foot to the level of bone 3. Gastrocsoleus Equinus deformity Right foot 4. DM type II with Diabetic Peripheral Polyneuropathy 5. DM type II with Right foot ulceration Select all DRAINS/GRAFTS/IMPLANTS that apply: None Type of Anesthesia: Local (20 cc one-to-one mixture of 1% lidocaine with epinephrine and 0.5% Marcaine plain) and MAC Estimated Blood Loss: < 1mL Specimen collected: Yes Description of specimen(s) removed: Bone First Metatarsal Head Right foot to micro & Pathology Description of surgery: HPI/indication: Patient is a 48-year-old male who presented to office with new ulceration to the plantar aspect of the first metatarsal head of the right foot in late November 2023. Patient has been an uncontrolled type II diabetic with previous A1c of 11% and history of noncompliance and offloading and dressing of prior ulcerations. He did recently achieve an A1c of 6.6% on Trulicity. Patient does not check blood sugars. He reports the new ulceration had started in early November but he did not call office or come for a sooner visit as he knew he did have a 6-month follow-up from a prior surgical intervention with me in late November. Patient has been previously undergone multiple amputations in addition to removal of the lesser metatarsal heads. Discussed his newly developed ulceration of the plantar aspect of the first metatarsal head at that time and he did undergo 4 weeks of local wound care with offloading however at times patient would come in with no dressings on the foot and no offloading with dirty work boots with foreign materials in the wound bed. Discussed ulceration has failed to improve it was at that time discussed with him the need for surgical intervention as he was having increased drainage with some necrotic tissue in the wound and radiographs were obtained demonstrating acute osteomyelitis of the plantar aspect of the first metatarsal head on 01/21/2024. Patient did not want to go to hospital at that time and asked for procedure to be performed as an outpatient setting. At that time patient was started on oral antibiotics and was seen a week later with improvement noted with decreased drainage and less necrotic tissue following debridement. Patient does understand that additional amputation of the infected portion of bone would be required to prevent further spread of infection and more proximal amputation. Patient is understanding that this would be a limb salvage procedure and is not elective. I did discuss at that time his gastrocsoleus equinus deformity and the need to perform a tendo Achilles lengthening. I had also discussed at that time it would be in his best interest to have a transmetatarsal amputation given his prior resection of all lesser metatarsal heads and the need to remove the infected portion of the remaining first metatarsal head. Patient requested this not be performed as he would like to keep his lesser digits as this makes him feel more whole. I did discuss with him that if this is what he would request I would do my best to keep the remaining digits however he is understanding that if complication does develop he would require to return to the OR for definitive transmetatarsal amputation. I did discuss the procedure in great detail with the patient and did review typical postoperative course. Patient is understanding that this procedure is necessary as stated above and is willing to proceed forward with the intervention. I discussed risks and complications of the procedure. Discussed the risk/complications include but are not limited to the following: Pain, continued pain, complex regional pain syndrome, phantom pain, infection, delayed healing/nonhealing, dehiscence, scarring, poor cosmetic result, need for further surgical procedure/intervention, swelling, transfer lesions, tendon rupture, addiction to pain medication, stroke, heart attack, loss of function, loss of limb, loss of life patient is understanding of these and was able to repeat these back. Surgical consent was signed and obtained at the patient's free will. Patient has undergone medical clearance with PCP and has been cleared for surgical intervention. Diagnostic data was reviewed prior to entering the OR. Operative limb was signed prior to entering the OR. Patient was scheduled to undergo surgical intervention on 02/08/2024 at [facility]. Procedure: Under mild sedation patient was brought into the operating placed on table in supine position. Patient was secured to table with safety belt. [place] bump was utilized to the right hip and additional blanket bump was utilized to elevate right foot. Following induction of IV anesthesia a pneumatic thigh tourniquet was placed about the patient's right thigh. A local anesthetic block was performed at the proximal leg consisting of 20 cc one-to-one mixture 1% lidocaine with epinephrine and 0.5% Marcaine plain. The foot and leg were then scrubbed, prepped, and draped in usual aseptic manner. An Esmarch bandage was utilized to exsanguinate the right foot/leg and the pneumatic thigh tourniquet was elevated to 300 mmHg. At this time attention was directed to the right foot where patient was placed through range of motion at the ankle joint demonstrating gastroc equinus and then the knee was flexed and the ankle again underwent range of motion confirming gastrocsoleus equinus. Landmarks were identified at the posterior aspect of the lower leg and incision placement marked about the Achilles tendon and utilizing a #11 blade a percutaneous tendo Achilles lengthening was performed. Following release the foot was dorsiflexed with improvement noted in range of motion of the. Incision sites to the posterior leg were then flushed with copious amounts of normal sterile saline. Incision sites were then closed utilizing 3-0 Prolene. Next, attention was directed to the plantar right foot demonstrating ulceration to the plantar aspect of the first metatarsal head with exposure of bone/probe directly to bone. Ulceration measured 1.8 cm x 1.5 cm x 0.5 cm. Fluoroscopy was utilized to confirm probe to bone with probe demonstrating the soft portion of bone acutely infected confirming osteomyelitis. Attention was then directed to the dorsal aspect of the foot overlying the first metatarsal where a linear incision was made utilizing a #15 blade and deepened to bone. The first metatarsal head was then dissected free to expose the head of the first metatarsal and the distal shaft of the first metatarsal at the operative field. Head of the first metatarsal plantarly is noted to be dusky in coloration and is noted to be soft confirming osteomyelitis. During dissection no purulent drainage was encountered, no malodor was noted, and no necrotic tissue was encountered. The plantar ulceration communicating directly with the head of the have yellow discolored thickened nonviable fibrotic tissue with some scant necrotic margins of the ulceration. A sagittal saw was utilized under guidance of fluoroscopy to resect the distal portion of the first metatarsal head and bone was passed from the operative field to the table in toto. Sesamoids were intact and removed with the head of the metatarsal. At the table sections of bone were removed to the first metatarsal head utilizing a bone cutter with these pieces going to microbiology for culture. Remainder of the metatarsal head, sesamoids, and soft tissue attachments to the sesamoids were sent to pathology for analysis. Next, the ulceration to the plantar aspect of the first metatarsal head underwent sharp excisional debridement to the level of the bone utilizing a #15 blade, forceps, and rongeur. Debridement consisted of removing all nonviable tissue, fibrotic tissue, biofilm, and slough. Postdebridement ulceration measured 1.9 cm x 1.6 cm x 0.5 cm. 100% of the ulceration was debrided. Following debridement the tissue was copiously irrigated with normal sterile saline. Following irrigation tissue was inspected for any additional necrotic tissue or further purulent drainage which none was determined. Remaining portion of the first metatarsal bone was noted to be of hard consistency and healthy in appearance indicating viability. A bone rasp and sagittal saw were utilized to smooth all roughened portions of bone to ensure no further prominences or pressure sites. Next, tissue rearrangement/skin flap was utilized to cover the previous ulcerative defect and this was closed utilizing 4-0 Monocryl subcuticular fashion with 2-0 Prolene to reapproximate skin portions. No tension was applied to the flap to allow for adequate integration and in budding. 1 g of vancomycin powder was then placed dorsally throughout the incision site and packed about the remaining portion of the first metatarsal. Skin dorsally underwent remodeling/tissue rearrangement to create adequate soft tissue closure. Deep tissue was then closed utilizing 4-0 Vicryl. Subcutaneous tissue then closed utilizing 4-0 Monocryl. Skin was then reapproximated utilizing 2-0 Prolene in simple interrupted fashion. At this time the pneumatic thigh tourniquet was deflated and a prompt hyperemic response noted to the digits of the right foot. Incision site were dressed with Betadine soaked Adaptic, 4 x 4 gauze, Kerlix. Webril cast padding was applied to the lower leg and leg dressed with 4 inch Gordon wrap and 6 inch Gordon wrap. A well molded AO splint was then applied to the right foot with the foot in dorsiflexed position and anchored with 4 inch Gordon and 6 inch Gordon wrap and modified Daniel compression fashion. Patient tolerated procedure and anesthesia well was transported to PACU vital signs stable vascular status intact to the right foot. Postoperative radiographs obtained in PACU and reviewed prior to leaving. Patient and patient's given discharge instructions outlining patient's postoperative care. Patient was instructed to remain in the AO splint at all times and to not remove dressings. He is to keep dressings clean, dry, and intact to the right foot and utilize cast bag when showering while being nonweightbearing seated on shower chair. He was instructed to continue nonweightbearing status utilizing assistance of crutches or knee scooter. Patient does already have these devices from prior surgery. He is to continue to take all postoperative medication as instructed and continue to elevate right foot at all times of rest for postoperative edema control. Patient has first postoperative appointment with me in office early next week. Surgical Findings: Osteomeyelitis of the First Metatarsal head Right foot Neuropathic pressure ulceration Sub First Metatarsal Head Right Foot with probe to bone/exposure of bone. Ulceration measures 1.8cm x 1.5cm x 0.5cm See operative note for additional findings. Insulation Power Unit Tender wire galvanizer: Yes Production Planning Manager: Dr. Nadine Ospina, DPM PGY-1 Tasks completed by multimedia assistant: Dissecting tissue, Removing tissue, Retracting and Other (Cutting Bone) Complications Complications: No Admit VTE Documentation VTE Present on Admission: No VTE Mechan Device Prophylaxis: SCD's VTE Pharm Prophylaxis ordered?: Yes
== END 2024-02-08 18:19 | disposition home or self-care (01) ==
LOC: SDC 13:08 → AC 13:10
PROVIDERS: PCP Family Medicine; Referring Provider Student in an Organized Health Care Education/Training Program; Visit Provider Student in an Organized Health Care Education/Training Program
PROC: (CPT 27685; principal; 2024-02-08 14:15)
DX: E11.621 Type 2 diabetes mellitus with foot ulcer (principal); L97.512 Non-pressure chronic ulcer of other part of right foot with fat layer exposed; M86.8X7 Other osteomyelitis, ankle and foot; E11.42 Type 2 diabetes mellitus with diabetic polyneuropathy; E11.69 Type 2 diabetes mellitus with other specified complication; M89.8X7 Other specified disorders of bone, ankle and foot; M20.5X1 Other deformities of toe(s) (acquired), right foot; Z90.49 Acquired absence of other specified parts of digestive tract; F17.200 Nicotine dependence, unspecified, uncomplicated; E87.1 Hypo-osmolality and hyponatremia; M79.671 Pain in right foot; R94.31 Abnormal electrocardiogram [ECG] [EKG]
CPT/HCPCS: 27685; 28810; 01470; 11044; 73620; 73630; 76000; 82962; 87015; 87070; 87075; 87102; 87116; 87205; 87206; 88305; 88311

== ENCOUNTER → 2025-01-21 | Outpatient (CLI) | payer BC, SELFPAY ==
[2025-01-21 12:32] LABS: Hematocrit 46.3 % (40-54); Hemoglobin 15.2 g/dL (13.0-16.5); Immature Granulocytes Count 0.020 X10^3/uL (0.0-0.0); Mean Corp Hgb Conc 32.8 g/dL (32-36); Mean Corpuscular Volume 83.4 fL (80-94); Mean Platelet Vol. 10.0 fl (6.2-12.0); NRBC Flagged by Analyzer 0 % (0-5); Platelet Count 259 K/mm3 (150-450); RBC Distribution Width CV 13.4 % (11.6-14.6); RBC Distribution Width SD 41.1 fl (35.1-43.9); Red Blood Count 5.55 M/mm3 (4.6-6.2); White Blood Count 5.5 K/mm3 (4.4-11.0)
[2025-01-21 13:21] LABS: AST(SGOT) 27 U/L (<=37); Alanine Aminotransfer ALT/SGPT 21 U/L (<=46); Albumin, Serum 4.4 g/dL (3.5-5.0); Alkaline Phosphatase 94 U/L (40-129); Anion Gap 11 (5-15); BUN 12 mg/dL (4-19); BUN/Creat Ratio 14.4 RATIO (10-20); Calcium,Total 10.0 mg/dL (7.6-11.0); Carbon Dioxide 27.1 mmol/L (21.0-32.0); Chloride 104 mmol/L (98-108); Cholesterol 160 mg/dL (<=200); Globulin 3.2 g/dL (2.2-4.2); Glucose 93 mg/dL (70-99); Low Density Lipoprotein Calc. 93 mg/dL; Potassium 4.3 mmol/L (3.3-5.1); Triglycerides 115 mg/dL; Very Low Density Lipoprotein 23 mg/dL (5-40); cholesterol:hdl ratio screen 3.46
[2025-01-21 13:30] LABS: AST(SGOT) 36 U/L (<=37); Alanine Aminotransfer ALT/SGPT 63 U/L (<=46); Albumin, Serum 4.0 g/dL (3.5-5.0); Alkaline Phosphatase 44 U/L (40-129); Anion Gap 10 (5-15); BUN 15 mg/dL (4-19); BUN/Creat Ratio 15.3 RATIO (10-20); Calcium,Total 9.4 mg/dL (7.6-11.0); Carbon Dioxide 24.2 mmol/L (21.0-32.0); Chloride 102 mmol/L (98-108); Cholesterol 130 mg/dL (<=200); Globulin 3.0 g/dL (2.2-4.2); Glucose 162 mg/dL (70-99); Low Density Lipoprotein Calc. 79 mg/dL; PSA,Total - Annual Screen 2.55 ng/mL (0.02-4.00); Potassium 4.5 mmol/L (3.3-5.1); Triglycerides 88 mg/dL; Very Low Density Lipoprotein 18 mg/dL (5-40); cholesterol:hdl ratio screen 3.86
== END | disposition home or self-care (01) ==
LOC: MFPLAB 10:06
PROVIDERS: PCP Family Medicine
DX: Z12.5 Encounter for screening for malignant neoplasm of prostate (principal); E78.5 Hyperlipidemia, unspecified; E78.1 Pure hyperglyceridemia
CPT/HCPCS: 36415; 80053; 80061; 84153; 85025; G0103